=== PATIENT | female | born 1990 | race Two or more races ===

== ENCOUNTER 2021-08-12 06:57 | Emergency (ER) | payer OTHER, SELFPAY ==
[2021-08-12 07:04] VITALS: BP 118/76; BP 138/87; PULSE 77; PULSE 92; RESP 20; TEMP 37.1; O2SAT 100; O2SAT 97; BMI 33.6
[2021-08-12 07:38] VITALS: BP 129/80; PULSE 74; RESP 16; O2SAT 98
--- NOTE | 2021-08-12 07:52 | ECG_ITS ---
Test Reason : QUE Blood Pressure : / mmHG Vent. Rate : 072 BPM Atrial Rate : 072 BPM P-R Int : 152 ms QRS Dur : 072 ms QT Int : 412 ms P-R-T Axes : 034 018 015 degrees QTc Int : 451 ms Sinus rhythm Non specific T wave changes No previous ECGs available Referred By: Debbi Valdez Electronically Signed By:LIMA IRVING MD
[2021-08-12 07:59] LABS: Appearance Urine CLEAR; Color Urine YELLOW; Glucose Urine UA NEG (NEG); Leukocyte Esterase Urine NEG (NEG); Nitrite Urine NEG (NEG); Specific Gravity - Urine 1.025 (1.005-1.025); UACC Culture Trigger NO; Urine Blood 1+ (NEG); Urine Ketones NEG (NEG); Urine Protein NEG (NEG-TRACE)
[2021-08-12 08:02] LABS: UPreg QC Valid YES; Urine Pregnancy NEGATIVE (NEGATIVE)
[2021-08-12 08:16] LABS: Bacteria Urine TRACE /LPF; Squamous Epithelial Cell Urine TRACE /LPF
--- NOTE | 2021-08-12 08:18 | PC.NURSE ---
UA obtained/sent, EKG completed. Sinus arrhythmia noted on tele.
--- NOTE | 2021-08-12 08:33 | ED.GENADULT ---
HPI - General Adult General Chief complaint: General Medical Stated complaint: GENERALIZED NUMBNESS Time Seen by Provider: 08/12/21 07:30 Source: patient and family Mode of arrival: EMS History of Present Illness HPI narrative: 31-year-old female with history of asthma presents with complaints of not feeling well when she got up this morning to go to work, got into the shower in the hopes that she would feel better but then began feeling very short of breath and complaints of chest pressure and states that she got out of the shower and noted on using her cellphone it was recommended for her to take a cold shower which she attempted to do but then felt very shaky, cool, clammy and became very nauseous. Patient denies passing out and otherwise states she has had no fevers or chills recently but was seen at another facility for significant neck pain for which she had received Valium. However, she denies taking the Valium last night or this morning. Related Data Allergies Allergy/AdvReac Type Severity Reaction Status Date / Time No Known Allergies Allergy Verified 08/12/21 07:08 Review of Systems Review of Systems: Pertinent positives and negatives as stated in HPI 10 point review of systems as otherwise negative. PMFSH Past Medical History Source: nursing notes reviewed Medical History Asthma Social History Social History Patient Tobacco Use Status: Never used Tobacco Use of substances other than those prescribed or required for medical reasons: No Advance Directives: Yes Advance Directives Information Provided: Yes Advance Directives on File: No Patient : No Physical Exam ED Vital Signs: Vital Signs - 24 hr 08/12/21 07:04 08/12/21 07:38 08/12/21 09:28 Temperature 98.7 F Pulse Rate 77 74 68 Respiratory Rate 20 16 16 Blood Pressure 138/87 129/80 111/89 Pulse Oximetry 97 98 99 Oxygen Delivery Method Room Air Room Air Room Air BMI result Body Mass Index 33.6 VITAL SIGNS: Reviewed. GENERAL: Well developed, well nourished, in no acute distress. HEAD: Normocephalic/atraumatic EYES: PERRLA, EOMI EARS: Ext canals without abnormality OROPHARYNX: no oral lesions noted, posterior pharynx clear LUNGS: Normal breath sounds , no tachypnea/ rhonchi/rales/ wheeze. No adventitious sounds or accessory muscle use. SpO2<97> CARDIOVASCULAR: Regular rate and rhythm without noted murmurs ABDOMEN: Soft, non-tender, non-distended with bowel sounds. MUSCULOSKELETAL: No tenderness, deformities, or effusions noted on gross inspection. EXTREMITIES: No cyanosis, clubbing or edema. SKIN: Inspection of the skin reveals no rashes NEUROLOGIC: Alert and oriented x 4. Strength and sensation to light touch were grossly intact x 4. Course Course Course Narrative: 31-year-old female with history and clinical presentation what appears to be near syncopal vasovagal, will evaluate for etiology. Patient states that she is currently menstruating and it is normal flow for her. Review of all investigations without acute findings to better explain patient's underlying presentation. Patient states that she is feeling much better and suspect this may be medication related. She is able tolerate oral intake and is discharged home in stable condition. Medical Decision Making Lab Data Result diagrams: 08/12/21 08:51 08/12/21 08:51 Labs: Lab Results 08/12/21 08/12/21 08/12/21 Range/Units 07:48 07:48 08:51 WBC 5.1 (4.8-10.8) X10*3/uL RBC 4.17 L (4.20-5.50) X10*6/uL Hgb 10.4 L (12.0-16.0) g/dl Hct 31.7 L (37.0-47.0) % MCV 76.0 L (80.0-98.0) fL MCH 24.9 L (27.0-33.0) pg MCHC 32.8 (31.0-35.0) g/dl RDW 14.8 (11.0-16.0) % Plt Count 375 (160-400) X10*3/uL MPV 10.9 (9.4-12.3) fL Immature Gran % (Auto) 0.2 (0.0-0.4) % Neut % (Auto) 59.2 (45-73) % Lymph % (Auto) 31.9 (20-40) % [place] % (Auto) 6.9 (2-11) % Eos % (Auto) 1.4 (0-4) % Baso % (Auto) 0.4 (0-2) % Lymph # (Auto) 1.6 (1.2-4.9) X10*3/uL [place] # (Auto) 0.4 (0.1-1.2) X10*3/uL Eos # (Auto) 0.1 (0.0-0.4) X10*3/uL Baso # (Auto) 0.0 (0.0-0.2) X10*3/uL Abs Immat Gran (auto) 0.01 (0.00-0.03) X10*3/uL Absolute Neuts (auto) 3.0 (2.0-8.3) x10*3/uL Absolute Nucleated RBC 0.000 (0.0-0.012) X10*3/uL Nucleated RBC % (auto) 0.0 (0.0-0.2) /100WBC D-Dimer High Sensitivty NG/ML Sodium (135-145) mmol/L Potassium (3.3-5.1) mmol/L Chloride (96-108) mmol/L Carbon Dioxide (22-29) mmol/L Anion Gap (12-20) BUN (9-16) mg/dL Creatinine (0.5-1.4) mg/dL Estim Creat Clear Calc Estimated GFR Random Glucose (60-115) mg/dL Calcium (8.4-10.2) mg/dL Total Bilirubin (0.0-1.0) mg/dL AST (5-31) U/L ALT (0-31) U/L Alkaline Phosphatase (39-117) U/L Total Protein (6.5-8.0) g/dL Albumin (3.5-5.0) g/dL Urine Color YELLOW Urine Appearance CLEAR Urine pH 6.0 (5.0-8.0) Ur Specific [place] 1.025 (1.005-1.025) Urine Protein NEG (NEG-TRACE) MG/DL Urine Glucose (UA) NEG (NEG) MG/DL Urine Ketones NEG (NEG) MG/DL Urine Blood 1+ H (NEG) Urine Nitrite NEG (NEG) Ur Leukocyte Esterase NEG (NEG) Urine RBC 1-4 (0) /HPF Urine WBC 1-4 (0-4) /HPF Ur Squamous Epith Cells TRACE /LPF Urine Bacteria TRACE /LPF Urine Test NEGATIVE (NEGATIVE) 08/12/21 08/12/21 Range/Units 08:51 08:51 WBC (4.8-10.8) X10*3/uL RBC (4.20-5.50) X10*6/uL Hgb (12.0-16.0) g/dl Hct (37.0-47.0) % MCV (80.0-98.0) fL MCH (27.0-33.0) pg MCHC (31.0-35.0) g/dl RDW (11.0-16.0) % Plt Count (160-400) X10*3/uL MPV (9.4-12.3) fL Immature Gran % (Auto) (0.0-0.4) % Neut % (Auto) (45-73) % Lymph % (Auto) (20-40) % [place] % (Auto) (2-11) % Eos % (Auto) (0-4) % Baso % (Auto) (0-2) % Lymph # (Auto) (1.2-4.9) X10*3/uL [place] # (Auto) (0.1-1.2) X10*3/uL Eos # (Auto) (0.0-0.4) X10*3/uL Baso # (Auto) (0.0-0.2) X10*3/uL Abs Immat Gran (auto) (0.00-0.03) X10*3/uL Absolute Neuts (auto) (2.0-8.3) x10*3/uL Absolute Nucleated RBC (0.0-0.012) X10*3/uL Nucleated RBC % (auto) (0.0-0.2) /100WBC D-Dimer High Sensitivty 250 NG/ML Sodium 138 (135-145) mmol/L Potassium 4.5 (3.3-5.1) mmol/L Chloride 104 (96-108) mmol/L Carbon Dioxide 27 (22-29) mmol/L Anion Gap 12 (12-20) BUN 5 L (9-16) mg/dL Creatinine 0.83 (0.5-1.4) mg/dL Estim Creat Clear Calc 100.1 Estimated GFR > 60 Random Glucose 99 (60-115) mg/dL Calcium 8.7 (8.4-10.2) mg/dL Total Bilirubin 0.6 (0.0-1.0) mg/dL AST 18 (5-31) U/L ALT 9 (0-31) U/L Alkaline Phosphatase 71 (39-117) U/L Total Protein 7.7 (6.5-8.0) g/dL Albumin 4.0 (3.5-5.0) g/dL Urine Color Urine Appearance Urine pH (5.0-8.0) Ur Specific [place] (1.005-1.025) Urine Protein (NEG-TRACE) MG/DL Urine Glucose (UA) (NEG) MG/DL Urine Ketones (NEG) MG/DL Urine Blood (NEG) Urine Nitrite (NEG) Ur Leukocyte Esterase (NEG) Urine RBC (0) /HPF Urine WBC (0-4) /HPF Ur Squamous Epith Cells /LPF Urine Bacteria /LPF Urine Test (NEGATIVE) ECG Data Attestation: I personally reviewed and interpreted this ECG as follows: Prior ECG tracings: not available for review Interpretation: Normal sinus rhythm with marked sinus arrhythmia, HR- 72, no STEMI, W[place]/ QRS/ QTC are within normal limits. Discharge Plan Discharge Clinical Impression: Vasovagal episode Patient Disposition: Home, Self-Care Instructions: Near Syncope (ED) Additional Instructions: 1. Continue stay well hydrated and rest for the next 24 hours. 2. Follow-up with your primary care provider on Saturday morning. Return to the ER for any worsening symptoms. Referrals: Janneth Gunn MD [Primary Care Provider] -
[2021-08-12 08:55] LABS: MANUAL DIFF FLAG NO
[2021-08-12 09:11] LABS: Basophils Percent Auto 0.4 % (0-2); Eosinophils Absolute Auto 0.1 X10*3/uL (0.0-0.4); Eosinophils Percent Auto 1.4 % (0-4); Hematocrit 31.7 % (37.0-47.0); Hemoglobin 10.4 g/dl (12.0-16.0); Imm Gran Abs Auto 0.01 X10*3/uL (0.00-0.03); Imm Gran Pct Auto 0.2 % (0.0-0.4); Lymphocytes Absolute Auto 1.6 X10*3/uL (1.2-4.9); Lymphocytes Percent Auto 31.9 % (20-40); Mean Corpuscular HGB Conc 32.8 g/dl (31.0-35.0); Mean Corpuscular Hemoglobin 24.9 pg (27.0-33.0); Mean Platelet Volume 10.9 fL (9.4-12.3); Monocytes Absolute Auto 0.4 X10*3/uL (0.1-1.2); Monocytes Percent Auto 6.9 % (2-11); Neutrophils Percent Auto 59.2 % (45-73); Platelet Count 375 X10*3/uL (160-400); Red Blood Count 4.17 X10*6/uL (4.20-5.50); Red Cell Distribution Width 14.8 % (11.0-16.0); White Blood Count 5.1 X10*3/uL (4.8-10.8)
[2021-08-12 09:26] LABS: Alanine Aminotransferase 9 U/L (0-31); Alkaline Phosphatase 71 U/L (39-117); Anion Gap 12 (12-20); Aspartate Amino Transferase 18 U/L (5-31); Bilirubin Total 0.6 mg/dL (0.0-1.0); Blood Urea Nitrogen 5 mg/dL (9-16); Calcium 8.7 mg/dL (8.4-10.2); Carbon Dioxide 27 mmol/L (22-29); Chloride 104 mmol/L (96-108); Creatinine Clr Calc Pharmacy 100.1; Estimated Glomerular Filt Rate > 60; Glucose Random 99 mg/dL (60-115); Potassium 4.5 mmol/L (3.3-5.1); Sodium 138 mmol/L (135-145); Total Protein 7.7 g/dL (6.5-8.0)
[2021-08-12 09:28] VITALS: BP 111/89; PULSE 68; RESP 16; O2SAT 99
[2021-08-12 09:41] LABS: D Dimer High Sensitivity 250 NG/ML
== END 2021-08-12 10:44 | disposition home or self-care (01) ==
PROVIDERS: Emergency Provider Student in an Organized Health Care Education/Training Program; PCP Internal Medicine
DX: R55 Syncope and collapse (principal); I49.8 Other specified cardiac arrhythmias; J45.909 Unspecified asthma, uncomplicated
CPT/HCPCS: 36415; 80053; 81001; 81003; 81025; 85025; 85379; 93005; 99283; 99284

== ENCOUNTER 2021-09-19 11:43 | Emergency (ER) | payer OTHER, SELFPAY ==
--- NOTE | ~2021-09-19 | XR_ITS ---
EXAMINATION: XR CHEST CLINICAL INFORMATION: Palpitations COMPARISON: None TECHNIQUE: Frontal view of the chest was obtained. FINDINGS: The lungs are clear. The heart is normal in size. The vascularity is normal. There is no airspace solid lesion, pneumothorax, groundglass opacity, or effusion. The hilar and mediastinal contours and visualized bony structures are unremarkable. XR/XR chest 1V IMPRESSION: Normal study.
--- NOTE | 2021-09-19 12:25 | ECG_ITS ---
Test Reason : weakness Blood Pressure : / mmHG Vent. Rate : 071 BPM Atrial Rate : 071 BPM P-R Int : 160 ms QRS Dur : 074 ms QT Int : 398 ms P-R-T Axes : 042 032 034 degrees QTc Int : 432 ms Normal sinus rhythm Normal ECG When compared with ECG of 12-AUG-2021 07:54, Nonspecific ST and T wave abnormality less prominent. Referred By: Generic ED Physician Electronically Signed By:ARTURO LYNCH
[2021-09-19 12:26] VITALS: BP 125/80; PULSE 80; RESP 18; TEMP 36.9; O2SAT 97; BMI 34.5
[2021-09-19 12:51] LABS: MANUAL DIFF FLAG NO
[2021-09-19 12:52] LABS: Basophils Percent Auto 0.5 % (0-2); Eosinophils Absolute Auto 0.1 X10*3/uL (0.0-0.4); Eosinophils Percent Auto 1.4 % (0-4); Hematocrit 33.1 % (37.0-47.0); Hemoglobin 10.9 g/dl (12.0-16.0); Imm Gran Abs Auto 0.01 X10*3/uL (0.00-0.03); Imm Gran Pct Auto 0.2 % (0.0-0.4); Lymphocytes Absolute Auto 1.6 X10*3/uL (1.2-4.9); Lymphocytes Percent Auto 26.5 % (20-40); Mean Corpuscular HGB Conc 32.9 g/dl (31.0-35.0); Mean Corpuscular Hemoglobin 25.5 pg (27.0-33.0); Mean Corpuscular Volume 77.3 fL (80.0-98.0); Mean Platelet Volume 10.7 fL (9.4-12.3); Monocytes Absolute Auto 0.4 X10*3/uL (0.1-1.2); Monocytes Percent Auto 6.7 % (2-11); Neutrophils Absolute Auto 3.8 x10*3/uL (2.0-8.3); Neutrophils Percent Auto 64.7 % (45-73); Platelet Count 333 X10*3/uL (160-400); Red Blood Count 4.28 X10*6/uL (4.20-5.50); Red Cell Distribution Width 14.9 % (11.0-16.0); White Blood Count 5.8 X10*3/uL (4.8-10.8)
[2021-09-19 13:05] LABS: Anion Gap 10 (12-20); Blood Urea Nitrogen 7 mg/dL (9-16); Carbon Dioxide 29 mmol/L (22-29); Chloride 104 mmol/L (96-108); Creatinine Clr Calc Pharmacy 100.4; Estimated Glomerular Filt Rate > 60; Glucose Random 105 mg/dL (60-115); Potassium 4.1 mmol/L (3.3-5.1); Sodium 139 mmol/L (135-145)
[2021-09-19 13:13] LABS: Troponin-I High Sensitivity < 3.5 ng/L (<3.5-17.0)
[2021-09-19 21:00] LABS: Thyroid Stimulating Hormone 4.74 uIU/mL (0.32-4.0)
== END 2021-09-19 20:45 | disposition left against medical advice (07) ==
LOC: HO.ED 20:47
PROVIDERS: Physician Assistant; Emergency Provider Emergency Medicine; PCP Internal Medicine
DX: R53.1 Weakness (principal); R00.2 Palpitations; D64.9 Anemia, unspecified; E66.9 Obesity, unspecified; Z68.34 Body mass index [BMI] 34.0-34.9, adult
CPT/HCPCS: 36415; 71045; 80048; 84443; 84484; 85025; 93005; 99283

== ENCOUNTER 2021-09-23 15:15 | Emergency (ER) | payer OTHER, SELFPAY ==
--- NOTE | ~2021-09-23 | CT_ITS ---
EXAMINATION: CT HEAD WITHOUT CONTRAST CLINICAL INFORMATION: Dizziness with weakness and extremity tingling COMPARISON: None TECHNIQUE: Imaging was performed from the skull base to vertex without intravenous administration of contrast. This CT examination was performed using dose optimization techniques as appropriate, variously including the following: *Automated exposure control *Adjustment of mA and/or kV according to patient size (this includes techniques or standardized protocols for targeted exams where dose is matched to indication/reason for exam; i.e. extremities or head) *Use of iterative reconstruction technique Total exam dose length product: 634 mGy-cm FINDINGS: No intra or extra-axial fluid collection, hemorrhage, or mass. No ventriculomegaly. No midline shift or herniation. Basal cisterns are patent. Mitchell-white matter differentiation is maintained. No territorial encephalomalacia. No significant volume loss. There is no abnormal attenuation within the brain parenchyma. No calvarial fracture or soft tissue abnormality. The mastoid air cells and visualized portions of the paranasal sinuses are well aerated. CT/CT head/brain wo con IMPRESSION: 1. No acute intracranial pathology.
[2021-09-23 15:23] VITALS: BP 140/100; PULSE 124; O2SAT 95
[2021-09-23 15:28] VITALS: BP 116/84; PULSE 95; RESP 18; TEMP 36.8; O2SAT 96; BMI 34.5
[2021-09-23 18:15] LABS: MANUAL DIFF FLAG NO
[2021-09-23 18:21] LABS: INTERNATIONAL NORM RATIO 1.2 (0.9-1.1); Prothrombin Time 14.4 SEC (10.0-13.1)
[2021-09-23 18:22] LABS: Basophils Percent Auto 0.4 % (0-2); Eosinophils Percent Auto 0.4 % (0-4); Hematocrit 33.7 % (37.0-47.0); Hemoglobin 11.2 g/dl (12.0-16.0); Imm Gran Abs Auto 0.05 X10*3/uL (0.00-0.03); Imm Gran Pct Auto 0.7 % (0.0-0.4); Lymphocytes Absolute Auto 1.7 X10*3/uL (1.2-4.9); Lymphocytes Percent Auto 26.1 % (20-40); Mean Corpuscular HGB Conc 33.2 g/dl (31.0-35.0); Mean Corpuscular Hemoglobin 25.5 pg (27.0-33.0); Mean Corpuscular Volume 76.6 fL (80.0-98.0); Mean Platelet Volume 10.9 fL (9.4-12.3); Monocytes Absolute Auto 0.5 X10*3/uL (0.1-1.2); Monocytes Percent Auto 6.9 % (2-11); Neutrophils Absolute Auto 4.4 x10*3/uL (2.0-8.3); Neutrophils Percent Auto 65.5 % (45-73); Platelet Count 371 X10*3/uL (160-400); Red Cell Distribution Width 14.5 % (11.0-16.0); White Blood Count 6.7 X10*3/uL (4.8-10.8)
[2021-09-23 18:25] LABS: Estimated Average Glucose 103 mg/dL; Hemoglobin A1c % 5.2 %
[2021-09-23 18:33] LABS: Alanine Aminotransferase 7 U/L (0-31); Albumin Level 4.4 g/dL (3.5-5.0); Alkaline Phosphatase 76 U/L (39-117); Anion Gap 15 (12-20); Aspartate Amino Transferase 13 U/L (5-31); Bilirubin Total 0.4 mg/dL (0.0-1.0); Blood Urea Nitrogen 8 mg/dL (9-16); Calcium 9.3 mg/dL (8.4-10.2); Carbon Dioxide 28 mmol/L (22-29); Chloride 104 mmol/L (96-108); Creatinine Clr Calc Pharmacy 105.4; Estimated Glomerular Filt Rate > 60; Glucose Random 92 mg/dL (60-115); Magnesium 1.9 mg/dL (1.6-2.6); Potassium 3.8 mmol/L (3.3-5.1); Sodium 143 mmol/L (135-145); Total Protein 8.4 g/dL (6.5-8.0)
--- NOTE | 2021-09-23 19:19 | ED.EXTPRO ---
HPI - Extremity Problem General Chief complaint: Back Pain/Injury Stated complaint: leg weakness Time Seen by Provider: 09/23/21 17:23 Source: patient, family (Younger daughters at bedside) and EMS Mode of arrival: EMS Limitations: no limitations History of Present Illness HPI Narrative: 31-year-old female with a past medical history of hypochronic anemia and iron deficiency who is currently on iron supplements taking as prescribed and obesity presenting to the ED with complaints of tingling from her thigh areas radiating down to her bilateral lower extremities and tingling to her bilateral arms/hands and feeling weak to her bilateral legs and some difficult walking. Reports that she has a history of sciatic nerve issues although denies any back pain at this time. She reports associated dizziness and nausea. She denies any headaches, recent falls or trauma, changes in vision, jaw pain, chest pain, shortness of breath, dyspnea exertion, orthopnea, palpitations, neck pain, neck injury, back pain, back injury, rashes, urinary bowel incontinence or retention, saddle anesthesias, IV drug use, recent illness or sickness, history of COVID or any other symptoms complaints or concerns at this time. Related Data Previous Rx's Medication Instructions Recorded ferrous fumarate 324 mg (106 mg 324 mg PO DAILY #30 tabs 08/31/21 iron) tablet gabapentin 100 mg capsule 100 mg PO BID Paresthesias #14 caps 09/23/21 Allergies Allergy/AdvReac Type Severity Reaction Status Date / Time No Known Allergies Allergy Verified 09/19/21 12:26 Review of Systems Review of Systems: Constitutional : No Weight loss, No Fever, No Chills, No Night Sweats, No Fatigue, No Malaise ENT/Mouth : No Hearing loss, No Ear Pain, No Nasal Congestion, No Sinus Pain, No Hoarseness, No sore throat, No Rhinorrhea, No Swallowing Difficulty Eyes: No Eye Pain, No Swelling, No Redness, No Foreign Body, No Discharge, No Vision Changes Cardiovascular : No Chest Pain, No SOB, No Dyspnea on Exertion, No Orthopnea, No Edema, No Palpitations Respiratory : No Cough, No Sputum, No Wheezing, No Smoke Exposure, No Dyspnea Gastrointestinal : No Nausea, No Vomiting, No Diarrhea, No Constipation, No abdominal Pain, No Hematochezia, No Melena Genitourinary : no irregular bleeding, No Dysuria, No Urinary Frequency, No Hematuria, No Urinary Incontinence, No Urgency, No Flank Pain, No Urinary Flow Changes, No Hesitancy Musculoskeletal : No joint pain, No Myalgias, No Joint Swelling Skin : No Skin Lesions, No rash Neuro : + paresthesias, + Dizziness, No Weakness, No Numbness, No Loss of Consciousness, No Headache Psych : No Anxiety/Panic, No Depression, No SI/HI/AH/VH, No Social Issues, Heme/Lymph: No Bruising, No Bleeding,No Lymphadenopathy Endocrine : No Polyuria, No Polydipsia, No Temperature Intolerance Yes all other systems are reviewed and are negative [facility] Past Medical History Attestation statement: The following information was validated with the patient. Source: old records reviewed and nursing notes reviewed Medical History Asthma Family history of thyroid disease in mother Family History Family History Father Substance use disorder Mental health disorder Mother Mental health disorder Social History Social History Housing: Apartment Patient Tobacco Use Status: Never used Tobacco e-Cigarette/Vaping Use: Never Used Advance Directives: No Advance Directives Information Provided: No service: No Current occupational status: employed Cognitive needs: No Hearing needs: No Vision needs: No Physical Exam Vital Signs: Vital Signs: Last Vital Signs Temp 98.3 F 09/23/21 15:28 Pulse 95 09/23/21 15:28 Resp 18 09/23/21 15:28 BP 116/84 09/23/21 15:28 Pulse Ox 96 09/23/21 15:28 O2 Del Method 09/23/21 15:28 BMI result Body Mass Index 34.5 vital signs have been reviewed as normal and appeared to be correct. Blood pressure normal. Heart rate normal. Respiration rate normal. Temperature normal. Oxygen saturation normal. Appearance: Alert. Oriented X3. No acute distress. Head: Normal external exam. Normocephalic. Atraumatic. No Strauss signs noted. No raccoon eyes noted Eyes: PERRLA. EOMI. Conjunctiva and sclera normal. Eyelids normal. ENT: EAC normal. TM's Normal. Pharynx normal. Uvula midline. Moist mucous membranes. No trismus noted. No drooling noted. No muffled voice noted. Neck: Normal inspection. Neck supple. FROM. No adenopathy. Thyroid Normal. No meningeal signs. No neck mass noted. CVS: Normal heart rate and rhythm. Heart sound normal. No murmurs noted. Pulses normal throughout. Respiratory: No respiratory distress. Painless inspiration. Breath sounds normal. No wheezes/rales/rhonchi noted. Chest nontender. No accessory muscle usage noted or decreased air movement noted. Abdomen: Soft and nontender. Bowel sounds normal in all 4 quadrants. No distention noted. No organomegaly noted. No visible injury noted. Back: No CVA tenderness. Full range of motion noted. No obvious deformities, or edema. Full ROM in back and lower extremities. 5/5 strength hip extension/flexion, abduction, adduction. Straight leg raise test negative on right; Straight leg raise test negative on left; Reflexes normal ankle and knee bilaterally; EHL motor strength normal bilaterally. No rashes/lesion/induration/fluctuance or signs infection noted. Skin: Skin warm and dry. Normal skin color. Normal skin turgor. No rashes/lesions/lacerations noted. Extremities: No lower extremity edema. No calf tenderness noted. Extremities exhibit normal range of motion. Extremities nontender. Neuro: Oriented X 3. No motor deficit. No sensory deficit. Reflexes normal. Patient has a normal steady gait. She also has been up to the bathroom without any difficulties or assistance or assistive devices. Course Course Course Narrative: 31-year-old female with a past medical history of hypochronic anemia and iron deficiency who is currently on iron supplements taking as prescribed and obesity presenting to the ED with complaints of tingling from her thigh areas radiating down to her bilateral lower extremities and tingling to her bilateral arms/hands and feeling weak to her bilateral legs and some difficult walking. Reports that she has a history of sciatic nerve issues although denies any back pain at this time. She reports associated dizziness and nausea. Labs obtained and patient mild baseline anemia similar when compared to prior. Otherwise all other labs are within normal limits. CT scan of brain within normal limits. Patient has been up to the bathroom multiple times. She has a normal steady gait. No neuro deficits noted. She has normal sensation on all 4 extremities. She has a normal motor on all 4 extremities. She is requesting something for pain therefore explained to her that we can send her home with a short course of gabapentin for paresthesias in that she should follow-up with her PCP for further evaluation treatment for nerve pain and to return if any new or worsening symptoms. Patient understands agrees with this plan. MDM - Extremity (Nontraumatic) Medical Records Attestation: I reviewed the patient's medical records. Lab Data Attestation: I reviewed the patient's lab results. Result diagrams: 09/23/21 18:01 09/23/21 18:01 Labs: Lab Results 09/23/21 09/23/21 09/23/21 Range/Units 18:01 18:01 18:01 WBC 6.7 (4.8-10.8) X10*3/uL RBC 4.40 (4.20-5.50) X10*6/uL Hgb 11.2 L (12.0-16.0) g/dl Hct 33.7 L (37.0-47.0) % MCV 76.6 L (80.0-98.0) fL MCH 25.5 L (27.0-33.0) pg MCHC 33.2 (31.0-35.0) g/dl RDW 14.5 (11.0-16.0) % Plt Count 371 (160-400) X10*3/uL MPV 10.9 (9.4-12.3) fL Immature Gran % (Auto) 0.7 H (0.0-0.4) % Neut % (Auto) 65.5 (45-73) % Lymph % (Auto) 26.1 (20-40) % [place] % (Auto) 6.9 (2-11) % Eos % (Auto) 0.4 (0-4) % Baso % (Auto) 0.4 (0-2) % Lymph # (Auto) 1.7 (1.2-4.9) X10*3/uL [place] # (Auto) 0.5 (0.1-1.2) X10*3/uL Eos # (Auto) 0.0 (0.0-0.4) X10*3/uL Baso # (Auto) 0.0 (0.0-0.2) X10*3/uL Abs Immat Gran (auto) 0.05 H (0.00-0.03) X10*3/uL Absolute Neuts (auto) 4.4 (2.0-8.3) x10*3/uL Absolute Nucleated RBC 0.000 (0.0-0.012) X10*3/uL Nucleated RBC % (auto) 0.0 (0.0-0.2) /100WBC PT 14.4 H (10.0-13.1) SEC INR 1.2 H (0.9-1.1) Sodium 143 (135-145) mmol/L Potassium 3.8 (3.3-5.1) mmol/L Chloride 104 (96-108) mmol/L Carbon Dioxide 28 (22-29) mmol/L Anion Gap 15 (12-20) BUN 8 L (9-16) mg/dL Creatinine 0.80 (0.5-1.4) mg/dL Estim Creat Clear Calc 105.4 Estimated GFR > 60 Random Glucose 92 (60-115) mg/dL Estimat Average Glucose mg/dL Hemoglobin A1c % % Calcium 9.3 (8.4-10.2) mg/dL Magnesium 1.9 (1.6-2.6) mg/dL Total Bilirubin 0.4 (0.0-1.0) mg/dL AST 13 (5-31) U/L ALT 7 (0-31) U/L Alkaline Phosphatase 76 (39-117) U/L Total Protein 8.4 H (6.5-8.0) g/dL Albumin 4.4 (3.5-5.0) g/dL 09/23/21 Range/Units 18:01 WBC (4.8-10.8) X10*3/uL RBC (4.20-5.50) X10*6/uL Hgb (12.0-16.0) g/dl Hct (37.0-47.0) % MCV (80.0-98.0) fL MCH (27.0-33.0) pg MCHC (31.0-35.0) g/dl RDW (11.0-16.0) % Plt Count (160-400) X10*3/uL MPV (9.4-12.3) fL Immature Gran % (Auto) (0.0-0.4) % Neut % (Auto) (45-73) % Lymph % (Auto) (20-40) % [place] % (Auto) (2-11) % Eos % (Auto) (0-4) % Baso % (Auto) (0-2) % Lymph # (Auto) (1.2-4.9) X10*3/uL [place] # (Auto) (0.1-1.2) X10*3/uL Eos # (Auto) (0.0-0.4) X10*3/uL Baso # (Auto) (0.0-0.2) X10*3/uL Abs Immat Gran (auto) (0.00-0.03) X10*3/uL Absolute Neuts (auto) (2.0-8.3) x10*3/uL Absolute Nucleated RBC (0.0-0.012) X10*3/uL Nucleated RBC % (auto) (0.0-0.2) /100WBC PT (10.0-13.1) SEC INR (0.9-1.1) Sodium (135-145) mmol/L Potassium (3.3-5.1) mmol/L Chloride (96-108) mmol/L Carbon Dioxide (22-29) mmol/L Anion Gap (12-20) BUN (9-16) mg/dL Creatinine (0.5-1.4) mg/dL Estim Creat Clear Calc Estimated GFR Random Glucose (60-115) mg/dL Estimat Average Glucose 103 mg/dL Hemoglobin A1c % 5.2 % Calcium (8.4-10.2) mg/dL Magnesium (1.6-2.6) mg/dL Total Bilirubin (0.0-1.0) mg/dL AST (5-31) U/L ALT (0-31) U/L Alkaline Phosphatase (39-117) U/L Total Protein (6.5-8.0) g/dL Albumin (3.5-5.0) g/dL Imaging Data CT scan of brain without contrast: Attestation: I personally reviewed and interpreted this imaging study as follows: Radiologist's impression: FINDINGS: No intra or extra-axial fluid collection, hemorrhage, or mass. No ventriculomegaly. No midline shift or herniation. Basal cisterns are patent. Mitchell-white matter differentiation is maintained. No territorial encephalomalacia. ?No significant volume loss. There is no abnormal attenuation within the brain parenchyma. No calvarial fracture or soft tissue abnormality. ?The mastoid air cells and visualized portions of the paranasal sinuses are well aerated. CT/CT head/brain wo con IMPRESSION: 1. No acute intracranial pathology. Discharge Plan Discharge Clinical Impression: Paresthesias, Dizziness Patient Disposition: Home, Self-Care Instructions: Paresthesia (ED) Prescriptions: New gabapentin 100 mg capsule 100 mg PO BID Qty: 14 0RF No Action ferrous fumarate 324 mg (106 mg iron) tablet 324 mg PO DAILY Qty: 30 3RF Referrals: Physician,Unknown J [Primary Care Provider] - 2 days (your pcp) Stand Alone Forms: Work/School Release
== END 2021-09-23 20:18 | disposition home or self-care (01) ==
PROVIDERS: Physician Assistant Medical; Emergency Provider Emergency Medicine
DX: R20.2 Paresthesia of skin (principal); R42 Dizziness and giddiness; E66.9 Obesity, unspecified; Z68.34 Body mass index [BMI] 34.0-34.9, adult
CPT/HCPCS: 36415; 70450; 80053; 83036; 83735; 85025; 85610; 99282; 99284

== ENCOUNTER 2021-11-02 10:11 | Outpatient (REF) | payer OTHER, SELFPAY ==
[2021-11-02 11:25] LABS: MANUAL DIFF FLAG NO
[2021-11-02 11:43] LABS: Basophils Percent Auto 0.5 % (0-2); Eosinophils Absolute Auto 0.1 X10*3/uL (0.0-0.4); Eosinophils Percent Auto 1.7 % (0-4); Hematocrit 32.1 % (37.0-47.0); Hemoglobin 10.7 g/dl (12.0-16.0); Imm Gran Abs Auto 0.02 X10*3/uL (0.00-0.03); Imm Gran Pct Auto 0.3 % (0.0-0.4); Lymphocytes Absolute Auto 2.2 X10*3/uL (1.2-4.9); Lymphocytes Percent Auto 34.2 % (20-40); Mean Corpuscular HGB Conc 33.3 g/dl (31.0-35.0); Mean Corpuscular Hemoglobin 25.8 pg (27.0-33.0); Mean Corpuscular Volume 77.3 fL (80.0-98.0); Mean Platelet Volume 11.8 fL (9.4-12.3); Monocytes Absolute Auto 0.5 X10*3/uL (0.1-1.2); Monocytes Percent Auto 8.3 % (2-11); Neutrophils Absolute Auto 3.6 x10*3/uL (2.0-8.3); Platelet Count 365 X10*3/uL (160-400); Red Blood Count 4.15 X10*6/uL (4.20-5.50); Red Cell Distribution Width 15.2 % (11.0-16.0); White Blood Count 6.5 X10*3/uL (4.8-10.8)
[2021-11-02 12:27] LABS: Cholesterol 164 mg/dL; HDL Cholesterol 44 mg/dL; Iron 38 mcg/dL (30-160); LDL Cholesterol Calculated 111 mg/dl; Percent Iron Saturation 12 % (15-50); Total Iron Binding Capacity 307 mcg/dL (228-428); Triglycerides 49 mg/dL; Unsaturated Iron Binding 269 ug/dL
[2021-11-02 12:52] LABS: Free T4 (Free Thyroxine) 1.02 ng/dL (0.71-1.85); TSH reflex Free T4 1.76 uIU/mL (0.32-4.0)
== END 2021-11-02 10:12 | disposition home or self-care (01) ==
LOC: HO.HMGCLDS 10:11
PROVIDERS: PCP Internal Medicine; Visit Provider Internal Medicine
DX: D50.9 Iron deficiency anemia, unspecified (principal); E66.9 Obesity, unspecified; E03.9 Hypothyroidism, unspecified; R79.89 Other specified abnormal findings of blood chemistry; Z83.49 Family history of other endocrine, nutritional and metabolic diseases
CPT/HCPCS: 36415; 80061; 83540; 84439; 84443; 85025

== ENCOUNTER 2021-11-03 14:39 | Outpatient (REF) | payer OTHER, SELFPAY ==
--- NOTE | ~2021-11-03 | XR_ITS ---
EXAMINATION: XR LUMBOSACRAL SPINE WITH OBLIQUES CLINICAL INFORMATION: Lower back pain. COMPARISON: None TECHNIQUE: AP, both oblique, and lateral views of the lumbar spine. Lateral view of the lumbosacral junction. FINDINGS: Vertebral body heights are normal. At L5-S1, there is a 3 mm retrolisthesis. The remaining disc spaces are relatively well-maintained. No acute fracture or spondylolisthesis is seen. The posterior elements are intact. There is no spondylolysis defect noted on the oblique views. The paravertebral soft tissues are unremarkable. XR/XR lumbar spine 4V min IMPRESSION: 1. There is mild degenerative disc disease at L5-S1. 2. No acute fracture or spondylolisthesis is seen.
== END 2021-11-03 14:40 | disposition home or self-care (01) ==
LOC: HO.HMGCX 14:39
PROVIDERS: PCP Internal Medicine; Visit Provider Internal Medicine
DX: M54.50 Low back pain, unspecified (principal)
CPT/HCPCS: 72110

== ENCOUNTER 2021-12-05 12:00 | Outpatient (REF) | payer OTHER, SELFPAY ==
[2021-12-06 03:30] LABS: CT PCR NOT DETECTED (Not Detect.); NG PCR NOT DETECTED (Not Detect.)
[2021-12-06 12:44] LABS: BV Int Neg Control Negative (Negative); BV Int Pos Control Positive (Positive)
== END 2021-12-05 12:01 | disposition home or self-care (01) ==
LOC: HO.LNP 12:00
PROVIDERS: Visit Provider Advanced Practice Midwife
DX: Z01.419 Encounter for gynecological examination (general) (routine) without abnormal findings (principal)
CPT/HCPCS: 87480; 87491; 87510; 87591; 87660; 88142

== ENCOUNTER 2021-12-18 17:23 | Emergency (ER) | payer OTHER, SELFPAY ==
[2021-12-18 18:41] VITALS: BP 139/86; PULSE 98; RESP 16; TEMP 37; O2SAT 99; BMI 32.0
[2021-12-18 19:17] LABS: MANUAL DIFF FLAG NO
[2021-12-18 19:20] LABS: Appearance Urine Clear; Basophils Percent Auto 0.4 % (0-2); Color Urine Yellow; Eosinophils Percent Auto 0.4 % (0-4); Glucose Urine UA Negative (Negative); Hemoglobin 11.1 g/dl (12.0-16.0); Imm Gran Abs Auto 0.01 X10*3/uL (0.00-0.03); Imm Gran Pct Auto 0.4 % (0.0-0.4); Leukocyte Esterase Urine Negative (Negative); Lymphocytes Absolute Auto 0.4 X10*3/uL (1.2-4.9); Lymphocytes Percent Auto 13.8 % (20-40); Mean Corpuscular HGB Conc 33.6 g/dl (31.0-35.0); Mean Corpuscular Hemoglobin 25.8 pg (27.0-33.0); Mean Corpuscular Volume 76.6 fL (80.0-98.0); Mean Platelet Volume 10.5 fL (9.4-12.3); Monocytes Absolute Auto 0.5 X10*3/uL (0.1-1.2); Monocytes Percent Auto 18.8 % (2-11); Neutrophils Absolute Auto 1.8 x10*3/uL (2.0-8.3); Neutrophils Percent Auto 66.2 % (45-73); Nitrite Urine Negative (Negative); PH 5.5 (5.0-9.0); Platelet Count 308 X10*3/uL (160-400); Red Blood Count 4.31 X10*6/uL (4.20-5.50); Specific Gravity - Urine >= 1.030 (1.005-1.025); UMIC TRIGGER UACC YES; Urine Blood Moderate (2+) (Negative); Urine Ketones 15 mg/dL (Negative); Urine Protein 30 (1+) mg/dL (Neg-Trace); White Blood Count 2.8 X10*3/uL (4.8-10.8)
[2021-12-18 19:31] LABS: Anion Gap 17 (12-20); Blood Urea Nitrogen 8 mg/dL (9-16); Calcium 9.5 mg/dL (8.4-10.2); Carbon Dioxide 24 mmol/L (22-29); Chloride 104 mmol/L (96-108); Creatinine Clr Calc Pharmacy 101.2; Estimated Glomerular Filt Rate > 60; Glucose Random 99 mg/dL (60-115); Potassium 4.1 mmol/L (3.3-5.1); Sodium 141 mmol/L (135-145)
[2021-12-18 19:34] LABS: WBC Urine 0-5 /HPF (0-5)
[2021-12-18 19:35] LABS: Bacteria Urine 1+ (None Seen); Hyaline Casts Urine 0-2 /LPF (0-2)
--- NOTE | 2021-12-18 20:47 | ED.FEMALEGU ---
HPI - Female Genitourinary General Chief complaint: Urogenital-Female Stated complaint: back pain ?allergic reaction to ointment Time Seen by Provider: 12/18/21 20:35 Source: patient Mode of arrival: ambulatory Limitations: no limitations History of Present Illness HPI Narrative: 31 yo female with history of sciatica, anemia, obesity, recently diagnosed BV and yeast infection who presents to the ER for evaluation of nausea and low back pain. She states the nausea started the same time she was prescribed the metronidazole for BV. She is on her menses and usually has worsening sciatica and low back pain with this. She denies any fever or chills. Her vaginal discharge is improved. She denies any abdominal pain, vomiting or diarrhea. No LE weakness, bowel/bladder incontinence. She has been using lidocaine patches for her back with minimal relief. MD elicited complaint: vaginal discharge and other (back pain and nausea) Onset (ago): day(s) Location of symptoms: external genitalia and other (back) Severity: moderate Quality of pain: sharp Consistency: intermittent Vaginal discharge: white Vaginal bleeding: moderate Exacerbating factors: menstrual period Relieving factors: none Associated symptoms: denies other symptoms Treatment prior to arrival: none Patient : No Related Data Home Medications Medication Instructions Recorded Confirmed ibuprofen 600 mg tablet 600 mg PO Q6H 11/03/21 12/05/21 [id number] 8 mg-folic 1 tab PO DAILY 12/05/21 12/05/21 ac 400 mcg-vit K 10 mcg chew tablet (Centrum Chewables) Previous Rx's Medication Instructions Recorded ferrous fumarate 324 mg (106 mg 324 mg PO DAILY #30 tabs 08/31/21 iron) tablet gabapentin 100 mg capsule 100 mg PO BID Paresthesias #14 caps 09/23/21 meclizine 25 mg tablet 25 mg PO TID PRN motion sickness 10/31/21 #20 tabs fluconazole 150 mg tablet 150 mg PO DAILY 1 dose #1 tab 12/14/21 (Diflucan) metronidazole 500 mg tablet 500 mg PO BID 7 days #14 tabs 12/14/21 cyclobenzaprine 10 mg tablet 10 mg PO TID PRN muscle spasm #8 12/18/21 tabs ibuprofen 600 mg tablet 600 mg PO Q8H PRN pain #14 tabs 12/18/21 ondansetron 4 mg disintegrating 4 mg PO Q8H PRN nausea and 12/18/21 tablet vomiting #7 tabs Allergies Allergy/AdvReac Type Severity Reaction Status Date / Time No Known Allergies Allergy Verified 12/05/21 11:20 Review of Systems Review of Systems: Constitutional: No Fever, No Chills Cardiovascular: No Chest Pain, No SOB Gastrointestinal: + Nausea, No Vomiting, No Diarrhea, No abdominal Pain Genitourinary: No Dysuria, No Urinary Frequency, No Hematuria, +improving vaginal discharge Musculoskeletal: + joint pain, + Myalgias Skin: No Skin Lesions, No rash Neuro: No Weakness, No Numbness, No Dizziness, No Headache Psych: No Anxiety/Panic, No Depression Heme/Lymph: No Bruising, No Lymphadenopathy PMFSH Past Medical History Medical History Asthma Family history of thyroid disease in mother Low back pain potentially associated with radiculopathy Family History Family History Father Substance use disorder Mental health disorder Mother Mental health disorder Thyroid disorder Social History Social History Housing: Apartment Alcohol intake: never Patient Tobacco Use Status: Never used Tobacco Smoked in Last 30 Days: No e-Cigarette/Vaping Use: Never Used Use of substances other than those prescribed or required for medical reasons: No Advance Directives: No service: No Current occupational status: unemployed Cognitive needs: No Hearing needs: No Vision needs: No Physical Exam Vital Signs: Vital Signs: Last Vital Signs Temp 98.6 F 12/18/21 18:41 Pulse 98 12/18/21 18:41 Resp 16 12/18/21 18:41 BP 139/86 12/18/21 18:41 Pulse Ox 99 12/18/21 18:41 O2 Del Method 12/18/21 18:41 BMI result Body Mass Index 32.0 Appearance: Alert. Oriented X3. No acute distress. HEENT: normal external inspection Neck: Normal inspection. CVS: Normal heart rate and rhythm. Pulses normal. Respiratory: No respiratory distress. Breath sounds normal. Abdomen: Soft and nontender. +BS x4. Pelvic deferred Back: normal inspection, normal ROM. tenderness of the lower lumbar area throughout with bilateral SI joint tenderness. negative straight leg raise test. Skin: Skin warm and dry. Normal skin color. Normal skin turgor. No rashes. Extremities: No lower extremity edema. Neuro: Oriented X 3.Grossly normal, nonfocal. normal DTRs Course Course Course Narrative: 31-year-old female with history of sciatica and recently diagnosed BV and yeast infection presents to the ER for evaluation low back pain and nausea in the setting of taking metronidazole while she is on her menses. Overall her exam is unremarkable. She states her vaginal discharge is improving with the metronidazole but she is nauseous when she takes it. Will plan to give her sublingual Zofran to take prior to taking her metronidazole. Her low back pain his consistent with a sciatica flare, she usually responds well to NSAIDs in short course of muscle relaxers. We discussed supportive care and return precautions. She is stable for DC. Patient agrees with plan. MDM - Female Genitourinary Lab Data Result diagrams: 12/18/21 19:06 12/18/21 19:06 Labs: Lab Results 12/18/21 12/18/21 12/18/21 Range/Units 19:06 19:06 19:06 WBC 2.8 L (4.8-10.8) X10*3/uL RBC 4.31 (4.20-5.50) X10*6/uL Hgb 11.1 L (12.0-16.0) g/dl Hct 33.0 L (37.0-47.0) % MCV 76.6 L (80.0-98.0) fL MCH 25.8 L (27.0-33.0) pg MCHC 33.6 (31.0-35.0) g/dl RDW 15.0 (11.0-16.0) % Plt Count 308 (160-400) X10*3/uL MPV 10.5 (9.4-12.3) fL Immature Gran % (Auto) 0.4 (0.0-0.4) % Neut % (Auto) 66.2 (45-73) % Lymph % (Auto) 13.8 L (20-40) % [place] % (Auto) 18.8 H (2-11) % Eos % (Auto) 0.4 (0-4) % Baso % (Auto) 0.4 (0-2) % Lymph # (Auto) 0.4 L (1.2-4.9) X10*3/uL [place] # (Auto) 0.5 (0.1-1.2) X10*3/uL Eos # (Auto) 0.0 (0.0-0.4) X10*3/uL Baso # (Auto) 0.0 (0.0-0.2) X10*3/uL Abs Immat Gran (auto) 0.01 (0.00-0.03) X10*3/uL Absolute Neuts (auto) 1.8 L (2.0-8.3) x10*3/uL Absolute Nucleated RBC 0.000 (0.0-0.012) X10*3/uL Nucleated RBC % (auto) 0.0 (0.0-0.2) /100WBC Sodium 141 (135-145) mmol/L Potassium 4.1 (3.3-5.1) mmol/L Chloride 104 (96-108) mmol/L Carbon Dioxide 24 (22-29) mmol/L Anion Gap 17 (12-20) BUN 8 L (9-16) mg/dL Creatinine 0.80 (0.5-1.4) mg/dL Estim Creat Clear Calc 101.2 Estimated GFR > 60 Random Glucose 99 (60-115) mg/dL Calcium 9.5 (8.4-10.2) mg/dL Urine Color Yellow Urine Appearance Clear Urine pH 5.5 (5.0-9.0) Ur Specific [place] >= 1.030 H (1.005-1.025) Urine Protein 30 (1+) H (Neg-Trace) mg/dL Urine Glucose (UA) Negative (Negative) mg/dL Urine Ketones 15 (Negative) mg/dL Urine Blood Moderate (2+) H (Negative) Urine Nitrite Negative (Negative) Ur Leukocyte Esterase Negative (Negative) Urine RBC 11-20 H (0-2) /HPF Urine WBC 0-5 (0-5) /HPF Ur Squamous Epith Cells 3-5 (0-2) /HPF Urine Bacteria 1+ (None Seen) Hyaline Casts 0-2 (0-2) /LPF Discharge Plan Discharge Clinical Impression: Nausea, Sciatica Patient Disposition: Home, Self-Care Instructions: Acute Low Back Pain (ED), Lower Back Exercises (ED) Additional Instructions: Recommend taking the prescribed nausea medication 1 hour before you to take her metronidazole. Take metronidazole with food. No bending, lifting or twisting. Use ice several times per day for 20 minutes at a time for the next 48 hours and then change to heat. Take medications as prescribed to help with pain and discomfort. Follow up with your Primary Care Doctor this week. If your pain worsens, if you develop new numbness, tingling, weakness, loss of function or incontinence call 911 or come back to the ER right away for evaluation. Prescriptions: New cyclobenzaprine 10 mg tablet 10 mg PO TID PRN (Reason: muscle spasm) Qty: 8 0RF ibuprofen 600 mg tablet 600 mg PO Q8H PRN (Reason: pain) Qty: 14 0RF ondansetron 4 mg tablet,disintegrating 4 mg PO Q8H PRN (Reason: nausea and vomiting) Qty: 7 0RF No Action meclizine 25 mg tablet 25 mg PO TID PRN (Reason: motion sickness) Qty: 20 0RF metronidazole 500 mg tablet 500 mg PO BID 7 Days Qty: 14 0RF Rx Instructions: Take with food, Avoid alcohol and vinegar products fluconazole [Diflucan] 150 mg tablet 150 mg PO DAILY Qty: 1 0RF Rx Instructions: administer on day 1 of therapy gabapentin 100 mg capsule 100 mg PO BID Qty: 14 0RF ibuprofen 600 mg tablet 600 mg PO Q6H ferrous fumarate 324 mg (106 mg iron) tablet 324 mg PO DAILY Qty: 30 3RF Centrum Chewables 8 mg-400 mcg- 10 mcg tablet,chewable 1 tab PO DAILY Referrals: Janneth Gunn MD [Primary Care Provider] -
== END 2021-12-18 21:13 | disposition home or self-care (01) ==
PROVIDERS: Emergency Provider Student in an Organized Health Care Education/Training Program; PCP Internal Medicine
DX: R11.0 Nausea (principal); M54.42 Lumbago with sciatica, left side; M54.41 Lumbago with sciatica, right side; E66.9 Obesity, unspecified; Z68.32 Body mass index [BMI] 32.0-32.9, adult
CPT/HCPCS: 36415; 80048; 81001; 85025; 99283; 99284

== ENCOUNTER 2021-12-20 10:37 | Emergency (ER) | payer OTHER, SELFPAY ==
[2021-12-20 11:27] VITALS: BP 123/85; PULSE 106; RESP 18; TEMP 37.1; O2SAT 98; BMI 32.0
[2021-12-20 11:52] LABS: Appearance Urine Clear; Color Urine Yellow; Glucose Urine UA Negative (Negative); Leukocyte Esterase Urine Small (1+) (Negative); Nitrite Urine Negative (Negative); PH 5.5 (5.0-9.0); Specific Gravity - Urine 1.015 (1.005-1.025); UMIC TRIGGER UACC YES; Urine Blood Large (3+) (Negative); Urine Ketones 15 mg/dL (Negative); Urine Protein 300 (3+) mg/dL (Neg-Trace)
[2021-12-20 11:54] LABS: UPreg QC Valid YES; Urine Pregnancy NEGATIVE (NEGATIVE)
[2021-12-20 11:55] LABS: Basophils Percent Auto 0.5 % (0-2); Hematocrit 36.3 % (37.0-47.0); Hemoglobin 11.8 g/dl (12.0-16.0); Lymphocytes Absolute Auto 1.4 X10*3/uL (1.2-4.9); Lymphocytes Percent Auto 60.8 % (20-40); MANUAL DIFF FLAG SCAN; Mean Corpuscular HGB Conc 32.5 g/dl (31.0-35.0); Mean Corpuscular Hemoglobin 25.3 pg (27.0-33.0); Mean Corpuscular Volume 77.7 fL (80.0-98.0); Mean Platelet Volume 11.1 fL (9.4-12.3); Monocytes Absolute Auto 0.3 X10*3/uL (0.1-1.2); Monocytes Percent Auto 14.4 % (2-11); Neutrophils Absolute Auto 0.5 x10*3/uL (2.0-8.3); Neutrophils Percent Auto 24.3 % (45-73); Platelet Count 319 X10*3/uL (160-400); Red Blood Count 4.67 X10*6/uL (4.20-5.50); Red Cell Distribution Width 15.2 % (11.0-16.0); SCAN SMEAR FLAG 1
[2021-12-20 11:56] LABS: White Blood Count 2.2 X10*3/uL (4.8-10.8)
[2021-12-20 12:04] LABS: Bacteria Urine None Seen (None Seen); RBC Urine >20 /HPF (0-2); UACC Culture Trigger YES; WBC Urine 0-5 /HPF (0-5)
[2021-12-20 12:09] LABS: Anion Gap 16 (12-20); Blood Urea Nitrogen 12 mg/dL (9-16); Calcium 9.5 mg/dL (8.4-10.2); Carbon Dioxide 24 mmol/L (22-29); Chloride 106 mmol/L (96-108); Creatinine Clr Calc Pharmacy 82.6; Estimated Glomerular Filt Rate > 60; Glucose Random 105 mg/dL (60-115); Potassium 4.2 mmol/L (3.3-5.1); Sodium 142 mmol/L (135-145)
[2021-12-20 12:22] LABS: SLIDE REVIEW VERIFIED
[2021-12-20 20:17] VITALS: BP 123/79; PULSE 99; RESP 18; TEMP 37.1; O2SAT 100
[2021-12-20 23:07] LABS: COVID-19 Test Negative (Negative); IDNOW Serial# 08D9AD1C; Influenza A Negative (Negative); Influenza B2 Negative (Negative)
[2021-12-20] MEDS: ondansetron HCL 4 MG/2 ML VIAL IVPUSH (23:08)
[2021-12-20] MEDS: 0.9 % Sodium Chloride 1,000 ML 999 ML IV (23:08)
--- NOTE | 2021-12-20 23:22 | ED_ITS ---
HPI - General Adult General Chief complaint: General Medical Stated complaint: nauseous, left tampon in for too long Time Seen by Provider: 12/20/21 22:09 Source: patient Mode of arrival: ambulatory Limitations: no limitations History of Present Illness HPI narrative: Patient is a 31-year-old female who presents to the emergency department for evaluation of nausea, and reports a feeling fevers with chills since yesterday. She states she is concerned about toxic shock syndrome as the day prior she fell asleep with her tampon in leaving it in for approximately 10 hours. Patient was recently diagnosed with bacterial vaginosis, was given a prescription for Flagyl, she states that she has been taking this but not twice daily as prescribed. When asked, she states sometimes I just forget right do not feel good and do not take it. Related Data Home Medications Medication Instructions Recorded Confirmed ibuprofen 600 mg tablet 600 mg PO Q6H 11/03/21 12/05/21 [id number] 8 mg-folic 1 tab PO DAILY 12/05/21 12/05/21 ac 400 mcg-vit K 10 mcg chew tablet (Centrum Chewables) Previous Rx's Medication Instructions Recorded ferrous fumarate 324 mg (106 mg 324 mg PO DAILY #30 tabs 08/31/21 iron) tablet gabapentin 100 mg capsule 100 mg PO BID Paresthesias #14 caps 09/23/21 meclizine 25 mg tablet 25 mg PO TID PRN motion sickness 10/31/21 #20 tabs fluconazole 150 mg tablet 150 mg PO DAILY 1 dose #1 tab 12/14/21 (Diflucan) metronidazole 500 mg tablet 500 mg PO BID 7 days #14 tabs 12/14/21 cyclobenzaprine 10 mg tablet 10 mg PO TID PRN muscle spasm #8 12/18/21 tabs ibuprofen 600 mg tablet 600 mg PO Q8H PRN pain #14 tabs 12/18/21 ondansetron 4 mg disintegrating 4 mg PO Q8H PRN nausea and 12/18/21 tablet vomiting #7 tabs Allergies Allergy/AdvReac Type Severity Reaction Status Date / Time No Known Allergies Allergy Verified 12/20/21 11:24 Review of Systems Review of Systems: Constitutional: Positive subjective fever and chills. No, weakness or fatigue. Skin: No rash or itching. Cardiovascular: No chest pain, chest pressure or chest discomfort. No palpitations or pedal edema. Respiratory: No shortness of breath, cough or sputum production. Gastrointestinal: Positive nausea, no vomiting or diarrhea. No abdominal pain or blood in stool. Genitourinary: No burning micturition. No urinary frequency or incontinence. Musculoskeletal: No muscle pain, back pain, joint pain or stiffness. Psychiatric: No depression or anxiety. Yes all other systems are reviewed and are negative PMFSH Past Medical History Attestation statement: The following information was validated with the patient. Source: old records reviewed Medical History Asthma Family history of thyroid disease in mother Low back pain potentially associated with radiculopathy Family History Family History Father Substance use disorder Mental health disorder Mother Mental health disorder Thyroid disorder Social History Social History Housing: Apartment Alcohol intake: never Patient Tobacco Use Status: Never used Tobacco e-Cigarette/Vaping Use: Never Used Advance Directives: No Advance Directives Information Provided: No service: No Current occupational status: unemployed Cognitive needs: No Hearing needs: No Vision needs: No Physical Exam ED Vital Signs: Vital Signs - 24 hr 12/20/21 11:27 12/20/21 20:17 12/20/21 23:50 Temperature 98.7 F 98.7 F 98.9 F Pulse Rate 106 H 99 65 Respiratory Rate 18 18 16 Blood Pressure 123/85 123/79 124/71 Pulse Oximetry 98 100 98 Oxygen Delivery Method Room Air Room Air Room Air BMI result Body Mass Index 32.0 Vital signs have been reviewed as normal and appeared to be correct. Blood pre ssure normal.? Heart rate normal.? Respiration rate normal. Temperature normal.? Oxygen saturation normal. Appearance: Alert.?Oriented to person, place and time. No acute distress.?Normal affect. Eyes: Pupils equal, round and reactive to light.? ENT: Pharynx normal.?? Neck: Normal inspection.? Neck supple.?? CVS: Heart sounds normal. Normal heart rate and rhythm.? Pulses normal.?? Respiratory: No respiratory distress.? Lung sounds clear to auscultation bi laterally?? Abdomen: Soft and non-tender. Normoactive bowel sounds. Skin: Skin warm and dry.? Normal skin color.? Extremities: No lower extremity edema.? Neuro: Moves all extremities spontaneously. Sensation intact bilaterally. CN II- XII intact. No focal neuro deficits. Ambulates with normal steady gait. Course Course Course Narrative: Patient is a 31-year-old female with a history of recent bacterial vaginosis 10 yeast infection presents emergency department for evaluation of nausea, subjective fevers and chills in concern for toxic shock syndrome due to tampon usage. At the time of examination she is overall well-appearing, exam is unremarkable. She was seen in the emergency department 2 days ago with persistent nausea, at that time she was not compliant with her metronidazole, she was discharged home with a prescription for in density trauma to take 1 hour prior to metronidazole. When asked, she states she has not been doing this. Has not been taking the metronidazole with food, in fact she states she is currently on a diet and only really eating yogurt during the day. She has a nontoxic appearance, vital signs are stable afebrile, no hypotension, no dermatologic manifestations or evidence of multiorgan system involvement. CBC and BMP are overall unremarkable and consistent with prior labs. Urinalysis without compelling evidence for urinary tract infection. Obtained viral studies including COVID-19 and influenza testing which were also negative. Discussed with patient plan of care for discharge home, usage of the ondansetron as prescribed for nausea, furthermore advised to continue the entire course of metronidazole, advised that it should be taking with food. Discussed reasons to return back to the emergency department for. All questions were answered. Patient discharged home in stable condition. Medical Decision Making Medical Records Medical records reviewed: Yes I reviewed the patient's medical records. Lab Data Lab results reviewed: Yes I reviewed the patient's lab results. Result diagrams: 12/20/21 11:40 12/20/21 11:40 Labs: Lab Results 12/20/21 12/20/21 12/20/21 Range/Units 11:40 11:40 11:40 WBC 2.2 L (4.8-10.8) X10*3/uL RBC 4.67 (4.20-5.50) X10*6/uL Hgb 11.8 L (12.0-16.0) g/dl Hct 36.3 L (37.0-47.0) % MCV 77.7 L (80.0-98.0) fL MCH 25.3 L (27.0-33.0) pg MCHC 32.5 (31.0-35.0) g/dl RDW 15.2 (11.0-16.0) % Plt Count 319 (160-400) X10*3/uL MPV 11.1 (9.4-12.3) fL Immature Gran % (Auto) 0.0 (0.0-0.4) % Neut % (Auto) 24.3 L (45-73) % Lymph % (Auto) 60.8 H (20-40) % [place] % (Auto) 14.4 H (2-11) % Eos % (Auto) 0.0 (0-4) % Baso % (Auto) 0.5 (0-2) % Lymph # (Auto) 1.4 (1.2-4.9) X10*3/uL [place] # (Auto) 0.3 (0.1-1.2) X10*3/uL Eos # (Auto) 0.0 (0.0-0.4) X10*3/uL Baso # (Auto) 0.0 (0.0-0.2) X10*3/uL Abs Immat Gran (auto) 0.00 (0.00-0.03) X10*3/uL Absolute Neuts (auto) 0.5 L (2.0-8.3) x10*3/uL Absolute Nucleated RBC 0.000 (0.0-0.012) X10*3/uL Nucleated RBC % (auto) 0.0 (0.0-0.2) /100WBC Smear Tech's Comments VERIFIED Sodium 142 (135-145) mmol/L Potassium 4.2 (3.3-5.1) mmol/L Chloride 106 (96-108) mmol/L Carbon Dioxide 24 (22-29) mmol/L Anion Gap 16 (12-20) BUN 12 (9-16) mg/dL Creatinine 0.98 (0.5-1.4) mg/dL Estim Creat Clear Calc 82.6 Estimated GFR > 60 Random Glucose 105 (60-115) mg/dL Calcium 9.5 (8.4-10.2) mg/dL Total Bilirubin 0.2 (0.0-1.0) mg/dL Direct Bilirubin < 0.2 (0.0-0.5) mg/dL AST 56 H (5-31) U/L ALT 18 (0-31) U/L Alkaline Phosphatase 57 D (39-117) U/L Total Protein 8.3 H (6.5-8.0) g/dL Albumin 4.4 (3.5-5.0) g/dL Urine Color Yellow Urine Appearance Clear Urine pH 5.5 (5.0-9.0) Ur Specific [place] 1.015 (1.005-1.025) Urine Protein 300 (3+) H (Neg-Trace) mg/dL Urine Glucose (UA) Negative (Negative) mg/dL Urine Ketones 15 (Negative) mg/dL Urine Blood Large (3+) H (Negative) Urine Nitrite Negative (Negative) Ur Leukocyte Esterase Small (1+) H (Negative) Urine RBC >20 H (0-2) /HPF Urine WBC 0-5 (0-5) /HPF Ur Squamous Epith Cells 6-10 (0-2) /HPF Urine Bacteria None Seen (None Seen) Hyaline Casts 3-5 (0-2) /LPF Urine Test (NEGATIVE) COVID-19 ([facility]) (Negative) COVID-19 Clin Com Influenza Type A ([facility]) (Negative) Influenza Type B ([facility]) (Negative) Influenza A & B Note 12/20/21 12/20/21 12/20/21 Range/Units 11:40 22:45 22:45 WBC (4.8-10.8) X10*3/uL RBC (4.20-5.50) X10*6/uL Hgb (12.0-16.0) g/dl Hct (37.0-47.0) % MCV (80.0-98.0) fL MCH (27.0-33.0) pg MCHC (31.0-35.0) g/dl RDW (11.0-16.0) % Plt Count (160-400) X10*3/uL MPV (9.4-12.3) fL Immature Gran % (Auto) (0.0-0.4) % Neut % (Auto) (45-73) % Lymph % (Auto) (20-40) % [place] % (Auto) (2-11) % Eos % (Auto) (0-4) % Baso % (Auto) (0-2) % Lymph # (Auto) (1.2-4.9) X10*3/uL [place] # (Auto) (0.1-1.2) X10*3/uL Eos # (Auto) (0.0-0.4) X10*3/uL Baso # (Auto) (0.0-0.2) X10*3/uL Abs Immat Gran (auto) (0.00-0.03) X10*3/uL Absolute Neuts (auto) (2.0-8.3) x10*3/uL Absolute Nucleated RBC (0.0-0.012) X10*3/uL Nucleated RBC % (auto) (0.0-0.2) /100WBC Smear Tech's Comments Sodium (135-145) mmol/L Potassium (3.3-5.1) mmol/L Chloride (96-108) mmol/L Carbon Dioxide (22-29) mmol/L Anion Gap (12-20) BUN (9-16) mg/dL Creatinine (0.5-1.4) mg/dL Estim Creat Clear Calc Estimated GFR Random Glucose (60-115) mg/dL Calcium (8.4-10.2) mg/dL Total Bilirubin (0.0-1.0) mg/dL Direct Bilirubin (0.0-0.5) mg/dL AST (5-31) U/L ALT (0-31) U/L Alkaline Phosphatase (39-117) U/L Total Protein (6.5-8.0) g/dL Albumin (3.5-5.0) g/dL Urine Color Urine Appearance Urine pH (5.0-9.0) Ur Specific [place] (1.005-1.025) Urine Protein (Neg-Trace) mg/dL Urine Glucose (UA) (Negative) mg/dL Urine Ketones (Negative) mg/dL Urine Blood (Negative) Urine Nitrite (Negative) Ur Leukocyte Esterase (Negative) Urine RBC (0-2) /HPF Urine WBC (0-5) /HPF Ur Squamous Epith Cells (0-2) /HPF Urine Bacteria (None Seen) Hyaline Casts (0-2) /LPF Urine Test NEGATIVE (NEGATIVE) COVID-19 ([facility]) Negative (Negative) COVID-19 Clin Com See Note Influenza Type A ([facility]) Negative (Negative) Influenza Type B ([facility]) Negative (Negative) Influenza A & B Note See Note Discharge Plan Discharge Clinical Impression: Nausea Patient Disposition: Home, Self-Care Instructions: Acute Nausea and Vomiting (ED) Additional Instructions: As we discussed, please take the Zofran you were previously prescribed 1 hour prior to taking the metronidazole. You should complete the entire course of metronidazole intake each dose with food. Follow-up with your primary care provider/collection clerk within 1 week. You may return back to emergency department with any new or worsening symptoms or concerns. Prescriptions: No Action meclizine 25 mg tablet 25 mg PO TID PRN (Reason: motion sickness) Qty: 20 0RF metronidazole 500 mg tablet 500 mg PO BID 7 Days Qty: 14 0RF Rx Instructions: Take with food, Avoid alcohol and vinegar products fluconazole [Diflucan] 150 mg tablet 150 mg PO DAILY Qty: 1 0RF Rx Instructions: administer on day 1 of therapy gabapentin 100 mg capsule 100 mg PO BID Qty: 14 0RF cyclobenzaprine 10 mg tablet 10 mg PO TID PRN (Reason: muscle spasm) Qty: 8 0RF ibuprofen 600 mg tablet 600 mg PO Q8H PRN (Reason: pain) Qty: 14 0RF ondansetron 4 mg tablet,disintegrating 4 mg PO Q8H PRN (Reason: nausea and vomiting) Qty: 7 0RF ibuprofen 600 mg tablet 600 mg PO Q6H ferrous fumarate 324 mg (106 mg iron) tablet 324 mg PO DAILY Qty: 30 3RF Centrum Chewables 8 mg-400 mcg- 10 mcg tablet,chewable 1 tab PO DAILY Referrals: Janneth Gunn MD [Primary Care Provider] -
[2021-12-20 23:50] VITALS: BP 124/71; PULSE 65; RESP 16; TEMP 37.2; O2SAT 98
[2021-12-21 00:19] LABS: Alanine Aminotransferase 18 U/L (0-31); Albumin Level 4.4 g/dL (3.5-5.0); Alkaline Phosphatase 57 U/L (39-117); Aspartate Amino Transferase 56 U/L (5-31); Bilirubin Direct < 0.2 mg/dL (0.0-0.5); Bilirubin Total 0.2 mg/dL (0.0-1.0); Total Protein 8.3 g/dL (6.5-8.0)
[2021-12-21] MEDS: Metoclopramide HCl 10 MG/2 ML VIAL IVPUSH (00:22)
== END 2021-12-21 00:46 | disposition home or self-care (01) ==
PROVIDERS: Nurse Practitioner Family; Emergency Provider Emergency Medicine Emergency Medical Services; PCP Internal Medicine
DX: R11.0 Nausea (principal); Z20.822 Contact with and (suspected) exposure to COVID-19; Z79.899 Other long term (current) drug therapy
CPT/HCPCS: 36415; 80048; 80076; 81001; 81025; 85025; 87086; 87147; 87502; 87635; 96361; 96374; 96375; 99283; 99284; J2405; J2765

== ENCOUNTER 2021-12-31 12:08 | Emergency (ER) | payer OTHER, SELFPAY ==
--- NOTE | ~2021-12-31 | XR_ITS ---
EXAMINATION: XR CHEST CLINICAL INFORMATION: Chest pain COMPARISON: 09/19/2021 TECHNIQUE: Frontal view of the chest was obtained. FINDINGS: No acute finding. No infiltrate. No effusion. The cardiac silhouette is within normal limits. The hilar structures do not appear pathologically enlarged. XR/XR chest 1V IMPRESSION: No acute finding
[2021-12-31 12:46] VITALS: BP 130/76; PULSE 124; RESP 18; TEMP 36.6; O2SAT 99; BMI 30.9
--- NOTE | 2021-12-31 12:49 | ECG_ITS ---
Test Reason : CX PAIN Blood Pressure : / mmHG Vent. Rate : 097 BPM Atrial Rate : 097 BPM P-R Int : 148 ms QRS Dur : 072 ms QT Int : 358 ms P-R-T Axes : 054 038 054 degrees QTc Int : 454 ms Normal sinus rhythm Nonspecific T wave abnormality RSR' or QR pattern in V1 suggests right ventricular conduction delay QT has lengthened Abnormal ECG No previous ECGs available Referred By: Generic ED Physician Electronically Signed By:DAKOTAH WHEELER MD
[2021-12-31 13:32] LABS: MANUAL DIFF FLAG NO
[2021-12-31 13:36] LABS: Basophils Percent Auto 0.5 % (0-2); Eosinophils Absolute Auto 0.1 X10*3/uL (0.0-0.4); Eosinophils Percent Auto 1.7 % (0-4); Hematocrit 37.7 % (37.0-47.0); Hemoglobin 12.3 g/dl (12.0-16.0); Lymphocytes Absolute Auto 1.3 X10*3/uL (1.2-4.9); Lymphocytes Percent Auto 30.2 % (20-40); Mean Corpuscular HGB Conc 32.6 g/dl (31.0-35.0); Mean Corpuscular Hemoglobin 25.1 pg (27.0-33.0); Mean Corpuscular Volume 76.8 fL (80.0-98.0); Mean Platelet Volume 11.8 fL (9.4-12.3); Monocytes Absolute Auto 0.4 X10*3/uL (0.1-1.2); Monocytes Percent Auto 8.8 % (2-11); Neutrophils Absolute Auto 2.5 x10*3/uL (2.0-8.3); Neutrophils Percent Auto 58.8 % (45-73); Platelet Count 391 X10*3/uL (160-400); Red Blood Count 4.91 X10*6/uL (4.20-5.50); White Blood Count 4.2 X10*3/uL (4.8-10.8)
[2021-12-31 13:45] LABS: COVID-19 Test Negative (Negative); IDNOW Serial# 9DB6401D
[2021-12-31 13:53] LABS: Anion Gap 22 (12-20); Blood Urea Nitrogen 7 mg/dL (9-16); Calcium 9.7 mg/dL (8.4-10.2); Carbon Dioxide 24 mmol/L (22-29); Chloride 100 mmol/L (96-108); Creatinine Clr Calc Pharmacy 100.6; Estimated Glomerular Filt Rate > 60; Glucose Random 100 mg/dL (60-115); Potassium 3.8 mmol/L (3.3-5.1); Sodium 142 mmol/L (135-145)
[2021-12-31 13:54] LABS: Troponin-I High Sensitivity < 3.5 ng/L (<3.5-17.0)
[2021-12-31 19:32] VITALS: BP 128/84; PULSE 87; PULSE 89; RESP 14; O2SAT 98
--- NOTE | 2021-12-31 19:47 | ED.CHESTPAIN ---
HPI - Chest Pain General Chief Complaint: Chest Pain Stated Complaint: Chest pain/dizziness Time Seen by Provider: 12/31/21 19:22 Source: patient Mode of arrival: ambulatory History of Present Illness HPI narrative: 31-year-old female with history of asthma and recently had a child that was positive for RSV states that she has had right-sided chest discomfort that radiates into the right shoulder but denies any nausea, vomiting, diarrhea, urinary symptoms. Chest pain worsens with deep breath. Patient does have a history GERD and denies any recent travel or calf swelling and also denies any cigarette smoking or use of control. Related Data Home Medications Medication Instructions Recorded Confirmed ibuprofen 600 mg tablet 600 mg PO Q6H 11/03/21 12/05/21 [id number] 8 mg-folic 1 tab PO DAILY 12/05/21 12/05/21 ac 400 mcg-vit K 10 mcg chew tablet (Centrum Chewables) Previous Rx's Medication Instructions Recorded ferrous fumarate 324 mg (106 mg 324 mg PO DAILY #30 tabs 08/31/21 iron) tablet gabapentin 100 mg capsule 100 mg PO BID Paresthesias #14 caps 09/23/21 meclizine 25 mg tablet 25 mg PO TID PRN motion sickness 10/31/21 #20 tabs fluconazole 150 mg tablet 150 mg PO DAILY 1 dose #1 tab 12/14/21 (Diflucan) metronidazole 500 mg tablet 500 mg PO BID 7 days #14 tabs 12/14/21 cyclobenzaprine 10 mg tablet 10 mg PO TID PRN muscle spasm #8 12/18/21 tabs ibuprofen 600 mg tablet 600 mg PO Q8H PRN pain #14 tabs 12/18/21 ondansetron 4 mg disintegrating 4 mg PO Q8H PRN nausea and 12/18/21 tablet vomiting #7 tabs Allergies Allergy/AdvReac Type Severity Reaction Status Date / Time No Known Allergies Allergy Verified 12/31/21 12:46 Review of Systems Review of Systems: Pertinent positives and negatives as stated in HPI 10 point review of systems is otherwise negative. [facility] Past Medical History Source: nursing notes reviewed Medical History Asthma Family history of thyroid disease in mother Low back pain potentially associated with radiculopathy Family History Family History Father Substance use disorder Mental health disorder Mother Mental health disorder Thyroid disorder Social History Social History Housing: Apartment Alcohol intake: never Patient Tobacco Use Status: Never used Tobacco Smoked in Last 30 Days: No e-Cigarette/Vaping Use: Never Used Use of substances other than those prescribed or required for medical reasons: No Advance Directives: No Advance Directives Information Provided: Yes Patient : No service: No Current occupational status: unemployed Cognitive needs: No Hearing needs: No Vision needs: No Physical Exam Vital Signs: Vital Signs: Last Vital Signs Temp 97.8 F 12/31/21 12:46 Pulse 89 12/31/21 19:32 Resp 14 12/31/21 19:32 BP 128/84 12/31/21 19:32 Pulse Ox 98 12/31/21 19:32 O2 Del Method 12/31/21 19:32 BMI result Body Mass Index 30.9 VITAL SIGNS: Reviewed. GENERAL: Well developed, well nourished, in no acute distress. HEAD: Normocephalic/atraumatic EYES: PERRLA, EOMI EARS: Ext canals without abnormality OROPHARYNX: no oral lesions noted, posterior pharynx clear LUNGS: Normal breath sounds. No adventitious sounds or accessory muscle use. SpO2<98> CARDIOVASCULAR: Regular rate and rhythm without noted murmurs, no JVD or lower extremity edema. ABDOMEN: Soft, non-tender, non-distended with bowel sounds. MUSCULOSKELETAL: No tenderness, deformities, or effusions noted on gross inspection. EXTREMITIES: No cyanosis, clubbing or edema. SKIN: Inspection of the skin reveals no rashes NEUROLOGIC: Alert and oriented x 4. Strength and sensation to light touch were grossly intact x 4. Course Course Course Narrative: 31-year-old female with history and clinical presentation suggestive possible viral syndrome and suspicious for RSV positivity given exposure to her child. Review of all investigations negative for acute findings, results were discussed with her at bedside and she was presumptively treated for possible costochondritis verses acid reflux the latter of which was endorsed during history taking. There is no evidence to suggest acute cardiac issues nor PE and no evidence asthma exacerbation or infection. MDM - Chest Pain Lab Data Result diagrams: 12/31/21 13:27 12/31/21 13:27 Labs: Lab Results 12/31/21 12/31/21 12/31/21 Range/Units 13:27 13:27 13:27 WBC 4.2 L (4.8-10.8) X10*3/uL RBC 4.91 (4.20-5.50) X10*6/uL Hgb 12.3 (12.0-16.0) g/dl Hct 37.7 (37.0-47.0) % MCV 76.8 L (80.0-98.0) fL MCH 25.1 L (27.0-33.0) pg MCHC 32.6 (31.0-35.0) g/dl RDW 14.0 (11.0-16.0) % Plt Count 391 (160-400) X10*3/uL MPV 11.8 (9.4-12.3) fL Immature Gran % (Auto) 0.0 (0.0-0.4) % Neut % (Auto) 58.8 (45-73) % Lymph % (Auto) 30.2 (20-40) % [place] % (Auto) 8.8 (2-11) % Eos % (Auto) 1.7 (0-4) % Baso % (Auto) 0.5 (0-2) % Lymph # (Auto) 1.3 (1.2-4.9) X10*3/uL [place] # (Auto) 0.4 (0.1-1.2) X10*3/uL Eos # (Auto) 0.1 (0.0-0.4) X10*3/uL Baso # (Auto) 0.0 (0.0-0.2) X10*3/uL Abs Immat Gran (auto) 0.00 (0.00-0.03) X10*3/uL Absolute Neuts (auto) 2.5 (2.0-8.3) x10*3/uL Absolute Nucleated RBC 0.000 (0.0-0.012) X10*3/uL Nucleated RBC % (auto) 0.0 (0.0-0.2) /100WBC D-Dimer High Sensitivty NG/ML Sodium 142 (135-145) mmol/L Potassium 3.8 (3.3-5.1) mmol/L Chloride 100 (96-108) mmol/L Carbon Dioxide 24 (22-29) mmol/L Anion Gap 22 H (12-20) BUN 7 L (9-16) mg/dL Creatinine 0.79 (0.5-1.4) mg/dL Estim Creat Clear Calc 100.6 Estimated GFR > 60 Random Glucose 100 (60-115) mg/dL Calcium 9.7 (8.4-10.2) mg/dL Troponin I High Sens < 3.5 (<3.5-17.0) ng/L COVID-19 ([facility]) (Negative) COVID-19 Clin Com Influenza Type A (PCR) (Negative) Influenza Type B (PCR) (Negative) RSV RNA Qual (PCR) (Negative) SARS-CoV-2 RNA (RT-PCR) (Negative) 12/31/21 12/31/21 12/31/21 Range/Units 13:27 19:54 19:54 WBC (4.8-10.8) X10*3/uL RBC (4.20-5.50) X10*6/uL Hgb (12.0-16.0) g/dl Hct (37.0-47.0) % MCV (80.0-98.0) fL MCH (27.0-33.0) pg MCHC (31.0-35.0) g/dl RDW (11.0-16.0) % Plt Count (160-400) X10*3/uL MPV (9.4-12.3) fL Immature Gran % (Auto) (0.0-0.4) % Neut % (Auto) (45-73) % Lymph % (Auto) (20-40) % [place] % (Auto) (2-11) % Eos % (Auto) (0-4) % Baso % (Auto) (0-2) % Lymph # (Auto) (1.2-4.9) X10*3/uL [place] # (Auto) (0.1-1.2) X10*3/uL Eos # (Auto) (0.0-0.4) X10*3/uL Baso # (Auto) (0.0-0.2) X10*3/uL Abs Immat Gran (auto) (0.00-0.03) X10*3/uL Absolute Neuts (auto) (2.0-8.3) x10*3/uL Absolute Nucleated RBC (0.0-0.012) X10*3/uL Nucleated RBC % (auto) (0.0-0.2) /100WBC D-Dimer High Sensitivty 164 NG/ML Sodium (135-145) mmol/L Potassium (3.3-5.1) mmol/L Chloride (96-108) mmol/L Carbon Dioxide (22-29) mmol/L Anion Gap (12-20) BUN (9-16) mg/dL Creatinine (0.5-1.4) mg/dL Estim Creat Clear Calc Estimated GFR Random Glucose (60-115) mg/dL Calcium (8.4-10.2) mg/dL Troponin I High Sens (<3.5-17.0) ng/L COVID-19 ([facility]) Negative (Negative) COVID-19 Clin Com See Note Influenza Type A (PCR) NEGATIVE (Negative) Influenza Type B (PCR) NEGATIVE (Negative) RSV RNA Qual (PCR) NEGATIVE (Negative) SARS-CoV-2 RNA (RT-PCR) NEGATIVE (Negative) Discharge Plan Discharge Clinical Impression: Atypical chest pain, Acute costochondritis, Acid reflux Patient Disposition: Home, Self-Care Instructions: Indigestion (ED), Noncardiac Chest Pain (ED), Costochondritis (ED), Diet for Stomach Ulcers and Gastritis (ED) Additional Instructions: 1. Resume all home medications as prescribed. Try to limit the amount of ibuprofen that you are taking as this will contribute to your acid reflux. 2. Please follow-up with your primary care provider by calling the office on Saturday morning. Return to the ER for worsening symptoms. Prescriptions: No Action meclizine 25 mg tablet 25 mg PO TID PRN (Reason: motion sickness) Qty: 20 0RF metronidazole 500 mg tablet 500 mg PO BID 7 Days Qty: 14 0RF Rx Instructions: Take with food, Avoid alcohol and vinegar products fluconazole [Diflucan] 150 mg tablet 150 mg PO DAILY Qty: 1 0RF Rx Instructions: administer on day 1 of therapy gabapentin 100 mg capsule 100 mg PO BID Qty: 14 0RF cyclobenzaprine 10 mg tablet 10 mg PO TID PRN (Reason: muscle spasm) Qty: 8 0RF ibuprofen 600 mg tablet 600 mg PO Q8H PRN (Reason: pain) Qty: 14 0RF ondansetron 4 mg tablet,disintegrating 4 mg PO Q8H PRN (Reason: nausea and vomiting) Qty: 7 0RF ibuprofen 600 mg tablet 600 mg PO Q6H ferrous fumarate 324 mg (106 mg iron) tablet 324 mg PO DAILY Qty: 30 3RF Centrum Chewables 8 mg-400 mcg- 10 mcg tablet,chewable 1 tab PO DAILY Referrals: Janneth Gunn MD [Primary Care Provider] -
[2021-12-31 20:16] LABS: D Dimer High Sensitivity 164 NG/ML
[2021-12-31 20:36] LABS: Influenza A PCR NEGATIVE (Negative); Influenza B PCR NEGATIVE (Negative); Resp Syncy Virus RNA Qual PCR NEGATIVE (Negative); SARS COV2 PCR INHOUSE NEGATIVE (Negative)
[2021-12-31] MEDS: Acetaminophen 325 MG TABLET 975 MG PO (20:59)
[2021-12-31] MEDS: Magnesium Hydrox/Alum Hydrox 30 ML ORAL.SUSP PO (21:00)
[2021-12-31] MEDS: Ketorolac Tromethamine 15 MG/ML VIAL IM (21:00)
[2021-12-31] MEDS: Lidocaine HCl Viscous 2 % 15 ML SOLUTION 10 ML MUCOUS MEM (21:00)
== END 2021-12-31 21:29 | disposition home or self-care (01) ==
PROVIDERS: Emergency Provider Student in an Organized Health Care Education/Training Program; PCP Internal Medicine
DX: R07.89 Other chest pain (principal); M94.0 Chondrocostal junction syndrome [Tietze]; K21.9 Gastro-esophageal reflux disease without esophagitis; Z20.822 Contact with and (suspected) exposure to COVID-19; Z79.899 Other long term (current) drug therapy
CPT/HCPCS: 0241U; 36415; 71045; 80048; 84484; 85025; 85379; 87635; 93005; 96372; 99284; 99285; J1885

== ENCOUNTER 2022-04-09 10:32 | Outpatient (REF) | payer OTHER, SELFPAY ==
[2022-04-09 13:52] LABS: MANUAL DIFF FLAG NO
[2022-04-09 14:05] LABS: Basophils Percent Auto 0.5 % (0-2); Eosinophils Absolute Auto 0.2 X10*3/uL (0.0-0.4); Eosinophils Percent Auto 2.3 % (0-4); Hematocrit 34.3 % (37.0-47.0); Hemoglobin 11.3 g/dl (12.0-16.0); Imm Gran Abs Auto 0.01 X10*3/uL (0.00-0.03); Imm Gran Pct Auto 0.2 % (0.0-0.4); Lymphocytes Absolute Auto 3.1 X10*3/uL (1.2-4.9); Lymphocytes Percent Auto 48.4 % (20-40); Mean Corpuscular HGB Conc 32.9 g/dl (31.0-35.0); Mean Corpuscular Hemoglobin 25.9 pg (27.0-33.0); Mean Corpuscular Volume 78.5 fL (80.0-98.0); Mean Platelet Volume 12.5 fL (9.4-12.3); Monocytes Absolute Auto 0.5 X10*3/uL (0.1-1.2); Monocytes Percent Auto 7.5 % (2-11); Neutrophils Absolute Auto 2.6 x10*3/uL (2.0-8.3); Neutrophils Percent Auto 41.1 % (45-73); Platelet Count 330 X10*3/uL (160-400); Red Blood Count 4.37 X10*6/uL (4.20-5.50); Red Cell Distribution Width 14.6 % (11.0-16.0); White Blood Count 6.4 X10*3/uL (4.8-10.8)
[2022-04-09 14:40] LABS: Iron 49 mcg/dL (30-160); Percent Iron Saturation 18 % (15-50); Total Iron Binding Capacity 268 mcg/dL (228-428); Unsaturated Iron Binding 219 ug/dL
== END 2022-04-09 10:33 | disposition home or self-care (01) ==
LOC: HO.HMGCLDS 10:32
PROVIDERS: PCP Internal Medicine; Visit Provider Internal Medicine
DX: D50.9 Iron deficiency anemia, unspecified (principal)
CPT/HCPCS: 36415; 83540; 85025

== ENCOUNTER 2022-06-15 10:00 | Outpatient (RCR) | payer OTHER, SELFPAY ==
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
--- NOTE | 2022-07-05 08:35 | MHC.PT.DC ---
[facility] [place] Office [place] Office [place] [facility] [address] Debbie Contreras [address] [phone] F: [phone] F: [phone] F: [phone] F: [phone] Physical Therapy Discharge Report Diagnosis: This is a 31 yo female presenting to skilled PT with a script for lumbago with sciatica, R side. Date of Surgery: Date of Evaluation: 05/17/22 Date of Discharge: 07/05/22 Treatments to Date: 7 Cancellations to Date: 0 No Shows to Date: 1 Discharge Status: Achieved Goals Improved Function Independent with HEP Discharge Summary: 06/15: Patient has had 7 visits of PT, she tolerates all exercises well without any reports of pain and has an HEP at home. She demos normal ROM of lumbar spine and hips, she also demos normal strength of BLE. At this time she is appropriate for DC as she has no pain with exercises and is I in her program. She wants to transition to management of vertigo or TMJ next and was educated on the need for a referral for this. She does report that her pain is still ongoing despite normal ROM and strength however I educated her alternative tx options and referrals. DC to HEP. Electronically signed by: Alma Jacobo PT Please sign and return to therapist. Thank you for your referral.
== END 2022-07-05 08:35 | disposition home or self-care (01) ==
LOC: HO.PTCHIC 10:00
PROVIDERS: PCP Internal Medicine; Visit Provider Internal Medicine
DX: M54.41 Lumbago with sciatica, right side (principal)
CPT/HCPCS: 97110; 97161

== ENCOUNTER 2022-06-22 13:05 | Emergency (ER) | payer OTHER, SELFPAY ==
--- NOTE | 2022-06-22 13:21 | ED_ITS ---
HPI - General Adult General Chief complaint: General Medical <JOSE Sol - Last Filed: 06/22/22 13:28> Stated complaint: Dizziness/Fall <JOSE Sol - Last Filed: 06/22/22 13:28> Time Seen by Provider: 06/22/22 18:05 <JOSE Sol - Last Filed: 06/22/22 13:28> Source: patient <Bari Shaikh MD - Last Filed: 06/22/22 19:52> Mode of arrival: ambulatory <Bari Shaikh MD - Last Filed: 06/22/22 19:52> Limitations: no limitations <Bari Shaihk MD - Last Filed: 06/22/22 19:52> History of Present Illness HPI narrative: 31-year-old female with history of lumbar radiculopathy presents with severe back pain. The pain got more severe today. Is acute on chronic. The pain is worse with movement and palpation. The pain usually radiates down both legs. However, today it is not radiating. She denies any loss of bowel or bladder control. She denies any recent heavy lifting, falls or injury. Patient typically takes [id number] medications however she did not take any today. Typically they work very mildly. She recently completed physical therapy. She reports having had an MRI proximally 6 months ago. Patient currently denies any weakness or saddle paresthesias. She denies any loss of bowel or bladder control. Patient is also complaining of nausea, no vomiting. She has been on any diet and she is not clear if this is causing it. She describes a queasiness in her abdomen. She denies any significant pain. <Bari Shaikh MD - Last Filed: 06/22/22 19:52> Related Data Home medications: Home Medications Medication Instructions Recorded Confirmed [id number] 8 mg-folic 1 tab PO DAILY 12/05/21 12/05/21 ac 400 mcg-vit K 10 mcg chew tablet (Centrum Chewables) Previous Rx's Medication Instructions Recorded ferrous fumarate 324 mg (106 mg 324 mg PO DAILY 90 days #90 tabs 04/11/22 iron) tablet meclizine 25 mg tablet 25 mg PO DAILY PRN motion 04/11/22 sickness/ lightheadedness #10 tabs capsaicin 0.1 % topical cream 1 appl topical TID #56.6 grams 06/22/22 cyclobenzaprine 10 mg tablet 10 mg PO Q8H PRN muscle spasm #10 06/22/22 tabs lidocaine 5 % topical patch 1 patch topical DAILY #30 ea 06/22/22 (Lidoderm) meloxicam 15 mg tablet 15 mg PO DAILY #14 tabs 06/22/22 <JOSE Sol - Last Filed: 06/22/22 13:28> Allergies/adverse reactions: Allergies Allergy/AdvReac Type Severity Reaction Status Date / Time No Known Allergies Allergy Verified 06/22/22 13:27 <JOSE Sol - Last Filed: 06/22/22 13:28> [facility] Past Medical History Medical History: Medical History Asthma Family history of thyroid disease in mother Low back pain potentially associated with radiculopathy Lumbago with sciatica, right side <JOSE Sol - Last Filed: 06/22/22 13:28> Family History Family History: Family History Father Substance use disorder Mental health disorder Mother Mental health disorder Thyroid disorder <JOSE Sol - Last Filed: 06/22/22 13:28> Social History Social History: Social History Housing: Homeless Housing Other:: Nursing Home Alcohol intake: never Patient Tobacco Use Status: Never used Tobacco e-Cigarette/Vaping Use: Never Used Advance Directives: No Advance Directives Information Provided: Yes service: No Current occupational status: unemployed Cognitive needs: No Hearing needs: No Vision needs: No <JOSE Sol Last Filed: 06/22/22 13:28> Physical Exam ED Vital Signs: Vital Signs - 24 hr 06/22/22 13:24 06/22/22 18:22 06/22/22 18:54 Temperature 98.0 F Pulse Rate 78 66 70 Respiratory Rate 18 14 Blood Pressure 133/85 107/63 117/68 Pulse Oximetry 100 100 Oxygen Delivery Method Room Air Room Air 06/22/22 18:57 06/22/22 18:55 06/22/22 19:15 Temperature 98.1 F Pulse Rate 103 H 90 70 Respiratory Rate 18 Blood Pressure 123/84 123/65 115/71 Pulse Oximetry 100 Oxygen Delivery Method Room Air BMI result Body Mass Index 26.3 <JOSE Sol - Last Filed: 06/22/22 13:28> Vital Signs - 24 hr 06/22/22 13:24 06/22/22 18:22 06/22/22 18:54 Temperature 98.0 F Pulse Rate 78 66 70 Respiratory Rate 18 14 Blood Pressure 133/85 107/63 117/68 Pulse Oximetry 100 100 Oxygen Delivery Method Room Air Room Air 06/22/22 18:57 06/22/22 18:55 06/22/22 19:15 Temperature 98.1 F Pulse Rate 103 H 90 70 Respiratory Rate 18 Blood Pressure 123/84 123/65 115/71 Pulse Oximetry 100 Oxygen Delivery Method Room Air BMI result Body Mass Index 26.3 <Bari Shaikh MD - Last Filed: 06/22/22 19:52> GEN: Well developed, no acute distress, alert, oriented HEENT: Normocephalic, atraumatic, normal external ears, nose appears normal, no oropharyngeal edema or exudates Eyes: Normal to appearance Neck: Supple, no lymphadenopathy Respiratory: Talks in complete sentences, no respiratory distress, clear to auscultation bilaterally Cardiovascular: Regular rate and rhythm, no murmurs rubs or gallops Abdomen: Soft, nontender, nondistended, no guarding, no rebound Back: No CVA tenderness, right lumbar paraspinous tenderness, no midline tenderness or step-off Extremities: No clubbing cyanosis or edema Neurologic: No focal neurologic deficits, cranial nerves 2-12 intact, strength is 5/5 bilaterally Skin: No rash <Bari Shaikh MD - Last Filed: 06/22/22 19:52> Course Course Course Narrative: RME: 31yo F w/PMHx asthma, sciatica c/o back pain and lightheadedness/dizziness w/trip this AM, denies falling to ground, head trauma or LOC. +nausea and diarrhea and decreased PO intake due to dieting recently. denies incontinence/retention. In wheelchair in triage, VSS EKG, labs, UA, orthostatics ordered Full HPI, ROS and PE to be performed by primary ED provider. <JOSE Sol - Last Filed: 06/22/22 13:28> Reevaluation(s) Reevaluation #1: I reviewed the patient's labs. There are no significant acute abnormalities. Patient's pain is most likely musculoskeletal. There is no evidence of acute cauda equina syndrome or epidural abscess. Will treat her pain with Lidoderm patches, Toradol, Tylenol and cyclobenzaprine. I will re- evaluate the patient. <Bari Shaikh MD - Last Filed: 06/22/22 19:52> Reevaluation #2: Patient is feeling well enough to go home at this time. We discussed a pain management regimen. Recommend close follow-up with primary care provider. For continued symptoms, I would recommend an MRI <Bari Shaikh MD - Last Filed: 06/22/22 19:52> Time: 19:48 <Bari Shaikh MD - Last Filed: 06/22/22 19:52> Medications Administered Discontinued Medications Generic Name Dose Route Start Last Admin Trade Name Freq PRN Reason Stop Dose Admin Acetaminophen 975 mg 06/22/22 18:36 06/22/22 18:46 Acetaminophen 325 Mg Tablet PO 06/22/22 18:37 975 mg ONCE ONE Administration Cyclobenzaprine HCl 10 mg 06/22/22 18:36 06/22/22 18:53 Cyclobenzaprine Hcl 10 Mg Tablet PO 06/22/22 18:37 Not Given ONCE ONE Ketorolac Tromethamine 30 mg 06/22/22 18:36 06/22/22 18:47 Ketorolac Tromethamine 30 Mg/Ml Vial IM 06/22/22 18:37 30 mg ONCE ONE Administration Lidocaine 2 patch 06/22/22 18:36 06/22/22 18:47 Lidocaine 4 % Patch Adh..Patch TRANSDERMA 06/22/22 18:37 Not Given ONCE ONE Protocol Ondansetron HCl 4 mg 06/22/22 18:38 06/22/22 18:47 Ondansetron Odt 4 Mg Tab.Rapdis TRANSLINGU 06/22/22 18:39 4 mg ONCE ONE Administration <JOSE Sol - Last Filed: 06/22/22 13:28> Medications Administered Discontinued Medications Generic Name Dose Route Start Last Admin Trade Name Freq PRN Reason Stop Dose Admin Acetaminophen 975 mg 06/22/22 18:36 06/22/22 18:46 Acetaminophen 325 Mg Tablet PO 06/22/22 18:37 975 mg ONCE ONE Administration Cyclobenzaprine HCl 10 mg 06/22/22 18:36 06/22/22 18:53 Cyclobenzaprine Hcl 10 Mg Tablet PO 06/22/22 18:37 Not Given ONCE ONE Ketorolac Tromethamine 30 mg 06/22/22 18:36 06/22/22 18:47 Ketorolac Tromethamine 30 Mg/Ml Vial IM 06/22/22 18:37 30 mg ONCE ONE Administration Lidocaine 2 patch 06/22/22 18:36 06/22/22 18:47 Lidocaine 4 % Patch Adh..Patch TRANSDERMA 06/22/22 18:37 Not Given ONCE ONE Protocol Ondansetron HCl 4 mg 06/22/22 18:38 06/22/22 18:47 Ondansetron Odt 4 Mg Tab.Rapdis TRANSLINGU 06/22/22 18:39 4 mg ONCE ONE Administration <Bari Shaikh MD - Last Filed: 06/22/22 19:52> Medical Decision Making Medical Decision Making MDM Narrative: 31-year-old female presents with acute on chronic low back pain. Typically the pain radiates down her legs but currently there is no radiation of pain. There was no loss of bowel or bladder control or saddle paresthesias. There is no fever. She denies intravenous drug abuse. Doubt epidural abscess or acute cauda equina syndrome. She does have tenderness on the right lumbar paraspinous area. There is no midline tenderness or step-off. Suspect muscular in conjunction with a radicular type of pain. There is no indication for emergent imaging. Patient would likely benefit from an outpatient MRI. I did review previous studies and in October she did have a lumbar x-ray. Other possible diagnosis could include pyelonephritis although I doubt this and she has no urinary complaints. Patient does complain of some nausea and abdominal discomfort. Her exam is benign. Will provide patient with Zofran. <Bari Shaikh MD - Last Filed: 06/22/22 19:52> Differential Diagnosis Differential Diagnoses: The differential diagnosis associated with the presentation includes (Acute on chronic back pain, spinal stenosis, radiculopathy, muscle spasm, strain, sprain) <Bari Shaikh MD - Last Filed: 06/22/22 19:52> Low back pain <Bari Shaikh MD - Last Filed: 06/22/22 19:52> Admission/Observation Consideration of admission/observation: Escalation of care including admission/observation considered <Bari Shaikh MD - Last Filed: 06/22/22 19:52> Lab Data MDM Lab Attestation statement: I reviewed the patient's lab results. <Bari Shaikh MD - Last Filed: 06/22/22 19:52> Result Diagrams: 06/22/22 14:17 06/22/22 14:17 <JOSE Sol - Last Filed: 06/22/22 13:28> Labs: Lab Results 06/22/22 06/22/22 06/22/22 Range/Units 14:17 14:17 14:17 WBC 4.2 L (4.8-10.8) X10*3/uL RBC 4.35 (4.20-5.50) X10*6/uL Hgb 11.5 L (12.0-16.0) g/dl Hct 35.0 L (37.0-47.0) % MCV 80.5 (80.0-98.0) fL MCH 26.4 L (27.0-33.0) pg MCHC 32.9 (31.0-35.0) g/dl RDW 13.8 (11.0-16.0) % Plt Count 319 (160-400) X10*3/uL MPV 11.5 (9.4-12.3) fL Immature Gran % (Auto) 0.2 (0.0-0.4) % Neut % (Auto) 51.0 (45-73) % Lymph % (Auto) 38.8 (20-40) % Williams % (Auto) 7.4 (2-11) % Eos % (Auto) 1.9 (0-4) % Baso % (Auto) 0.7 (0-2) % Lymph # (Auto) 1.6 (1.2-4.9) X10*3/uL Williams # (Auto) 0.3 (0.1-1.2) X10*3/uL Eos # (Auto) 0.1 (0.0-0.4) X10*3/uL Baso # (Auto) 0.0 (0.0-0.2) X10*3/uL Abs Immat Gran (auto) 0.01 (0.00-0.03) X10*3/uL Absolute Neuts (auto) 2.1 (2.0-8.3) x10*3/uL Absolute Nucleated RBC 0.000 (0.0-0.012) X10*3/uL Nucleated RBC % (auto) 0.0 (0.0-0.2) /100WBC PT 13.6 H (10.0-13.1) SEC INR 1.2 H (0.9-1.1) Sodium 140 (135-145) mmol/L Potassium 4.5 (3.3-5.1) mmol/L Chloride 104 (96-108) mmol/L Carbon Dioxide 31 H (22-29) mmol/L Anion Gap 10 L (12-20) BUN 9 (9-16) mg/dL Creatinine 0.79 (0.5-1.4) mg/dL Estim Creat Clear Calc 93.2 Estimated GFR > 60 Random Glucose 102 (60-115) mg/dL Calcium 9.2 (8.4-10.2) mg/dL Magnesium 1.8 (1.6-2.6) mg/dL Total Bilirubin 0.4 (0.0-1.0) mg/dL Direct Bilirubin 0.2 (0.0-0.5) mg/dL AST 14 (5-31) U/L ALT 8 (0-31) U/L Alkaline Phosphatase 60 (39-117) U/L Troponin I High Sens (<3.5-17.0) ng/L Total Protein 7.6 (6.5-8.0) g/dL Albumin 4.2 (3.5-5.0) g/dL Urine Color Urine Appearance Urine pH (5.0-9.0) Ur Specific [place] (1.005-1.025) Urine Protein (Neg-Trace) mg/dL Urine Glucose (UA) (Negative) mg/dL Urine Ketones (Negative) mg/dL Urine Blood (Negative) Urine Nitrite (Negative) Ur Leukocyte Esterase (Negative) Urine Test (NEGATIVE) Urine Opiates Screen (Not Detect) Urine Fentanyl Screen (Not Detect) Ur Barbiturates Screen (Not Detect) Ur Phencyclidine Scrn (Not Detect) Ur Amphetamines Screen (Not Detect) U Benzodiazepines Scrn (Not Detect) Urine Cocaine Screen (Not Detect) U Marijuana (THC) Screen (Not Detect) 06/22/22 06/22/22 06/22/22 Range/Units 14:17 18:26 18:26 WBC (4.8-10.8) X10*3/uL RBC (4.20-5.50) X10*6/uL Hgb (12.0-16.0) g/dl Hct (37.0-47.0) % MCV (80.0-98.0) fL MCH (27.0-33.0) pg MCHC (31.0-35.0) g/dl RDW (11.0-16.0) % Plt Count (160-400) X10*3/uL MPV (9.4-12.3) fL Immature Gran % (Auto) (0.0-0.4) % Neut % (Auto) (45-73) % Lymph % (Auto) (20-40) % Williams % (Auto) (2-11) % Eos % (Auto) (0-4) % Baso % (Auto) (0-2) % Lymph # (Auto) (1.2-4.9) X10*3/uL Williams # (Auto) (0.1-1.2) X10*3/uL Eos # (Auto) (0.0-0.4) X10*3/uL Baso # (Auto) (0.0-0.2) X10*3/uL Abs Immat Gran (auto) (0.00-0.03) X10*3/uL Absolute Neuts (auto) (2.0-8.3) x10*3/uL Absolute Nucleated RBC (0.0-0.012) X10*3/uL Nucleated RBC % (auto) (0.0-0.2) /100WBC PT (10.0-13.1) SEC INR (0.9-1.1) Sodium (135-145) mmol/L Potassium (3.3-5.1) mmol/L Chloride (96-108) mmol/L Carbon Dioxide (22-29) mmol/L Anion Gap (12-20) BUN (9-16) mg/dL Creatinine (0.5-1.4) mg/dL Estim Creat Clear Calc Estimated GFR Random Glucose (60-115) mg/dL Calcium (8.4-10.2) mg/dL Magnesium (1.6-2.6) mg/dL Total Bilirubin (0.0-1.0) mg/dL Direct Bilirubin (0.0-0.5) mg/dL AST (5-31) U/L ALT (0-31) U/L Alkaline Phosphatase (39-117) U/L Troponin I High Sens < 2.7 (<3.5-17.0) ng/L Total Protein (6.5-8.0) g/dL Albumin (3.5-5.0) g/dL Urine Color Yellow Urine Appearance Clear Urine pH 5.5 (5.0-9.0) Ur Specific [place] 1.020 (1.005-1.025) Urine Protein Negative (Neg-Trace) mg/dL Urine Glucose (UA) Negative (Negative) mg/dL Urine Ketones Negative (Negative) mg/dL Urine Blood Negative (Negative) Urine Nitrite Negative (Negative) Ur Leukocyte Esterase Negative (Negative) Urine Test NEGATIVE (NEGATIVE) Urine Opiates Screen (Not Detect) Urine Fentanyl Screen (Not Detect) Ur Barbiturates Screen (Not Detect) Ur Phencyclidine Scrn (Not Detect) Ur Amphetamines Screen (Not Detect) U Benzodiazepines Scrn (Not Detect) Urine Cocaine Screen (Not Detect) U Marijuana (THC) Screen (Not Detect) 06/22/22 Range/Units 18:26 WBC (4.8-10.8) X10*3/uL RBC (4.20-5.50) X10*6/uL Hgb (12.0-16.0) g/dl Hct (37.0-47.0) % MCV (80.0-98.0) fL MCH (27.0-33.0) pg MCHC (31.0-35.0) g/dl RDW (11.0-16.0) % Plt Count (160-400) X10*3/uL MPV (9.4-12.3) fL Immature Gran % (Auto) (0.0-0.4) % Neut % (Auto) (45-73) % Lymph % (Auto) (20-40) % Williams % (Auto) (2-11) % Eos % (Auto) (0-4) % Baso % (Auto) (0-2) % Lymph # (Auto) (1.2-4.9) X10*3/uL Williams # (Auto) (0.1-1.2) X10*3/uL Eos # (Auto) (0.0-0.4) X10*3/uL Baso # (Auto) (0.0-0.2) X10*3/uL Abs Immat Gran (auto) (0.00-0.03) X10*3/uL Absolute Neuts (auto) (2.0-8.3) x10*3/uL Absolute Nucleated RBC (0.0-0.012) X10*3/uL Nucleated RBC % (auto) (0.0-0.2) /100WBC PT (10.0-13.1) SEC INR (0.9-1.1) Sodium (135-145) mmol/L Potassium (3.3-5.1) mmol/L Chloride (96-108) mmol/L Carbon Dioxide (22-29) mmol/L Anion Gap (12-20) BUN (9-16) mg/dL Creatinine (0.5-1.4) mg/dL Estim Creat Clear Calc Estimated GFR Random Glucose (60-115) mg/dL Calcium (8.4-10.2) mg/dL Magnesium (1.6-2.6) mg/dL Total Bilirubin (0.0-1.0) mg/dL Direct Bilirubin (0.0-0.5) mg/dL AST (5-31) U/L ALT (0-31) U/L Alkaline Phosphatase (39-117) U/L Troponin I High Sens (<3.5-17.0) ng/L Total Protein (6.5-8.0) g/dL Albumin (3.5-5.0) g/dL Urine Color Urine Appearance Urine pH (5.0-9.0) Ur Specific [place] (1.005-1.025) Urine Protein (Neg-Trace) mg/dL Urine Glucose (UA) (Negative) mg/dL Urine Ketones (Negative) mg/dL Urine Blood (Negative) Urine Nitrite (Negative) Ur Leukocyte Esterase (Negative) Urine Test (NEGATIVE) Urine Opiates Screen Not Detected (Not Detect) Urine Fentanyl Screen Not Detected (Not Detect) Ur Barbiturates Screen Not Detected (Not Detect) Ur Phencyclidine Scrn Not Detected (Not Detect) Ur Amphetamines Screen Not Detected (Not Detect) U Benzodiazepines Scrn Not Detected (Not Detect) Urine Cocaine Screen Not Detected (Not Detect) U Marijuana (THC) Screen Not Detected (Not Detect) <JOSE Sol - Last Filed: 06/22/22 13:28> Lab Results 06/22/22 06/22/22 06/22/22 Range/Units 14:17 14:17 14:17 WBC 4.2 L (4.8-10.8) X10*3/uL RBC 4.35 (4.20-5.50) X10*6/uL Hgb 11.5 L (12.0-16.0) g/dl Hct 35.0 L (37.0-47.0) % MCV 80.5 (80.0-98.0) fL MCH 26.4 L (27.0-33.0) pg MCHC 32.9 (31.0-35.0) g/dl RDW 13.8 (11.0-16.0) % Plt Count 319 (160-400) X10*3/uL MPV 11.5 (9.4-12.3) fL Immature Gran % (Auto) 0.2 (0.0-0.4) % Neut % (Auto) 51.0 (45-73) % Lymph % (Auto) 38.8 (20-40) % Williams % (Auto) 7.4 (2-11) % Eos % (Auto) 1.9 (0-4) % Baso % (Auto) 0.7 (0-2) % Lymph # (Auto) 1.6 (1.2-4.9) X10*3/uL Williams # (Auto) 0.3 (0.1-1.2) X10*3/uL Eos # (Auto) 0.1 (0.0-0.4) X10*3/uL Baso # (Auto) 0.0 (0.0-0.2) X10*3/uL Abs Immat Gran (auto) 0.01 (0.00-0.03) X10*3/uL Absolute Neuts (auto) 2.1 (2.0-8.3) x10*3/uL Absolute Nucleated RBC 0.000 (0.0-0.012) X10*3/uL Nucleated RBC % (auto) 0.0 (0.0-0.2) /100WBC PT 13.6 H (10.0-13.1) SEC INR 1.2 H (0.9-1.1) Sodium 140 (135-145) mmol/L Potassium 4.5 (3.3-5.1) mmol/L Chloride 104 (96-108) mmol/L Carbon Dioxide 31 H (22-29) mmol/L Anion Gap 10 L (12-20) BUN 9 (9-16) mg/dL Creatinine 0.79 (0.5-1.4) mg/dL Estim Creat Clear Calc 93.2 Estimated GFR > 60 Random Glucose 102 (60-115) mg/dL Calcium 9.2 (8.4-10.2) mg/dL Magnesium 1.8 (1.6-2.6) mg/dL Total Bilirubin 0.4 (0.0-1.0) mg/dL Direct Bilirubin 0.2 (0.0-0.5) mg/dL AST 14 (5-31) U/L ALT 8 (0-31) U/L Alkaline Phosphatase 60 (39-117) U/L Troponin I High Sens (<3.5-17.0) ng/L Total Protein 7.6 (6.5-8.0) g/dL Albumin 4.2 (3.5-5.0) g/dL Urine Color Urine Appearance Urine pH (5.0-9.0) Ur Specific [place] (1.005-1.025) Urine Protein (Neg-Trace) mg/dL Urine Glucose (UA) (Negative) mg/dL Urine Ketones (Negative) mg/dL Urine Blood (Negative) Urine Nitrite (Negative) Ur Leukocyte Esterase (Negative) Urine Test (NEGATIVE) Urine Opiates Screen (Not Detect) Urine Fentanyl Screen (Not Detect) Ur Barbiturates Screen (Not Detect) Ur Phencyclidine Scrn (Not Detect) Ur Amphetamines Screen (Not Detect) U Benzodiazepines Scrn (Not Detect) Urine Cocaine Screen (Not Detect) U Marijuana (THC) Screen (Not Detect) 06/22/22 06/22/22 06/22/22 Range/Units 14:17 18:26 18:26 WBC (4.8-10.8) X10*3/uL RBC (4.20-5.50) X10*6/uL Hgb (12.0-16.0) g/dl Hct (37.0-47.0) % MCV (80.0-98.0) fL MCH (27.0-33.0) pg MCHC (31.0-35.0) g/dl RDW (11.0-16.0) % Plt Count (160-400) X10*3/uL MPV (9.4-12.3) fL Immature Gran % (Auto) (0.0-0.4) % Neut % (Auto) (45-73) % Lymph % (Auto) (20-40) % Williams % (Auto) (2-11) % Eos % (Auto) (0-4) % Baso % (Auto) (0-2) % Lymph # (Auto) (1.2-4.9) X10*3/uL Williams # (Auto) (0.1-1.2) X10*3/uL Eos # (Auto) (0.0-0.4) X10*3/uL Baso # (Auto) (0.0-0.2) X10*3/uL Abs Immat Gran (auto) (0.00-0.03) X10*3/uL Absolute Neuts (auto) (2.0-8.3) x10*3/uL Absolute Nucleated RBC (0.0-0.012) X10*3/uL Nucleated RBC % (auto) (0.0-0.2) /100WBC PT (10.0-13.1) SEC INR (0.9-1.1) Sodium (135-145) mmol/L Potassium (3.3-5.1) mmol/L Chloride (96-108) mmol/L Carbon Dioxide (22-29) mmol/L Anion Gap (12-20) BUN (9-16) mg/dL Creatinine (0.5-1.4) mg/dL Estim Creat Clear Calc Estimated GFR Random Glucose (60-115) mg/dL Calcium (8.4-10.2) mg/dL Magnesium (1.6-2.6) mg/dL Total Bilirubin (0.0-1.0) mg/dL Direct Bilirubin (0.0-0.5) mg/dL AST (5-31) U/L ALT (0-31) U/L Alkaline Phosphatase (39-117) U/L Troponin I High Sens < 2.7 (<3.5-17.0) ng/L Total Protein (6.5-8.0) g/dL Albumin (3.5-5.0) g/dL Urine Color Yellow Urine Appearance Clear Urine pH 5.5 (5.0-9.0) Ur Specific [place] 1.020 (1.005-1.025) Urine Protein Negative (Neg-Trace) mg/dL Urine Glucose (UA) Negative (Negative) mg/dL Urine Ketones Negative (Negative) mg/dL Urine Blood Negative (Negative) Urine Nitrite Negative (Negative) Ur Leukocyte Esterase Negative (Negative) Urine Test NEGATIVE (NEGATIVE) Urine Opiates Screen (Not Detect) Urine Fentanyl Screen (Not Detect) Ur Barbiturates Screen (Not Detect) Ur Phencyclidine Scrn (Not Detect) Ur Amphetamines Screen (Not Detect) U Benzodiazepines Scrn (Not Detect) Urine Cocaine Screen (Not Detect) U Marijuana (THC) Screen (Not Detect) 06/22/22 Range/Units 18:26 WBC (4.8-10.8) X10*3/uL RBC (4.20-5.50) X10*6/uL Hgb (12.0-16.0) g/dl Hct (37.0-47.0) % MCV (80.0-98.0) fL MCH (27.0-33.0) pg MCHC (31.0-35.0) g/dl RDW (11.0-16.0) % Plt Count (160-400) X10*3/uL MPV (9.4-12.3) fL Immature Gran % (Auto) (0.0-0.4) % Neut % (Auto) (45-73) % Lymph % (Auto) (20-40) % Williams % (Auto) (2-11) % Eos % (Auto) (0-4) % Baso % (Auto) (0-2) % Lymph # (Auto) (1.2-4.9) X10*3/uL Williams # (Auto) (0.1-1.2) X10*3/uL Eos # (Auto) (0.0-0.4) X10*3/uL Baso # (Auto) (0.0-0.2) X10*3/uL Abs Immat Gran (auto) (0.00-0.03) X10*3/uL Absolute Neuts (auto) (2.0-8.3) x10*3/uL Absolute Nucleated RBC (0.0-0.012) X10*3/uL Nucleated RBC % (auto) (0.0-0.2) /100WBC PT (10.0-13.1) SEC INR (0.9-1.1) Sodium (135-145) mmol/L Potassium (3.3-5.1) mmol/L Chloride (96-108) mmol/L Carbon Dioxide (22-29) mmol/L Anion Gap (12-20) BUN (9-16) mg/dL Creatinine (0.5-1.4) mg/dL Estim Creat Clear Calc Estimated GFR Random Glucose (60-115) mg/dL Calcium (8.4-10.2) mg/dL Magnesium (1.6-2.6) mg/dL Total Bilirubin (0.0-1.0) mg/dL Direct Bilirubin (0.0-0.5) mg/dL AST (5-31) U/L ALT (0-31) U/L Alkaline Phosphatase (39-117) U/L Troponin I High Sens (<3.5-17.0) ng/L Total Protein (6.5-8.0) g/dL Albumin (3.5-5.0) g/dL Urine Color Urine Appearance Urine pH (5.0-9.0) Ur Specific [place] (1.005-1.025) Urine Protein (Neg-Trace) mg/dL Urine Glucose (UA) (Negative) mg/dL Urine Ketones (Negative) mg/dL Urine Blood (Negative) Urine Nitrite (Negative) Ur Leukocyte Esterase (Negative) Urine Test (NEGATIVE) Urine Opiates Screen Not Detected (Not Detect) Urine Fentanyl Screen Not Detected (Not Detect) Ur Barbiturates Screen Not Detected (Not Detect) Ur Phencyclidine Scrn Not Detected (Not Detect) Ur Amphetamines Screen Not Detected (Not Detect) U Benzodiazepines Scrn Not Detected (Not Detect) Urine Cocaine Screen Not Detected (Not Detect) U Marijuana (THC) Screen Not Detected (Not Detect) <Bari Shaikh MD - Last Filed: 06/22/22 19:52> Independent Interpretation I performed an independent interpretation of an: EKG (Normal sinus rhythm heart rate 70, nonspecific T-wave changes, no acute ST elevations depressions, normal intervals) <Bari Shaikh MD - Last Filed: 06/22/22 19:52> External Record Review External record reviewed: Prior outpatient radiology <Bari Shaikh MD - Last Filed: 06/22/22 19:52> Tests considered The following testing was considered but not selected: X-ray lumbar spine, CT scan, MRI <Bari Shaikh MD - Last Filed: 06/22/22 19:52> Prescription Management I considered prescription management with: Pain Medication <Bari Shaikh MD - Last Filed: 06/22/22 19:52> Discharge Plan Discharge Clinical Impression: Low back pain potentially associated with radiculopathy <JOSE Sol - Last Filed: 06/22/22 13:28> Patient Disposition: Home, Self-Care <JOSE Sol - Last Filed: 06/22/22 13:28> Instructions: Acute Low Back Pain (ED), Chronic Back Pain (DC) <JOSE Sol Last Filed: 06/22/22 13:28> Additional Instructions: For pain and making the following recommendations: Meloxicam 15 mg daily for 7-10 days and then as needed (avoid other nonsteroidal anti-inflammatory pain medications like aspirin, ibuprofen, Aleve, Motrin, Advil, naproxen while taking this medication) Tylenol 1000 mg every 6 hours as needed for additional pain relief Cyclobenzaprine 10 mg every 8 hours as needed for muscle spasm, may cause drowsiness Lidoderm patch daily as needed Capsaicin cream 3 times a day as needed <JOSE Sol Last Filed: 06/22/22 13:28> Prescriptions: New meloxicam 15 mg tablet 15 mg PO DAILY Qty: 14 0RF cyclobenzaprine 10 mg tablet 10 mg PO Q8H PRN (Reason: muscle spasm) Qty: 10 0RF lidocaine [Lidoderm] 5 % adhesive patch,medicated 1 patch topical DAILY Qty: 30 0RF Rx Instructions: leave on most painful area for up to 12 hrs capsaicin 0.1 % cream 1 appl topical TID Qty: 56.6 0RF Rx Instructions: do not wash area for at least 30 min after application No Action ferrous fumarate 324 mg (106 mg iron) tablet 324 mg PO DAILY 90 Days Qty: 90 1RF meclizine 25 mg tablet 25 mg PO DAILY PRN (Reason: motion sickness/ lightheadedness) Qty: 10 0RF Centrum Chewables 8 mg-400 mcg- 10 mcg tablet,chewable 1 tab PO DAILY <JOSE Sol - Last Filed: 06/22/22 13:28> Referrals: Janneth Gunn MD [Primary Care Provider] - 1 week <JOSE Sol - Last Filed: 06/22/22 13:28>
[2022-06-22 13:24] VITALS: BP 133/85; PULSE 78; RESP 18; TEMP 36.7; O2SAT 100; BMI 26.3
--- NOTE | 2022-06-22 13:27 | ECG_ITS ---
Test Reason : dizziness Blood Pressure : / mmHG Vent. Rate : 070 BPM Atrial Rate : 070 BPM P-R Int : 142 ms QRS Dur : 078 ms QT Int : 396 ms P-R-T Axes : 049 037 040 degrees QTc Int : 427 ms Normal sinus rhythm Nonspecific T wave abnormality Abnormal ECG When compared with ECG of 31-DEC-2021 13:16, No significant change was found Referred By: Ele Crocker Electronically Signed By:Terry Go
[2022-06-22 14:26] LABS: MANUAL DIFF FLAG NO
[2022-06-22 14:27] LABS: Basophils Percent Auto 0.7 % (0-2); Eosinophils Absolute Auto 0.1 X10*3/uL (0.0-0.4); Eosinophils Percent Auto 1.9 % (0-4); Hemoglobin 11.5 g/dl (12.0-16.0); Imm Gran Abs Auto 0.01 X10*3/uL (0.00-0.03); Imm Gran Pct Auto 0.2 % (0.0-0.4); Lymphocytes Absolute Auto 1.6 X10*3/uL (1.2-4.9); Lymphocytes Percent Auto 38.8 % (20-40); Mean Corpuscular HGB Conc 32.9 g/dl (31.0-35.0); Mean Corpuscular Hemoglobin 26.4 pg (27.0-33.0); Mean Corpuscular Volume 80.5 fL (80.0-98.0); Mean Platelet Volume 11.5 fL (9.4-12.3); Monocytes Absolute Auto 0.3 X10*3/uL (0.1-1.2); Monocytes Percent Auto 7.4 % (2-11); Neutrophils Absolute Auto 2.1 x10*3/uL (2.0-8.3); Platelet Count 319 X10*3/uL (160-400); Red Blood Count 4.35 X10*6/uL (4.20-5.50); Red Cell Distribution Width 13.8 % (11.0-16.0); White Blood Count 4.2 X10*3/uL (4.8-10.8)
[2022-06-22 14:33] LABS: INTERNATIONAL NORM RATIO 1.2 (0.9-1.1); Prothrombin Time 13.6 SEC (10.0-13.1)
[2022-06-22 14:42] LABS: Alanine Aminotransferase 8 U/L (0-31); Albumin Level 4.2 g/dL (3.5-5.0); Alkaline Phosphatase 60 U/L (39-117); Anion Gap 10 (12-20); Aspartate Amino Transferase 14 U/L (5-31); Bilirubin Direct 0.2 mg/dL (0.0-0.5); Bilirubin Total 0.4 mg/dL (0.0-1.0); Blood Urea Nitrogen 9 mg/dL (9-16); Calcium 9.2 mg/dL (8.4-10.2); Carbon Dioxide 31 mmol/L (22-29); Chloride 104 mmol/L (96-108); Creatinine Clr Calc Pharmacy 93.2; Estimated Glomerular Filt Rate > 60; Glucose Random 102 mg/dL (60-115); Magnesium 1.8 mg/dL (1.6-2.6); Potassium 4.5 mmol/L (3.3-5.1); Sodium 140 mmol/L (135-145); Total Protein 7.6 g/dL (6.5-8.0)
[2022-06-22 14:51] LABS: Troponin-I High Sensitivity < 2.7 ng/L (<3.5-17.0)
[2022-06-22 18:22] VITALS: BP 107/63; PULSE 66; RESP 14; O2SAT 100
[2022-06-22 18:32] LABS: Appearance Urine Clear; Color Urine Yellow; Glucose Urine UA Negative (Negative); Leukocyte Esterase Urine Negative (Negative); Nitrite Urine Negative (Negative); PH 5.5 (5.0-9.0); Urine Blood Negative (Negative); Urine Ketones Negative (Negative); Urine Protein Negative (Neg-Trace)
[2022-06-22 18:33] LABS: UPreg QC Valid YES
[2022-06-22 18:35] LABS: Urine Pregnancy NEGATIVE (NEGATIVE)
[2022-06-22] MEDS: Acetaminophen 325 MG TABLET 975 MG PO (18:46)
[2022-06-22] MEDS: Ketorolac Tromethamine 30 MG/ML VIAL IM (18:47)
[2022-06-22] MEDS: Ondansetron ODT 4 MG TAB.RAPDIS TRANSLINGU (18:47)
[2022-06-22 18:48] LABS: Amphetamine Screen Urine Not Detected (Not Detect); Barbiturates, Urine Not Detected (Not Detect); Benzodiazepines Screen Urine Not Detected (Not Detect); Cannabinoid Screen Urine Not Detected (Not Detect); Cocaine Screen Urine Not Detected (Not Detect); Fentanyl, urine Not Detected (Not Detect); Opiate Screen Urine Not Detected (Not Detect); Phencyclidine Screen Urine Not Detected (Not Detect)
[2022-06-22 18:54] VITALS: BP 117/68; PULSE 70
[2022-06-22 18:55] VITALS: BP 123/65; PULSE 90
[2022-06-22 18:57] VITALS: BP 123/84; PULSE 103
[2022-06-22 19:15] VITALS: BP 115/71; PULSE 70; RESP 18; TEMP 36.7; O2SAT 100
== END 2022-06-22 20:13 | disposition home or self-care (01) ==
PROVIDERS: Physician Assistant; Emergency Provider Emergency Medicine; PCP Internal Medicine
DX: M54.50 Low back pain, unspecified (principal); M54.16 Radiculopathy, lumbar region; R11.0 Nausea; Z79.899 Other long term (current) drug therapy
CPT/HCPCS: 36415; 80048; 80076; 80307; 81003; 81025; 83735; 84484; 85025; 85610; 93005; 96372; 99284; 99285; J1885

== ENCOUNTER 2022-06-26 11:12 | Emergency (ER) | payer OTHER, SELFPAY ==
[2022-06-26 11:28] VITALS: BP 107/63; PULSE 77; RESP 18; TEMP 36.4; O2SAT 96; BMI 25.6
--- NOTE | 2022-06-26 11:28 | ED_ITS ---
HPI - Dizziness General Chief Complaint: Dizziness <JOSE Higgins - Last Filed: 06/26/22 11:34> Stated Complaint: Dizziness <JOSE Higgins - Last Filed: 06/26/22 11:34> Time Seen by Provider: 06/26/22 20:30 <JOSE Higgins - Last Filed: 06/26/22 11:34> Source: patient, RN notes reviewed and old records reviewed <Valentin Alford - Last Filed: 06/26/22 21:07> Mode of arrival: ambulatory <Valentin Alford - Last Filed: 06/26/22 21:07> Limitations: no limitations <Valentin Alford - Last Filed: 06/26/22 21:07> History of Present Illness HPI Narrative: 31-year-old female presents for evaluation of ?dizziness. ? Patient was seen here a few days ago for acute on chronic back pain And she was ultimately discharged with meloxicam, cyclobenzaprine, lidocaine, capsaicin Today the patient reports that she was dizzy at that time too? they did not give me anything for the dizziness. ? Patient has a history of vertigo Denies any trauma to the head or neck She was treated in triage with acetaminophen, meclizine, Zofran She reports feeling better at the time my evaluation Patient reports that she is due to have physical therapy for her vertigo <Valentin Alford - Last Filed: 06/26/22 21:07> Related Data Home Medications: Home Medications Medication Instructions Recorded Confirmed zrzszscz-xjujbfoz-vjrn 8 mg-folic 1 tab PO DAILY 12/05/21 12/05/21 ac 400 mcg-vit K 10 mcg chew tablet (Centrum Chewables) Previous Rx's Medication Instructions Recorded ferrous fumarate 324 mg (106 mg 324 mg PO DAILY 90 days #90 tabs 04/11/22 iron) tablet meclizine 25 mg tablet 25 mg PO DAILY PRN motion 04/11/22 sickness/ lightheadedness #10 tabs capsaicin 0.1 % topical cream 1 appl topical TID #56.6 grams 06/22/22 cyclobenzaprine 10 mg tablet 10 mg PO Q8H PRN muscle spasm #10 06/22/22 tabs lidocaine 5 % topical patch 1 patch topical DAILY #30 ea 06/22/22 (Lidoderm) meloxicam 15 mg tablet 15 mg PO DAILY #14 tabs 06/22/22 meclizine 25 mg tablet 25 mg PO TID dizziness #20 tabs 06/26/22 ondansetron HCl 4 mg tablet 4 mg PO Q12H PRN nausea and 06/26/22 vomiting #10 tabs <JOSE Higgins - Last Filed: 06/26/22 11:34> Allergies/Adverse Reactions: Allergies Allergy/AdvReac Type Severity Reaction Status Date / Time No Known Allergies Allergy Verified 06/26/22 11:28 <JOSE Higgins - Last Filed: 06/26/22 11:34> Review of Systems Constitutional: Constitutional: Reports as per HPI, Denies chills, Denies fatigue, Denies fever(s) and Denies headache(s) <Valentin Alford - Last Filed: 06/26/22 21:07> ENT: Denies headache(s) <Valentin Alford - Last Filed: 06/26/22 21:07> Cardiovascular: Cardiovascular: Denies chest pain and Denies dyspnea <Valentin Alford - Last Filed: 06/26/22 21:07> Respiratory: Respiratory: Denies cough and Denies dyspnea <Valentin Alford - Last Filed: 06/26/22 21:07> Gastrointestinal: Gastrointestinal: Denies abdominal pain, Denies constipation and Denies vomiting <Valentin Alford - Last Filed: 06/26/22 21:07> Genitourinary: Genitourinary: Denies dysuria <Valentin Alford - Last Filed: 06/26/22 21:07> Neurologic: Denies headache(s) and Denies focal weakness <Valentin Alford - Last Filed: 06/26/22 21:07> Endocrine: Endocrine: Denies fatigue <Valentin Alford - Last Filed: 06/26/22 21:07> [facility] Past Medical History Medical History: Medical History Asthma Family history of thyroid disease in mother Low back pain potentially associated with radiculopathy Lumbago with sciatica, right side <JOSE Higgins Last Filed: 06/26/22 11:34> Family History Family History: Family History Father Substance use disorder Mental health disorder Mother Mental health disorder Thyroid disorder <JOSE Higgins - Last Filed: 06/26/22 11:34> Social History Social History: Social History Housing: Homeless Housing Other:: Half-Way Alcohol intake: never Patient Tobacco Use Status: Never used Tobacco Smoked in Last 30 Days: No e-Cigarette/Vaping Use: Never Used Use of substances other than those prescribed or required for medical reasons: No Advance Directives: No Advance Directives Information Provided: No Patient : No service: No Current occupational status: unemployed Cognitive needs: No Hearing needs: No Vision needs: No <JOSE Higgins - Last Filed: 06/26/22 11:34> Physical Exam Vital Signs: Vital Signs: Last Vital Signs Temp 97.5 F 06/26/22 11:28 Pulse 76 06/26/22 20:07 Resp 18 06/26/22 20:09 BP 113/63 06/26/22 20:07 Pulse Ox 100 06/26/22 20:09 O2 Del Method Room Air 06/26/22 20:09 BMI result Body Mass Index 25.6 <JOSE Higgins - Last Filed: 06/26/22 11:34> Vital Signs: Last Vital Signs Temp 97.5 F 06/26/22 11:28 Pulse 76 06/26/22 20:07 Resp 18 06/26/22 20:09 BP 113/63 06/26/22 20:07 Pulse Ox 100 06/26/22 20:09 O2 Del Method Room Air 06/26/22 20:09 BMI result Body Mass Index 25.6 <Valentin Alford - Last Filed: 06/26/22 21:07> Const: General: healthy appearing, comfortable, no acute distress, alert and awake <Valentin Alford - Last Filed: 06/26/22 21:07> Nutritional Appearance: well nourished <Valentin Alford - Last Filed: 06/26/22 21:07> Orientation/consciousness: patient oriented x3 <Valentin Alford - Last Filed: 06/26/22 21:07> HEENT: Head: Yes normocephalic and Yes atraumatic <Valentin SorensenQuinten - Last Filed: 06/26/22 21:07> Throat: Yes posterior oropharynx normal <Valentin [place] - Last Filed: 06/26/22 21:07> Eyes: Eyelids: Yes eyelids normal <Valentin [place] - Last Filed: 06/26/22 21:07> Conjunctivae: conjunctivae normal <Valentin [place] - Last Filed: 06/26/22 21:07> Sclerae: sclerae normal <Valentin [place] - Last Filed: 06/26/22 21:07> Corneas: corneas normal <Valentin [place] - Last Filed: 06/26/22 21:07> Pupils: Equal, round and reactive pupils present <Valentin [place] - Last Filed: 06/26/22 21:07> EOM: EOMs intact bilaterally <Valentin [place] - Last Filed: 06/26/22 21:07> Neck: Neck: Yes full ROM <Valentin [place] - Last Filed: 06/26/22 21:07> Resp: Effort & Inspection: normal respiratory effort, able to speak in complete sentences, no audible wheezes and not labored <Valentin [place] - Last Filed: 06/26/22 21:07> Auscultation: clear to auscultation bilaterally <Valentin [place] - Sunny ed: 06/26/22 21:07> Cardio: Rate: regular rate <Valentin [place] - Last Filed: 06/26/22 21:07> Rhythm: regular rhythm <Valentin OQuinten - Last Filed: 06/26/22 21:07> GI: Inspection: No distended <Valentin [place] - Last Filed: 06/26/22 21:07> Palpation (GI): Soft to palpation, not firm, nontender, no guarding and not rigid <Valentin SorensenQuinten - Last Filed: 06/26/22 21:07> Auscultation: normoactive bowel sounds <Valentin [place] - Last Filed: 06/26/22 21:07> Skin: General skin exam: no rashes or lesions noted and elasticity normal <Valentin Andrea Last Filed: 06/26/22 21:07> Neuro: General: patient oriented x3 <Valentinerna Andrea Last Filed: 06/26/22 21:07> Cranial nerves: Yes CN's II-XII intact bilaterally, Yes Equal, round and reactive pupils present and Yes Bilaterally intact EOM present <Valentin Andrea Last Filed: 06/26/22 21:07> Cognition (Neuro): normal cognition <Valentinerna Andreay - Last Filed: 06/26/22 21:07> Motor exam (neuro): Pronator motor function not present <Valentinerna Alford Last Filed: 06/26/22 21:07> Coordination: etncui-hx-siuz test normal, gobe-jz-tlfh test normal and Romberg test negative <Valentin Andrea Last Filed: 06/26/22 21:07> Course Course Course Narrative: RME - 31 y/o female presents to the ER for evaluation of worsening dizziness for the last 3 days. She was here on 06/22 for sciatica and dizziness as well - discharged with prescriptions which she never picked up. Dizziness is described as lightheadedness and room spinning. She also reports headache and nausea. Plan: stable labs from 4 days ago. will check EKG and orthostatic VS. will plan to medicate and reassess <JOSE Higgins - Last Filed: 06/26/22 11:34> Medications Administered Discontinued Medications Generic Name Dose Route Start Last Admin Trade Name Miguel PRN Reason Stop Dose Admin Acetaminophen 975 mg 06/26/22 11:32 06/26/22 20:14 Acetaminophen 325 Mg Tablet PO 06/26/22 11:33 975 mg ONCE ONE Administration Meclizine HCl 50 mg 06/26/22 11:32 06/26/22 20:13 Meclizine Hcl 25 Mg Tablet PO 06/26/22 11:33 50 mg ONCE ONE Administration Ondansetron HCl 4 mg 06/26/22 11:32 06/26/22 20:14 Ondansetron Odt 4 Mg Tab.Rapdis TRANSLINGU 06/26/22 11:33 4 mg ONCE ONE Administration <JOSE Higgins - Last Filed: 06/26/22 11:34> Medications Administered Discontinued Medications Generic Name Dose Route Start Last Admin Trade Name Miguel PRN Reason Stop Dose Admin Acetaminophen 975 mg 06/26/22 11:32 06/26/22 20:14 Acetaminophen 325 Mg Tablet PO 06/26/22 11:33 975 mg ONCE ONE Administration Meclizine HCl 50 mg 06/26/22 11:32 06/26/22 20:13 Meclizine Hcl 25 Mg Tablet PO 06/26/22 11:33 50 mg ONCE ONE Administration Ondansetron HCl 4 mg 06/26/22 11:32 06/26/22 20:14 Ondansetron Odt 4 Mg Tab.Rapdis TRANSLINGU 06/26/22 11:33 4 mg ONCE ONE Administration <Valentin Alford - Last Filed: 06/26/22 21:07> Medical Decision Making Medical Decision Making MDM Narrative: 31-year-old female with a past medical history significant for vertigo, chronic back pain presenting for evaluation of dizziness that she describes as room spinning. This is consistent with vertigo. The patient is a negative cerebellar exam. She reports improvement with meclizine. Will discharge the patient was seen and she will follow up with outpatient providers. I reviewed the patient's workup from earlier today <Valentin Alford - Last Filed: 06/26/22 21:07> Differential Diagnosis Dizziness Vertigo Cervicalgia Orthostasis Dehydration <Valentin Alford - Last Filed: 06/26/22 21:07> Discharge Plan Discharge Clinical Impression: Dizziness <JOSE Higgins - Last Filed: 06/26/22 11:34> Patient Disposition: Home, Self-Care <JOSE Higgins - Last Filed: 06/26/22 11:34> Instructions: Dizziness (ED) <JOSE Higgins - Last Filed: 06/26/22 11:34> Additional Instructions: Take meclizine up to 3 times daily as needed for dizziness You may continue using your recently prescribed medications for your back pain as well Stay well-hydrated Follow-up with your primary doctor <JOSE Higgins - Last Filed: 06/26/22 11:34> Prescriptions: New meclizine 25 mg tablet 25 mg PO TID Qty: 20 0RF No Action ondansetron HCl 4 mg tablet 4 mg PO Q12H PRN (Reason: nausea and vomiting) Qty: 10 0RF meloxicam 15 mg tablet 15 mg PO DAILY Qty: 14 0RF cyclobenzaprine 10 mg tablet 10 mg PO Q8H PRN (Reason: muscle spasm) Qty: 10 0RF lidocaine [Lidoderm] 5 % adhesive patch,medicated 1 patch topical DAILY Qty: 30 0RF Rx Instructions: leave on most painful area for up to 12 hrs capsaicin 0.1 % cream 1 appl topical TID Qty: 56.6 0RF Rx Instructions: do not wash area for at least 30 min after application ferrous fumarate 324 mg (106 mg iron) tablet 324 mg PO DAILY 90 Days Qty: 90 1RF meclizine 25 mg tablet 25 mg PO DAILY PRN (Reason: motion sickness/ lightheadedness) Qty: 10 0RF Centrum Chewables 8 mg-400 mcg- 10 mcg tablet,chewable 1 tab PO DAILY <JOSE Higgins - Last Filed: 06/26/22 11:34>
--- NOTE | 2022-06-26 11:33 | ECG_ITS ---
Test Reason : dizzeness/ nausea Blood Pressure : / mmHG Vent. Rate : 068 BPM Atrial Rate : 068 BPM P-R Int : 150 ms QRS Dur : 072 ms QT Int : 400 ms P-R-T Axes : 048 025 047 degrees QTc Int : 425 ms Normal sinus rhythm Normal ECG When compared with ECG of 22-JUN-2022 14:11, No significant change was found Referred By: Ericka Guzmán Electronically Signed By:LIMA IRVING MD
[2022-06-26 20:04] VITALS: BP 105/62; PULSE 65
[2022-06-26 20:06] VITALS: BP 109/63; PULSE 65
[2022-06-26 20:07] VITALS: BP 113/63; PULSE 76
[2022-06-26 20:09] VITALS: RESP 18; O2SAT 100
[2022-06-26] MEDS: Meclizine HCl 25 MG TABLET 50 MG PO (20:13)
[2022-06-26] MEDS: Acetaminophen 325 MG TABLET 975 MG PO (20:14)
[2022-06-26] MEDS: Ondansetron ODT 4 MG TAB.RAPDIS TRANSLINGU (20:14)
--- NOTE | 2022-06-26 20:16 | PC.NURSE ---
pt a&ox3, vss, orthostatic vitals complete - endorses dizziness/ room spinning throughout, constant dizziness for 3 days, 6/10 chest tightness. hx sciatica, seen in ED for same but has been unable to pickup medications. ambulated independently with a steady gait to restroom, medicated per provider order, pt resting quietly in hallway bed, watching tv, pending ED provider.
--- NOTE | 2022-06-26 21:07 | PC.NURSE ---
pt reports improved dizziness after medication.
== END 2022-06-26 21:07 | disposition home or self-care (01) ==
PROVIDERS: Emergency Provider Emergency Medicine; PCP Internal Medicine
DX: R42 Dizziness and giddiness (principal); M54.42 Lumbago with sciatica, left side; M54.41 Lumbago with sciatica, right side; R94.31 Abnormal electrocardiogram [ECG] [EKG]
CPT/HCPCS: 93005; 99283; 99284

== ENCOUNTER 2022-07-04 10:58 | Outpatient (AMB) | payer OTHER, SELFPAY ==
--- NOTE | 2022-07-04 11:01 | A.OFFPC_ITS ---
<Statement entered by Janneth Gunn MD - 07/01/24 15:15> This note has been administratively?closed. Vital Signs 07/04/22 11:20 Height 5 ft 2 in Weight 148 lb BMI 27.1 BP 110/80 Blood Pressure Location Lt brachial Position Sitting Pulse 100 Pulse Source Pulse Oximeter Pulse Oximetry (%) 98 Oxygen Delivery Method Room Air Comment Blood pressure 110/80 both supine and sitting Intake Visit Reasons: Vertigo Intake Note: Pt is here today to discuss vertigo. Allergies No Known Allergies Allergy (Verified 07/04/22 12:00) Medication List - Last Reconciled 07/04/22 by Janneth Gunn MD cyclobenzaprine 10 mg PO Q8H PRN ferrous fumarate 324 mg PO DAILY 90 days meclizine 25 mg PO TID meclizine 25 mg PO DAILY PRN meloxicam 15 mg PO DAILY uwjsosyj-nfu-jhgu-folic-vit K1 8 mg-400 mcg- 10 mcg (Centrum Chewables) 1 tab PO DAILY ondansetron HCl 4 mg PO Q12H PRN Tobacco use date assessed: 07/04/22 [facility] Medical History (Updated 07/04/22 @ 11:57 by Janneth Gunn MD) Asthma Family history of thyroid disease in mother Low back pain potentially associated with radiculopathy Lumbago with sciatica, right side Positional lightheadedness Family History Father Substance use disorder Mental health disorder Mother Mental health disorder Thyroid disorder Social History Housing: Homeless Housing Other:: Halfway Alcohol intake: never Patient Tobacco Use Status: Never used Tobacco e-Cigarette/Vaping Use: Never Used service: No Current occupational status: unemployed Cognitive needs: No Hearing needs: No Vision needs: No Female Reproductive History Menstrual Age of Menarche: 10 Questionnaire Thrive Questionnaire Date Thrive assessed: 04/11/22 AUDIT C Alcohol Use Questionnaire (AUDIT-C) 1. How often do you have a drink containing alcohol?: Never Total Score: 0 CEM-7 AMB Questionnaire CEM-7 Date CEM - 7 assessed: 04/11/22 Source: Developed by Drs. Victor M Brian, Jennifer B.W. Alessandro Ying and colleagues, with an educational ethel from [employer]. Physical exam (Primary Care) Vital Signs: Last Vital Signs Pulse 100 07/04/22 11:20 BP 128/100 H 07/04/22 11:20 Pulse Ox 98 07/04/22 11:20 Oxygen Delivery Method Room Air 07/04/22 11:20 BMI result Body Mass Index 27.1 Tobacco/Smoking Status: Tobacco use Status Tobacco use date assessed 07/04/22 07/04/22 11:03 Patient Tobacco Use Status Never used Tobacco 07/04/22 11:03 e-Cigarette/Vaping Use Never Used 07/04/22 11:03 Thrive Assessment: Date of Thrive Assessment Date Thrive assessed 04/11/22 07/04/22 11:03 Results Reviewed Results Reviewed: RUN: 07/04/22 1143 PAGE 1 [facility] [address] [place] [id number] Switch Coupler: Tray Ridley M.D. Specimen Inquiry Name: Kate Ring Age/Sex: 31/F : 1990 Unit#: [id number] Attend Dr: Bari Shaikh MD Re06/22/22 Status: DEP ER Location: .ED Disch: SPEC : [id number] ASH: 06/22/22 STATUS: COMP REQ : [id number] RECD: 06/22/[address]: Ele Crocker COMP: 06/22/22-1327 ENTERED: 06/22/22-[address]: Jose Arrieta MD ORDERED: CBC Auto Diff Test Result Flag Reference Site WBC 4.2 L 4.8-10.8 X10*3/uL RBC 4.35 4.20-5.50 X10*6/uL HGB 11.5 L 12.0-16.0 g/dl HCT 35.0 L 37.0-47.0 % MCV 80.5 80.0-98.0 fL MCH 26.4 L 27.0-33.0 pg MCHC 32.9 31.0-35.0 g/dl RDW 13.8 11.0-16.0 % PLT 319 160-400 X10*3/uL MPV 11.5 9.4-12.3 fL Neut Pct Auto 51.0 45-73 % ImGran Pct Auto 0.2 0.0-0.4 % Lymp Pct Auto 38.8 20-40 % Vance Pct Auto 7.4 2-11 % Eos Pct Auto 1.9 0-4 % Baso Pct Auto 0.7 0-2 % NRBC Pct Auto 0.0 0.0-0.2 /100WBC ANC Neut Abs # 2.1 2.0-8.3 x10*3/uL ImGran Abs Auto 0.01 0.00-0.03 X10*3/uL Lymph Abs Auto 1.6 1.2-4.9 X10*3/uL Vance Abs Auto 0.3 0.1-1.2 X10*3/uL Eos Abs Auto 0.1 0.0-0.4 X10*3/uL Baso Abs Auto 0.0 0.0-0.2 X10*3/uL NRBC Abs Auto 0.000 0.0-0.012 X10*3/uL RUN: 07/04/22 1144 PAGE 1 [facility] [address] [place] [id number] Switch Coupler: Tray Ridley M.D. Specimen Inquiry Name: Kate Ring Age/Sex: 31/F : 1990 Unit#: [id number] Attend Dr: Bari Shaikh MD Re06/22/22 Status: DEP ER Location: .ED Disch: SPEC : [id number] ASH: 06/22/22 STATUS: COMP REQ : [id number] RECD: 06/22/22-[address]: Ele Crocker COMP: 06/22/22-1442 ENTERED: 06/22/22-[address]: Jose Arrieta MD ORDERED: Liver Panel, BMP, MG Test Result Flag Reference Site Sodium 140 135-145 mmol/L Potassium 4.5 3.3-5.1 mmol/L CL 104 96-108 mmol/L CO2 31 H 22-29 mmol/L Gap 10 L 12-20 BUN 9 9-16 mg/dL Creat 0.79 0.5-1.4 mg/dL Estimated CrCl 93.2 Provided height and weight: 157.48 cm, 65.317 kg. eGFR (calculated from the MDRD study equation) and eCrCl (calculated from the Cockcroft-Gault equation) are based on different parameters and may not yield comparable resul ts. If eCrCl result is absurd, please check patient's height/weight. EGFR > 60 NOTE: For -[place] individuals, multiply the result by 1.210. Chronic Kidney Disease: Estimated GFR < 60 mL/min/1.73m2 Severe Kidney Disease: Estimated GFR < 15 mL/min/1.73m2 Glucose, Random 102 60-115 mg/dL CA 9.2 8.4-10.2 mg/dL Magnesium 1.8 1.6-2.6 mg/dL Total Bili 0.4 0.0-1.0 mg/dL Direct Bili 0.2 0.0-0.5 mg/dL AST (GOT) 14 5-31 U/L ALT (GPT) 8 0-31 U/L Protein, Total 7.6 6.5-8.0 g/dL Alb 4.2 3.5-5.0 g/dL Alk Phos 60 39-117 U/L Assessment and Plan Assessment & Plan (1) Lumbago with sciatica, right side: Code(s): M54.41 - Lumbago with sciatica, right side (2) Hypochromic anemia: Code(s): D50.9 - Iron deficiency anemia, unspecified Orders: Orders PT Evaluation and Treatment Today R42 - Dizziness and giddiness IRON PROFILE Today D50.9 - Iron deficiency anemia, unspecified Complete Blood Count Auto Diff Today D50.9 - Iron deficiency anemia, unspecified Referrals Pain Management Referral M54.41 - Lumbago with sciatica, right side Coding Level of Care Code Est Pt Level 3 (68441) Diagnoses Lumbago with sciatica, right side M54.41 Hypochromic anemia D50.9
[2022-07-04 11:20] VITALS: BP 110/80; PULSE 100; O2SAT 98; BMI 27.1
== END 2022-07-04 13:12 | disposition home or self-care (01) ==
LOC: HO.HMGC 10:58
PROVIDERS: PCP Internal Medicine; Visit Provider Internal Medicine
DX: M54.41 Lumbago with sciatica, right side (principal); D50.9 Iron deficiency anemia, unspecified
CPT/HCPCS: 99499

== ENCOUNTER 2022-07-04 11:59 | Outpatient (REF) | payer OTHER, SELFPAY ==
[2022-07-04 14:19] LABS: MANUAL DIFF FLAG NO
[2022-07-04 14:29] LABS: Basophils Percent Auto 0.6 % (0-2); Eosinophils Absolute Auto 0.1 X10*3/uL (0.0-0.4); Eosinophils Percent Auto 2.6 % (0-4); Hematocrit 36.1 % (37.0-47.0); Hemoglobin 12.1 g/dl (12.0-16.0); Imm Gran Abs Auto 0.01 X10*3/uL (0.00-0.03); Imm Gran Pct Auto 0.2 % (0.0-0.4); Lymphocytes Absolute Auto 2.4 X10*3/uL (1.2-4.9); Lymphocytes Percent Auto 43.4 % (20-40); Mean Corpuscular HGB Conc 33.5 g/dl (31.0-35.0); Mean Corpuscular Hemoglobin 26.7 pg (27.0-33.0); Mean Corpuscular Volume 79.5 fL (80.0-98.0); Mean Platelet Volume 12.2 fL (9.4-12.3); Monocytes Absolute Auto 0.4 X10*3/uL (0.1-1.2); Monocytes Percent Auto 6.5 % (2-11); Neutrophils Absolute Auto 2.5 x10*3/uL (2.0-8.3); Neutrophils Percent Auto 46.7 % (45-73); Platelet Count 317 X10*3/uL (160-400); Red Blood Count 4.54 X10*6/uL (4.20-5.50); Red Cell Distribution Width 13.8 % (11.0-16.0); White Blood Count 5.4 X10*3/uL (4.8-10.8)
[2022-07-04 15:16] LABS: Iron 105 mcg/dL (30-160); Percent Iron Saturation 39 % (15-50); Total Iron Binding Capacity 269 mcg/dL (228-428); Unsaturated Iron Binding 164 ug/dL
== END 2022-07-04 12:00 | disposition home or self-care (01) ==
LOC: HO.HMGCLDS 11:59
PROVIDERS: PCP Internal Medicine; Visit Provider Internal Medicine
DX: D50.9 Iron deficiency anemia, unspecified (principal)
CPT/HCPCS: 36415; 83540; 85025

== ENCOUNTER 2022-07-20 10:40 | Outpatient (RCR) | payer OTHER, SELFPAY ==
[2022-07-20 11:01] VITALS: BP 110/85
--- NOTE | 2022-07-20 11:59 | MHC.PT.EP ---
[facility] [place] Office [place] Office [place] Office [address] [phone] F: [phone] F: [phone] F: [phone] F: [phone] Physical Therapy Plan of Care Date of Evaluation: Date of Surgery: Diagnosis: dizziness and giddiness refer for vestibular rehab, r/o BPPV Assessment: Pt is 32 yo female presenting to PT with c/o dizziness. Describes dizziness as off kilter , nausea, and room spinning that lasts for hours to days. Dizziness provoked by prolonged sitting and standing, loud music, and movement. Examination showed smooth pursuit and saccades interrupted gaze initially, but with repeat testing WNL, question if due to attention or to an occulomotor deficit. Balance WNL, (-) VBI, and (-) BPPV testing. At this time recommended pt follow up with MD regarding continued dizziness, pt may benefit from further testing as her dizziness does not appear to stem from vestibular hypofunction or BPPV. PT not indicated. Frequency and Duration: The patient will be seen Short Term Goals: Stitch Marker Goals: PT not indicated, follow up with MD Treatment Plan: Modalities to reduce pain, spasms and effusion. Manual therapy to restore motion and function. Therapeutic exercise to improve strength and flexibility. Neuromuscular re-education for posture and balance. Therapeutic activities to return to functional activities of daily living. Electronically signed by: Heather Walsh PT Please sign and return to therapist. Thank you for your referral.
--- NOTE | 2022-07-20 12:02 | MHC.PT.DC ---
[facility] [place] Office [place] Office [place] Office [address] Debbie Contreras [address] [phone] F: [phone] F: [phone] F: [phone] F: [phone] Physical Therapy Discharge Report Diagnosis: dizziness and giddiness refer for vestibular rehab, r/o BPPV Date of Surgery: Date of Evaluation: 07/20/22 Date of Discharge: 07/20/22 Treatments to Date: 1 Cancellations to Date: No Shows to Date: Discharge Status: Recommend MD Follow-up Discharge Summary: Pt is 32 yo female presenting to PT with c/o dizziness. Describes dizziness as off kilter , nausea, and room spinning that lasts for hours to days. Dizziness provoked by prolonged sitting and standing, loud music, and movement. Examination showed smooth pursuit and saccades interrupted gaze initially, but with repeat testing WNL, question if due to attention or to an occulomotor deficit. Balance WNL, (-) VBI, and (-) BPPV testing. At this time recommended pt follow up with MD regarding continued dizziness, pt may benefit from further testing as her dizziness does not appear to stem from vestibular hypofunction or BPPV. PT not indicated. Electronically signed by: Heather Walsh PT Please sign and return to therapist. Thank you for your referral.
== END 2022-07-20 12:02 | disposition home or self-care (01) ==
LOC: HO.PTCHIC 10:40
PROVIDERS: PCP Internal Medicine; Visit Provider Internal Medicine
DX: R42 Dizziness and giddiness (principal)
CPT/HCPCS: 97162

== ENCOUNTER → 2022-08-30 14:51 | Outpatient (BNVA) | payer OTHER, SELFPAY | PROVIDERS: PCP Internal Medicine; Visit Provider Registered Nurse Emergency | DX: M47.816 Spondylosis without myelopathy or radiculopathy, lumbar region (principal); M54.16 Radiculopathy, lumbar region | CPT/HCPCS: 99202 ==

== ENCOUNTER 2022-09-02 09:56 | Emergency (ER) | payer OTHER, SELFPAY ==
[2022-09-02 10:15] VITALS: BP 116/74; PULSE 91; RESP 14; TEMP 36.7; O2SAT 98; BMI 25.1
--- NOTE | 2022-09-02 12:14 | PC.NURSE ---
pt reporting chest pain x4 days, woke up with sx. c/o SOB worse on exertion. chest pain worse today than past 4 days. lung sounds dim throughout. no lower extremity edema noted. pt resting in bed with children at bedside. NAD. ANDRE
[2022-09-02 12:21] VITALS: BP 110/75; PULSE 76; RESP 20; TEMP 36.7; O2SAT 100
--- NOTE | 2022-09-02 12:22 | ED.CHESTPAIN ---
HPI - Chest Pain General Chief Complaint: Chest Pain Stated Complaint: chest pain for couple days Time Seen by Provider: 09/02/22 12:15 Source: patient and family Mode of arrival: ambulatory Limitations: no limitations History of Present Illness HPI narrative: 32-year-old female came in for evaluation of mid chest pain for 2 days, pain started as intermittent sharp pain to the mid chest with no radiation patient woke up this morning pain is becoming constant feels like throbbing pain to the mid chest about 5/10, no clear exacerbating factor, no relieving factor, declined any lower extremities pain or swelling, no recent travel or prolonged immobilization, no history of DVT/PE. No trauma to the chest. Related Data Home Medications Medication Instructions Recorded Confirmed acruftby-rexancio-earw 8 mg-folic 1 tab PO DAILY 12/05/21 12/05/21 ac 400 mcg-vit K 10 mcg chew tablet (Centrum Chewables) Previous Rx's Medication Instructions Recorded ferrous fumarate 324 mg (106 mg 324 mg PO DAILY 90 days #90 tabs 04/11/22 iron) tablet meclizine 25 mg tablet 25 mg PO DAILY PRN motion 04/11/22 sickness/ lightheadedness #10 tabs cyclobenzaprine 10 mg tablet 10 mg PO Q8H PRN muscle spasm #10 06/22/22 tabs meloxicam 15 mg tablet 15 mg PO DAILY #14 tabs 06/22/22 meclizine 25 mg tablet 25 mg PO TID dizziness #20 tabs 06/26/22 ondansetron HCl 4 mg tablet 4 mg PO Q12H PRN nausea and 06/26/22 vomiting #10 tabs ibuprofen 600 mg tablet 600 mg PO Q8H PRN pain #14 tabs 09/02/22 Allergies Allergy/AdvReac Type Severity Reaction Status Date / Time No Known Allergies Allergy Verified 08/30/22 15:00 Review of Systems Review of Systems: All other systems are reviewed and are negative Constitutional: Reports as per HPI and Reports no additional constitutional complaints Eyes: Reports as per HPI and Reports no additional eye complaints Reports system reviewed and no additional complaints, except as documented Cardiovascular: Reports as per HPI and Reports no additional cardiovascular complaints Respiratory: Reports as per HPI and Reports no additional respiratory complaints Gastrointestinal: Reports as per HPI and Reports no additional gastrointestinal complaints Genitourinary: Reports no additional female genitourinary complaints Musculoskeletal: Reports no additional musculoskeletal complaints Skin/Breast: Reports system reviewed and no additional complaints, except as docu Psychiatric: Reports no additional psychiatric complaints Endocrine: Reports no additional endocrine complaints Hematologic/Lymphatic: Reports no additional hematologic/lymphatic complaints Allergic/Immunologic: Reports no additional allergic/immunologic complaints Reports system reviewed and no additional complaints, except as documented and Reports Abnormal speech present [facility] Past Medical History Medical History Asthma Dizziness of unknown cause Family history of thyroid disease in mother Low back pain potentially associated with radiculopathy Lumbago with sciatica, right side Positional lightheadedness Family History Family History Father Substance use disorder Mental health disorder Mother Mental health disorder Thyroid disorder Social History Social History Housing: Homeless Housing Other:: [facility] Alcohol intake: never Patient Tobacco Use Status: Never used Tobacco Smoked in Last 30 Days: No e-Cigarette/Vaping Use: Never Used Use of substances other than those prescribed or required for medical reasons: No Advance Directives: No Advance Directives Information Provided: Yes Patient : No service: No Current occupational status: unemployed Cognitive needs: No Hearing needs: No Vision needs: No Physical Exam Vital Signs: Vital Signs: Last Vital Signs Temp 98.1 F 09/02/22 12:21 Pulse 72 09/02/22 13:59 Resp 16 09/02/22 13:59 BP 101/69 09/02/22 13:59 Pulse Ox 99 09/02/22 13:59 O2 Del Method Room Air 09/02/22 13:59 BMI result Body Mass Index 25.1 Vital signs have been reviewed as appeared to be correct. Blood pressure normal. Heart rate normal. Respiration rate normal. Temperature normal. Oxygen saturation normal. Appearance: Alert. Oriented X3. No acute distress. Head: Normal external exam. Normocephalic. Atraumatic. No Strauss signs noted. No raccoon eyes noted Eyes: PERRLA. EOMI. Conjunctiva and sclera normal. Eyelids normal. ENT: TM's Normal. Pharynx normal. Uvula midline. Moist mucous membranes. No trismus noted. No drooling noted. No muffled voice noted. Neck: Normal inspection. Neck supple. FROM. No adenopathy. Thyroid Normal. No meningeal signs. No neck mass noted. CVS: Normal heart rate and rhythm. Heart sound normal. No murmurs noted. Pulses normal throughout. Respiratory: No respiratory distress. Painless inspiration. Breath sounds normal. No wheezes/rales/rhonchi noted. Reproducible tenderness over the sternal with no step-off, no deformity. No accessory muscle usage noted or decreased air movement noted. Abdomen: Soft and nontender. Bowel sounds normal in all 4 quadrants. No distention noted. No organomegaly noted. No visible injury noted. Back: No CVA tenderness. Full range of motion noted. Skin: Skin warm and dry. Normal skin color. Normal skin turgor. No rashes/lesions/lacerations noted. Extremities: No lower extremity edema. Extremities exhibit normal range of motion. Extremities nontender. Neuro: Oriented X 3. Cranial nerve exam: II-XII are grossly intact No motor deficit. No sensory deficit. Reflexes normal. Course Course Course Narrative: Two days of chest pain, patient had negative troponin with unremarkable EKG. Because slight elevation of D-dimer patient had a CT angiogram of the chest which shows no acute intrathoracic pathology. Medications Administered Discontinued Medications Generic Name Dose Route Start Last Admin Trade Name Freq PRN Reason Stop Dose Admin Sodium Chloride 1,000 mls @ 999 mls/hr 09/02/22 12:54 09/02/22 14:42 Ns IV 09/02/22 13:54 Infused .Q1H1M ONE Infusion Ibuprofen 600 mg 09/02/22 12:21 09/02/22 13:05 Ibuprofen 600 Mg Tablet PO 09/02/22 12:22 600 mg ONCE ONE Administration Iohexol 100 ml 09/02/22 14:59 09/02/22 14:59 Iohexol 350 Mg/Ml 100 Ml Infus..Btl IV 09/02/22 15:00 65 ml ONCE ONE Administration Medical Decision Making Differential Diagnosis Differential Diagnoses: The differential diagnosis associated with the presentation includes (ACS, pulmonary embolism, pleural effusion, chest wall pain, costochondritis, electrolyte abnormality, severe anemia.) Admission/Observation Consideration of admission/observation: Escalation of care including admission/observation considered Lab Data MDM Lab Attestation statement: I reviewed the patient's lab results. 09/02/22 12:07 09/02/22 12:07 Labs: Lab Results 09/02/22 09/02/22 09/02/22 Range/Units 12:07 12:07 12:07 WBC 4.8 (4.8-10.8) X10*3/uL RBC 4.22 (4.20-5.50) X10*6/uL Hgb 11.3 L (12.0-16.0) g/dl Hct 33.8 L (37.0-47.0) % MCV 80.1 (80.0-98.0) fL MCH 26.8 L (27.0-33.0) pg MCHC 33.4 (31.0-35.0) g/dl RDW 13.6 (11.0-16.0) % Plt Count 256 (160-400) X10*3/uL MPV 10.9 (9.4-12.3) fL Immature Gran % (Auto) 0.2 (0.0-0.4) % Neut % (Auto) 58.3 (45-73) % Lymph % (Auto) 33.0 (20-40) % [place] % (Auto) 7.1 (2-11) % Eos % (Auto) 1.0 (0-4) % Baso % (Auto) 0.4 (0-2) % Lymph # (Auto) 1.6 (1.2-4.9) X10*3/uL [place] # (Auto) 0.3 (0.1-1.2) X10*3/uL Eos # (Auto) 0.1 (0.0-0.4) X10*3/uL Baso # (Auto) 0.0 (0.0-0.2) X10*3/uL Abs Immat Gran (auto) 0.01 (0.00-0.03) X10*3/uL Absolute Neuts (auto) 2.8 (2.0-8.3) x10*3/uL Absolute Nucleated RBC 0.000 (0.0-0.012) X10*3/uL Nucleated RBC % (auto) 0.0 (0.0-0.2) /100WBC PT 12.4 (10.0-13.1) SEC INR 1.1 (0.9-1.1) APTT 36.5 H (26.0-36.4) SEC D-Dimer High Sensitivty 261 NG/ML Sodium 139 (135-145) mmol/L Potassium 3.8 (3.3-5.1) mmol/L Chloride 104 (96-108) mmol/L Carbon Dioxide 28 (22-29) mmol/L Anion Gap 11 L (12-20) BUN 13 (9-16) mg/dL Creatinine 0.77 (0.5-1.4) mg/dL Estim Creat Clear Calc 96.1 Estimated GFR > 60 Random Glucose 100 (60-115) mg/dL Calcium 9.4 (8.4-10.2) mg/dL Magnesium 1.8 (1.6-2.6) mg/dL Total Bilirubin 0.5 (0.0-1.0) mg/dL AST 17 (5-31) U/L ALT 11 (0-31) U/L Alkaline Phosphatase 55 (39-117) U/L Troponin I High Sens (<3.5-17.0) ng/L Total Protein 7.6 (6.5-8.0) g/dL Albumin 3.9 (3.5-5.0) g/dL 09/02/22 Range/Units 12:07 WBC (4.8-10.8) X10*3/uL RBC (4.20-5.50) X10*6/uL Hgb (12.0-16.0) g/dl Hct (37.0-47.0) % MCV (80.0-98.0) fL MCH (27.0-33.0) pg MCHC (31.0-35.0) g/dl RDW (11.0-16.0) % Plt Count (160-400) X10*3/uL MPV (9.4-12.3) fL Immature Gran % (Auto) (0.0-0.4) % Neut % (Auto) (45-73) % Lymph % (Auto) (20-40) % [place] % (Auto) (2-11) % Eos % (Auto) (0-4) % Baso % (Auto) (0-2) % Lymph # (Auto) (1.2-4.9) X10*3/uL [place] # (Auto) (0.1-1.2) X10*3/uL Eos # (Auto) (0.0-0.4) X10*3/uL Baso # (Auto) (0.0-0.2) X10*3/uL Abs Immat Gran (auto) (0.00-0.03) X10*3/uL Absolute Neuts (auto) (2.0-8.3) x10*3/uL Absolute Nucleated RBC (0.0-0.012) X10*3/uL Nucleated RBC % (auto) (0.0-0.2) /100WBC PT (10.0-13.1) SEC INR (0.9-1.1) APTT (26.0-36.4) SEC D-Dimer High Sensitivty NG/ML Sodium (135-145) mmol/L Potassium (3.3-5.1) mmol/L Chloride (96-108) mmol/L Carbon Dioxide (22-29) mmol/L Anion Gap (12-20) BUN (9-16) mg/dL Creatinine (0.5-1.4) mg/dL Estim Creat Clear Calc Estimated GFR Random Glucose (60-115) mg/dL Calcium (8.4-10.2) mg/dL Magnesium (1.6-2.6) mg/dL Total Bilirubin (0.0-1.0) mg/dL AST (5-31) U/L ALT (0-31) U/L Alkaline Phosphatase (39-117) U/L Troponin I High Sens < 2.7 (<3.5-17.0) ng/L Total Protein (6.5-8.0) g/dL Albumin (3.5-5.0) g/dL Independent Interpretation I performed an independent interpretation of an: EKG (Normal sinus rhythm at 69 beats per minutes, normal axis deviation, normal intervals, nonspecific ST-T changes.) Radiology Impression Discussion of test interpretation with radiology: I have reviewed the radiologist's reading. Scores Heart Score History: -0- slightly suspicious ECG: -1- non specific repolarization disturbance Age: -0- < or = 45 Risk factory: -0- no risk factors known Troponin: -0- < or = normal limit Score: 1 Risk: 1.7% Discharge Plan Discharge Clinical Impression: Chest pain, Acute chest wall pain Patient Disposition: Home, Self-Care Instructions: Chest Pain (ED) Prescriptions: New ibuprofen 600 mg tablet 600 mg PO Q8H PRN (Reason: pain) Qty: 14 0RF No Action ondansetron HCl 4 mg tablet 4 mg PO Q12H PRN (Reason: nausea and vomiting) Qty: 10 0RF meclizine 25 mg tablet 25 mg PO TID Qty: 20 0RF meloxicam 15 mg tablet 15 mg PO DAILY Qty: 14 0RF cyclobenzaprine 10 mg tablet 10 mg PO Q8H PRN (Reason: muscle spasm) Qty: 10 0RF ferrous fumarate 324 mg (106 mg iron) tablet 324 mg PO DAILY 90 Days Qty: 90 1RF meclizine 25 mg tablet 25 mg PO DAILY PRN (Reason: motion sickness/ lightheadedness) Qty: 10 0RF Centrum Chewables 8 mg-400 mcg- 10 mcg tablet,chewable 1 tab PO DAILY Referrals: Janneth Gunn MD [Primary Care Provider] -
[2022-09-02 12:27] LABS: Alanine Aminotransferase 11 U/L (0-31); Albumin Level 3.9 g/dL (3.5-5.0); Alkaline Phosphatase 55 U/L (39-117); Anion Gap 11 (12-20); Aspartate Amino Transferase 17 U/L (5-31); Bilirubin Total 0.5 mg/dL (0.0-1.0); Blood Urea Nitrogen 13 mg/dL (9-16); Calcium 9.4 mg/dL (8.4-10.2); Carbon Dioxide 28 mmol/L (22-29); Chloride 104 mmol/L (96-108); Creatinine Clr Calc Pharmacy 96.1; Estimated Glomerular Filt Rate > 60; Glucose Random 100 mg/dL (60-115); Magnesium 1.8 mg/dL (1.6-2.6); Potassium 3.8 mmol/L (3.3-5.1); Sodium 139 mmol/L (135-145); Total Protein 7.6 g/dL (6.5-8.0)
[2022-09-02 13:59] VITALS: BP 101/69; PULSE 72; RESP 16; O2SAT 99
== END 2022-09-02 16:16 | disposition home or self-care (01) ==
PROVIDERS: Emergency Provider Emergency Medicine; PCP Internal Medicine
DX: R07.89 Other chest pain (principal); Z79.899 Other long term (current) drug therapy
CPT/HCPCS: 36415; 71045; 71275; 80053; 83735; 84484; 85025; 85379; 85610; 85730; 93005; 99284; 99285; Q9967

== ENCOUNTER → 2022-09-02 09:59 | Outpatient (BNV) | payer OTHER, SELFPAY | PROVIDERS: Emergency Provider Emergency Medicine; PCP Internal Medicine; Visit Provider Internal Medicine Cardiovascular Disease | DX: R07.9 Chest pain, unspecified (principal) | CPT/HCPCS: 93010 ==

== ENCOUNTER 2022-09-22 00:11 | Emergency (ER) | payer OTHER, SELFPAY ==
[2022-09-22 00:16] VITALS: BP 115/78; PULSE 78; RESP 18; TEMP 36.6; O2SAT 98; BMI 27.2
[2022-09-22] MEDS: Acetaminophen 325 MG TABLET 975 MG PO (03:48)
[2022-09-22] MEDS: Ibuprofen 600 MG TABLET PO (03:48)
[2022-09-22 05:48] VITALS: BP 122/72; PULSE 53; RESP 18; O2SAT 100
--- NOTE | 2022-09-22 07:38 | ED_ITS ---
HPI - Back Pain/Injury General Chief Complaint: Back Pain/Injury Stated Complaint: Back pain ?Sciatica Time Seen by Provider: 09/22/22 07:27 Source: patient Mode of arrival: ambulatory Limitations: no limitations History of Present Illness HPI Narrative: This is a 32-year-old female history of lumbar radiculopathy, lumbar spondylosis, lumbago with sciatica on the right side, hypochromic anemia presenting to the emergency department for diffuse lower back pain with radiation into bilateral legs, patient reports she has a history of sciatica and is prescribed gabapentin for her back pain which she has been taking intermittently with adult to no relief. She tells me she is supposed to be taking it daily however does not. Also has a TENS unit which was prescribed to her by her neurologist however again little to no relief. Patient reports severe back pain worse with movement better at rest. Denies urinary/bowel incontinence/retention, saddle paresthesias, numbness, tingling, fevers, chills, chest pain, shortness of breath, nausea, vomiting, abdominal pain. Denies blunt trauma Related Data Home Medications Medication Instructions Recorded Confirmed zcficjvh-hskxlevg-gywe 8 mg-folic 1 tab PO DAILY 12/05/21 12/05/21 ac 400 mcg-vit K 10 mcg chew tablet (Centrum Chewables) Previous Rx's Medication Instructions Recorded ferrous fumarate 324 mg (106 mg 324 mg PO DAILY 90 days #90 tabs 04/11/22 iron) tablet meclizine 25 mg tablet 25 mg PO DAILY PRN motion 04/11/22 sickness/ lightheadedness #10 tabs cyclobenzaprine 10 mg tablet 10 mg PO Q8H PRN muscle spasm #10 06/22/22 tabs meloxicam 15 mg tablet 15 mg PO DAILY #14 tabs 06/22/22 meclizine 25 mg tablet 25 mg PO TID dizziness #20 tabs 06/26/22 ondansetron HCl 4 mg tablet 4 mg PO Q12H PRN nausea and 06/26/22 vomiting #10 tabs ibuprofen 600 mg tablet 600 mg PO Q8H PRN pain #14 tabs 09/02/22 ketorolac 10 mg tablet 10 mg PO TID PRN pain 5 days #15 09/22/22 tabs lidocaine 5 % topical patch 1 patch topical DAILY PRN pain #15 09/22/22 ea prednisone 20 mg tablet 40 mg PO DAILY 5 days #10 tabs 09/22/22 Allergies Allergy/AdvReac Type Severity Reaction Status Date / Time No Known Allergies Allergy Verified 08/30/22 15:00 Review of Systems Review of Systems: Constitutional : No Weight loss, No Fever, No Chills, ENT/Mouth : No Hearing loss, No Ear Pain, No Nasal Congestion, No Sinus Pain, No Hoarseness, No sore throat, No Rhinorrhea, No Swallowing Difficulty Cardiovascular : No Chest Pain, No SOB Respiratory : No Cough, No Dyspnea Gastrointestinal : No Nausea, No Vomiting, No Diarrhea, No abdominal Pain, No Hematochezia, No Melena Genitourinary : No Dysuria, No Urinary Frequency, No Hematuria, No Urinary Incontinence, Musculoskeletal : positive back pain Skin : No Skin Lesions, No rash Neuro : No Weakness, No Numbness, No Paresthesias, no loss of bowel or bladder incontinence, no saddle anesthesia Yes all other systems are reviewed and are negative [facility] Past Medical History Attestation statement: The following information was validated with the patient. Source: old records reviewed and nursing notes reviewed Medical History Asthma Dizziness of unknown cause Family history of thyroid disease in mother Low back pain potentially associated with radiculopathy Lumbago with sciatica, right side Positional lightheadedness Family History Family History Father Substance use disorder Mental health disorder Mother Mental health disorder Thyroid disorder Social History Social History Housing: Homeless Housing Other:: Senior Care Alcohol intake: never Patient Tobacco Use Status: Never used Tobacco Smoked in Last 30 Days: No e-Cigarette/Vaping Use: Never Used Use of substances other than those prescribed or required for medical reasons: No Advance Directives: No Patient : No service: No Current occupational status: unemployed Cognitive needs: No Hearing needs: No Vision needs: No Physical Exam Vital Signs: Vital Signs: Last Vital Signs Temp 97.6 F 09/22/22 08:51 Pulse 58 09/22/22 08:51 Resp 16 09/22/22 08:51 BP 93/60 09/22/22 08:51 Pulse Ox 98 09/22/22 08:51 O2 Del Method Room Air 09/22/22 08:51 BMI result Body Mass Index 27.2 Vital signs stayed Appearance: Alert.? Oriented X3.? No acute distress.? Head: Normocephalic, atraumatic, no step-offs or deformities Eyes: Pupils equal, round and reactive to light.? CVS: Normal heart rate and rhythm.? Pulses normal.? Respiratory: No respiratory distress.? Breath sounds normal.? Abdomen: Soft and nontender.? Skin: Skin warm and dry.? Normal skin color.? Normal skin turgor.? Extremities: No lower extremity edema.?5/5 strength to bilateral upper and lower extremities Back: No midline tenderness, no C-spine tenderness, full range of motion, no CVA tenderness bilaterally + bilateral lumbar paraspinous tenderness with radiation into bilateral buttocks. Normal sensation distally to bilateral lower extremities. Ambulatory with steady gait normal coordination. No saddle paresthesias. Normal strength upper and lower extremities. Neuro: Oriented X 3.? No motor deficit.? No sensory deficit. CN 2-12 intact . Ambulating steady gait normal coordination. Course Reevaluation(s) Reevaluation #1: Patient fell asleep, feeling better after Toradol in medication. Will provide her with Toradol, cyclobenzaprine, Lidoderm patches for home given her fine your belly [facility] follow-up. At time discharge no red flag symptoms patient's pain improved ambulatory out of the department without difficulty. Educated patient on diagnosis and treatment plan, answered all question, patient verbalizes understanding. At this time patient will be discharged home, advised to return with new or worsening symptoms. Educated on worrisome signs and symptoms and when to return. At this time I feel comfortable discharge home. Time: 09:56 Medications Administered Discontinued Medications Generic Name Dose Route Start Last Admin Trade Name Miguel PRN Reason Stop Dose Admin Acetaminophen 975 mg 09/22/22 03:37 09/22/22 03:48 Acetaminophen 325 Mg Tablet PO 09/22/22 03:38 975 mg ONCE ONE Administration Ibuprofen 600 mg 09/22/22 03:37 09/22/22 03:48 Ibuprofen 600 Mg Tablet PO 09/22/22 03:38 600 mg ONCE ONE Administration Ketorolac Tromethamine 30 mg 09/22/22 07:42 09/22/22 07:54 Ketorolac Tromethamine 15 Mg/Ml Vial IM 09/22/22 07:43 30 mg ONCE ONE Administration Lidocaine 2 patch 09/22/22 07:42 09/22/22 07:53 Lidocaine 4 % Patch Adh..Patch TRANSDERMA 09/22/22 07:43 2 patch ONCE ONE Administration Protocol Medical Decision Making Medical Decision Making [facility] Narrative: 0707 32-year-old female history of back pain presents with bilateral lower back pain with radiation to bilateral lower extremities. History of similar episodes in the past. No red flag symptoms. Physical exam is significant for bilateral lumbar paraspinous tenderness with radiation into the buttocks. Ambulatory. No red flag symptoms. No saddle paresthesias. Neuro nonfocal. This is likely lumbar radiculopathy versus sciatica versus lumbar a go versus lumbar spondylosis. Unlikely cauda equina, epidural abscess, cord compression. No indication for emergent imaging at this time. Atraumatic back pain no need for x-ray. No need for MRI. Plan pain control. Differential Diagnosis Differential Diagnoses: The differential diagnosis associated with the presentation includes This is likely lumbar radiculopathy versus sciatica versus lumbar a go versus lumbar spondylosis. Unlikely cauda equina, epidural abscess, cord compression. Admission/Observation Consideration of admission/observation: Escalation of care including admission/observation considered Unlikely Tests considered The following testing was considered but not selected: No red flag symptoms no indication for MRI. No trauma no need for x-ray. Core Measures AMI core measures followed: Yes Measure exclusions: not indicated Critical Care Time Critical Care Time Critical Care Time: No Discharge Plan Discharge Clinical Impression: Lumbar radiculopathy Patient Disposition: Home, Self-Care Instructions: Lumbar Radiculopathy (ED), Back Pain (ED), Lower Back Exercises (ED) Additional Instructions: Take your medications as prescribed. If you were prescribed antibiotics today, it is important that you take your medication to their entirety, do not skip any doses, do not finish them early. Follow-up with your primary care provider this week. Follow-up with [facility], neurology Return to the emergency department with new or worsening symptoms. Such as fevers, chills, chest pain, shortness of breath, nausea, vomiting, dizziness, headache, vision changes, lethargy In case of emergency call 911 Toradol has been sent to your pharmacy, you tolerated this well in the department. Please take this as prescribed do not take this with ibuprofen, or other NSAIDs, do not mix this with alcohol. Side effects of this medication including increased risk for bleeding and possible kidney injury. Prescriptions: New prednisone 20 mg tablet 40 mg PO DAILY 5 Days Qty: 10 0RF ketorolac 10 mg tablet 10 mg PO TID PRN (Reason: pain) 5 Days Qty: 15 0RF lidocaine 5 % adhesive patch,medicated 1 patch topical DAILY PRN (Reason: pain) Qty: 15 0RF Rx Instructions: leave on most painful area for up to 12 hrs No Action ondansetron HCl 4 mg tablet 4 mg PO Q12H PRN (Reason: nausea and vomiting) Qty: 10 0RF meclizine 25 mg tablet 25 mg PO TID Qty: 20 0RF ibuprofen 600 mg tablet 600 mg PO Q8H PRN (Reason: pain) Qty: 14 0RF meloxicam 15 mg tablet 15 mg PO DAILY Qty: 14 0RF cyclobenzaprine 10 mg tablet 10 mg PO Q8H PRN (Reason: muscle spasm) Qty: 10 0RF ferrous fumarate 324 mg (106 mg iron) tablet 324 mg PO DAILY 90 Days Qty: 90 1RF meclizine 25 mg tablet 25 mg PO DAILY PRN (Reason: motion sickness/ lightheadedness) Qty: 10 0RF Centrum Chewables 8 mg-400 mcg- 10 mcg tablet,chewable 1 tab PO DAILY Ref[place]: [facility] [place] [facility] [place]] [facility] [Provider Group] Janneth Gunn MD [Primary Care Provider] - 2 days Stand Alone Forms: Work/School Release
--- NOTE | 2022-09-22 07:46 | PC.NURSE ---
This ad writer assumed care of this Pt at 0715. Pt A&Ox4, Pt reports mid back pain/ shoulder blade pain starting yesterday morning around 1000, Pt states pain is constant stabbing/throbbing and worsens with immobilization, improves with position change and walking. VSS.
[2022-09-22] MEDS: Lidocaine 4 % Patch ADH..PATCH 2 PATCH TRANSDERMA (07:53)
[2022-09-22] MEDS: Ketorolac Tromethamine 15 MG/ML VIAL 30 MG IM (07:54)
[2022-09-22 08:51] VITALS: BP 93/60; PULSE 58; RESP 16; TEMP 36.4; O2SAT 98
== END 2022-09-22 09:59 | disposition home or self-care (01) ==
PROVIDERS: Emergency Provider Student in an Organized Health Care Education/Training Program; PCP Internal Medicine
DX: M54.16 Radiculopathy, lumbar region (principal)
CPT/HCPCS: 96372; 99284; J1885

== ENCOUNTER 2022-11-02 12:08 | Emergency (ER) | payer OTHER, SELFPAY ==
[2022-11-02 13:22] VITALS: BP 122/84; PULSE 69; RESP 18; TEMP 36.8; O2SAT 100; BMI 26.7
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
--- NOTE | 2022-11-02 21:26 | ED_ITS ---
HPI - Headache General Chief Complaint: Headache Stated Complaint: Head Pain Blurred Vision Time Seen by Provider: 11/02/22 21:17 Source: patient Mode of arrival: ambulatory Limitations: no limitations History of Present Illness HPI Narrative: Patient with History of chronic low back pain occasionally headaches comes here with headache started yesterday localized to mostly frontal part feel like pressure no nausea no vomiting no light sensitivity no change in severity with posterior no fever no chills no upper respiratory symptoms Related Data Home Medications Medication Instructions Recorded Confirmed nokqtfbq-hmmhkhkg-tvwh 8 mg-folic 1 tab PO DAILY 12/05/21 12/05/21 ac 400 mcg-vit K 10 mcg chew tablet (Centrum Chewables) Previous Rx's Medication Instructions Recorded meclizine 25 mg tablet 25 mg PO DAILY PRN motion 04/11/22 sickness/ lightheadedness #10 tabs cyclobenzaprine 10 mg tablet 10 mg PO Q8H PRN muscle spasm #10 06/22/22 tabs meloxicam 15 mg tablet 15 mg PO DAILY #14 tabs 06/22/22 meclizine 25 mg tablet 25 mg PO TID dizziness #20 tabs 06/26/22 ondansetron HCl 4 mg tablet 4 mg PO Q12H PRN nausea and 06/26/22 vomiting #10 tabs ibuprofen 600 mg tablet 600 mg PO Q8H PRN pain #14 tabs 09/02/22 ketorolac 10 mg tablet 10 mg PO TID PRN pain 5 days #15 09/22/22 tabs lidocaine 5 % topical patch 1 patch topical DAILY PRN pain #15 09/22/22 ea prednisone 20 mg tablet 40 mg (2 x 20 mg) PO DAILY 5 days 09/22/22 #10 tabs ferrous fumarate 324 mg (106 mg 324 mg PO DAILY 90 days #90 tabs 11/01/22 iron) tablet bpkvpwjnjn-rowtbqmoxafse-jaerkxnv 1 tab PO Q6H PRN haeadace #20 tabs 11/02/22 50 mg-325 mg-40 mg tablet tramadol 50 mg tablet 50 mg PO Q6H PRN pain #20 tabs 11/02/22 Allergies Allergy/AdvReac Type Severity Reaction Status Date / Time No Known Allergies Allergy Verified 08/30/22 15:00 Review of Systems Review of Systems: Yes all other systems are reviewed and are negative PMFSH Past Medical History Medical History Dizziness of unknown cause Positional lightheadedness Lumbago with sciatica, right side Low back pain potentially associated with radiculopathy Family history of thyroid disease in mother Asthma Family History Family History Father Substance use disorder Mental health disorder Mother Mental health disorder Thyroid disorder Social History Social History Housing: Homeless Housing Other:: Alf Alcohol intake: never Patient Tobacco Use Status: Never used Tobacco Smoked in Last 30 Days: No e-Cigarette/Vaping Use: Never Used Use of substances other than those prescribed or required for medical reasons: No Advance Directives: No Advance Directives Information Provided: No Patient : No service: No Current occupational status: unemployed Cognitive needs: No Hearing needs: No Vision needs: No Physical Exam Vital Signs: Vital Signs: Last Vital Signs Temp 98.2 F 11/02/22 13:22 Pulse 69 11/02/22 13:22 Resp 18 11/02/22 13:22 BP 122/84 11/02/22 13:22 Pulse Ox 100 11/02/22 13:22 O2 Del Method Room Air 11/02/22 13:22 BMI result Body Mass Index 26.7 Appearance: Alert. Oriented X3. No acute distress. Eyes: PERRLA, No Nystagmus ENT: Pharynx normal. Oral Mucosa moist no temporal artery tenderness Neck: Normal inspection. Neck supple. CVS: Normal heart rate and rhythm. Pulses normal. Respiratory: No respiratory distress. Equal air entry bilateral, no wheezing/rales/rhonchi Abdomen: Soft and nontender. Bowel sounds are present, Skin: Skin warm and dry. Normal skin color. Normal skin turgor. Extremities: No lower extremity edema. No calf tenderness Neuro: Oriented X 3. No motor deficit. No sensory deficit.No cerebellar signs , cranial nerves II-XII intact Medications Administered Discontinued Medications Generic Name Dose Route Start Last Admin Trade Name Freq PRN Reason Stop Dose Admin Acetaminophen/Butalbital/Caffeine 1 tab 11/02/22 21:26 11/02/22 21:43 Butalb/Acetamin/Caff 50/325/40 Tablet PO 11/02/22 21:27 1 tab ONCE ONE Administration Sumatriptan Succinate 6 mg 11/02/22 21:26 11/02/22 21:43 Sumatriptan Succinate 6 Mg/0.5 Ml Vial SUBCUT 11/02/22 21:27 Not Given ONCE ONE Medical Decision Making Medical Decision Making [facility] Narrative: 21;15 Patient's symptoms likely is complex migraine will give a trial of Imitrex and Fioricet patient felt better after Imitrex discharge patient home on Fioricet Differential Diagnosis Differential Diagnoses: The differential diagnosis associated with the presentation includes Migraine headache/temporal arteritis/tension headache Discharge Plan Discharge Clinical Impression: Migraine headache Patient Disposition: Home, Self-Care Instructions: Migraine Headache (ED) Additional Instructions: Rest at home Medication for headache as prescribed Follow with PCP if not better Prescriptions: New tramadol 50 mg tablet 50 mg PO Q6H PRN (Reason: pain) Qty: 20 0RF xgbezrreds-kjslkwddarmmu-sduu 50-325-40 mg tablet 1 tab PO Q6H PRN (Reason: haeadace) Qty: 20 0RF No Action ondansetron HCl 4 mg tablet 4 mg PO Q12H PRN (Reason: nausea and vomiting) Qty: 10 0RF ferrous fumarate 324 mg (106 mg iron) tablet 324 mg PO DAILY 90 Days Qty: 90 1RF meclizine 25 mg tablet 25 mg PO TID Qty: 20 0RF ibuprofen 600 mg tablet 600 mg PO Q8H PRN (Reason: pain) Qty: 14 0RF meloxicam 15 mg tablet 15 mg PO DAILY Qty: 14 0RF cyclobenzaprine 10 mg tablet 10 mg PO Q8H PRN (Reason: muscle spasm) Qty: 10 0RF prednisone 20 mg tablet 40 mg PO DAILY 5 Days Qty: 10 0RF ketorolac 10 mg tablet 10 mg PO TID PRN (Reason: pain) 5 Days Qty: 15 0RF lidocaine 5 % adhesive patch,medicated 1 patch topical DAILY PRN (Reason: pain) Qty: 15 0RF Rx Instructions: leave on most painful area for up to 12 hrs meclizine 25 mg tablet 25 mg PO DAILY PRN (Reason: motion sickness/ lightheadedness) Qty: 10 0RF Centrum Chewables 8 mg-400 mcg- 10 mcg tablet,chewable 1 tab PO DAILY
[2022-11-02] MEDS: Butalb/Acetamin/Caff 50/325/40 TABLET 1 TAB PO (21:43)
[2022-11-02] MEDS: Morphine Sulfate Immed Release 15 MG TABLET PO (22:34)
== END 2022-11-02 22:41 | disposition home or self-care (01) ==
PROVIDERS: Emergency Provider Internal Medicine; PCP Internal Medicine
DX: G43.909 Migraine, unspecified, not intractable, without status migrainosus (principal)
CPT/HCPCS: 99283; 99284

== ENCOUNTER 2022-11-08 10:54 | Outpatient (AMB) | payer OTHER, SELFPAY ==
[2022-11-08 10:58] VITALS: BP 102/62; PULSE 71; O2SAT 99; BMI 27.8
--- NOTE | 2022-11-08 10:58 | MHC.PC.OV ---
Vital Signs 11/08/22 10:58 Height 5 ft 2 in Weight 152 lb BMI 27.8 BP 102/62 Blood Pressure Location Rt brachial Position Sitting Pulse 71 Pulse Source Pulse Oximeter Pulse Oximetry (%) 99 Intake Visit Reasons: PE Intake Note: pt is here for annual exam Accompanied by: Self / Same As Patient Allergies No Known Allergies Allergy (Verified 01/06/24 11:11) Medication List - Last Reconciled 01/25/24 by Janneth Gunn MD albuterol sulfate 90 mcg/actuation (Ventolin HFA) 2 puffs inhalation Q6H PRN aripiprazole 10 mg PO DAILY ferrous fumarate (Ferrocite) 324 mg PO DAILY 30 days hydroxyzine HCl 25 mg PO Q6H PRN 30 days magnesium oxide 400 mg PO BEDTIME 30 days olanzapine 5 mg PO BEDTIME 30 days sertraline 50 mg PO DAILY trazodone 50 mg PO BEDTIME PRN 30 days Tobacco use date assessed: 07/04/22 Dental Screening Dental Screen Date: 11/08/22 Did you have a dental visit in the last 12 months?: Yes Did you have a dental problem in the last 6 months where you did not have access to dental care?: No Was dental information given to patient?: Patient has dentist HPI PE HPI Details 33-year-old lady with history of PTSD, and major depressive disorder, obesity, currently followed by psychiatry, here today for physical exam.. She has been feeling well no complaints at present time, [facility] Medical History (Updated 01/24/24 @ 14:53 by Marcel Sterling MD) PTSD (post-traumatic stress disorder) MDD (major depressive disorder), recurrent, severe, with psychosis Dizziness of unknown cause Positional lightheadedness Lumbago with sciatica, right side Low back pain potentially associated with radiculopathy Family history of thyroid disease in mother Asthma Family History Father Substance use disorder Mental health disorder Mother Mental health disorder Thyroid disorder Social History Household Members: Children Housing: Homeless Housing Other:: live in a retirement with her 2 children Do you presently have visiting nurse or other home services: No Alcohol intake: never Patient Tobacco Use Status: Never used Tobacco e-Cigarette/Vaping Use: Never Used Second Hand Smoke Exposure: No service: No Current occupational status: unemployed Sexual orientation: Straight/Heterosexual Cognitive needs: No Hearing needs: No Vision needs: No Female Reproductive History Menstrual Age of Menarche: 10 Questionnaire PHQ-9 Over the last 2 weeks, how often have you been bothered by any of the following problems? 39382 - PHQ-9 Billing: Patient declined-do not bill Source: Developed by Drs. Victor M Brian, Alessandro Duval and colleagues, with an educational ethel from [employer]. Thrive Questionnaire Date Thrive assessed: 11/08/22 I am a: Patient What is your living situation today?: I have a steady place to live Within the past 12 months, did the food you bought not last and you didn't have the money to get more?: I choose not to answer this question Within the past 12 months, did you worry whether your food would run out before you got money to buy more?: I choose not to answer this question Do you have trouble paying for medicines?: No Do you have trouble getting transportation to medical appointments?: No Do you have trouble paying your heating and electricity bill?: No Do you have trouble taking care of your child, family member or friend?: No Do you have trouble with day-to-day activities such as bathing, preparing meals, shopping, managing finances, etc.?: No Are you currently unemployed and looking for a job?: No Are you interested in more education?: No AUDIT C Alcohol Use Questionnaire (AUDIT-C) 1. How often do you have a drink containing alcohol?: Never Total Score: 0 CEM-7 AMB Questionnaire CEM-7 Date CEM - 7 assessed: 11/08/22 Source: Developed by Drs. Victor M Brian, Alessandro Duval and colleagues, with an educational ethel from [employer]. CEM-7 Assessment Billing CEM-7 Assessment Tool: pt declined-do not bill Review of Systems Const Denies fatigue, Denies fever(s), Denies headache(s) and Denies weakness Eyes Denies change in vision ENT Denies headache(s) Card Denies chest pain, Denies lightheadedness, Denies palpitations and Denies dyspnea Resp Denies chest congestion, Denies cough and Denies dyspnea GI Denies abdominal pain, Denies change in bowel habits and Denies heartburn Denies urinary frequency, Denies dysuria and Denies urinary urgency Musc Reports no additional complaints Skin/Breast Denies breast pain, Denies breast mass and Denies rash Neuro Denies headache(s) and Denies weakness Psych Reports no additional complaints Endo Denies fatigue, Denies polydipsia, Denies polyuria and Denies palpitations Felix/Lymph Reports no additional complaints Aller/Immun Reports no additional complaints Physical exam (Primary Care) Vital Signs: Last Vital Signs Pulse 71 11/08/22 10:58 BP 102/62 11/08/22 10:58 Pulse Ox 99 11/08/22 10:58 BMI result Body Mass Index 27.8 Tobacco/Smoking Status: Tobacco use Status Tobacco use date assessed 07/04/22 11/08/22 11:01 Patient Tobacco Use Status Never used Tobacco 11/08/22 11:01 e-Cigarette/Vaping Use Never Used 11/08/22 11:01 Thrive Assessment: Date of Thrive Assessment Date Thrive assessed 11/08/22 11/08/22 12:04 Const Other: Alert oriented x3, no acute distress noted ambulatory normal gait Nutritional Appearance: obese Orientation/consciousness: patient oriented x3 HENMT General nose exam: Normal external nose present Face and sinus: Yes face symmetric Mouth: oropharynx normal and moist mucous membranes Eyes General: appearance normal, both eyes and all related structures Neck Other: Supple, no lymphadenopathy, thyroid gland nonpalpable Chest Chest palpation & inspection: normal inspection of the chest Breast/axilla inspection: normal inspection of the breasts Breast/axilla palpation: normal palpation of the breasts Resp Effort & Inspection: normal respiratory effort and able to speak in complete sentences Auscultation: clear to auscultation bilaterally Cardio Other: S1-S2 present regular rate and rhythm GI Palpation (GI): Soft to palpation, nontender, no guarding and no masses General: Yes no CVA tenderness and Yes deferred (Currently followed at [facility] with cervical cancer screening up-to-date, ) Back/Spine/Pelvis Back: no CVA tenderness and No back tenderness Skin General skin exam: no rashes or lesions noted Neuro General: patient oriented x3, gait normal, tone normal, moves all extremities, Normal light touch and pain sensation, no focal motor deficits and CN's II-XI intact bilaterally Extrem General: Yes full ROM, Yes no joint enlargement, Yes no pedal edema and Yes normal gait Psych Appearance: grossly normal and well kempt Mental Status: mental status grossly normal Speech and movement: Normal speech and movement present Affect: normal affect Results Reviewed Results Reviewed: PEC : [id number] ASH: 09/02/22 STATUS: COMP REQ : [id number] RECD: 09/02/22-[address]: Abhishek Joseph MD COMP: 09/02/22 ENTERED: 09/02/[address]: Janneth Gunn MD Generic ED Physician ORDERED: CMP, MG Test Result Flag Reference Site Sodium 139 135-145 mmol/L Potassium 3.8 3.3-5.1 mmol/L CL 104 96-108 mmol/L CO2 28 22-29 mmol/L Gap 11 L 12-20 BUN 13 9-16 mg/dL Creat 0.77 0.5-1.4 mg/dL Estimated CrCl 96.1 Provided height and weight: 165.1 cm, 68.3 kg. eGFR (calculated from the MDRD study equation) and eCrCl (calculated from the Cockcroft-Gault equation) are based on different parameters and may not yield comparable results. If eCrCl result is absurd, please check patient's height/weight. EGFR > 60 NOTE: For -[place] individuals, multiply the result by 1.210. Chronic Kidney Disease: Estimated GFR < 60 mL/min/1.73m2 Severe Kidney Disease: Estimated GFR < 15 mL/min/1.73m2 Glucose, Random 100 60-115 mg/dL CA 9.4 8.4-10.2 mg/dL Magnesium 1.8 1.6-2.6 mg/dL Total Bili 0.5 0.0-1.0 mg/dL AST (GOT) 17 5-31 U/L ALT (GPT) 11 0-31 U/L Protein, Total 7.6 6.5-8.0 g/dL Alb 3.9 3.5-5.0 g/dL Alk Phos 55 39-117 U/L Laboratory Tests 09/02/22 12:07 WBC 4.8 Hgb 11.3 L Hct 33.8 L MCV 80.1 MCH 26.8 L RDW 13.6 Plt Count 256 Coding Level of Care Code Est Pt Prev Care 18-39y(27167) Diagnoses Annual visit for general adult medical examination with abnormal findings Z00.01 Family history of thyroid disease in mother Z83.49 Obesity (BMI 30.0-34.9) E66.9 Hypochromic anemia D50.9
== END 2022-11-08 14:08 | disposition home or self-care (01) ==
PROVIDERS: Visit Provider Internal Medicine
DX: Z00.01 Encounter for general adult medical examination with abnormal findings (principal); Z83.49 Family history of other endocrine, nutritional and metabolic diseases; E66.9 Obesity, unspecified; D50.9 Iron deficiency anemia, unspecified
CPT/HCPCS: 99499

== ENCOUNTER 2022-11-15 09:40 | Outpatient (REF) | payer OTHER, SELFPAY ==
[2022-11-15 17:34] LABS: CT PCR NOT DETECTED (Not Detect.); NG PCR NOT DETECTED (Not Detect.)
[2022-11-16 14:15] LABS: BV Int Neg Control Negative (Negative); BV Int Pos Control Positive (Positive)
== END 2022-11-15 09:41 | disposition home or self-care (01) ==
LOC: HO.LNP 09:40
PROVIDERS: PCP Internal Medicine; Visit Provider Advanced Practice Midwife
DX: Z01.419 Encounter for gynecological examination (general) (routine) without abnormal findings (principal); N89.8 Other specified noninflammatory disorders of vagina; E66.9 Obesity, unspecified; Z79.899 Other long term (current) drug therapy
CPT/HCPCS: 0353U; 87480; 87510; 87660; 99395

== ENCOUNTER 2022-11-15 09:40 | Outpatient (AMB) | payer OTHER, SELFPAY ==
--- NOTE | 2022-11-15 09:45 | MHC.OFFVIS ---
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 Dont reschedule Unit Controller Required: No Information Interpreted: non-clinical & clinical Line Construction Supervisor: Line Construction Supervisor Present (Jayson) Allergies No Known Allergies Allergy (Verified 11/15/22 09:50) Medication List - Last Reconciled 11/15/22 by Henna Leal CNM [id number] 50-325-40 mg 1 tab PO Q6H PRN cephalexin 500 mg PO BID cyclobenzaprine 10 mg PO Q8H PRN ferrous fumarate 324 mg PO DAILY 90 days ibuprofen 600 mg PO Q8H PRN meclizine 25 mg PO DAILY PRN multivitamin 1 tab PO DAILY tramadol 50 mg PO Q6H PRN Is last menstrual period known: Yes Last menstrual period: 11/10/22 Post menopausal: No HPI 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 She lost about 40 lb in last 6 months or so she felt she did not feel good about herself being overweight and did not feel confident and she decided to eat really healthy and start working out in the gym every day and now she likes it and it is her time for herself and she feels good about. It has boosted her confidence and helped with depression to she will be seeing a neurologist common up she still does have back aches and stuff but it is a little bit better. She wonders if she has a yeast infection because sometime she has a whitish discharge though it is not there present currently because she just finished her. She and her are open to but not trying actively ?like rabbits ?but they would like to have a baby together if possible she says he is wondering if it is him cause he has a little bit older aged 46. She is on iron and vitamins per her PCC she sometimes has a little constipation but she manages.. PFSH Medical History Dizziness of unknown cause Positional lightheadedness Lumbago with sciatica, right side Low back pain potentially associated with radiculopathy Family history of thyroid disease in mother Asthma Family History Father Substance use disorder Mental health disorder Mother Mental health disorder Thyroid disorder Social History Housing: Homeless Housing Other:: [facility] Alcohol intake: never Patient Tobacco Use Status: Never used Tobacco e-Cigarette/Vaping Use: Never Used service: No Current occupational status: unemployed Cognitive needs: No Hearing needs: No Vision needs: No Female Reproductive History Menstrual Age of Menarche: 10 Duration of menses: 6-7 days Date of last menstrual period: 11/10/22 control method: none Total pregnancies: 2 Full term: 2 Number of Living Children: 2 Date of last pap smear: 12/06/21 (negative) Physical Exam Vital Signs: Last Vital Signs BP 96/60 11/15/22 09:46 BMI result Body Mass Index 28.0 Const General: healthy appearing, comfortable, no acute distress, well developed and alert Nutritional Appearance: average body habitus Orientation/consciousness: patient oriented x3 Limitations: no limitations HEENT Head: Yes normocephalic Neck Neck: Yes normal visual inspection Chest Chest palpation & inspection: normal inspection of the chest Breast/axilla inspection: normal inspection of the breasts and normal inspection of the axillae Breast/axilla palpation: normal palpation of the breasts and normal palpation of the axillae Resp Effort & Inspection: normal respiratory effort GI Inspection: Yes normal to inspection, No Abdominal wall edema and No distended Palpation (GI): Soft to palpation and nontender Other: Vagina pink moist with slight brown tinged to clearish slightly malodorous discharge which may be consistent with end of menses. Uterus is retroverted. Mobile nontender adnexa nontender evidence of constipation noted patient aware. Good tone with Kegel. General: Yes bladder normal to palpation External Female Exam: normal external appearance and normal appearance of the urethra Speculum Exam - Vagina: normal appearance of the vagina, normal palpation and normal vaginal discharge Speculum Exam - Cervix: normal appearance of the cervix, normal palpation and nontender Bimanual exam- vagina & uterus: normal bimanual exam, normal palpation, uterine size normal, bladder normal to palpation, consistency normal, normal palpation, uterine mobility normal, uterine shape normal, No Cervical tenderness present, non-tender and no cervical motion tenderness Bimanual Exam- Adnexa, other: normal adnexae, no masses, normal and No adnexal tenderness Neuro General: patient oriented x3 Results Reviewed Results Reviewed: Name: Kate Ring Age/Sex: 31/F Attending: Henna Leal CNM : 1990 Submitted by: Henna Leal CNM Copies to: MR #: [id number] Status: DEP REF Collected: 12/05/21 Location: [facility] Received: 12/06/21 Interpretation General Category: Negative for intraepithelial lesion/malignancy. Adequacy: Endocervical component present; acid-wash performed. Interpretation: Inflammation with associated cellular changes. Clinical Information LMP: 11/14/21 Previous PAP test: Unknown date/findings Material Received ThinPrep-Cervical Electronically Signed By: Tray Ridley MD 12/14/21 0815 The Pap Test is a screening procedure with the inherent possibility of both false negative and false positive results. Results should be interpreted in the context of historic and current clinical findings. Reliability of the Pap Test is enhanced by performing the test on a regular repetitive basis. Patient: Kate Ring Age/Sex: 31/F MR#: [id number] Page 1 of 1 Assessment & Plan Assessment & Plan (1) Obesity (BMI 30.0-34.9): Comment: Patient has lost significant amount of weight through regular exercise and healthy eating in this past year. Code(s): E66.9 - Obesity, unspecified (2) Well woman exam with routine gynecological exam: Code(s): Z01.419 - Encounter for gynecological examination (general) (routine) without abnormal findings (3) Screening for malignant neoplasm of cervix: Comment: 12/05/2021 Pap is negative Code(s): Z12.4 - Encounter for screening for malignant neoplasm of cervix (4) Problematic vaginal discharge: Code(s): N89.8 - Other specified noninflammatory disorders of vagina Plan -----Discussed in this visit the following: healthy balanced diet, regular and consistent exercise, getting recommended health screens, doing the best she can for her particular health concerns, kegel exercises, pap smear screening and followup recommendations, mammography screening and SBE, normal changes in cycles in her life stage--- . Discussed that we will send the testing for GC chlamydia trich BV and yeast and see what shows up very difficult to stay today because her period just ended and there is no white discharge to speak of ---though there is a slight odor. Discussed her excellent self-care and congratulated her on her healthy life changes and weight loss and changes to her life habits. Discussed her openness to . And given that she is in a healthier position now that is good she is also taking her vitamins and taking care of her anemia as well. Pap smear not done as not do this year would be due in 2 years Coding Level of Care Code Est Pt Prev Care 18-39y(08877) Diagnoses Obesity (BMI 30.0-34.9) E66.9 Well woman exam with routine gynecological exam Z01.419 Screening for malignant neoplasm of cervix Z12.4 Problematic vaginal discharge N89.8
[2022-11-15 09:46] VITALS: BP 96/60; BMI 28.0
== END 2022-11-15 11:30 | disposition home or self-care (01) ==
PROVIDERS: PCP Internal Medicine; Visit Provider Advanced Practice Midwife
DX: Z01.419 Encounter for gynecological examination (general) (routine) without abnormal findings (principal); N89.8 Other specified noninflammatory disorders of vagina; E66.9 Obesity, unspecified
CPT/HCPCS: 99395

== ENCOUNTER 2022-11-20 10:34 | Outpatient (AMB) | payer OTHER, SELFPAY ==
[2022-11-20 10:45] VITALS: BP 110/66; PULSE 70; RESP 16; O2SAT 98; BMI 27.5
--- NOTE | 2022-11-20 10:45 | MHC.OFFVIS ---
Intake Vital Signs 11/20/22 10:45 Height 5 ft 2 in Weight 150 lb 6 oz BMI 27.5 BP 110/66 Blood Pressure Location Lt brachial Position Sitting Respiration 16 Pulse 70 Pulse Source Pulse Oximeter Pulse Oximetry (%) 98 Oxygen Delivery Method Room Air Intake Visit Reasons: Radiculopathy, lumbar region/ LVM Allergies No Known Allergies Allergy (Verified 11/20/22 10:46) HPI HPI Comments History of Present Illness Details Kate presents back to the office today for follow up. She reports continued pain in her lower back, rated today as 6/10. She does endorse occassional burning in her thighs if she stands for too long, this resolves with rest. She denies weakness, numbness, tingling or shocking pain down her legs. She has completed 6 weeks of PT, ended 06/2022 but continues with HEP as instructed on discharge from PT. She reports visit to the ER for her back pain since last visit here, she has also been evaluated by her PCP and was given tramadol as needed. She has reservations about taking opioid medications d/t risk of dependence as she has a family history of SHARAD. She takes tylenol and motrin for her pain with some relief. She denies red flag symptoms including new loss of bowel, bladder or saddle anesthesia. Prior: Kate is a pleasant 32-year-old female who presents to the office today for evaluation and management of her chronic lower back pain. Patient reports the pain started approximately 5 years ago after she fell down a flight of stairs. Patient reports that her primary care doctor has been managing her pain, she has also been evaluated in the ER a couple times for this pain. She has been told in the past that it is in relation to irritation of the sciatic nerve. She has tried multiple medications including opiates, NSAIDs, muscle relaxers and topical patches but none of them have helped her pain. She has been prescribed gabapentin in the past which she did not notice the benefit of improved pain but it did provide improvement in sleep. Patient describes her pain in the middle lower back radiating down her right leg to the ankle. She reports occasional radiation of the pain down her left leg but notes that the right leg is the main area of involvement. The pain is worse with movement, lifting, bending, climbing stairs and sitting. Pain is off and on and some weeks it is worse than others. Patient states she has had an x-ray and believes she had an MRI at [facility] July of last year. Patient states that in April of this year she participated in physical therapy and states that has not helped her pain. She denies treatment by chiropractor, acupuncture, massage or history of injections. Her pain today is 5/10. Patient reports the pain is impacting her ability to sleep normally, performing daily activities, function, work and participate in recreational activities. Patient denies red flag symptoms including loss of bowel, bladder or saddle anesthesia. In terms of muscle damage conditions is described as dull, sore, hurting, aching, heavy, spreading, radiating and piercing. Patient denies significant past medical history. Patient denies use of tobacco, alcohol or illicit substances. Patient denies implantable devices, pacemaker and a defibrillator. [facility] Medical History Dizziness of unknown cause Positional lightheadedness Lumbago with sciatica, right side Low back pain potentially associated with radiculopathy Family history of thyroid disease in mother Asthma Family History Father Substance use disorder Mental health disorder Mother Mental health disorder Thyroid disorder Social History Housing: Homeless Housing Other:: [facility] Alcohol intake: never Patient Tobacco Use Status: Never used Tobacco e-Cigarette/Vaping Use: Never Used service: No Current occupational status: unemployed Cognitive needs: No Hearing needs: No Vision needs: No Female Reproductive History Menstrual Age of Menarche: 10 Review of Systems Const All systems reviewed & are unremarkable except as noted in HPI and below Physical Exam Vital Signs: Last Vital Signs Pulse 70 11/20/22 10:45 Resp 16 11/20/22 10:45 BP 110/66 11/20/22 10:45 Pulse Ox 98 11/20/22 10:45 Oxygen Delivery Method Room Air 11/20/22 10:45 BMI result Body Mass Index 27.5 Const Other: General: awake, alert, oriented. Answers questions appropriately. Fully engaged in examination. Skin: warm, dry, intact without visible rashes or lesions. HEENT: Normocephalic. Conjuntivae clear without exudate. Sclera non-icteric. Hearing intact. Cardiac: External chest normal in appearance. Respiratory: No signs of trauma. No signs of respiratory distress. No cough, audible wheezing or stridor. Abdomen: without gross distension. MS: No obvious swelling or deformities. Neurological: Oriented to person, place, time and situation. Thought process intact. No gait abnormalities appreciated. Psychiatric: Appropriate mood and affect. Good judgment and insight. Back/Spine/Pelvis Other: Able to stand on bilateral tiptoes and bilateral heels. Able to transition from sit to stand unassisted. Ambulates with bilaterally normal heel strike and toe off Visual inspection without gross abnormality Tender to palpation over bilateral paraspinal muscles Tender to palpation over midline lumbar vertebrae ROM: extension to 20 degrees. flexion to 100 degrees Strength: 5/5 BLE Sensation: intact and symmetric BLE DTR: intact and symmetric Straight leg raises with and without dorsiflexion negative bilaterally Facet loading positive bilaterally Gaenslen negative bilaterally Thigh thrust negative bilaterally SI compression negative bilaterally Results Reviewed Results Reviewed: 10/2021 EXAMINATION: XR LUMBOSACRAL SPINE WITH OBLIQUES FINDINGS: Vertebral body heights are normal. At L5-S1, there is a 3 mm retrolisthesis. The remaining disc spaces are relatively well-maintained. No acute fracture or spondylolisthesis is seen. The posterior elements are intact. There is no spondylolysis defect noted on the oblique views. The paravertebral soft tissues are unremarkable. IMPRESSION: 1. There is mild degenerative disc disease at L5-S1. 2. No acute fracture or spondylolisthesis is seen. 08/03/2021 Assessment & Plan Assessment & Plan (1) Lumbar spondylosis: Code(s): M47.816 - Spondylosis without myelopathy or radiculopathy, lumbar region Plan Kate is a pleasant 32-year-old female who presented to the office today for evaluation management of her chronic lower back pain. Patient has tried multiple medications including opioids, muscle relaxers, NSAIDs, gabapentin and [id number] pain relievers. None of which she found of any use in helping her pain. She has exhausted conservative therapy including PT, HEP, NSAIDS, Tylenol, muscle relaxers, opioids and Tens unit. None of which provided her improvement in pain or function. Discussed options for treatment including diagnostic interventional testing, epidural steroid injections, peripheral nerve stimulation with Sprint, RFA and more permanent neuromodulation. Will schedule patient for fluoroscopy guided diagnostic bilateral L3-L4 DR L5 medial branch blocks with local anesthetic. All questions and concerns have been answered and patient agrees with the plan. Follow up after injections and sooner if needed. Coding Level of Care Code Est Pt Level 3 (87963) Diagnoses Lumbar spondylosis M47.816
== END 2022-11-20 11:21 | disposition home or self-care (01) ==
PROVIDERS: PCP Internal Medicine; Visit Provider Registered Nurse Emergency
DX: M47.816 Spondylosis without myelopathy or radiculopathy, lumbar region (principal)
CPT/HCPCS: 99213

== ENCOUNTER → 2022-11-20 10:34 | Outpatient (BNVA) | payer OTHER, SELFPAY | PROVIDERS: PCP Internal Medicine; Visit Provider Registered Nurse Emergency | DX: M47.816 Spondylosis without myelopathy or radiculopathy, lumbar region (principal) | CPT/HCPCS: 99212 ==

== ENCOUNTER 2022-12-04 06:05 | Outpatient (REF) | payer OTHER, SELFPAY ==
--- NOTE | ~2022-12-04 | FL_ITS ---
EXAMINATION: XR FLUOROSCOPY WITH IMAGES CLINICAL INFORMATION: Spondylosis without myelopathy or radiculopathy, lumbar region. COMPARISON: None available. TECHNIQUE: Fluoroscopy Supervised By: Dr. Tony Huerta. Fluoroscopy Time: 0.6 minutes. Cumulative Dose: 10.1 mGy. DAP: 0.177 Gycm2. Images: 6. FINDINGS: Images demonstrate needle placement and contrast injection adjacent to the bilateral lateral L3 , L4 and L5 vertebrae FL/FL guidance in treatment room IMPRESSION: Fluoroscopy guidance for pain management procedure
== END 2022-12-04 06:06 | disposition home or self-care (01) ==
LOC: CF 06:05
PROVIDERS: Visit Provider Anesthesiology
DX: M47.816 Spondylosis without myelopathy or radiculopathy, lumbar region (principal)
CPT/HCPCS: 64493; 64494; J2795

== ENCOUNTER 2022-12-04 09:44 | Outpatient (AMB) | payer OTHER, SELFPAY ==
--- NOTE | 2022-12-04 10:01 | MHC.OFFVIS ---
Intake Vital Signs 12/04/22 10:19 12/04/22 10:19 Height 5 ft 2 in 5 ft 2 in Weight 150 lb 150 lb BMI 27.4 27.4 BP 106/80 102/76 Blood Pressure Location Lt brachial Lt brachial Position Sitting Sitting Respiration 16 16 Pulse 74 71 Pulse Source Pulse Oximeter Pulse Oximeter Pulse Oximetry (%) 99 99 Oxygen Delivery Method Room Air Room Air Comment pre-op post-op Intake Visit Reasons: BILAT DX L3-L4-DRL5 MBB/*ATIVAN PRE* Allergies No Known Allergies Allergy (Verified 12/04/22 10:12) PFSH Medical History Dizziness of unknown cause Positional lightheadedness Lumbago with sciatica, right side Low back pain potentially associated with radiculopathy Family history of thyroid disease in mother Asthma Family History Father Substance use disorder Mental health disorder Mother Mental health disorder Thyroid disorder Social History Housing: Homeless Housing Other:: [facility] Alcohol intake: never Patient Tobacco Use Status: Never used Tobacco e-Cigarette/Vaping Use: Never Used service: No Current occupational status: unemployed Cognitive needs: No Hearing needs: No Vision needs: No Female Reproductive History Menstrual Age of Menarche: 10 Physical Exam Vital Signs: Last Vital Signs Pulse 71 12/04/22 10:19 Resp 16 12/04/22 10:19 BP 102/76 12/04/22 10:19 Pulse Ox 99 12/04/22 10:19 Oxygen Delivery Method Room Air 12/04/22 10:19 BMI result Body Mass Index 27.4 Assessment & Plan Assessment & Plan (1) Lumbar spondylosis: Code(s): M47.816 - Spondylosis without myelopathy or radiculopathy, lumbar region Plan: Kate is very pleasant 32 y.o female who came today to the injection site to receive L3- L4- L5 diagnostic bilateral medial branch block. Informed consent was explained to the patient and risk and benefits were carefully explained.The patient is of child bearing age and she had her menses about 3 weeks ago. I offered her a test however the patient adamantly refused to submit few drops of urine for test. She was explain risks radiation can do to a fetus however she continue to insist to do the procedure without test. She signed a form stating that she is not and refusal of the test. Diagnostic medial branch block L3,L4 dorsal ramus L5 bilateral.? ? ?Informed consent was explained to the patient. All questions were explained and? answered.? The patient was taken inside the operating room where she was positioned prone on the operating table. Time-out was performed delineating correct site, side, the nature of the procedure, patient's allergy, . All operating room staff was participating in OR time-out procedure. ? ? The lower back was prepped with ChloraPrep and draped with sterile towels.? C-arm was brought over the operating field and sq picture of L4-, L5 vertebra and S1 AREA were delineated on the screen.? Point of interest were delineated as confluence of superior articular process of L4 and L5 vertebra bilaterally with corresponding transverse processes as well as confluence of the sacral alae bilaterally with superior articular process of S1.? The projection of the point of interest to the skin were injected with the small amount of local anesthetic lidocaine 2% 1-1.5 cc.? After that 22 gauge 3.5 inch spinal needle was driven sequentially to the points of interest in tunnel vision fashion. After needles gently contacted the bone at the point of interests the needle was injected with small amount of the contrast.? The injection of the contrast did not demonstrate any intravascular or intrathecal spread of the contrast.? After that injection of the? ropivacaine 0.5%-1cc was performed at each needle location.??after that the needles were removed and Bandaids were applied. ? Upon completion of the injections? needle was? removed and sterile Band-Aids were applied.? The patient tolerated procedure very well. Michael Love is a pleasant 32-year-old female who presented to the office today for evaluation management of her chronic lower back pain. Patient has tried multiple medications including opioids, muscle relaxers, NSAIDs, gabapentin and [id number]-[id number] pain relievers. None of which she found of any use in helping her pain. She has exhausted conservative therapy including PT, HEP, NSAIDS, Tylenol, muscle relaxers, opioids and Tens unit. None of which provided her improvement in pain or function. Discussed options for treatment including diagnostic interventional testing, epidural steroid injections, peripheral nerve stimulation with Sprint, RFA and more permanent neuromodulation. Will schedule patient for fluoroscopy guided diagnostic bilateral L3-L4 DR L5 medial branch blocks with local anesthetic. All questions and concerns have been answered and patient agrees with the plan. Follow up after injections and sooner if needed. Orders: Orders FL guidance in treatment room Today M47.816 - Spondylosis without myelopathy or radiculopathy, lumbar region Coding Level of Care Code Procedure Only Diagnoses Lumbar spondylosis M47.816
[2022-12-04 10:19] VITALS: BP 102/76; BP 106/80; PULSE 71; PULSE 74; RESP 16; O2SAT 99; BMI 27.4
== END 2022-12-04 10:36 | disposition home or self-care (01) ==
LOC: HO.PMCPRC 09:44
PROVIDERS: PCP Internal Medicine; Visit Provider Anesthesiology
DX: M47.816 Spondylosis without myelopathy or radiculopathy, lumbar region (principal)
CPT/HCPCS: 64493; 64494

== ENCOUNTER 2022-12-06 09:05 | Outpatient (AMB) | payer OTHER, SELFPAY ==
[2022-12-06 09:12] VITALS: BP 138/72; PULSE 68; RESP 16; O2SAT 98; BMI 27.4
--- NOTE | 2022-12-06 09:12 | A.OFFVIS_ITS ---
Intake Vital Signs 3 12/06/22 09:12 Height 5 ft 2 in Weight 150 lb BMI 27.4 BP 138/72 Blood Pressure Location Lt brachial Respiration 16 Pulse 68 Pulse Source Pulse Oximeter Pulse Oximetry (%) 98 Oxygen Delivery Method Room Air Intake Visit Reasons: BILAT DX L3-L4-DRL5 MBB 12/04/22/ CONFIRMED Allergies No Known Allergies Allergy (Verified 12/06/22 09:13) HPI HPI Comments 2 History of Present Illness0 Details Patient presents back to the office today for follow up 2 days s/p bilateral diagnostic L3-L4 DR L5 medial branch blocks. She reports tolerating the procedure well despite some preprocedure anxiety. She was given ativan 1mg preprocedure but states she did not feel any effects of the medication. 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 She also sat on her bed and played video games for awhile . She reports her pain was unchanged in the hours after the diagnostic procedure. the area was numb but I could still feel the same pain . She does report back pain has been present for last 2 years, in this time she has been living in a [facility] and does not have a good mattress. She is not sure if they will allow her to bring her own mattress in. Today patient also complaining of pain at coccyx, worse with sitting and tender to palpation. She denies injury to the area. No recent falls, children are 10 and 11 years old and pain was not present after of either child. Patient does report sitting for lengthy periods of time playing video games, has worsened to the point she tends to lean to the side or sit on her foot to relieve the pressure from her butt. Prior: Kate presents back to the office today for follow up. She reports continued pain in her lower back, rated today as 6/10. She does endorse occassional burning in her thighs if she stands for too long, this resolves with rest. She denies weakness, numbness, tingling or shocking pain down her legs. She has completed 6 weeks of PT, ended 06/2022 but continues with HEP as instructed on discharge from PT. She reports visit to the ER for her back pain since last visit here, she has also been evaluated by her PCP and was given tramadol as needed. She has reservations about taking opioid medications d/t risk of dependence as she has a family history of SHARAD. She takes tylenol and motrin for her pain with some relief. She denies red flag symptoms including new loss of bowel, bladder or saddle anesthesia. Prior: Kate is a pleasant 32-year-old female who presents to the office today for evaluation and management of her chronic lower back pain. Patient reports the pain started approximately 5 years ago after she fell down a flight of stairs. Patient reports that her primary care doctor has been managing her pain, she has also been evaluated in the ER a couple times for this pain. She has been told in the past that it is in relation to irritation of the sciatic nerve. She has tried multiple medications including opiates, NSAIDs, muscle relaxers and topical patches but none of them have helped her pain. She has been prescribed gabapentin in the past which she did not notice the benefit of improved pain but it did provide improvement in sleep. Patient describes her pain in the middle lower back radiating down her right leg to the ankle. She reports occasional radiation of the pain down her left leg but notes that the right leg is the main area of involvement. The pain is worse with movement, lifting, bending, climbing stairs and sitting. Pain is off and on and some weeks it is worse than others. Patient states she has had an x-ray and believes she had an MRI at [facility] July of last year. Patient states that in April of this year she participated in physical therapy and states that has not helped her pain. She denies treatment by chiropractor, acupuncture, massage or history of injections. Her pain today is 5/10. Patient reports the pain is impacting her ability to sleep normally, performing daily activities, function, work and participate in recreational activities. Patient denies red flag symptoms including loss of bowel, bladder or saddle anesthesia. In terms of muscle damage conditions is described as dull, sore, hurting, aching, heavy, spreading, radiating and piercing. Patient denies significant past medical history. Patient denies use of tobacco, alcohol or illicit substances. Patient denies implantable devices, pacemaker and a defibrillator. [facility] Medical History Dizziness of unknown cause Positional lightheadedness Lumbago with sciatica, right side Low back pain potentially associated with radiculopathy Family history of thyroid disease in mother Asthma Family History Father Substance use disorder Mental health disorder Mother Mental health disorder Thyroid disorder Social History Housing: Homeless Housing Other:: [facility] Alcohol intake: never Patient Tobacco Use Status: Never used Tobacco e-Cigarette/Vaping Use: Never Used service: No Current occupational status: unemployed Cognitive needs: No Hearing needs: No Vision needs: No Female Reproductive History Menstrual Age of Menarche: 10 Review of Systems Const All systems reviewed & are unremarkable except as noted in HPI and below Physical Exam Vital Signs: Last Vital Signs Pulse 68 12/06/22 09:12 Resp 16 12/06/22 09:12 BP 138/72 12/06/22 09:12 Pulse Ox 98 12/06/22 09:12 Oxygen Delivery Method Room Air 12/06/22 09:12 BMI result Body Mass Index 27.4 General: awake, alert, oriented. Answers questions appropriately. Fully engaged in examination. Skin: warm, dry, intact without visible rashes or lesions. HEENT: Normocephalic. Conjuntivae clear without exudate. Sclera non-icteric. Hearing intact. Cardiac: External chest normal in appearance. Respiratory: No signs of trauma. No signs of respiratory distress. No cough, audible wheezing or stridor. Abdomen: without gross distension. MS: No obvious swelling or deformities. Neurological: Oriented to person, place, time and situation. Thought process intact. No gait abnormalities appreciated. Psychiatric: Appropriate mood and affect. Good judgment and insight. Back/Spine/Pelvis Other: Able to stand on bilateral tiptoes and bilateral heels. Able to transition from sit to stand unassisted. Ambulates with bilaterally normal heel strike and toe off Visual inspection without gross abnormality Tender to palpation over coccyx Tender to palpation over midline lumbar vertebrae ROM: extension to 20 degrees. flexion to 100 degrees Strength: 5/5 BLE Sensation: intact and symmetric BLE DTR: intact and symmetric Straight leg raises with and without dorsiflexion negative bilaterally Gaenslen negative bilaterally Thigh thrust negative bilaterally SI compression negative bilaterally Results Reviewed Results Reviewed: 10/2021 EXAMINATION: XR LUMBOSACRAL SPINE WITH OBLIQUES FINDINGS: Vertebral body heights are normal. At L5-S1, there is a 3 mm retrolisthesis. The remaining disc spaces are relatively well-maintained. No acute fracture or spondylolisthesis is seen. The posterior elements are intact. There is no spondylolysis defect noted on the oblique views. The paravertebral soft tissues are unremarkable. IMPRESSION: 1. There is mild degenerative disc disease at L5-S1. 2. No acute fracture or spondylolisthesis is seen. 08/03/2021 Assessment & Plan Assessment & Plan (1) Coccyalgia: Code(s): M53.3 - Sacrococcygeal disorders, not elsewhere classified (2) Lumbar spondylosis: Code(s): M47.816 - Spondylosis without myelopathy or radiculopathy, lumbar region Michael Love is a pleasant 32-year-old female who presented to the office today for follow up 2 days s/p diagnostic bilateral L3-L4 DR L5 medial branch blocks. Patient denies benefit from the diagnostic injections, states the injections were in the area of her pain but after the area was numb, however, pain persisted. She was able to walk around the mall and remain active at home but states her pain was not improved from before injections. Patient has tried multiple medications including opioids, muscle relaxers, NSAIDs, gabapentin and rhyd-mgz-[id number] pain relievers. None of which she found of any use in helping her pain. She denies medications today including gabapentin or muscle relaxer. She has exhausted conservative therapy including PT, HEP, NSAIDS, Tylenol, muscle relaxers, opioids and Tens unit. None of which provided her improvement in pain or function. Patient advised to discuss with [facility] the option of obtaining a better mattress or ability for her to obtain her own. Will provide note for medical necessity if required by [facility]. Xray sacrum/coccyx ordered for evaluation. All questions and concerns have been answered and patient agrees with the plan. Follow up after xray, sooner if needed. Orders: Orders 2 XR sacrum coccyx min 2V Today M53.3 - Sacrococcygeal disorders, not elsewhere classified Coding Level of Care Code Est Pt Level 3 (04887) Diagnoses Coccyalgia M53.3 Lumbar spondylosis M47.816
== END 2022-12-06 10:57 | disposition home or self-care (01) ==
PROVIDERS: PCP Internal Medicine; Visit Provider Registered Nurse Emergency
DX: M53.3 Sacrococcygeal disorders, not elsewhere classified (principal); M47.816 Spondylosis without myelopathy or radiculopathy, lumbar region
CPT/HCPCS: 99213

== ENCOUNTER 2022-12-06 09:05 | Outpatient (REF) | payer OTHER, SELFPAY ==
--- NOTE | ~2022-12-06 | XR_ITS ---
EXAMINATION: XR SACRUM AND COCCYX CLINICAL INFORMATION: Pain COMPARISON: None available. TECHNIQUE: 2 views of the sacrum and 2 views of the coccyx were obtained. FINDINGS: There are no fractures. No bone, joint or soft tissue abnormality is demonstrated. XR/XR sacrum coccyx min 2V IMPRESSION: Unremarkable examination.
== END 2022-12-06 09:06 | disposition home or self-care (01) ==
LOC: HO.XRAY 09:05
PROVIDERS: PCP Internal Medicine; Visit Provider Registered Nurse Emergency
DX: M53.3 Sacrococcygeal disorders, not elsewhere classified (principal); M47.816 Spondylosis without myelopathy or radiculopathy, lumbar region
CPT/HCPCS: 72220; 99212

== ENCOUNTER → 2023-01-03 10:05 | Outpatient (REF) | payer OTHER, SELFPAY | LOC: HO.SL 10:05 | PROVIDERS: PCP Internal Medicine; Visit Provider Nurse Practitioner Family | DX: G47.19 Other hypersomnia (principal); R06.83 Snoring; G47.9 Sleep disorder, unspecified | CPT/HCPCS: 95806 ==

== ENCOUNTER → 2023-01-03 10:12 | Outpatient (BNV) | payer OTHER, SELFPAY | PROVIDERS: PCP Internal Medicine; Visit Provider Psychiatry & Neurology Neurology | DX: G47.19 Other hypersomnia (principal) | CPT/HCPCS: 95806 ==

== ENCOUNTER 2023-02-05 10:27 | Emergency (ER) | payer OTHER, SELFPAY ==
[2023-02-05 11:15] VITALS: BP 115/80; PULSE 83; RESP 18; TEMP 36.4; O2SAT 100; BMI 27.3
--- NOTE | 2023-02-05 11:16 | ED_ITS ---
HPI - URI/Sore Throat General Chief Complaint: General Medical Stated Complaint: Dizziness, nausea Time Seen by Provider: 02/05/23 15:07 Source: patient Mode of arrival: ambulatory Limitations: no limitations History of Present Illness HPI Narrative: 32 year old female with pmhx significant for asthma, lumbar radiculopathy, vertigo, and post concussive syndrome presents to the ED today with a complaint of generalized fatigue/weakness, rhinorrhea, bilateral ear pain x1 day. Admits children at home with similar symptoms. No documented fever at home. Additionally reports acute on chronic dizziness, exacerbated with positional changes, worse with laying down and rolling over. Denies vision changes. Reports history of vertigo, follows with Neurology. States that she has meclizine at home, took this yesterday however this did not help her dizziness. Denies headache, fever, chills, sore throat, cough, sob, chest pain, numbness/tingling/weakness of extremities. + sick contacts at home. Vaccinations UTD. Denies ivdu. Related Data Home Medications Medication Instructions Recorded Confirmed multivitamin 1 tab PO DAILY 11/08/22 11/19/22 cephalexin 500 mg capsule 500 mg PO BID 11/15/22 11/19/22 Previous Rx's Medication Instructions Recorded cyclobenzaprine 10 mg tablet 10 mg PO Q8H PRN muscle spasm #10 06/22/22 tabs ibuprofen 600 mg tablet 600 mg PO Q8H PRN pain #14 tabs 09/02/22 ferrous fumarate 324 mg (106 mg 324 mg PO DAILY 90 days #90 tabs 11/01/22 iron) tablet ilsvihxkvl-wbcygjsxdkhay-snecjysa 1 tab PO Q6H PRN haeadace #20 tabs 11/02/22 50 mg-325 mg-40 mg tablet tramadol 50 mg tablet 50 mg PO Q6H PRN pain #20 tabs 11/02/22 meclizine 25 mg tablet 25 mg PO DAILY PRN motion 11/05/22 sickness/ lightheadedness #10 tabs magnesium oxide 400 mg (241.3 mg 400 mg PO BEDTIME 30 days #30 tabs 11/21/22 magnesium) tablet naproxen 500 mg tablet 500 mg PO BID PRN headache 30 days 11/21/22 #30 tabs sumatriptan succinate 100 mg tablet 50 - 100 mg (0.5 - 1 x 100 mg) PO 11/21/22 .COMPLEX PRN migraine headache 30 days #12 tabs topiramate 25 mg tablet 25 - 50 mg (1 - 2 x 25 mg) PO 11/21/22 BEDTIME 30 days #60 tabs Allergies Allergy/AdvReac Type Severity Reaction Status Date / Time No Known Allergies Allergy Verified 12/06/22 09:13 Review of Systems 2 Review of Systems: Constitutional: No fever, chills, fatigue, night sweats, weight changes ENT/Mouth: +ear pain, No hearing loss, nasal congestion, sinus pain, rhinorrhea, sore throat Eyes: No eye pain, swelling, redness, vision changes, discharge Cardio: No chest pain, palpitations, RENTERIA, orthopnea, peripheral edema Pulm: No SOB, cough, sputum, wheezing, dyspnea, hemoptysis GI: No nausea, vomiting, hematemesis, abdominal pain, diarrhea, constipation, hematochezia, melena : No irregular bleeding, dysuria, frequency, urgency, hesitancy, hematuria, flank pain, urinary flow changes, urinary incontinence or retention MSK: No back pain, neck pain, joint pain, myalgias Skin: No lesions, rashes Neuro: No weakness, numbness, paresthesias, LOC, dizziness, headache All other systems reviewed and are negative. [facility] Past Medical History Attestation statement: The following information was validated with the patient. Source: old records reviewed and nursing notes reviewed Medical History Dizziness of unknown cause Positional lightheadedness Lumbago with sciatica, right side Low back pain potentially associated with radiculopathy Family history of thyroid disease in mother Asthma Family History Family History Father Substance use disorder Mental health disorder Mother Mental health disorder Thyroid disorder Social History Social History Housing: Homeless Housing Other:: [facility] Alcohol intake: never Patient Tobacco Use Status: Never used Tobacco e-Cigarette/Vaping Use: Never Used Advance Directives: No Patient : No service: No Current occupational status: unemployed Cognitive needs: No Hearing needs: No Vision needs: No Physical Exam 2 Vital Signs: Vital Signs: Last Vital Signs Temp 99.0 F 02/05/23 14:32 Pulse 85 02/05/23 16:09 Resp 16 02/05/23 14:32 BP 112/77 02/05/23 16:09 Pulse Ox 100 02/05/23 14:32 O2 Del Method Room Air 02/05/23 14:32 BMI result Body Mass Index 27.3 Vital signs stable Const: General: cooperative, healthy appearing, comfortable, no acute distress, alert and awake Orientation/consciousness: patient oriented x3 L imitations: no limitations HEENT: Other: + No pain on manipulation of pinna b/l. B/l EACs without erythema/edema, TMs intact without effusion/ perforation. Mastoids nontender. + posterior oropharync without erythema/ edema. no tonsillar exudates. uvula midline. controlling secretions, speaking in complete sentences. Head: Yes normal to inspection Ears: hearing grossly normal bilaterally and no periauricular adenopathy General nose exam: Normal external nose present Face and sinus: Yes normal facial exam and Yes sinuses nontender M outh: Normal oral and palatal mucosa present Eyes: General: appearance normal, both eyes and all related structures C onjunctivae: conjunctivae normal Sclerae: sclerae normal Pupils: Equal, round and reactive pupils present Neck: Neck: Yes normal visual inspection, Yes no lymphadenopathy and Yes no meningeal signs Resp: Effort & Inspection: normal respiratory effort and able to speak in complete sentences Auscultation: clear to auscultation bilaterally Cardio: Rate: regular rate Rhythm: regular rhythm Peripheral pulses: P eripheral pulses 2+ throughout GI: Inspection: Yes normal to inspection Palpation (GI): Soft to palpation and nontender Skin: General skin exam: no rashes or lesions noted Neuro: General: patient oriented x3, gait normal, moves all extremities and no meningeal signs Cranial nerves: Yes Equal, round and reactive pupils present and Yes Nystagmus not present Gait exam (Neuro): Normal gait present Motor exam (neuro): 5/5 motor strength present throughout Coordination: f woina-mk-jgtk test normal, oeop-av-prae test normal and Normal rapid alternating movements of the distal upper extremity present (Neuro) Extrem: General: Yes normal to inspection and Yes full ROM Course Course Course Narrative: RME: 32y oF w/PMHx anemia, migraines, c/o generalized fatigue/weakness, rhinorrhea, ear pain and ligtheadedness/dizziness x yesterday. Reports her kids were recently sick with URI symptoms EKG, labs, UA, viral testing ordered Full HPI, ROS and PE to be performed by primary ED provider. Reevaluation(s) Reevaluation #1: No leukocytosis. Chronically stable anemia when compared to priors. Chemistry without acute electrolyte abnormality requiring intervention. EKG normal. Unlikely arrhythmia. Orthostatic vitals negative. Unlikely orthostasis/ dehydration. COVID and flu negative. > patient's symptoms are consistent with viral syndrome & acute on chronic vertigo. She reports improvement of symptoms with tylenol and zofran. Advised patient to continue taking meclazine at home with strict neuro follow up for possible medication changes. Treatment for viral syndrome is symptomatic. > she is ambulating with steady gait in ED. No episodes of vomiting. Patient has remained stable throughout visit today. Discussed strict return precautions. All questions answered at this time. Patient is agreeable with disposition and stable for discharge. Medications Administered Discontinued Medications Generic Name Dose Route Start Last Admin Trade Name Freq PRN Reason Stop Dose Admin Acetaminophen 975 mg 02/05/23 15:57 02/05/23 16:24 Acetaminophen 325 Mg Tablet PO 02/05/23 15:58 975 mg ONCE ONE Administration Ondansetron HCl 4 mg 02/05/23 16:05 02/05/23 16:24 Ondansetron Odt 4 Mg Tab.Rapdis TRANSLINGU 02/05/23 16:06 4 mg ONCE ONE Administration Medical Decision Making Medical Decision Making [facility] Narrative: 32 year old female with pmhx significant for asthma, lumbar radiculopathy, vertigo, and post concussive syndrome presents to the ED today with a complaint of generalized fatigue/weakness, rhinorrhea, bilateral ear pain x1 day. Vital signs stable. Patient nontoxic appearing and in NAD. No nystagmus. Exam nonfocal. Cerebellum intact. No pain on manipulation of pinna b/l. B/l EACs without erythema/edema, TMs intact without effusion/ perforation. Mastoids nontender. posterior oropharync without erythema/edema. no tonsillar exudates. uvula midline. controlling secretions, speaking in complete sentences. RRR. No JVD. Lungs cta b/l. No calf tenderness b/l. Clinical concern for viral syndrome, otitis media/externa, vertigo, dehydration, electrolyte abnormality, orthostatic hypotension. Low suspicion for strep throat, mono, ERP CONSULTANT, retropharyngeal abscess, epiglottits. Lower suspicion for ACS, arrhythmia, dissection, CVA/TIA, PE. Basic labs and EKG obtained in triage. Plan for review, ortho vitals, pain control, and re-evaluation. Differential Diagnosis Differential Diagnoses: The differential diagnosis associated with the presentation includes As above. Admission/Observation Not indicated. Lab Data MDM Lab Attestation statement: I reviewed the patient's lab results. As above. 02/05/23 11:50 02/05/23 11:50 Labs: Lab Results 02/05/23 Range/Units 11:50 WBC 3.5 L (4.8-10.8) X10*3/uL RBC 4.49 (4.20-5.50) X10*6/uL Hgb 12.1 (12.0-16.0) g/dl Hct 35.8 L (37.0-47.0) % MCV 79.7 L (80.0-98.0) fL MCH 26.9 L (27.0-33.0) pg MCHC 33.8 (31.0-35.0) g/dl RDW 13.0 (11.0-16.0) % Plt Count 280 (160-400) X10*3/uL MPV 11.2 (9.4-12.3) fL Immature Gran % (Auto) 0.0 (0.0-0.4) % Neut % (Auto) 46.3 (45-73) % Lymph % (Auto) 41.3 H (20-40) % [place] % (Auto) 9.8 (2-11) % Eos % (Auto) 2.0 (0-4) % Baso % (Auto) 0.6 (0-2) % Lymph # (Auto) 1.4 (1.2-4.9) X10*3/uL [place] # (Auto) 0.3 (0.1-1.2) X10*3/uL Eos # (Auto) 0.1 (0.0-0.4) X10*3/uL Baso # (Auto) 0.0 (0.0-0.2) X10*3/uL Abs Immat Gran (auto) 0.00 (0.00-0.03) X10*3/uL Absolute Neuts (auto) 1.6 L (2.0-8.3) x10*3/uL Absolute Nucleated RBC 0.000 (0.0-0.012) X10*3/uL Nucleated RBC % (auto) 0.0 (0.0-0.2) /100WBC Sodium 142 (135-145) mmol/L Potassium 3.8 (3.3-5.1) mmol/L Chloride 108 (96-108) mmol/L Carbon Dioxide 27 (22-29) mmol/L Anion Gap 11 L (12-20) BUN 14 (9-16) mg/dL Creatinine 0.86 (0.5-1.4) mg/dL Estim Creat Clear Calc 86.2 Estimated GFR > 60 Random Glucose 91 (60-115) mg/dL Calcium 9.4 (8.4-10.2) mg/dL Total Bilirubin 0.3 (0.0-1.0) mg/dL Direct Bilirubin 0.1 (0.0-0.5) mg/dL AST 16 (5-31) U/L ALT 9 (0-31) U/L Alkaline Phosphatase 52 (39-117) U/L Total Protein 8.2 H (6.5-8.0) g/dL Albumin 4.2 (3.5-5.0) g/dL Urine Color Yellow Urine Appearance Clear Urine pH 5.5 (5.0-9.0) Ur Specific [place] 1.015 (1.005-1.025) Urine Protein Negative (Neg-Trace) mg/dL Urine Glucose (UA) Negative (Negative) mg/dL Urine Ketones Negative (Negative) mg/dL Urine Blood Negative (Negative) Urine Nitrite Negative (Negative) Ur Leukocyte Esterase Negative (Negative) Urine Test NEGATIVE (NEGATIVE) COVID-19 (BRENNAN) Negative (Negative) COVID-19 Clin Com See Note Influenza Type A (USHA) Negative (Negative) Influenza Type B (USHA) Negative (Negative) Influenza A & B Note See Note Independent Interpretation I performed an independent interpretation of an: EKG Interpretation: EKG showing NSR with rate of 69 bpm, QT 384, no acute ischemic changes or ST elevations. External Record Review External record reviewed: Inpatient record, Office record, Outpatient record, Prior outpatient labs, Prior outpatient radiology, Primary care record, Outside ED record and Other Prescription Management I considered prescription management with: Pain Medication and Other (antiemetic) Chronic Conditions Patient?s care impacted by: Other (vertigo) Social Determinants Patient?s care significantly limited by Social Determinants of Health including: Other Social Determinant of Health Critical Care Time Critical Care Time Critical Care Time: No Discharge Plan Discharge Clinical Impression: Viral syndrome Patient Disposition: Home, Self-Care Instructions: Viral Syndrome (ED) Additional Instructions: You tested negative for COVID and flu. You likely have a viral infection. Treatment for this asymptomatic. Take Ibuprofen or Tylenol as needed for fevers or body aches.? Practice good hand hygiene. Drink plenty of fluids. Follow-up with your primary care provider this week. Please follow-up with your neurologist for meclizine prescription as they may want to start you on something different. Return to the emergency department with new or worsening symptoms. In case of emergency call 911. Prescriptions: No Action ferrous fumarate 324 mg (106 mg iron) tablet 324 mg PO DAILY 90 Days Qty: 90 1RF meclizine 25 mg tablet 25 mg PO DAILY PRN (Reason: motion sickness/ lightheadedness) Qty: 10 0RF topiramate 25 mg tablet 25 - 50 mg PO BEDTIME 30 Days Qty: 60 3RF naproxen 500 mg tablet 500 mg PO BID PRN (Reason: headache) 30 Days Qty: 30 0RF sumatriptan succinate 100 mg tablet 50 - 100 mg PO .COMPLEX PRN (Reason: migraine headache) 30 Days Qty: 12 6RF Rx Instructions: 50 - 100 mg orally at onset of headache, may repeat in 2 hrs PRN; max 2 tabs per day or 4 tabs/week (may take with Naproxen) magnesium oxide 400 mg (241.3 mg magnesium) tablet 400 mg PO BEDTIME 30 Days Qty: 30 6RF Rx Instructions: may hold for loose stools ibuprofen 600 mg tablet 600 mg PO Q8H PRN (Reason: pain) Qty: 14 0RF cyclobenzaprine 10 mg tablet 10 mg PO Q8H PRN (Reason: muscle spasm) Qty: 10 0RF tramadol 50 mg tablet 50 mg PO Q6H PRN (Reason: pain) Qty: 20 0RF rcvrjlzfyb-nngksawlenyuh-jcvp 50-325-40 mg tablet 1 tab PO Q6H PRN (Reason: haeadace) Qty: 20 0RF multivitamin Tablet 1 tab PO DAILY cephalexin 500 mg capsule 500 mg PO BID Referrals: Janneth Gunn MD [Primary Care Provider] - Interventions: ED Discharge Assessment Last Done: 02/05/23 17:45 Discharge Date/Time: 02/05/23 17:46
--- NOTE | 2023-02-05 11:18 | ECG_ITS ---
Test Reason : lightheadedness Blood Pressure : / mmHG Vent. Rate : 069 BPM Atrial Rate : 069 BPM P-R Int : 148 ms QRS Dur : 070 ms QT Int : 384 ms P-R-T Axes : 052 041 055 degrees QTc Int : 411 ms Normal sinus rhythm Normal ECG When compared with ECG of 02-SEP-2022 10:02, Criteria for Septal infarct are no longer Present Referred By: Ele Crocker Electronically Signed By:Terry Go
[2023-02-05 11:56] LABS: MANUAL DIFF FLAG NO
[2023-02-05 11:59] LABS: Basophils Percent Auto 0.6 % (0-2); Eosinophils Absolute Auto 0.1 X10*3/uL (0.0-0.4); Hematocrit 35.8 % (37.0-47.0); Hemoglobin 12.1 g/dl (12.0-16.0); Lymphocytes Absolute Auto 1.4 X10*3/uL (1.2-4.9); Lymphocytes Percent Auto 41.3 % (20-40); Mean Corpuscular HGB Conc 33.8 g/dl (31.0-35.0); Mean Corpuscular Hemoglobin 26.9 pg (27.0-33.0); Mean Corpuscular Volume 79.7 fL (80.0-98.0); Mean Platelet Volume 11.2 fL (9.4-12.3); Monocytes Absolute Auto 0.3 X10*3/uL (0.1-1.2); Monocytes Percent Auto 9.8 % (2-11); Neutrophils Absolute Auto 1.6 x10*3/uL (2.0-8.3); Neutrophils Percent Auto 46.3 % (45-73); Platelet Count 280 X10*3/uL (160-400); Red Blood Count 4.49 X10*6/uL (4.20-5.50); White Blood Count 3.5 X10*3/uL (4.8-10.8)
[2023-02-05 12:01] LABS: Appearance Urine Clear; Color Urine Yellow; Glucose Urine UA Negative (Negative); Leukocyte Esterase Urine Negative (Negative); Nitrite Urine Negative (Negative); PH 5.5 (5.0-9.0); Specific Gravity - Urine 1.015 (1.005-1.025); Urine Blood Negative (Negative); Urine Ketones Negative (Negative); Urine Protein Negative (Neg-Trace)
[2023-02-05 12:03] LABS: UPreg QC Valid YES; Urine Pregnancy NEGATIVE (NEGATIVE)
[2023-02-05 12:13] LABS: Alanine Aminotransferase 9 U/L (0-31); Albumin Level 4.2 g/dL (3.5-5.0); Alkaline Phosphatase 52 U/L (39-117); Anion Gap 11 (12-20); Aspartate Amino Transferase 16 U/L (5-31); Bilirubin Direct 0.1 mg/dL (0.0-0.5); Bilirubin Total 0.3 mg/dL (0.0-1.0); Blood Urea Nitrogen 14 mg/dL (9-16); Calcium 9.4 mg/dL (8.4-10.2); Carbon Dioxide 27 mmol/L (22-29); Chloride 108 mmol/L (96-108); Creatinine Clr Calc Pharmacy 86.2; Estimated Glomerular Filt Rate > 60; Glucose Random 91 mg/dL (60-115); Potassium 3.8 mmol/L (3.3-5.1); Sodium 142 mmol/L (135-145); Total Protein 8.2 g/dL (6.5-8.0)
[2023-02-05 12:21] LABS: COVID-19 Test Negative (Negative); IDNOW Serial# 9DB6401D; IDNOW Serial# BCCEAD1C; Influenza A Negative (Negative); Influenza B2 Negative (Negative)
[2023-02-05 14:32] VITALS: BP 112/70; PULSE 68; RESP 16; TEMP 37.2; O2SAT 100
--- NOTE | 2023-02-05 14:33 | PC.NURSE ---
Patient resting on stretcher, respirations even and unlabored, skin pwd, alert and oriented x4, flat affect. Patient verbalizes having no pain at this time
[2023-02-05 16:08] VITALS: BP 106/62; PULSE 79
[2023-02-05 16:09] VITALS: BP 112/77; BP 119/81; PULSE 85; PULSE 90
[2023-02-05] MEDS: Acetaminophen 325 MG TABLET 975 MG PO (16:24)
[2023-02-05] MEDS: Ondansetron ODT 4 MG TAB.RAPDIS TRANSLINGU (16:24)
== END 2023-02-05 17:46 | disposition home or self-care (01) ==
PROVIDERS: Physician Assistant; Emergency Provider Emergency Medicine Emergency Medical Services; PCP Internal Medicine
DX: B34.9 Viral infection, unspecified (principal); R42 Dizziness and giddiness; R11.2 Nausea with vomiting, unspecified; H92.03 Otalgia, bilateral; Z79.899 Other long term (current) drug therapy; Z11.52 Encounter for screening for COVID-19; Z20.822 Contact with and (suspected) exposure to COVID-19
CPT/HCPCS: 36415; 80048; 80076; 81003; 81025; 85025; 87502; 87635; 93005; 99283; 99284

== ENCOUNTER → 2023-02-05 11:18 | Outpatient (BNV) | payer OTHER, SELFPAY | PROVIDERS: PCP Internal Medicine; Visit Provider Internal Medicine Cardiovascular Disease | DX: R42 Dizziness and giddiness (principal) | CPT/HCPCS: 93010 ==

== ENCOUNTER 2023-04-30 11:05 | Emergency (ER) | payer OTHER, SELFPAY ==
[2023-04-30 11:07] VITALS: BP 120/70; PULSE 67; RESP 16; TEMP 36.4; O2SAT 100; BMI 26.7
--- NOTE | 2023-04-30 11:07 | ED.GENADULT ---
HPI - General Adult General Chief complaint: Dizziness Stated complaint: nausea dizzy Time Seen by Provider: 04/30/23 11:57 Source: patient Mode of arrival: ambulatory Limitations: no limitations History of Present Illness HPI narrative: Patient is a 32 year old, assigned at female, with a history of chronic migraines w/o aura, chronic low back pain, chronic daytime sleepiness, and hypochromic anemia presents to the ED with a one day history of dizziness, generalized weakness, fatigue, and abdominal pain. Patient reports sick household contacts, denies recent travel, and recent ABX use. Patient also denies MOORE, fever, nausea, SOB, chest pain, urinary/bowel symptoms, and body aches. MD complaint: Abdominal pain, dizziness, weakness, and fatigue Onset (ago): day(s) (1) Location: abdomen Radiation: non-radiation Severity: mild Severity scale (1-10): 2 Quality: aching Pain Consistency: intermittent and colicky Relieving factors: none Exacerbating factors: none Associated symptoms: weakness Treatments prior to arrival: none Related Data Home Medications Medication Instructions Recorded Confirmed multivitamin 1 tab PO DAILY 11/08/22 11/19/22 cephalexin 500 mg capsule 500 mg PO BID 11/15/22 11/19/22 Previous Rx's Medication Instructions Recorded cyclobenzaprine 10 mg tablet 10 mg PO Q8H PRN muscle spasm #10 06/22/22 tabs ibuprofen 600 mg tablet 600 mg PO Q8H PRN pain #14 tabs 09/02/22 ferrous fumarate 324 mg (106 mg 324 mg PO DAILY 90 days #90 tabs 11/01/22 iron) tablet abyioticpx-qlejfavczvuqv-luxdzkod 1 tab PO Q6H PRN haeadace #20 tabs 11/02/22 50 mg-325 mg-40 mg tablet tramadol 50 mg tablet 50 mg PO Q6H PRN pain #20 tabs 11/02/22 meclizine 25 mg tablet 25 mg PO DAILY PRN motion 11/05/22 sickness/ lightheadedness #10 tabs magnesium oxide 400 mg (241.3 mg 400 mg PO BEDTIME 30 days #30 tabs 11/21/22 magnesium) tablet naproxen 500 mg tablet 500 mg PO BID PRN headache 30 days 11/21/22 #30 tabs sumatriptan succinate 100 mg tablet 50 - 100 mg (0.5 - 1 x 100 mg) PO 11/21/22 .COMPLEX PRN migraine headache 30 days #12 tabs topiramate 25 mg tablet 25 - 50 mg (1 - 2 x 25 mg) PO 11/21/22 BEDTIME 30 days #60 tabs Allergies Allergy/AdvReac Type Severity Reaction Status Date / Time No Known Allergies Allergy Verified 12/06/22 09:13 Review of Systems Constitutional: Constitutional: Denies body ache(s), Denies chills, Reports difficulty sleeping, Reports fatigue, Denies fever(s), Denies headache(s), Reports lethargy, Denies night sweats and Reports weakness Eyes: Eyes: Reports no additional eye complaints, Denies blurry vision, Denies change in vision, Denies diplopia, Denies eye discharge, Denies loss of vision and Denies eye pain ENT: Reports dizziness, Denies headache(s), Denies nasal congestion, Denies nasal discharge and Denies sore throat Cardiovascular: Cardiovascular: Reports no additional cardiovascular complaints, Denies chest pain, Denies lightheadedness, Denies Loss of Consciousness and Denies dyspnea Respiratory: Respiratory: Reports no additional respiratory complaints, Denies cough and Denies dyspnea Gastrointestinal: Gastrointestinal: Reports abdominal pain, Denies melena, Denies hematochezia, Denies change in bowel habits, Denies change in stool character and Reports GI cramping Genitourinary: Genitourinary: Denies hematuria, Denies urinary frequency, Denies dysuria, Denies urinary incontinence, Denies urinary hesitancy and Denies urinary urgency Musculoskeletal: Musculoskeletal: Reports no additional musculoskeletal complaints, Reports back pain, Denies myalgias, Denies arthralgias, Denies numbness and Denies tingling Neurologic: Reports dizziness, Denies headache(s), Denies loss of vision, Denies numbness, Denies tingling and Reports weakness Psychiatric: Psychiatric: Reports no additional psychiatric complaints Endocrine: Endocrine: Reports no additional endocrine complaints and Reports fatigue Hematologic/Lymphatic: Hematologic/Lymphatic: Reports no additional hematologic/lymphatic complaints Allergic/Immunologic: Allergic/Immunologic: Reports no additional allergic/immunologic complaints PMFSH Past Medical History Attestation statement: The following information was validated with the patient. Source: old records reviewed and nursing notes reviewed Medical History Dizziness of unknown cause Positional lightheadedness Lumbago with sciatica, right side Low back pain potentially associated with radiculopathy Family history of thyroid disease in mother Asthma Family History Family History Father Substance use disorder Mental health disorder Mother Mental health disorder Thyroid disorder Social History Social History Housing: Homeless Housing Other:: Retirement Alcohol intake: never Patient Tobacco Use Status: Never used Tobacco Smoked in Last 30 Days: No e-Cigarette/Vaping Use: Never Used Use of substances other than those prescribed or required for medical reasons: No Advance Directives: No service: No Current occupational status: unemployed Cognitive needs: No Hearing needs: No Vision needs: No Physical Exam ED Vital Signs: Vital Signs - 24 hr 04/30/23 11:07 04/30/23 12:35 04/30/23 13:31 Temperature 97.6 F 98.0 F 97.6 F Pulse Rate 67 73 Respiratory Rate 16 20 Blood Pressure 120/70 115/71 Pulse Oximetry 100 100 Oxygen Delivery Method Room Air Room Air 04/30/23 13:32 04/30/23 13:35 04/30/23 13:37 Temperature Pulse Rate 64 72 67 Respiratory Rate Blood Pressure 117/79 124/79 116/77 Pulse Oximetry Oxygen Delivery Method BMI result Body Mass Index 26.7 Const General: cooperative, no acute distress, alert and awake Nutritional Appearance: average body habitus Orientation/consciousness: patient oriented x3 Limitations: no limitations HENMT Head: Yes normal to inspection Ears: hearing grossly normal bilaterally General nose exam: Normal external nose present Face and sinus: Yes normal facial exam Mouth: Normal oral and palatal mucosa present Throat: Yes posterior oropharynx normal and Yes tonsils normal Eyes General: appearance normal, both eyes and all related structures Periorbital: periorbital findings normal Eyelids: Yes eyelids normal Conjunctivae: conjunctivae normal Pupils: Equal, round and reactive pupils present EOM: EOMs intact bilaterally Neck Neck: Yes normal visual inspection, Yes full ROM and Yes no lymphadenopathy Chest Chest palpation & inspection: normal inspection of the chest Resp Effort & Inspection: normal respiratory effort and able to speak in complete sentences Auscultation: clear to auscultation bilaterally Cardio Jugular venous distension: no JVD Palpation: normal PMI Rate: regular rate Rhythm: regular rhythm GI Inspection: Yes normal to inspection, No Abdominal wall edema and No distended Palpation (GI): Soft to palpation, not firm, nontender, No hepatosplenomegaly present, no pulsatile masses and No Rebound tenderness present Auscultation: normal bowel sounds Neuro General: patient oriented x3 Cranial nerves: Yes Equal, round and reactive pupils present Cognition (Neuro): normal cognition Motor exam (neuro): 5/5 motor strength present throughout Sensory Exam: Normal double simultaneous stimulation for sensation Coordination: cbozla-ii-gkxf test normal Extrem General: Yes normal to inspection, Yes full ROM and Yes capillary refill normal Psych Appearance: grossly normal Mental Status: mental status grossly normal Affect: normal affect Attitude: cooperative Thought process: Normal thought process present Thought content: Normal thought content present Insight: Good insight present (Psych) Course Course Course Narrative: RME- 32 year old female presents for evaluation of weakness, vomiting, dizziness for the last few days. Plan for labs, viral swabs, and HCG Medications Administered Discontinued Medications Generic Name Dose Route Start Last Admin Trade Name Freq PRN Reason Stop Dose Admin Sodium Chloride 1,000 mls @ 999 mls/hr 04/30/23 12:00 04/30/23 12:32 Ns IV 04/30/23 13:00 999 mls/hr .Q1H1M [facility] Administration Medical Decision Making Medical Decision Making [facility] Narrative: Patient is a 32 year old assigned female at with a history of migraines and anemia presenting to the emergency department today feeling generally unwell. Patient's physical exam was unremarkable. Patient's blood work was unremarkable. Patient's urine showed no acute process. I explained my physical exam findings as well as all test results to the patient. I answered all questions asked by the patient. Patient received IV fluids which she stated helped her symptoms significantly. I stressed the importance of the patient taking her medication as prescribed. I stressed the importance of the patient following up with her primary care provider. I stressed the importance of the patient returning to the emergency department immediately if her symptoms were to worsen or if she were to develop any dizziness, shortness of breath, difficulty breathing, chest pain, blurry vision, loss of vision, nausea, vomiting, abdominal pain, fever, chills, back pain, or any other complaints. Patient verbalized agreement and understanding with this treatment plan and discharge. Differential Diagnosis Differential Diagnoses: The differential diagnosis associated with the presentation includes Viral illness COVID-19 Influenza RSV Admission/Observation Consideration of admission/observation: Escalation of care including admission/observation considered Patient would have been admitted to the hospital had her work up had any findings where hospital admission was appropriate and her clinical presentation warranted hospital admission. Lab Data [facility] Lab Attestation statement: I reviewed the patient's lab results. My interpretation of these results are in the [facility] Rationale portion of this note. 04/30/23 11:14 04/30/23 11:14 Labs: Lab Results 04/30/23 Range/Units 11:14 WBC 3.9 L (4.8-10.8) X10*3/uL RBC 4.24 (4.20-5.50) X10*6/uL Hgb 11.4 L (12.0-16.0) g/dl Hct 33.5 L (37.0-47.0) % MCV 79.0 L (80.0-98.0) fL MCH 26.9 L (27.0-33.0) pg MCHC 34.0 (31.0-35.0) g/dl RDW 13.3 (11.0-16.0) % Plt Count 288 (160-400) X10*3/uL MPV 10.8 (9.4-12.3) fL Immature Gran % (Auto) 0.3 (0.0-0.4) % Neut % (Auto) 44.1 L (45-73) % Lymph % (Auto) 43.0 H (20-40) % [place] % (Auto) 9.8 (2-11) % Eos % (Auto) 2.3 (0-4) % Baso % (Auto) 0.5 (0-2) % Lymph # (Auto) 1.7 (1.2-4.9) X10*3/uL [place] # (Auto) 0.4 (0.1-1.2) X10*3/uL Eos # (Auto) 0.1 (0.0-0.4) X10*3/uL Baso # (Auto) 0.0 (0.0-0.2) X10*3/uL Abs Immat Gran (auto) 0.01 (0.00-0.03) X10*3/uL Absolute Neuts (auto) 1.7 L (2.0-8.3) x10*3/uL Absolute Nucleated RBC 0.000 (0.0-0.012) X10*3/uL Nucleated RBC % (auto) 0.0 (0.0-0.2) /100WBC Sodium 138 (135-145) mmol/L Potassium 3.4 (3.3-5.1) mmol/L Chloride 108 (96-108) mmol/L Carbon Dioxide 26 (22-29) mmol/L Anion Gap 7 L (12-20) BUN 6 L (9-16) mg/dL Creatinine 0.83 (0.5-1.4) mg/dL Estim Creat Clear Calc 88.4 Estimated GFR > 60 Random Glucose 95 (60-115) mg/dL Calcium 9.1 (8.4-10.2) mg/dL Total Bilirubin 0.5 (0.0-1.0) mg/dL AST 16 (5-31) U/L ALT 9 (0-31) U/L Alkaline Phosphatase 51 (39-117) U/L Total Protein 7.7 (6.5-8.0) g/dL Albumin 4.2 (3.5-5.0) g/dL Lipase 16 (8-78) U/L Beta HCG, Quant < 2 mIU/mL Urine Color Yellow Urine Appearance Cloudy Urine pH 5.5 (5.0-9.0) Ur Specific [place] 1.020 (1.005-1.025) Urine Protein Negative (Neg-Trace) mg/dL Urine Glucose (UA) Negative (Negative) mg/dL Urine Ketones Trace (Negative) mg/dL Urine Blood Negative (Negative) Urine Nitrite Negative (Negative) Ur Leukocyte Esterase Negative (Negative) Urine RBC 0-2 (0-2) /HPF Urine WBC 0-5 (0-5) /HPF Ur Squamous Epith Cells 6-10 (0-2) /HPF Urine Bacteria None Seen (None Seen) Hyaline Casts 0-2 (0-2) /LPF Influenza Type A (PCR) NEGATIVE (Negative) Influenza Type B (PCR) NEGATIVE (Negative) RSV RNA Qual (PCR) NEGATIVE (Negative) SARS-CoV-2 RNA (RT-PCR) NEGATIVE (Negative) Discharge Plan Discharge Clinical Impression: Viral illness, Dizziness Patient Disposition: Home, Self-Care Instructions: Viral Syndrome (ED), Dizziness (ED) Additional Instructions: Follow up with your primary care provider. Return to the emergency department immediately if your symptoms worsen or if you develop any dizziness, shortness of breath, difficulty breathing, chest pain, blurry vision, loss of vision, nausea, vomiting, abdominal pain, fever, chills, back pain, or any other complaints. Prescriptions: No Action ferrous fumarate 324 mg (106 mg iron) tablet 324 mg PO DAILY 90 Days Qty: 90 1RF meclizine 25 mg tablet 25 mg PO DAILY PRN (Reason: motion sickness/ lightheadedness) Qty: 10 0RF topiramate 25 mg tablet 25 - 50 mg PO BEDTIME 30 Days Qty: 60 3RF naproxen 500 mg tablet 500 mg PO BID PRN (Reason: headache) 30 Days Qty: 30 0RF sumatriptan succinate 100 mg tablet 50 - 100 mg PO .COMPLEX PRN (Reason: migraine headache) 30 Days Qty: 12 6RF Rx Instructions: 50 - 100 mg orally at onset of headache, may repeat in 2 hrs PRN; max 2 tabs per day or 4 tabs/week (may take with Naproxen) magnesium oxide 400 mg (241.3 mg magnesium) tablet 400 mg PO BEDTIME 30 Days Qty: 30 6RF Rx Instructions: may hold for loose stools ibuprofen 600 mg tablet 600 mg PO Q8H PRN (Reason: pain) Qty: 14 0RF cyclobenzaprine 10 mg tablet 10 mg PO Q8H PRN (Reason: muscle spasm) Qty: 10 0RF tramadol 50 mg tablet 50 mg PO Q6H PRN (Reason: pain) Qty: 20 0RF qobwisszbq-nnjprfzhuolzy-kneh 50-325-40 mg tablet 1 tab PO Q6H PRN (Reason: haeadace) Qty: 20 0RF multivitamin Tablet 1 tab PO DAILY cephalexin 500 mg capsule 500 mg PO BID Referrals: Janneth Gunn MD [Primary Care Provider] - Stand Alone Forms: Work/School Release Interventions: ED Discharge Assessment Last Done: 04/30/23 14:09 Discharge Date/Time: 04/30/23 14:10 Print Language: Divehi
[2023-04-30 11:21] LABS: MANUAL DIFF FLAG NO
[2023-04-30 11:22] LABS: Basophils Percent Auto 0.5 % (0-2); Eosinophils Absolute Auto 0.1 X10*3/uL (0.0-0.4); Eosinophils Percent Auto 2.3 % (0-4); Hematocrit 33.5 % (37.0-47.0); Hemoglobin 11.4 g/dl (12.0-16.0); Imm Gran Abs Auto 0.01 X10*3/uL (0.00-0.03); Imm Gran Pct Auto 0.3 % (0.0-0.4); Lymphocytes Absolute Auto 1.7 X10*3/uL (1.2-4.9); Mean Corpuscular Hemoglobin 26.9 pg (27.0-33.0); Mean Platelet Volume 10.8 fL (9.4-12.3); Monocytes Absolute Auto 0.4 X10*3/uL (0.1-1.2); Monocytes Percent Auto 9.8 % (2-11); Neutrophils Absolute Auto 1.7 x10*3/uL (2.0-8.3); Neutrophils Percent Auto 44.1 % (45-73); Platelet Count 288 X10*3/uL (160-400); Red Blood Count 4.24 X10*6/uL (4.20-5.50); Red Cell Distribution Width 13.3 % (11.0-16.0); White Blood Count 3.9 X10*3/uL (4.8-10.8)
[2023-04-30 11:26] LABS: Appearance Urine Cloudy; Color Urine Yellow; Glucose Urine UA Negative (Negative); Leukocyte Esterase Urine Negative (Negative); Nitrite Urine Negative (Negative); PH 5.5 (5.0-9.0); Urine Blood Negative (Negative); Urine Ketones Trace mg/dL (Negative); Urine Protein Negative (Neg-Trace)
[2023-04-30 11:48] LABS: Bacteria Urine None Seen (None Seen); Hyaline Casts Urine 0-2 /LPF (0-2); RBC Urine 0-2 /HPF (0-2); WBC Urine 0-5 /HPF (0-5)
[2023-04-30 11:49] LABS: Alanine Aminotransferase 9 U/L (0-31); Albumin Level 4.2 g/dL (3.5-5.0); Alkaline Phosphatase 51 U/L (39-117); Anion Gap 7 (12-20); Aspartate Amino Transferase 16 U/L (5-31); Bilirubin Total 0.5 mg/dL (0.0-1.0); Blood Urea Nitrogen 6 mg/dL (9-16); Calcium 9.1 mg/dL (8.4-10.2); Carbon Dioxide 26 mmol/L (22-29); Chloride 108 mmol/L (96-108); Creatinine Clr Calc Pharmacy 88.4; Estimated Glomerular Filt Rate > 60; Glucose Random 95 mg/dL (60-115); Lipase 16 U/L (8-78); Potassium 3.4 mmol/L (3.3-5.1); Sodium 138 mmol/L (135-145); Total Protein 7.7 g/dL (6.5-8.0)
[2023-04-30 11:51] LABS: HCG Quantitative < 2 mIU/mL
[2023-04-30 12:01] LABS: Influenza A PCR NEGATIVE (Negative); Influenza B PCR NEGATIVE (Negative); Resp Syncy Virus RNA Qual PCR NEGATIVE (Negative); SARS COV2 PCR INHOUSE NEGATIVE (Negative)
[2023-04-30] MEDS: 0.9 % Sodium Chloride 1,000 ML 999 ML IV (12:32)
[2023-04-30 12:35] VITALS: TEMP 36.7
--- NOTE | 2023-04-30 12:37 | PC.NURSE ---
pt a&o x4, calm, and cooperative. 20G IV placed to RAC, fluids infusing per mar. pt reporting nausea and requesting nausea med, provider aware. call power within reach. rr even/unlabored. plan of care ongoing.
[2023-04-30 13:31] VITALS: BP 115/71; PULSE 73; RESP 20; TEMP 36.4; O2SAT 100
[2023-04-30 13:32] VITALS: BP 117/79; PULSE 64
[2023-04-30 13:35] VITALS: BP 124/79; PULSE 72
[2023-04-30 13:37] VITALS: BP 116/77; PULSE 67
== END 2023-04-30 14:10 | disposition home or self-care (01) ==
PROVIDERS: Physician Assistant; Emergency Provider Student in an Organized Health Care Education/Training Program; PCP Internal Medicine
DX: B34.9 Viral infection, unspecified (principal); R42 Dizziness and giddiness; R11.2 Nausea with vomiting, unspecified; Z11.52 Encounter for screening for COVID-19; Z20.822 Contact with and (suspected) exposure to COVID-19; Z79.899 Other long term (current) drug therapy
CPT/HCPCS: 0241U; 80053; 81001; 83690; 84702; 85025; 99283; 99284

== ENCOUNTER 2023-08-24 21:16 | Inpatient (IN) | payer OTHER, SELFPAY ==
[2023-08-24 21:21] VITALS: BP 134/94; PULSE 75; RESP 20; TEMP 37.2; O2SAT 100; BMI 25.1
[2023-08-24 21:48] LABS: Basophils Percent Auto 0.6 % (0-2); Eosinophils Absolute Auto 0.1 X10*3/uL (0.0-0.4); Eosinophils Percent Auto 2.7 % (0-4); Imm Gran Abs Auto 0.01 X10*3/uL (0.00-0.03); Imm Gran Pct Auto 0.2 % (0.0-0.4); Lymphocytes Absolute Auto 2.3 X10*3/uL (1.2-4.9); Lymphocytes Percent Auto 44.5 % (20-40); MANUAL DIFF FLAG NO; Mean Corpuscular HGB Conc 34.3 g/dl (31.0-35.0); Mean Corpuscular Hemoglobin 27.7 pg (27.0-33.0); Mean Corpuscular Volume 80.8 fL (80.0-98.0); Mean Platelet Volume 11.6 fL (9.4-12.3); Monocytes Absolute Auto 0.4 X10*3/uL (0.1-1.2); Monocytes Percent Auto 8.1 % (2-11); Neutrophils Absolute Auto 2.3 x10*3/uL (2.0-8.3); Neutrophils Percent Auto 43.9 % (45-73); Platelet Count 217 X10*3/uL (160-400); Red Blood Count 4.33 X10*6/uL (4.20-5.50); Red Cell Distribution Width 13.1 % (11.0-16.0); White Blood Count 5.2 X10*3/uL (4.8-10.8)
[2023-08-24 22:04] LABS: Alanine Aminotransferase 11 U/L (0-31); Albumin Level 4.1 g/dL (3.5-5.0); Alkaline Phosphatase 52 U/L (39-117); Anion Gap 11 (12-20); Aspartate Amino Transferase 16 U/L (5-31); Bilirubin Total 0.3 mg/dL (0.0-1.0); Blood Urea Nitrogen 13 mg/dL (9-16); Carbon Dioxide 26 mmol/L (22-29); Chloride 108 mmol/L (96-108); Estimated Glomerular Filt Rate > 60; Glucose Random 103 mg/dL (60-115); Sodium 141 mmol/L (135-145); Total Protein 7.8 g/dL (6.5-8.0)
[2023-08-24 22:08] LABS: Acetaminophen LAB 4 mcg/mL (<30); Salicylate < 5.0 mg/dL (15-30)
[2023-08-24 22:19] LABS: Ethanol < 10 mg/dL
--- NOTE | 2023-08-24 22:30 | ED.PSYCH ---
HPI - Psych General Chief Complaint: Psychiatric Symptoms Stated Complaint: Crisis Time Seen by Provider: 08/24/23 22:30 Mode of arrival: ambulatory Limitations: no limitations History of Present Illness ED Provider: Dillan LOAJ HPI Narrative: 33-year-old female history of chronic daily headache, daytime sleepiness, chronic migraine, lumbar radiculopathy, obesity, hypochromic anemia, anxiety, PTSD, bipolar disorder, patient is suicidal with no particular plan and feels homicidal towards her children. She reports that she feels stress in his having increasing life stressors, has not been sleeping well has not been taking care of herself for eating or drinking per usual. She reports she does not take any psychiatric meds. Reports she is currently having housing difficulties and has been staying in a fci with her kids and . Her kids are currently with her , she felt like she needed to come seek help today. Denies any medical complaints. Denies hallucinations. Denies drugs, alcohol and tobacco Related Data Home Medications ?Medication ?Instructions ?Recorded ?Confirmed multivitamin 1 tab PO DAILY 11/08/22 11/19/22 cephalexin 500 mg capsule 500 mg PO BID 11/15/22 11/19/22 Previous Rx's ?Medication ?Instructions ?Recorded cyclobenzaprine 10 mg tablet 10 mg PO Q8H PRN muscle spasm #10 06/22/22 tabs ibuprofen 600 mg tablet 600 mg PO Q8H PRN pain #14 tabs 09/02/22 ferrous fumarate 324 mg (106 mg 324 mg PO DAILY 90 days #90 tabs 11/01/22 iron) tablet vanazdswmi-baxazndevcslu-jvwmylug 1 tab PO Q6H PRN haeadace #20 tabs 11/02/22 50 mg-325 mg-40 mg tablet tramadol 50 mg tablet 50 mg PO Q6H PRN pain #20 tabs 11/02/22 meclizine 25 mg tablet 25 mg PO DAILY PRN motion 11/05/22 sickness/ lightheadedness #10 tabs magnesium oxide 400 mg (241.3 mg 400 mg PO BEDTIME 30 days #30 tabs 11/21/22 magnesium) tablet naproxen 500 mg tablet 500 mg PO BID PRN headache 30 days 11/21/22 #30 tabs sumatriptan succinate 100 mg tablet 50 - 100 mg (0.5 - 1 x 100 mg) PO 11/21/22 .COMPLEX PRN migraine headache 30 days #12 tabs topiramate 25 mg tablet 25 - 50 mg (1 - 2 x 25 mg) PO 11/21/22 BEDTIME 30 days #60 tabs Allergies Allergy/AdvReac Type Severity Reaction Status Date / Time No Known Allergies Allergy Verified 08/24/23 21:32 Review of Systems Review of Systems: Yes all other systems are reviewed and are negative PMFSH Past Medical History Attestation statement: The following information was validated with the patient. Source: old records reviewed and nursing notes reviewed Medical History Dizziness of unknown cause Positional lightheadedness Lumbago with sciatica, right side Low back pain potentially associated with radiculopathy Family history of thyroid disease in mother Asthma Family History Family History Father Substance use disorder Mental health disorder Mother Mental health disorder Thyroid disorder Social History Social History Housing: Homeless Housing Other:: Senior Living Alcohol intake: never Patient Tobacco Use Status: Never used Tobacco e-Cigarette/Vaping Use: Never Used Advance Directives: No Advance Directives Information Provided: No Do you have a plan to hurt others: Feasible service: No Current occupational status: unemployed Cognitive needs: No Hearing needs: No Vision needs: No Physical Exam Vital Signs: Vital Signs: Last Vital Signs Temp 98.9 F 08/24/23 21:21 Pulse 75 08/24/23 21:21 Resp 20 08/24/23 21:21 BP 134/94 H 08/24/23 21:21 Pulse Ox 100 08/24/23 21:21 O2 Del Method Room Air 08/24/23 21:21 BMI result Body Mass Index 25.1 vss Appearance: Alert.? Oriented X3.? No acute distress.? Head: Normocephalic, atraumatic, no step-offs or deformities Eyes: Pupils equal, round and reactive to light.? Neck: Normal inspection.? Neck supple.? CVS: Normal heart rate and rhythm.? Pulses normal.? Respiratory: No respiratory distress.? Breath sounds normal.? Abdomen: Soft and nontender.? Skin: Skin warm and dry.? Normal skin color.? Normal skin turgor.? Extremities: No lower extremity edema.? No calf ttp. 5/5 strength to bilateral upper and lower extremities Neuro: Oriented X 3.? No motor deficit.? No sensory deficit. CN 2-12 intact Course Reevaluation(s) Reevaluation #1: CBC unremarkable. Chemistry no acute findings needing intervention. Salicylates, acetaminophen and ethanol negative. UA urine and urine toxicology pending. At this time patient to be placed into observation to allow more time to be evaluated by care team. At time observation started patient common cooperative no acute distress will continue to monitor. Time: 22:34 Reevaluation #2: UA and urine toxicology negative. Time: 22:55 Medical Decision Making Medical Decision Making [facility] Narrative: 33-year-old female presents with suicidal and homicidal ideation. Physical exam History and physical exam concerning for PTSD versus bipolar disorder versus acute psychosis with homicidal and suicidal ideation. Unlikely metabolic derangements however will rule out. Plan medical clearance evaluation by care team Differential Diagnosis Differential Diagnoses: The differential diagnosis associated with the presentation includes History and physical exam concerning for PTSD versus bipolar disorder versus acute psychosis with homicidal and suicidal ideation. Unlikely metabolic derangements however will rule out. Admission/Observation Consideration of admission/observation: Escalation of care including admission/observation considered Possible psych admission Consult Healthcare Provider Management of the patient was discussed with: Behavioral Health Provider Lab Data [facility] Lab Attestation statement: I reviewed the patient's lab results. 08/24/23 21:43 08/24/23 21:43 Labs: Lab Results 08/24/23 08/24/23 Range/Units 21:43 22:13 WBC 5.2 (4.8-10.8) X10*3/uL RBC 4.33 (4.20-5.50) X10*6/uL Hgb 12.0 (12.0-16.0) g/dl Hct 35.0 L (37.0-47.0) % MCV 80.8 (80.0-98.0) fL MCH 27.7 (27.0-33.0) pg MCHC 34.3 (31.0-35.0) g/dl RDW 13.1 (11.0-16.0) % Plt Count 217 (160-400) X10*3/uL MPV 11.6 (9.4-12.3) fL Immature Gran % (Auto) 0.2 (0.0-0.4) % Neut % (Auto) 43.9 L (45-73) % Lymph % (Auto) 44.5 H (20-40) % [place] % (Auto) 8.1 (2-11) % Eos % (Auto) 2.7 (0-4) % Baso % (Auto) 0.6 (0-2) % Lymph # (Auto) 2.3 (1.2-4.9) X10*3/uL [place] # (Auto) 0.4 (0.1-1.2) X10*3/uL Eos # (Auto) 0.1 (0.0-0.4) X10*3/uL Baso # (Auto) 0.0 (0.0-0.2) X10*3/uL Abs Immat Gran (auto) 0.01 (0.00-0.03) X10*3/uL Absolute Neuts (auto) 2.3 (2.0-8.3) x10*3/uL Absolute Nucleated RBC 0.000 (0.0-0.012) X10*3/uL Nucleated RBC % (auto) 0.0 (0.0-0.2) /100WBC Sodium 141 (135-145) mmol/L Potassium 4.0 (3.3-5.1) mmol/L Chloride 108 (96-108) mmol/L Carbon Dioxide 26 (22-29) mmol/L Anion Gap 11 L (12-20) BUN 13 (9-16) mg/dL Creatinine 1.01 (0.5-1.4) mg/dL Estim Creat Clear Calc 70.0 Estimated GFR > 60 Random Glucose 103 (60-115) mg/dL Calcium 9.0 (8.4-10.2) mg/dL Total Bilirubin 0.3 (0.0-1.0) mg/dL AST 16 (5-31) U/L ALT 11 (0-31) U/L Alkaline Phosphatase 52 (39-117) U/L Total Protein 7.8 (6.5-8.0) g/dL Albumin 4.1 (3.5-5.0) g/dL Urine Color Yellow Urine Appearance Clear Urine pH 6.5 (5.0-9.0) Ur Specific [place] 1.020 (1.005-1.025) Urine Protein Negative (Neg-Trace) mg/dL Urine Glucose (UA) Negative (Negative) mg/dL Urine Ketones Negative (Negative) mg/dL Urine Blood Large (3+) H (Negative) Urine Nitrite Negative (Negative) Ur Leukocyte Esterase Small (1+) H (Negative) Urine RBC >20 H (0-2) /HPF Urine WBC 6-10 (0-5) /HPF Ur Squamous Epith Cells 3-5 (0-2) /HPF Urine Bacteria None Seen (None Seen) Hyaline Casts 0-2 (0-2) /LPF Salicylates < 5.0 L (15-30) mg/dL Urine Opiates Screen Not Detected (Not Detect) Ur Buprenorphine Scrn Not Detected (Not Detect) ng/mL Ur Oxycodone Screen Not Detected (Not Detect) ng/mL Urine Methadone Screen Not Detected (Not Detect) ng/mL Urine Fentanyl Screen Not Detected (Not Detect) Acetaminophen 4 (<30) mcg/mL Ur Barbiturates Screen Not Detected (Not Detect) Ur Phencyclidine Scrn Not Detected (Not Detect) Ur Amphetamines Screen Not Detected (Not Detect) U Benzodiazepines Scrn Not Detected (Not Detect) Urine Cocaine Screen Not Detected (Not Detect) U Marijuana (THC) Screen Not Detected (Not Detect) Ethyl Alcohol < 10 mg/dL External Record Review External record reviewed: Inpatient record, Office record, Outpatient record, Prior outpatient labs, Prior outpatient radiology, Primary care record and Outside ED record Chronic Conditions Patient?s care impacted by: Other (anxiety, ptsd, bipolar d/o) Discharge Plan Discharge Clinical Impression: Suicidal ideation, Depression, Acute anxiety, Homicidal ideation Prescriptions: No Action ferrous fumarate 324 mg (106 mg iron) tablet 324 mg PO DAILY 90 Days Qty: 90 1RF meclizine 25 mg tablet 25 mg PO DAILY PRN (Reason: motion sickness/ lightheadedness) Qty: 10 0RF topiramate 25 mg tablet 25 - 50 mg PO BEDTIME 30 Days Qty: 60 3RF naproxen 500 mg tablet 500 mg PO BID PRN (Reason: headache) 30 Days Qty: 30 0RF sumatriptan succinate 100 mg tablet 50 - 100 mg PO .COMPLEX PRN (Reason: migraine headache) 30 Days Qty: 12 6RF Rx Instructions: 50 - 100 mg orally at onset of headache, may repeat in 2 hrs PRN; max 2 tabs per day or 4 tabs/week (may take with Naproxen) magnesium oxide 400 mg (241.3 mg magnesium) tablet 400 mg PO BEDTIME 30 Days Qty: 30 6RF Rx Instructions: may hold for loose stools ibuprofen 600 mg tablet 600 mg PO Q8H PRN (Reason: pain) Qty: 14 0RF cyclobenzaprine 10 mg tablet 10 mg PO Q8H PRN (Reason: muscle spasm) Qty: 10 0RF tramadol 50 mg tablet 50 mg PO Q6H PRN (Reason: pain) Qty: 20 0RF vqvuoxestk-bgffagctxouie-brnf 50-325-40 mg tablet 1 tab PO Q6H PRN (Reason: haeadace) Qty: 20 0RF multivitamin Tablet 1 tab PO DAILY cephalexin 500 mg capsule 500 mg PO BID Print Language: Hungarian
[2023-08-24 22:38] LABS: Appearance Urine Clear; Color Urine Yellow; Glucose Urine UA Negative (Negative); Leukocyte Esterase Urine Small (1+) (Negative); Nitrite Urine Negative (Negative); PH 6.5 (5.0-9.0); UMIC TRIGGER UACC YES; Urine Blood Large (3+) (Negative); Urine Ketones Negative (Negative); Urine Protein Negative (Neg-Trace)
[2023-08-24 22:49] LABS: Amphetamine Screen Urine Not Detected (Not Detect); Barbiturates, Urine Not Detected (Not Detect); Benzodiazepines Screen Urine Not Detected (Not Detect); Buprenorphine Scr Not Detected (Not Detect); Cannabinoid Screen Urine Not Detected (Not Detect); Cocaine Screen Urine Not Detected (Not Detect); Fentanyl, urine Not Detected (Not Detect); Methadone Screen, Urine Not Detected (Not Detect); Opiate Screen Urine Not Detected (Not Detect); Oxycodone Screen Urine Not Detected (Not Detect); Phencyclidine Screen Urine Not Detected (Not Detect)
[2023-08-24 22:50] LABS: Bacteria Urine None Seen (None Seen); Hyaline Casts Urine 0-2 /LPF (0-2); RBC Urine >20 /HPF (0-2); UACC Culture Trigger YES
[2023-08-25 02:18] LABS: UPreg QC Valid YES; Urine Pregnancy NEGATIVE (NEGATIVE)
[2023-08-25 06:12] VITALS: BP 117/74; PULSE 62; RESP 16; TEMP 36.6; O2SAT 100
--- NOTE | 2023-08-25 07:08 | PC.NURSE ---
Assumed care of patient at 0645, patient appears to be resting in bed reading a book, offers no complaints to this RN at this time. Continue plan of care for CARE team evaluation
[2023-08-25] MEDS: Ferrous Sulfate 324 MG TABLET.DR PO (08:59)
[2023-08-25] MEDS: Magnesium Oxide 400 MG TABLET PO ×2 (08:59→20:41)
[2023-08-25 15:36] VITALS: RESP 16
[2023-08-25 20:07] VITALS: BP 102/62; PULSE 69; RESP 18; TEMP 36.6; O2SAT 100
[2023-08-26 06:40] VITALS: BP 103/62; PULSE 61; RESP 15; TEMP 36.6; O2SAT 100
[2023-08-26] MEDS: Ferrous Sulfate 324 MG TABLET.DR PO (08:41)
[2023-08-26] MEDS: Ondansetron ODT 4 MG TAB.RAPDIS TRANSLINGU (08:51)
[2023-08-26 15:00] VITALS: BP 116/72; PULSE 65; RESP 18; TEMP 37.1; O2SAT 100
--- NOTE | 2023-08-26 17:07 | PC.ADMIT ---
Kate is a 33 year old female who was admitted to [facility] [place] [facility] [place], and thoughts against her children that scared me . Pt signed a CV with Dr Brown, skin and safety check performed and unremarkable. Pt reports she was diagnosed with Bipolar dz as a child and then schizophrenia as an adult. She has struggled with depression and feels that lately, I just can't shake it off. I have been able to manage but lately I started to hear voices about hurting my kids, I'd rather kill myself than hurt them. I knew I needed to ask for help and told the people at the alf. . She reports she has been feeling down for 1 month or so. She and her 2 children ages 11 and 12, live in a alf and they have been homeless for 3 years. She reports she is not seeing a therapist and is not on any medication. Recently she has not had much of an appetite and has not been sleeping due to anxiety and stress. She stated that in the past she started to hear voices when I am not sleeping well. Currently denies any AVH, SI or HI and had been sleeping well these past 3 nights while in the ED pod awaiting a bed. She is motivated to get help and wants to do what she needs to do so she can reunite with her kids. Her kids are currently staying with her while here. Oriented to the unit, admission paperwork completed, and TRENT forms signed.
[2023-08-26 18:14] VITALS: BMI 25.2
[2023-08-26 20:00] VITALS: BP 102/63; PULSE 79; O2SAT 98
[2023-08-26] MEDS: Magnesium Oxide 400 MG TABLET PO (21:24)
[2023-08-27 08:00] VITALS: BP 114/56; PULSE 65; RESP 17; TEMP 36.6; O2SAT 97
[2023-08-27 09:20] LABS: Cholesterol 158 mg/dL (<200); HDL Cholesterol 44 mg/dL (>40); LDL Cholesterol Calculated 106 mg/dL (<100); Triglycerides 40 mg/dL (<150)
[2023-08-27 09:22] LABS: Estimated Average Glucose 97 mg/dL
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
[2023-08-27] MEDS: FLUoxetine HCl 10 MG CAPSULE PO (15:52)
[2023-08-27 20:00] VITALS: BP 116/64; PULSE 79; RESP 14; TEMP 36.6; O2SAT 98
[2023-08-27] MEDS: Magnesium Oxide 400 MG TABLET PO (20:43)
[2023-08-28 08:15] VITALS: BP 109/55; PULSE 77; RESP 16; TEMP 36.9; O2SAT 100
[2023-08-28 09:16] VITALS: BP 112/72; PULSE 92; RESP 16; TEMP 36.9; O2SAT 99
[2023-08-28] MEDS: FLUoxetine HCl 10 MG CAPSULE PO (09:55)
[2023-08-28] MEDS: Ferrous Sulfate 324 MG TABLET.DR PO (09:55)
--- NOTE | 2023-08-28 10:27 | P.PNPSI_ITS ---
Subjective Subjective Date of Service: 08/28/23 Reason For Visit: depression Interim History: Met with patient; discussed with team Patient reports depression continues but overall feeling a little better , she says she is . Fine.. Calm patient says she has sometimes kept herself sometimes interact with others. She denies any AH at all or any SI at all. Would like Prozac to be increased as earlier discussed. Reports sleeping well Mental Status Exam Mental Status Exam Narrative: Pt is alert and oriented; behavior is cooperative and calm; patient is not in distress; dressed in casual attire with unkempt hair but adequate hygiene; mood is described as depressed and affect congruent, downcast; eye contact appropriate; Speech is regular rate, volume and prosody; and not pressured; psychomotor retardation present; thought process is organized and goal directed; Thought content is on dealing depression and anxiety; no intrusive thoughts; otherwise pertinent to relevant topics and without any delusional content, paranoid ideations or grandiosity; denies any SI/HI. Denies any AVH and does not appear to be a internally preoccupied Patients insight and judgment impaired but improving Diagnostics Vital Signs (24Hr): Vital Signs - 24 hr 08/27/23 20:00 Temperature 98 F Pulse Rate 79 Respiratory Rate 14 Blood Pressure 116/64 Pulse Oximetry 98 Oxygen Delivery Method Room Air BMI result Body Mass Index 25.2 Labs 08/24/23 21:43 08/24/23 21:43 Labs: Laboratory Results - last 48 hr 08/27/23 08:57 Estimat Average Glucose 97 Hemoglobin A1c % 5.0 Triglycerides 40 Cholesterol 158 LDL Cholesterol, Calc 106 H HDL Cholesterol 44 Medications Medications Current Medications Acetaminophen (Acetaminophen 325 Mg Tablet) 650 mg PO Q6H PRN PRN Reason: Headache/Pain Mild Scale (1-3) Al Hydroxide/Mg Hydroxide (Magnesium Hydrox/Alum Hydrox 30 Ml Oral.Susp) 30 ml PO Q6H PRN PRN Reason: Heartburn/Nausea Clonidine HCl (Clonidine Hcl 0.1 Mg Tablet) 0.1 mg PO Q4H PRN; Protocol PRN Reason: moderate anxiety Ferrous Sulfate (Ferrous Sulfate 324 Mg Tablet.) 324 mg PO DAILY [facility] Last Admin: 08/28/23 09:55 Dose: 324 mg Fluoxetine HCl (Fluoxetine Hcl 10 Mg Capsule) 10 mg PO DAILY [facility] Last Admin: 08/28/23 09:55 Dose: 10 mg Hydroxyzine HCl (Hydroxyzine Hcl 25 Mg Tablet) 25 mg PO Q6H PRN PRN Reason: Anxiety Magnesium Hydroxide (Milk Of Magnesia 30 Ml Oral.Susp) 30 ml PO DAILY PRN PRN Reason: Constipation Magnesium Oxide (Magnesium Oxide 400 Mg Tablet) 400 mg PO BEDTIME ANN Last Admin: 08/27/23 20:43 Dose: 400 mg Nicotine (Nicotine 21 Mg Patch.Td24) 21 mg TRANSDERMA DAILY PRN PRN Reason: smoking cessation Nicotine Polacrilex (Nicotine Polacrilex 2 Mg Gum) 4 mg BUCCAL Q2H PRN PRN Reason: Nicotine Cravings Olanzapine (Olanzapine 5 Mg Tablet) 5 mg PO TID PRN PRN Reason: agitation Trazodone HCl (Trazodone Hcl 50 Mg Tablet) 50 mg PO BEDTIME MRX1 PRN PRN Reason: Insomnia Allergies Allergies Allergy/AdvReac Type Severity Reaction Status Date / Time No Known Allergies Allergy Verified 08/24/23 21:32 Assessment & Plan Assessment & Plan (1) MDD (major depressive disorder), recurrent, severe, with psychosis: Status: Acute Code(s): F33.3 - Major depressive disorder, recurrent, severe with psychotic symptoms (2) PTSD (post-traumatic stress disorder): Status: Acute Code(s): F43.10 - Post-traumatic stress disorder, unspecified (3) ADHD: Status: Acute Code(s): F90.9 - Attention-deficit hyperactivity disorder, unspecified type Plan 33-year-old female history of depression with psychotic features, PTSD, migraines, lumbar radiculopathy who presents for worsening depression with SI and AH. Patient reports for about a month her depression has been increasing, since the children are out of school for summer break. Patient has been feeling overwhelmed, struggling with insomnia, tired a lot of the time. About a week ago she started having either AH of her own voice or intrusive thoughts saying she was a bad mom, would be a bad mom if she left to get herself help... This AH/thought progressed to hearing about killing her kids; she said she would never do this and so AH/thought turned to tell her to jump out the window; patient momentarily contemplated suicide but instead called her to come take care of the kids so she could get herself help at the hospital. Patient reports she had a vague plan to perhaps overdose on pills or cut herself but never any intention. She said as soon as her came over, she started feeling better. Since coming to the hospital she heard a voice/had a thought to jump out a window or that her kids are not safe at home without her, but such AH was not intense and she was able to distract herself and it dissipated. Patient denies any history of manic type episodes or behaviors; whenever she has had insomnia she has been extremely tired and wishing she could sleep and has no other associated manic symptoms. Patient reports AH has only ever been present when she is depressed; patient denies history of OCD like symptoms; denies any paranoid thinking; denies any drug or alcohol abuse. Patient has history of trauma throughout lifetime and continues to have symptoms, intrusive thoughts, getting triggered and will take showers 3 to 4 times a day as a response. Impression/clinical reasoning: Patient is organized in speech behavior. The history she gives meets criteria for MDD, severe with psychotic symptoms. It has not completely clear if she has actual auditory hallucinations or if there intrusive thoughts and patient thinks it has a combination but again only ever present during depressive episodes. No history of rigoberto or manic symptoms. Multiple episodes of trauma and patient has ongoing PTSD symptoms. She reports Prozac was helpful for PTSD, depression and anxiety. Patient reports some social anxiety as well. History of ADHD, treated in adolescents and had IEP's in school. Hospital course: 08/27 Patient reports depression continues but overall feeling a little better , she says she is . Fine.. Calm the patient reports she still has anxiety. patient says she has sometimes kept herself sometimes interact with others. She denies any AH at all or any SI at all. Would like Prozac to be increased as earlier discussed. Reports sleeping well PLAN: CV q15min checks Increased to Prozac 20 mg and titrate Will consider stimulant medication for ADHD; no history of substance or alcohol abuse Will seek collateral History of migraines; will discuss further Patient educated on: diagnosis, medication risk/benefits and therapeutic strategies Informed Consent: understands Reason for continued inpatient stay Substantial Risk for: rapid decompensation Time Spent With Patient Time: Total time managing care of this patient today ____ minutes.
[2023-08-28 20:00] VITALS: BP 113/69; PULSE 64; RESP 17; TEMP 36.2; O2SAT 100
[2023-08-28] MEDS: Magnesium Oxide 400 MG TABLET PO (21:28)
[2023-08-28] MEDS: traZODone HCL 50 MG TABLET PO (22:25)
[2023-08-28 23:57] VITALS: BMI 25.2
[2023-08-29 07:58] VITALS: BP 107/56; PULSE 67; RESP 16; TEMP 36.9; O2SAT 97
[2023-08-29] MEDS: FLUoxetine HCl 20 MG CAPSULE PO (09:59)
[2023-08-29] MEDS: Ferrous Sulfate 324 MG TABLET.DR PO (09:59)
[2023-08-29] MEDS: OLANZapine 5 MG TABLET PO (10:01)
--- NOTE | 2023-08-29 10:34 | HO.PSYCHPN ---
Subjective Subjective Date of Service: 08/29/23 Reason For Visit: depression Interim History: Met with patient; discussed with team last night at bedtime but resolved on it's own; agrees to titration of prozac. Discussed antipsychotic medication and reviewed risks/side-effects of zyprexa; she understands and agrees to start taking some at bedtime. Says mood is overall a little better. Tired today. Mental Status Exam Mental Status Exam Narrative: Pt is alert and oriented; behavior is cooperative and calm but not all that engaged; patient is not in distress; dressed in hospital attire with adequate hygiene; mood is described as depressed...little better and affect congruent; eye contact appropriate; Speech is regular rate, volume and prosody; and not pressured; psychomotor retardation present; thought process is organized and goal directed; Thought content is on dealing depression and anxiety; no intrusive thoughts; otherwise pertinent to relevant topics and without any delusional content, paranoid ideations or grandiosity; denies any SI/HI. AH last night, none today; Patients insight and judgment impaired but improving Diagnostics Vital Signs (24Hr): Vital Signs - 24 hr 08/28/23 20:00 08/29/23 07:58 Temperature 97.2 F 98.5 F Pulse Rate 64 67 Respiratory Rate 17 16 Blood Pressure 113/69 107/56 L Pulse Oximetry 100 97 Oxygen Delivery Method Room Air Room Air BMI result Body Mass Index 25.2 Labs 08/24/23 21:43 08/24/23 21:43 Medications Medications Current Medications Acetaminophen (Acetaminophen 325 Mg Tablet) 650 mg PO Q6H PRN PRN Reason: Headache/Pain Mild Scale (1-3) Al Hydroxide/Mg Hydroxide (Magnesium Hydrox/Alum Hydrox 30 Ml Oral.Susp) 30 ml PO Q6H PRN PRN Reason: Heartburn/Nausea Clonidine HCl (Clonidine Hcl 0.1 Mg Tablet) 0.1 mg PO Q4H PRN; Protocol PRN Reason: moderate anxiety Ferrous Sulfate (Ferrous Sulfate 324 Mg Tablet.) 324 mg PO DAILY [facility] Last Admin: 08/29/23 09:59 Dose: 324 mg Fluoxetine HCl (Fluoxetine Hcl 20 Mg Capsule) 20 mg PO DAILY [facility] Last Admin: 08/29/23 09:59 Dose: 20 mg Hydroxyzine HCl (Hydroxyzine Hcl 25 Mg Tablet) 25 mg PO Q6H PRN PRN Reason: Anxiety Magnesium Hydroxide (Milk Of Magnesia 30 Ml Oral.Susp) 30 ml PO DAILY PRN PRN Reason: Constipation Magnesium Oxide (Magnesium Oxide 400 Mg Tablet) 400 mg PO BEDTIME ANN Last Admin: 08/28/23 21:28 Dose: 400 mg Nicotine (Nicotine 21 Mg Patch.Td24) 21 mg TRANSDERMA DAILY PRN PRN Reason: smoking cessation Nicotine Polacrilex (Nicotine Polacrilex 2 Mg Gum) 4 mg BUCCAL Q2H PRN PRN Reason: Nicotine Cravings Olanzapine (Olanzapine 5 Mg Tablet) 5 mg PO TID PRN PRN Reason: agitation Last Admin: 08/29/23 10:01 Dose: 5 mg Trazodone HCl (Trazodone Hcl 50 Mg Tablet) 50 mg PO BEDTIME MRX1 PRN PRN Reason: Insomnia Last Admin: 08/28/23 22:25 Dose: 50 mg Allergies Allergies Allergy/AdvReac Type Severity Reaction Status Date / Time No Known Allergies Allergy Verified 08/24/23 21:32 Assessment & Plan Assessment & Plan (1) MDD (major depressive disorder), recurrent, severe, with psychosis: Status: Acute Code(s): F33.3 - Major depressive disorder, recurrent, severe with psychotic symptoms (2) PTSD (post-traumatic stress disorder): Status: Acute Code(s): F43.10 - Post-traumatic stress disorder, unspecified (3) ADHD: Status: Acute Code(s): F90.9 - Attention-deficit hyperactivity disorder, unspecified type Plan 33-year-old female history of depression with psychotic features, PTSD, migraines, lumbar radiculopathy who presents for worsening depression with SI and AH. Patient reports for about a month her depression has been increasing, since the children are out of school for summer break. Patient has been feeling overwhelmed, struggling with insomnia, tired a lot of the time. About a week ago she started having either AH of her own voice or intrusive thoughts saying she was a bad mom, would be a bad mom if she left to get herself help... This AH/thought progressed to hearing about killing her kids; she said she would never do this and so AH/thought turned to tell her to jump out the window; patient momentarily contemplated suicide but instead called her to come take care of the kids so she could get herself help at the hospital. Patient reports she had a vague plan to perhaps overdose on pills or cut herself but never any intention. She said as soon as her came over, she started feeling better. Since coming to the hospital she heard a voice/had a thought to jump out a window or that her kids are not safe at home without her, but such AH was not intense and she was able to distract herself and it dissipated. Patient denies any history of manic type episodes or behaviors; whenever she has had insomnia she has been extremely tired and wishing she could sleep and has no other associated manic symptoms. Patient reports AH has only ever been present when she is depressed; patient denies history of OCD like symptoms; denies any paranoid thinking; denies any drug or alcohol abuse. Patient has history of trauma throughout lifetime and continues to have symptoms, intrusive thoughts, getting triggered and will take showers 3 to 4 times a day as a response. Impression/clinical reasoning: Patient is organized in speech behavior. The history she gives meets criteria for MDD, severe with psychotic symptoms. It has not completely clear if she has actual auditory hallucinations or if there intrusive thoughts and patient thinks it has a combination but again only ever present during depressive episodes. No history of rigoberto or manic symptoms. Multiple episodes of trauma and patient has ongoing PTSD symptoms. She reports Prozac was helpful for PTSD, depression and anxiety. Patient reports some social anxiety as well. History of ADHD, treated in adolescents and had IEP's in school. Hospital course: 08/27 Patient reports depression continues but overall feeling a little better , she says she is . Fine.. Calm the patient reports she still has anxiety. patient says she has sometimes kept herself sometimes interact with others. She denies any AH at all or any SI at all. Would like Prozac to be increased as earlier discussed. Reports sleeping well 08/28 AH at bedtime; starting on Zyprexa at bed; will further titrated prozac. No AH today; no SI/HI and feeling a little better PLAN: CV q15min checks start Zyprexa 2.5mg qhs Increased to Prozac 20 mg and titrate Will consider stimulant medication for ADHD; no history of substance or alcohol abuse Will seek collateral History of migraines; will discuss further Patient educated on: diagnosis, medication risk/benefits and therapeutic strategies Informed Consent: understands Reason for continued inpatient stay Substantial Risk for: rapid decompensation Time Spent With Patient Time: Total time managing care of this patient today ____ minutes.
[2023-08-29 20:00] VITALS: BP 99/57; PULSE 60; RESP 16; TEMP 36.3; O2SAT 100
[2023-08-29] MEDS: traZODone HCL 50 MG TABLET PO (22:00)
[2023-08-29] MEDS: OLANZapine 2.5 MG TABLET PO (22:00)
[2023-08-29] MEDS: Magnesium Oxide 400 MG TABLET PO (22:00)
[2023-08-30 08:00] VITALS: BP 92/50; PULSE 64; RESP 16; TEMP 36.9; O2SAT 95
[2023-08-30 08:11] VITALS: BP 103/62
[2023-08-30] MEDS: Ferrous Sulfate 324 MG TABLET.DR PO (09:19)
[2023-08-30] MEDS: FLUoxetine HCl 20 MG CAPSULE PO (09:19)
[2023-08-30] MEDS: hydrOXYzine HCL 25 MG TABLET PO (14:59)
[2023-08-30 20:00] VITALS: BP 103/65; PULSE 85; TEMP 36.9; O2SAT 100
[2023-08-30] MEDS: Magnesium Oxide 400 MG TABLET PO (21:25)
[2023-08-30] MEDS: traZODone HCL 50 MG TABLET PO (21:25)
[2023-08-30] MEDS: OLANZapine 2.5 MG TABLET PO (21:25)
--- NOTE | 2023-08-30 23:02 | HO.PSYCHPN ---
Subjective Subjective Date of Service: 08/30/23 Reason For Visit: depression Interim History: met with pt; discussed with team pt says feeling better; no AH last night. Mood is good and much more calm and affect is noticeably brighter. She discussed how much her family relies on her and she's seen as the one everyone looks to for help; thus, it's always been hard to reach out for help. She acknowledged that she needs to learn to be more open and agrees she will benefit from a therapist. She feels she's betting back to regular self, about 1/[address] there. Discussed Add symptoms; she feels it's not significant right now and does not want med trial. Mental Status Exam Mental Status Exam Narrative: Pt is alert and oriented; behavior is cooperative, friendly and calm but not all that engaged; patient is not in distress; dressed in casual attire with adequate hygiene; mood is described as better and affect congruent, brighter; eye contact appropriate; Speech is regular rate, volume and prosody; and not pressured; no psychomotor retardation present; thought process is organized and goal directed; Thought content is on dealing depression and anxiety; no intrusive thoughts; otherwise pertinent to relevant topics and without any delusional content, paranoid ideations or grandiosity; denies any SI/HI. No AVH; Patients insight and judgment fair. Diagnostics Vital Signs (24Hr): Vital Signs - 24 hr 08/30/23 08:00 08/30/23 08:11 Temperature 98.5 F Pulse Rate 64 Respiratory Rate 16 Blood Pressure 92/50 L 103/62 Pulse Oximetry 95 Oxygen Delivery Method Room Air BMI result Body Mass Index 25.2 Labs 08/24/23 21:43 08/24/23 21:43 Medications Medications Current Medications Acetaminophen (Acetaminophen 325 Mg Tablet) 650 mg PO Q6H PRN PRN Reason: Headache/Pain Mild Scale (1-3) Al Hydroxide/Mg Hydroxide (Magnesium Hydrox/Alum Hydrox 30 Ml Oral.Susp) 30 ml PO Q6H PRN PRN Reason: Heartburn/Nausea Clonidine HCl (Clonidine Hcl 0.1 Mg Tablet) 0.1 mg PO Q4H PRN; Protocol PRN Reason: moderate anxiety Ferrous Sulfate (Ferrous Sulfate 324 Mg Tablet.) 324 mg PO DAILY ANN Last Admin: 08/30/23 09:19 Dose: 324 mg Fluoxetine HCl (Fluoxetine Hcl 20 Mg Capsule) 40 mg PO DAILY ANN Hydroxyzine HCl (Hydroxyzine Hcl 25 Mg Tablet) 25 mg PO Q6H PRN PRN Reason: Anxiety Last Admin: 08/30/23 14:59 Dose: 25 mg Magnesium Hydroxide (Milk Of Magnesia 30 Ml Oral.Susp) 30 ml PO DAILY PRN PRN Reason: Constipation Magnesium Oxide (Magnesium Oxide 400 Mg Tablet) 400 mg PO BEDTIME ANN Last Admin: 08/30/23 21:25 Dose: 400 mg Nicotine (Nicotine 21 Mg Patch.Td24) 21 mg TRANSDERMA DAILY PRN PRN Reason: smoking cessation Nicotine Polacrilex (Nicotine Polacrilex 2 Mg Gum) 4 mg BUCCAL Q2H PRN PRN Reason: Nicotine Cravings Olanzapine (Olanzapine 2.5 Mg Tablet) 2.5 mg PO BEDTIME ANN Last Admin: 08/30/23 21:25 Dose: 2.5 mg Olanzapine (Olanzapine 5 Mg Tablet) 5 mg PO TID PRN PRN Reason: agitation Trazodone HCl (Trazodone Hcl 50 Mg Tablet) 50 mg PO BEDTIME MRX1 PRN PRN Reason: Insomnia Last Admin: 08/30/23 21:25 Dose: 50 mg Allergies Allergies Allergy/AdvReac Type Severity Reaction Status Date / Time No Known Allergies Allergy Verified 08/24/23 21:32 Assessment & Plan Assessment & Plan (1) MDD (major depressive disorder), recurrent, severe, with psychosis: Status: Acute Code(s): F33.3 - Major depressive disorder, recurrent, severe with psychotic symptoms (2) PTSD (post-traumatic stress disorder): Status: Acute Code(s): F43.10 - Post-traumatic stress disorder, unspecified (3) ADHD: Status: Acute Code(s): F90.9 - Attention-deficit hyperactivity disorder, unspecified type Plan 33-year-old female history of depression with psychotic features, PTSD, migraines, lumbar radiculopathy who presents for worsening depression with SI and AH. Patient reports for about a month her depression has been increasing, since the children are out of school for summer break. Patient has been feeling overwhelmed, struggling with insomnia, tired a lot of the time. About a week ago she started having either AH of her own voice or intrusive thoughts saying she was a bad mom, would be a bad mom if she left to get herself help... This AH/thought progressed to hearing about killing her kids; she said she would never do this and so AH/thought turned to tell her to jump out the window; patient momentarily contemplated suicide but instead called her to come take care of the kids so she could get herself help at the hospital. Patient reports she had a vague plan to perhaps overdose on pills or cut herself but never any intention. She said as soon as her came over, she started feeling better. Since coming to the hospital she heard a voice/had a thought to jump out a window or that her kids are not safe at home without her, but such AH was not intense and she was able to distract herself and it dissipated. Patient denies any history of manic type episodes or behaviors; whenever she has had insomnia she has been extremely tired and wishing she could sleep and has no other associated manic symptoms. Patient reports AH has only ever been present when she is depressed; patient denies history of OCD like symptoms; denies any paranoid thinking; denies any drug or alcohol abuse. Patient has history of trauma throughout lifetime and continues to have symptoms, intrusive thoughts, getting triggered and will take showers 3 to 4 times a day as a response. Impression/clinical reasoning: Patient is organized in speech behavior. The history she gives meets criteria for MDD, severe with psychotic symptoms. It has not completely clear if she has actual auditory hallucinations or if there intrusive thoughts and patient thinks it has a combination but again only ever present during depressive episodes. No history of rigoberto or manic symptoms. Multiple episodes of trauma and patient has ongoing PTSD symptoms. She reports Prozac was helpful for PTSD, depression and anxiety. Patient reports some social anxiety as well. History of ADHD, treated in adolescents and had IEP's in school. Hospital course: 08/27 Patient reports depression continues but overall feeling a little better , she says she is . Fine.. Calm the patient reports she still has anxiety. patient says she has sometimes kept herself sometimes interact with others. She denies any AH at all or any SI at all. Would like Prozac to be increased as earlier discussed. Reports sleeping well 08/28 AH at bedtime; starting on Zyprexa at bed; will further titrated prozac. No AH today; no SI/HI and feeling a little better 7/5 pt says feeling better; no AH last night. Mood is good and much more calm and affect is noticeably brighter. She discussed how much her family relies on her and she's seen as the one everyone looks to for help; thus, it's always been hard to reach out for help. She acknowledged that she needs to learn to be more open and agrees she will benefit from a therapist. She feels she's betting back to regular self, about 1/[address] Discussed Add symptoms; she feels it's not significant right now and does not want med trial. -continue tx plan PLAN: CV q15min checks Continue Zyprexa 2.5mg qhs Increase to Prozac 40 mg and titrate Will seek collateral History of migraines; will discuss further Patient educated on: diagnosis and medication risk/benefits Informed Consent: understands Reason for continued inpatient stay Substantial Risk for: rapid decompensation Time Spent With Patient Time: Total time managing care of this patient today ____ minutes.
--- NOTE | 2023-08-31 08:09 | HO.PSYCHPN ---
Subjective Subjective Date of Service: 08/31/23 Reason For Visit: depression Interim History: met with patient. Discussed with nursing. Ongoing depression, intermittent suicidal thoughts and auditory hallucinations. P.r.n. medications helpful and will schedule same. Has noticed a headache on higher dose of Prozac, but will personally here with same. Feeling supported. Sleep okay. Medication Compliance: Yes Side effects from medications: Yes ( Headache on higher dose of Prozac) Attending Groups: Intermittent Review of Systems Review of Systems headache on higher dose of Prozac Mental Status Exam Mental Status Exam Narrative: Pt is alert and oriented; behavior is cooperative, friendly and calm but not all that engaged; patient is not in distress; dressed in casual attire with adequate hygiene; mood is described as better and affect congruent, brighter; eye contact appropriate; Speech is regular rate, volume and prosody; and not pressured; no psychomotor retardation present; thought process is organized and goal directed; Thought content is on dealing depression and anxiety; no intrusive thoughts; otherwise pertinent to relevant topics and without any delusional content, paranoid ideations or grandiosity; denies any SI/HI. Intermittent AH Patients insight and judgment fair. Diagnostics Vital Signs (24Hr): Vital Signs - 24 hr 08/30/23 08:11 08/30/23 20:00 Temperature 98.4 F Pulse Rate 85 Blood Pressure 103/62 103/65 Pulse Oximetry 100 Oxygen Delivery Method Room Air BMI result Body Mass Index 25.2 Labs 08/24/23 21:43 08/24/23 21:43 Medications Medications Current Medications Acetaminophen (Acetaminophen 325 Mg Tablet) 650 mg PO Q6H PRN PRN Reason: Headache/Pain Mild Scale (1-3) Al Hydroxide/Mg Hydroxide (Magnesium Hydrox/Alum Hydrox 30 Ml Oral.Susp) 30 ml PO Q6H PRN PRN Reason: Heartburn/Nausea Clonidine HCl (Clonidine Hcl 0.1 Mg Tablet) 0.1 mg PO Q4H PRN; Protocol PRN Reason: moderate anxiety Ferrous Sulfate (Ferrous Sulfate 324 Mg Tablet.) 324 mg PO DAILY ANN Last Admin: 08/30/23 09:19 Dose: 324 mg Fluoxetine HCl (Fluoxetine Hcl 20 Mg Capsule) 40 mg PO DAILY [facility] Hydroxyzine HCl (Hydroxyzine Hcl 25 Mg Tablet) 25 mg PO Q6H PRN PRN Reason: Anxiety Last Admin: 08/30/23 14:59 Dose: 25 mg Magnesium Hydroxide (Milk Of Magnesia 30 Ml Oral.Susp) 30 ml PO DAILY PRN PRN Reason: Constipation Magnesium Oxide (Magnesium Oxide 400 Mg Tablet) 400 mg PO BEDTIME ANN Last Admin: 08/30/23 21:25 Dose: 400 mg Nicotine (Nicotine 21 Mg Patch.Td24) 21 mg TRANSDERMA DAILY PRN PRN Reason: smoking cessation Nicotine Polacrilex (Nicotine Polacrilex 2 Mg Gum) 4 mg BUCCAL Q2H PRN PRN Reason: Nicotine Cravings Olanzapine (Olanzapine 2.5 Mg Tablet) 2.5 mg PO BEDTIME ANN Last Admin: 08/30/23 21:25 Dose: 2.5 mg Olanzapine (Olanzapine 5 Mg Tablet) 5 mg PO TID PRN PRN Reason: agitation Trazodone HCl (Trazodone Hcl 50 Mg Tablet) 50 mg PO BEDTIME MRX1 PRN PRN Reason: Insomnia Last Admin: 08/30/23 21:25 Dose: 50 mg Allergies Allergies Allergy/AdvReac Type Severity Reaction Status Date / Time No Known Allergies Allergy Verified 08/24/23 21:32 Assessment & Plan Assessment & Plan (1) MDD (major depressive disorder), recurrent, severe, with psychosis: Status: Acute Code(s): F33.3 - Major depressive disorder, recurrent, severe with psychotic symptoms (2) PTSD (post-traumatic stress disorder): Status: Acute Code(s): F43.10 - Post-traumatic stress disorder, unspecified (3) ADHD: Status: Acute Code(s): F90.9 - Attention-deficit hyperactivity disorder, unspecified type Plan 33-year-old female history of depression with psychotic features, PTSD, migraines, lumbar radiculopathy who presents for worsening depression with SI and AH. Patient reports for about a month her depression has been increasing, since the children are out of school for summer break. Patient has been feeling overwhelmed, struggling with insomnia, tired a lot of the time. About a week ago she started having either AH of her own voice or intrusive thoughts saying she was a bad mom, would be a bad mom if she left to get herself help... This AH/thought progressed to hearing about killing her kids; she said she would never do this and so AH/thought turned to tell her to jump out the window; patient momentarily contemplated suicide but instead called her to come take care of the kids so she could get herself help at the hospital. Patient reports she had a vague plan to perhaps overdose on pills or cut herself but never any intention. She said as soon as her came over, she started feeling better. Since coming to the hospital she heard a voice/had a thought to jump out a window or that her kids are not safe at home without her, but such AH was not intense and she was able to distract herself and it dissipated. Patient denies any history of manic type episodes or behaviors; whenever she has had insomnia she has been extremely tired and wishing she could sleep and has no other associated manic symptoms. Patient reports AH has only ever been present when she is depressed; patient denies history of OCD like symptoms; denies any paranoid thinking; denies any drug or alcohol abuse. Patient has history of trauma throughout lifetime and continues to have symptoms, intrusive thoughts, getting triggered and will take showers 3 to 4 times a day as a response. Impression/clinical reasoning: Patient is organized in speech behavior. The history she gives meets criteria for MDD, severe with psychotic symptoms. It has not completely clear if she has actual auditory hallucinations or if there intrusive thoughts and patient thinks it has a combination but again only ever present during depressive episodes. No history of rigoberto or manic symptoms. Multiple episodes of trauma and patient has ongoing PTSD symptoms. She reports Prozac was helpful for PTSD, depression and anxiety. Patient reports some social anxiety as well. History of ADHD, treated in adolescents and had IEP's in school. Hospital course: 08/27 Patient reports depression continues but overall feeling a little better , she says she is . Fine.. Calm the patient reports she still has anxiety. patient says she has sometimes kept herself sometimes interact with others. She denies any AH at all or any SI at all. Would like Prozac to be increased as earlier discussed. Reports sleeping well PLAN: CV q15min checks Increased to Prozac 20 mg and titrate Will consider stimulant medication for ADHD; no history of substance or alcohol abuse Will seek collateral History of migraines; will discuss further 08/31/2023: Will schedule olanzapine 5 mg at bedtime Reason for continued inpatient stay Substantial Risk for: inability to function Time Spent With Patient Time: Total time managing care of this patient today ____ minutes.
[2023-08-31 08:10] VITALS: BP 107/65; PULSE 77; RESP 16; TEMP 36.7; O2SAT 100
[2023-08-31] MEDS: FLUoxetine HCl 20 MG CAPSULE 40 MG PO (09:24)
[2023-08-31] MEDS: Ferrous Sulfate 324 MG TABLET.DR PO (09:24)
[2023-08-31] MEDS: OLANZapine 5 MG TABLET PO ×2 (09:52→21:05)
[2023-08-31 11:28] LABS: TSH reflex Free T4 0.55 uIU/mL (0.32-4.0)
[2023-08-31 20:00] VITALS: BP 106/59; PULSE 69; TEMP 37.1; O2SAT 100
[2023-08-31] MEDS: Magnesium Oxide 400 MG TABLET PO (21:03)
[2023-08-31] MEDS: Acetaminophen 325 MG TABLET 650 MG PO (21:04)
[2023-08-31] MEDS: traZODone HCL 50 MG TABLET PO (21:04)
[2023-09-01 08:00] VITALS: BP 108/74; PULSE 82; RESP 16; TEMP 36.4; O2SAT 100
[2023-09-01] MEDS: FLUoxetine HCl 20 MG CAPSULE 40 MG PO (08:48)
[2023-09-01] MEDS: Ferrous Sulfate 324 MG TABLET.DR PO (08:48)
[2023-09-01] MEDS: Ibuprofen 600 MG TABLET PO (10:46)
--- NOTE | 2023-09-01 10:56 | HO.PSYCHPN ---
Subjective Subjective Date of Service: 09/01/23 Reason For Visit: depression Interim History: met with patient. Discussed with nursing. Ongoing depression, intermittent suicidal thoughts and auditory hallucinations. participating in the milieu. Has noticed a headache on higher dose of Prozac, but will persevere here with same. Tylenol minimally effective. Motrin 600 slightly better. Will increase Motrin to 800 and pair with Tylenol for headache. Otherwise, feeling supported. Sleep okay. Medication Compliance: Yes Side effects from medications: Yes ( Headache on higher dose of Prozac) Attending Groups: Intermittent Review of Systems Review of Systems headache Mental Status Exam Mental Status Exam Narrative: Pt is alert and oriented; behavior is cooperative, friendly and calm but not all that engaged; patient is not in distress; dressed in casual attire with adequate hygiene; mood is described as better and affect congruent, brighter; eye contact appropriate; Speech is regular rate, volume and prosody; and not pressured; no psychomotor retardation present; thought process is organized and goal directed; Thought content is on dealing depression and anxiety; no intrusive thoughts; otherwise pertinent to relevant topics and without any delusional content, paranoid ideations or grandiosity; denies any SI/HI. Intermittent AH Patients insight and judgment fair. Diagnostics Vital Signs (24Hr): Vital Signs - 24 hr 08/31/23 20:00 09/01/23 08:00 Temperature 98.7 F 97.5 F Pulse Rate 69 82 Respiratory Rate 16 Blood Pressure 106/59 L 108/74 Pulse Oximetry 100 100 Oxygen Delivery Method Room Air Room Air BMI result Body Mass Index 25.2 Labs 08/24/23 21:43 08/24/23 21:43 Labs: Laboratory Results - last 48 hr 08/31/23 10:43 TSH 0.55 Medications Medications Current Medications Acetaminophen (Acetaminophen 325 Mg Tablet) 650 mg PO Q6H PRN PRN Reason: Headache/Pain Mild Scale (1-3) Last Admin: 08/31/23 21:04 Dose: 650 mg Al Hydroxide/Mg Hydroxide (Magnesium Hydrox/Alum Hydrox 30 Ml Oral.Susp) 30 ml PO Q6H PRN PRN Reason: Heartburn/Nausea Clonidine HCl (Clonidine Hcl 0.1 Mg Tablet) 0.1 mg PO Q4H PRN; Protocol PRN Reason: moderate anxiety Ferrous Sulfate (Ferrous Sulfate 324 Mg Tablet.) 324 mg PO DAILY ANN Last Admin: 09/01/23 08:48 Dose: 324 mg Fluoxetine HCl (Fluoxetine Hcl 20 Mg Capsule) 40 mg PO DAILY ANN Last Admin: 09/01/23 08:48 Dose: 40 mg Hydroxyzine HCl (Hydroxyzine Hcl 25 Mg Tablet) 25 mg PO Q6H PRN PRN Reason: Anxiety Last Admin: 08/30/23 14:59 Dose: 25 mg Ibuprofen (Ibuprofen 600 Mg Tablet) 600 mg PO Q6H PRN PRN Reason: Headache Last Admin: 09/01/23 10:46 Dose: 600 mg Magnesium Hydroxide (Milk Of Magnesia 30 Ml Oral.Susp) 30 ml PO DAILY PRN PRN Reason: Constipation Magnesium Oxide (Magnesium Oxide 400 Mg Tablet) 400 mg PO BEDTIME ANN Last Admin: 08/31/23 21:03 Dose: 400 mg Nicotine (Nicotine 21 Mg Patch.Td24) 21 mg TRANSDERMA DAILY PRN PRN Reason: smoking cessation Nicotine Polacrilex (Nicotine Polacrilex 2 Mg Gum) 4 mg BUCCAL Q2H PRN PRN Reason: Nicotine Cravings Olanzapine (Olanzapine 5 Mg Tablet) 5 mg PO TID PRN PRN Reason: agitation Last Admin: 08/31/23 09:52 Dose: 5 mg Olanzapine (Olanzapine 5 Mg Tablet) 5 mg PO BEDTIME ANN Last Admin: 08/31/23 21:05 Dose: 5 mg Trazodone HCl (Trazodone Hcl 50 Mg Tablet) 50 mg PO BEDTIME MRX1 PRN PRN Reason: Insomnia Last Admin: 08/31/23 21:04 Dose: 50 mg Allergies Allergies Allergy/AdvReac Type Severity Reaction Status Date / Time No Known Allergies Allergy Verified 08/24/23 21:32 Assessment & Plan Assessment & Plan (1) MDD (major depressive disorder), recurrent, severe, with psychosis: Status: Acute Code(s): F33.3 - Major depressive disorder, recurrent, severe with psychotic symptoms (2) PTSD (post-traumatic stress disorder): Status: Acute Code(s): F43.10 - Post-traumatic stress disorder, unspecified (3) ADHD: Status: Acute Code(s): F90.9 - Attention-deficit hyperactivity disorder, unspecified type Plan 33-year-old female history of depression with psychotic features, PTSD, migraines, lumbar radiculopathy who presents for worsening depression with SI and AH. Patient reports for about a month her depression has been increasing, since the children are out of school for summer break. Patient has been feeling overwhelmed, struggling with insomnia, tired a lot of the time. About a week ago she started having either AH of her own voice or intrusive thoughts saying she was a bad mom, would be a bad mom if she left to get herself help... This AH/thought progressed to hearing about killing her kids; she said she would never do this and so AH/thought turned to tell her to jump out the window; patient momentarily contemplated suicide but instead called her to come take care of the kids so she could get herself help at the hospital. Patient reports she had a vague plan to perhaps overdose on pills or cut herself but never any intention. She said as soon as her came over, she started feeling better. Since coming to the hospital she heard a voice/had a thought to jump out a window or that her kids are not safe at home without her, but such AH was not intense and she was able to distract herself and it dissipated. Patient denies any history of manic type episodes or behaviors; whenever she has had insomnia she has been extremely tired and wishing she could sleep and has no other associated manic symptoms. Patient reports AH has only ever been present when she is depressed; patient denies history of OCD like symptoms; denies any paranoid thinking; denies any drug or alcohol abuse. Patient has history of trauma throughout lifetime and continues to have symptoms, intrusive thoughts, getting triggered and will take showers 3 to 4 times a day as a response. Impression/clinical reasoning: Patient is organized in speech behavior. The history she gives meets criteria for MDD, severe with psychotic symptoms. It has not completely clear if she has actual auditory hallucinations or if there intrusive thoughts and patient thinks it has a combination but again only ever present during depressive episodes. No history of rigoberto or manic symptoms. Multiple episodes of trauma and patient has ongoing PTSD symptoms. She reports Prozac was helpful for PTSD, depression and anxiety. Patient reports some social anxiety as well. History of ADHD, treated in adolescents and had IEP's in school. Hospital course: 08/27 Patient reports depression continues but overall feeling a little better , she says she is . Fine.. Calm the patient reports she still has anxiety. patient says she has sometimes kept herself sometimes interact with others. She denies any AH at all or any SI at all. Would like Prozac to be increased as earlier discussed. Reports sleeping well PLAN: CV q15min checks Increased to Prozac 20 mg and titrate Will consider stimulant medication for ADHD; no history of substance or alcohol abuse Will seek collateral History of migraines; will discuss further 08/31/2023: Will schedule olanzapine 5 mg at bedtime 09/01/23: headache on higher dose of Prozac, but will persevere here with same. Tylenol minimally effective. Motrin 600 slightly better. Will increase Motrin to 800 and pair with Tylenol for headache Reason for continued inpatient stay Substantial Risk for: inability to function Time Spent With Patient Time: Total time managing care of this patient today ____ minutes.
[2023-09-01] MEDS: Ibuprofen 800 MG TABLET PO (14:09)
[2023-09-01 20:00] VITALS: BP 113/67; PULSE 69; RESP 18; TEMP 36.7; O2SAT 99
[2023-09-01] MEDS: Magnesium Oxide 400 MG TABLET PO (20:24)
[2023-09-01] MEDS: OLANZapine 5 MG TABLET PO (20:25)
[2023-09-01] MEDS: traZODone HCL 50 MG TABLET PO (20:25)
[2023-09-01] MEDS: Acetaminophen 325 MG TABLET 650 MG PO (20:27)
[2023-09-02 08:00] VITALS: BP 136/83; PULSE 103; RESP 18; TEMP 36.9; O2SAT 100
[2023-09-02] MEDS: FLUoxetine HCl 20 MG CAPSULE 40 MG PO (08:28)
[2023-09-02] MEDS: Ferrous Sulfate 324 MG TABLET.DR PO (08:29)
[2023-09-02 20:00] VITALS: BP 115/62; PULSE 79; RESP 18; TEMP 37.1; O2SAT 99
[2023-09-02] MEDS: Magnesium Oxide 400 MG TABLET PO (21:49)
[2023-09-02] MEDS: OLANZapine 5 MG TABLET PO (21:49)
[2023-09-02] MEDS: traZODone HCL 50 MG TABLET PO (21:53)
--- NOTE | 2023-09-02 23:16 | HO.PSYCHPN ---
Subjective Subjective Date of Service: 09/02/23 Reason For Visit: depression Interim History: Met?with?patient;?discussed?with?team? Patient?reports?she?is?started?feel?better.??Still?some?depression?but?overall?feeling?better.?? Denies?AH?and?says?she?is?only?having?negative?thoughts.??But?no?SI.??Prozac?started?giving?her?headache? But?says?it?is?less?and?tolerable. Mental Status Exam Mental Status Exam Narrative: Pt is alert and oriented; behavior is cooperative, friendly and calm but not all that engaged; patient is not in distress; dressed in casual attire with adequate hygiene; mood is described as better and affect congruent, brighter; eye contact appropriate; Speech is regular rate, volume and prosody; and not pressured; no psychomotor retardation present; thought process is organized and goal directed; Thought content is on dealing depression and anxiety; no intrusive thoughts; otherwise pertinent to relevant topics and without any delusional content, paranoid ideations or grandiosity; denies any SI/HI. No AH Patients insight and judgment fair. Diagnostics Vital Signs (24Hr): Vital Signs - 24 hr 09/02/23 08:00 09/02/23 20:00 Temperature 98.5 F 98.7 F Pulse Rate 103 H 79 Respiratory Rate 18 18 Blood Pressure 136/83 115/62 Pulse Oximetry 100 99 Oxygen Delivery Method Room Air Room Air BMI result Body Mass Index 25.2 Labs 08/24/23 21:43 08/24/23 21:43 Medications Medications Current Medications Acetaminophen (Acetaminophen 325 Mg Tablet) 650 mg PO Q6H PRN PRN Reason: Headache/Pain Mild Scale (1-3) Last Admin: 09/01/23 20:27 Dose: 650 mg Al Hydroxide/Mg Hydroxide (Magnesium Hydrox/Alum Hydrox 30 Ml Oral.Susp) 30 ml PO Q6H PRN PRN Reason: Heartburn/Nausea Clonidine HCl (Clonidine Hcl 0.1 Mg Tablet) 0.1 mg PO Q4H PRN; Protocol PRN Reason: moderate anxiety Ferrous Sulfate (Ferrous Sulfate 324 Mg Tablet.) 324 mg PO DAILY [facility] Last Admin: 09/02/23 08:29 Dose: 324 mg Fluoxetine HCl (Fluoxetine Hcl 20 Mg Capsule) 40 mg PO DAILY [facility] Last Admin: 09/02/23 08:28 Dose: 40 mg Hydroxyzine HCl (Hydroxyzine Hcl 25 Mg Tablet) 25 mg PO Q6H PRN PRN Reason: Anxiety Last Admin: 08/30/23 14:59 Dose: 25 mg Ibuprofen (Ibuprofen 800 Mg Tablet) 800 mg PO Q8H PRN PRN Reason: Headache (can give w tylenol) Last Admin: 09/01/23 14:09 Dose: 800 mg Magnesium Hydroxide (Milk Of Magnesia 30 Ml Oral.Susp) 30 ml PO DAILY PRN PRN Reason: Constipation Magnesium Oxide (Magnesium Oxide 400 Mg Tablet) 400 mg PO BEDTIME ANN Last Admin: 09/02/23 21:49 Dose: 400 mg Nicotine (Nicotine 21 Mg Patch.Td24) 21 mg TRANSDERMA DAILY PRN PRN Reason: smoking cessation Nicotine Polacrilex (Nicotine Polacrilex 2 Mg Gum) 4 mg BUCCAL Q2H PRN PRN Reason: Nicotine Cravings Olanzapine (Olanzapine 5 Mg Tablet) 5 mg PO TID PRN PRN Reason: agitation Last Admin: 08/31/23 09:52 Dose: 5 mg Olanzapine (Olanzapine 5 Mg Tablet) 5 mg PO BEDTIME ANN Last Admin: 09/02/23 21:49 Dose: 5 mg Trazodone HCl (Trazodone Hcl 50 Mg Tablet) 50 mg PO BEDTIME MRX1 PRN PRN Reason: Insomnia Last Admin: 09/02/23 21:53 Dose: 50 mg Allergies Allergies Allergy/AdvReac Type Severity Reaction Status Date / Time No Known Allergies Allergy Verified 08/24/23 21:32 Assessment & Plan Assessment & Plan (1) MDD (major depressive disorder), recurrent, severe, with psychosis: Status: Acute Code(s): F33.3 - Major depressive disorder, recurrent, severe with psychotic symptoms (2) PTSD (post-traumatic stress disorder): Status: Acute Code(s): F43.10 - Post-traumatic stress disorder, unspecified (3) ADHD: Status: Acute Code(s): F90.9 - Attention-deficit hyperactivity disorder, unspecified type Plan 33-year-old female history of depression with psychotic features, PTSD, migraines, lumbar radiculopathy who presents for worsening depression with SI and AH. Patient reports for about a month her depression has been increasing, since the children are out of school for summer break. Patient has been feeling overwhelmed, struggling with insomnia, tired a lot of the time. About a week ago she started having either AH of her own voice or intrusive thoughts saying she was a bad mom, would be a bad mom if she left to get herself help... This AH/thought progressed to hearing about killing her kids; she said she would never do this and so AH/thought turned to tell her to jump out the window; patient momentarily contemplated suicide but instead called her to come take care of the kids so she could get herself help at the hospital. Patient reports she had a vague plan to perhaps overdose on pills or cut herself but never any intention. She said as soon as her came over, she started feeling better. Since coming to the hospital she heard a voice/had a thought to jump out a window or that her kids are not safe at home without her, but such AH was not intense and she was able to distract herself and it dissipated. Patient denies any history of manic type episodes or behaviors; whenever she has had insomnia she has been extremely tired and wishing she could sleep and has no other associated manic symptoms. Patient reports AH has only ever been present when she is depressed; patient denies history of OCD like symptoms; denies any paranoid thinking; denies any drug or alcohol abuse. Patient has history of trauma throughout lifetime and continues to have symptoms, intrusive thoughts, getting triggered and will take showers 3 to 4 times a day as a response. Impression/clinical reasoning: Patient is organized in speech behavior. The history she gives meets criteria for MDD, severe with psychotic symptoms. It has not completely clear if she has actual auditory hallucinations or if there intrusive thoughts and patient thinks it has a combination but again only ever present during depressive episodes. No history of rigoberto or manic symptoms. Multiple episodes of trauma and patient has ongoing PTSD symptoms. She reports Prozac was helpful for PTSD, depression and anxiety. Patient reports some social anxiety as well. History of ADHD, treated in adolescents and had IEP's in school. Hospital course: 08/27 Patient reports depression continues but overall feeling a little better , she says she is . Fine.. Calm the patient reports she still has anxiety. patient says she has sometimes kept herself sometimes interact with others. She denies any AH at all or any SI at all. Would like Prozac to be increased as earlier discussed. Reports sleeping well PLAN: CV q15min checks Increased to Prozac 20 mg and titrate Will consider stimulant medication for ADHD; no history of substance or alcohol abuse Will seek collateral History of migraines; will discuss further 08/31/2023: Will schedule olanzapine 5 mg at bedtime 09/01/23: headache on higher dose of Prozac, but will persevere here with same. Tylenol minimally effective. Motrin 600 slightly better. Will increase Motrin to 800 and pair with Tylenol for headache 09/01 depression?clearing;?anxious?but?tolerable;?headache?from Prozac?but?tolerable;?no?AVH.??Optimistic,?hopeful Patient educated on: diagnosis and medication risk/benefits Informed Consent: understands Reason for continued inpatient stay Substantial Risk for: stable for discharge, rapid decompensation and med/psych decompensation Time Spent With Patient Time: Total time managing care of this patient today ____ minutes.
[2023-09-03 08:00] VITALS: BP 128/74; PULSE 80; RESP 16; TEMP 36.8; O2SAT 100
[2023-09-03] MEDS: FLUoxetine HCl 20 MG CAPSULE 40 MG PO (09:07)
[2023-09-03] MEDS: Ferrous Sulfate 324 MG TABLET.DR PO (09:07)
--- NOTE | 2023-09-03 18:53 | P.PNPSI_ITS ---
Subjective Subjective Date of Service: 09/03/23 Reason For Visit: depression Interim History: Met?with?patient;?discussed?with?team? P atient?feels?that?Prozac?40?mg?is?just?too?high;?headache?is?gone?but?says?she?f eels?a?little?dizzy A nd?would?like?to?lower?back?to?Prozac?20?mg.??Otherwise?she?says?depression?is?m uch?better And ..??This?is?how?I?want?to?feel. Mental Status Exam Mental Status Exam Narrative: Pt is alert and oriented; behavior is cooperative, friendly and calm, more engaged; patient is not in distress; dressed in casual attire with adequate hygiene; mood is described as good affect congruent, brighter; eye contact appropriate; Speech is regular rate, volume and prosody; and not pressured; no psychomotor retardation present; thought process is organized and goal directed; Thought content is on aftercare; no intrusive thoughts; otherwise pertinent to relevant topics and without any delusional content, paranoid ideations or grandiosity; denies any SI/HI. No AH Patients insight and judgment fair. Diagnostics Vital Signs (24Hr): Vital Signs - 24 hr 09/02/23 20:00 09/03/23 08:00 Temperature 98.7 F 98.2 F Pulse Rate 79 80 Respiratory Rate 18 16 Blood Pressure 115/62 128/74 Pulse Oximetry 99 100 Oxygen Delivery Method Room Air Room Air BMI result Body Mass Index 25.2 Labs 08/24/23 21:43 08/24/23 21:43 Medications Medications Current Medications Acetaminophen (Acetaminophen 325 Mg Tablet) 650 mg PO Q6H PRN PRN Reason: Headache/Pain Mild Scale (1-3) Last Admin: 09/01/23 20:27 Dose: 650 mg Al Hydroxide/Mg Hydroxide (Magnesium Hydrox/Alum Hydrox 30 Ml Oral.Susp) 30 ml PO Q6H PRN PRN Reason: Heartburn/Nausea Clonidine HCl (Clonidine Hcl 0.1 Mg Tablet) 0.1 mg PO Q4H PRN; Protocol PRN Reason: moderate anxiety Ferrous Sulfate (Ferrous Sulfate 324 Mg Tablet.) 324 mg PO DAILY [facility] Last Admin: 09/03/23 09:07 Dose: 324 mg Fluoxetine HCl (Fluoxetine Hcl 20 Mg Capsule) 20 mg PO DAILY [facility] Hydroxyzine HCl (Hydroxyzine Hcl 25 Mg Tablet) 25 mg PO Q6H PRN PRN Reason: Anxiety Last Admin: 08/30/23 14:59 Dose: 25 mg Ibuprofen (Ibuprofen 800 Mg Tablet) 800 mg PO Q8H PRN PRN Reason: Headache (can give w tylenol) Last Admin: 09/01/23 14:09 Dose: 800 mg Magnesium Hydroxide (Milk Of Magnesia 30 Ml Oral.Susp) 30 ml PO DAILY PRN PRN Reason: Constipation Magnesium Oxide (Magnesium Oxide 400 Mg Tablet) 400 mg PO BEDTIME ANN Last Admin: 09/02/23 21:49 Dose: 400 mg Nicotine (Nicotine 21 Mg Patch.Td24) 21 mg TRANSDERMA DAILY PRN PRN Reason: smoking cessation Nicotine Polacrilex (Nicotine Polacrilex 2 Mg Gum) 4 mg BUCCAL Q2H PRN PRN Reason: Nicotine Cravings Olanzapine (Olanzapine 5 Mg Tablet) 5 mg PO TID PRN PRN Reason: agitation Last Admin: 08/31/23 09:52 Dose: 5 mg Olanzapine (Olanzapine 5 Mg Tablet) 5 mg PO BEDTIME ANN Last Admin: 09/02/23 21:49 Dose: 5 mg Trazodone HCl (Trazodone Hcl 50 Mg Tablet) 50 mg PO BEDTIME MRX1 PRN PRN Reason: Insomnia Last Admin: 09/02/23 21:53 Dose: 50 mg Allergies Allergies Allergy/AdvReac Type Severity Reaction Status Date / Time No Known Allergies Allergy Verified 08/24/23 21:32 Assessment & Plan Assessment & Plan (1) MDD (major depressive disorder), recurrent, severe, with psychosis: Status: Acute Code(s): F33.3 - Major depressive disorder, recurrent, severe with psychotic symptoms (2) PTSD (post-traumatic stress disorder): Status: Acute Code(s): F43.10 - Post-traumatic stress disorder, unspecified (3) ADHD: Status: Acute Code(s): F90.9 - Attention-deficit hyperactivity disorder, unspecified type Plan 33-year-old female history of depression with psychotic features, PTSD, migraines, lumbar radiculopathy who presents for worsening depression with SI and AH. Patient reports for about a month her depression has been increasing, since the children are out of school for summer break. Patient has been feeling overwhelmed, struggling with insomnia, tired a lot of the time. About a week ago she started having either AH of her own voice or intrusive thoughts saying she was a bad mom, would be a bad mom if she left to get herself help... This AH/thought progressed to hearing about killing her kids; she said she would never do this and so AH/thought turned to tell her to jump out the window; patient momentarily contemplated suicide but instead called her to come take care of the kids so she could get herself help at the hospital. Patient reports she had a vague plan to perhaps overdose on pills or cut herself but never any intention. She said as soon as her came over, she started feeling better. Since coming to the hospital she heard a voice/had a thought to jump out a window or that her kids are not safe at home without her, but such AH was not intense and she was able to distract herself and it dissipated. Patient denies any history of manic type episodes or behaviors; whenever she has had insomnia she has been extremely tired and wishing she could sleep and has no other associated manic symptoms. Patient reports AH has only ever been present when she is depressed; patient denies history of OCD like symptoms; denies any paranoid thinking; denies any drug or alcohol abuse. Patient has history of trauma throughout lifetime and continues to have symptoms, intrusive thoughts, getting triggered and will take showers 3 to 4 times a day as a response. Impression/clinical reasoning: Patient is organized in speech behavior. The history she gives meets criteria for MDD, severe with psychotic symptoms. It has not completely clear if she has actual auditory hallucinations or if there intrusive thoughts and patient thinks it has a combination but again only ever present during depressive episodes. No history of rigoberto or manic symptoms. Multiple episodes of trauma and patient has ongoing PTSD symptoms. She reports Prozac was helpful for PTSD, depression and anxiety. Patient reports some social anxiety as well. History of ADHD, treated in adolescents and had IEP's in school. Hospital course: 08/27 Patient reports depression continues but overall feeling a little better , she says she is . Fine.. Calm the patient reports she still has anxiety. patient says she has sometimes kept herself sometimes interact with others. She denies any AH at all or any SI at all. Would like Prozac to be increased as earlier discussed. Reports sleeping well 08/31/2023: Will schedule olanzapine 5 mg at bedtime 09/01/23: headache on higher dose of Prozac, but will persevere here with same. Tylenol minimally effective. Motrin 600 slightly better. Will increase Motrin to 800 and pair with Tylenol for headache 09/01 depression?clearing;?anxious?but?tolerable;?headache?from Prozac?but?tolerable;?no?AVH.??Optimistic,?hopeful 09/02 continues to improve,?depression?gone.??Will?lower?Prozac?to?20?at?patient's?request. -patient?does?not?feel?ADHD?is?significant;?does?not?want?medication -social?work?setting?up?aftercare PLAN: CV q15min checks Lower?back?to?Prozac 20 mg which?seems?effective;?higher?dose?not?tolerated Continue?Zyprexa?5?mg?Qhs Will seek collateral History of migraines; will discuss further Patient educated on: diagnosis, medication risk/benefits and therapeutic strategies Informed Consent: understands Reason for continued inpatient stay Substantial Risk for: stable for discharge and med/psych decompensation Time Spent With Patient Time: Total time managing care of this patient today ____ minutes.
[2023-09-03 20:00] VITALS: BP 121/70; PULSE 74; RESP 18; TEMP 36.9; O2SAT 100
[2023-09-03] MEDS: OLANZapine 5 MG TABLET PO (20:50)
[2023-09-03] MEDS: traZODone HCL 50 MG TABLET PO (20:50)
[2023-09-03] MEDS: Magnesium Oxide 400 MG TABLET PO (20:50)
--- NOTE | 2023-09-04 | ECG_ITS ---
Test Reason : chest pain Blood Pressure : / mmHG Vent. Rate : 064 BPM Atrial Rate : 064 BPM P-R Int : 136 ms QRS Dur : 074 ms QT Int : 416 ms P-R-T Axes : 039 041 037 degrees QTc Int : 429 ms Normal sinus rhythm Normal ECG When compared with ECG of 05-FEB-2023 11:42, No significant change was found Referred By: Vish Brown Electronically Signed By:Terry Go
[2023-09-04 08:00] VITALS: BP 128/66; PULSE 102; RESP 16; TEMP 36.8; O2SAT 100
[2023-09-04] MEDS: Ferrous Sulfate 324 MG TABLET.DR PO (08:41)
[2023-09-04] MEDS: FLUoxetine HCl 20 MG CAPSULE PO (08:41)
[2023-09-04 15:42] VITALS: BP 120/69; PULSE 109; RESP 18; TEMP 36.5; O2SAT 99
[2023-09-04 20:00] VITALS: BP 116/68; PULSE 67; RESP 16; TEMP 36.8; O2SAT 96
[2023-09-04] MEDS: Magnesium Oxide 400 MG TABLET PO (21:02)
[2023-09-04] MEDS: OLANZapine 5 MG TABLET PO (21:02)
[2023-09-04] MEDS: traZODone HCL 50 MG TABLET PO (21:52)
--- NOTE | 2023-09-04 22:32 | HO.PSYCHPN ---
Subjective Subjective Date of Service: 09/04/23 Reason For Visit: depression Interim History: Met?with?patient;?discussed?with?team? Patient?reports?her?mood?is?good;?no?depression?no?anxiety?no?AH.?? Affect?is?noticeably?brighter?and?patient?is?more?social?and?engaged?in?the?milieu.??Feels?ready?to Discharge;?looking?forward?to?seeing?her?family Mental Status Exam Mental Status Exam Narrative: Pt is alert and oriented; behavior is cooperative, friendly and calm, more engaged; patient is not in distress; dressed in casual attire with adequate hygiene; mood is described as good affect congruent, brighter; eye contact appropriate; Speech is regular rate, volume and prosody; and not pressured; no psychomotor retardation present; thought process is organized and goal directed; Thought content is on aftercare; no intrusive thoughts; otherwise pertinent to relevant topics and without any delusional content, paranoid ideations or grandiosity; denies any SI/HI. No AH Patients insight and judgment fair. Diagnostics Vital Signs (24Hr): Vital Signs - 24 hr 09/04/23 08:00 09/04/23 15:42 09/04/23 20:00 Temperature 98.3 F 97.7 F 98.3 F Pulse Rate 102 H 109 H 67 Respiratory Rate 16 18 16 Blood Pressure 128/66 120/69 116/68 Pulse Oximetry 100 99 96 Oxygen Delivery Method Room Air Room Air Room Air BMI result Body Mass Index 25.2 Labs 08/24/23 21:43 08/24/23 21:43 Medications Medications Current Medications Acetaminophen (Acetaminophen 325 Mg Tablet) 650 mg PO Q6H PRN PRN Reason: Headache/Pain Mild Scale (1-3) Last Admin: 09/01/23 20:27 Dose: 650 mg Al Hydroxide/Mg Hydroxide (Magnesium Hydrox/Alum Hydrox 30 Ml Oral.Susp) 30 ml PO Q6H PRN PRN Reason: Heartburn/Nausea Clonidine HCl (Clonidine Hcl 0.1 Mg Tablet) 0.1 mg PO Q4H PRN; Protocol PRN Reason: moderate anxiety Ferrous Sulfate (Ferrous Sulfate 324 Mg Tablet.) 324 mg PO DAILY [facility] Last Admin: 09/04/23 08:41 Dose: 324 mg Fluoxetine HCl (Fluoxetine Hcl 20 Mg Capsule) 20 mg PO DAILY [facility] Last Admin: 09/04/23 08:41 Dose: 20 mg Hydroxyzine HCl (Hydroxyzine Hcl 25 Mg Tablet) 25 mg PO Q6H PRN PRN Reason: Anxiety Last Admin: 08/30/23 14:59 Dose: 25 mg Ibuprofen (Ibuprofen 800 Mg Tablet) 800 mg PO Q8H PRN PRN Reason: Headache (can give w tylenol) Last Admin: 09/01/23 14:09 Dose: 800 mg Magnesium Hydroxide (Milk Of Magnesia 30 Ml Oral.Susp) 30 ml PO DAILY PRN PRN Reason: Constipation Magnesium Oxide (Magnesium Oxide 400 Mg Tablet) 400 mg PO BEDTIME ANN Last Admin: 09/04/23 21:02 Dose: 400 mg Nicotine (Nicotine 21 Mg Patch.Td24) 21 mg TRANSDERMA DAILY PRN PRN Reason: smoking cessation Nicotine Polacrilex (Nicotine Polacrilex 2 Mg Gum) 4 mg BUCCAL Q2H PRN PRN Reason: Nicotine Cravings Olanzapine (Olanzapine 5 Mg Tablet) 5 mg PO TID PRN PRN Reason: agitation Last Admin: 08/31/23 09:52 Dose: 5 mg Olanzapine (Olanzapine 5 Mg Tablet) 5 mg PO BEDTIME ANN Last Admin: 09/04/23 21:02 Dose: 5 mg Trazodone HCl (Trazodone Hcl 50 Mg Tablet) 50 mg PO BEDTIME MRX1 PRN PRN Reason: Insomnia Last Admin: 09/04/23 21:52 Dose: 50 mg Allergies Allergies Allergy/AdvReac Type Severity Reaction Status Date / Time No Known Allergies Allergy Verified 08/24/23 21:32 Assessment & Plan Assessment & Plan (1) MDD (major depressive disorder), recurrent, severe, with psychosis: Status: Acute Code(s): F33.3 - Major depressive disorder, recurrent, severe with psychotic symptoms (2) PTSD (post-traumatic stress disorder): Status: Acute Code(s): F43.10 - Post-traumatic stress disorder, unspecified (3) ADHD: Status: Acute Code(s): F90.9 - Attention-deficit hyperactivity disorder, unspecified type Plan 33-year-old female history of depression with psychotic features, PTSD, migraines, lumbar radiculopathy who presents for worsening depression with SI and AH. Patient reports for about a month her depression has been increasing, since the children are out of school for summer break. Patient has been feeling overwhelmed, struggling with insomnia, tired a lot of the time. About a week ago she started having either AH of her own voice or intrusive thoughts saying she was a bad mom, would be a bad mom if she left to get herself help... This AH/thought progressed to hearing about killing her kids; she said she would never do this and so AH/thought turned to tell her to jump out the window; patient momentarily contemplated suicide but instead called her to come take care of the kids so she could get herself help at the hospital. Patient reports she had a vague plan to perhaps overdose on pills or cut herself but never any intention. She said as soon as her came over, she started feeling better. Since coming to the hospital she heard a voice/had a thought to jump out a window or that her kids are not safe at home without her, but such AH was not intense and she was able to distract herself and it dissipated. Patient denies any history of manic type episodes or behaviors; whenever she has had insomnia she has been extremely tired and wishing she could sleep and has no other associated manic symptoms. Patient reports AH has only ever been present when she is depressed; patient denies history of OCD like symptoms; denies any paranoid thinking; denies any drug or alcohol abuse. Patient has history of trauma throughout lifetime and continues to have symptoms, intrusive thoughts, getting triggered and will take showers 3 to 4 times a day as a response. Impression/clinical reasoning: Patient is organized in speech behavior. The history she gives meets criteria for MDD, severe with psychotic symptoms. It has not completely clear if she has actual auditory hallucinations or if there intrusive thoughts and patient thinks it has a combination but again only ever present during depressive episodes. No history of rigoberto or manic symptoms. Multiple episodes of trauma and patient has ongoing PTSD symptoms. She reports Prozac was helpful for PTSD, depression and anxiety. Patient reports some social anxiety as well. History of ADHD, treated in adolescents and had IEP's in school. Hospital course: 08/27 Patient reports depression continues but overall feeling a little better , she says she is . Fine.. Calm the patient reports she still has anxiety. patient says she has sometimes kept herself sometimes interact with others. She denies any AH at all or any SI at all. Would like Prozac to be increased as earlier discussed. Reports sleeping well 08/31/2023: Will schedule olanzapine 5 mg at bedtime 09/01/23: headache on higher dose of Prozac, but will persevere here with same. Tylenol minimally effective. Motrin 600 slightly better. Will increase Motrin to 800 and pair with Tylenol for headache 09/01 depression?clearing;?anxious?but?tolerable;?headache?from Prozac?but?tolerable;?no?AVH.??Optimistic,?hopeful 09/02 continues to improve,?depression?gone.??Will?lower?Prozac?to?20?at?patient's?request. -patient?does?not?feel?ADHD?is?significant;?does?not?want?medication -social?work?setting?up?aftercare 09/03?patient?doing?well,?good?mood,?feels?ready?to?go. In?the?afternoon?patient?did?have?a?panic?attack?which?fully?resolved. c/o chest pain at sternum and EKG WNL, pain resolved.?? She?remains?optimistic?and?feels?ready?to? continue?treatment?in?the?community PLAN: CV q15min checks Lower?back?to?Prozac 20 mg which?seems?effective;?higher?dose?not?tolerated Continue?Zyprexa?5?mg?Qhs Will seek collateral History of migraines; will discuss further Patient educated on: diagnosis, medication risk/benefits and therapeutic strategies Informed Consent: understands Reason for continued inpatient stay Substantial Risk for: stable for discharge Time Spent With Patient Time: Total time managing care of this patient today ____ minutes.
--- NOTE | 2023-09-04 23:39 | P.DS_ITS ---
DS: Providers Provider Date of Service: 09/05/23 Date of admission: 08/26/23 13:42 Date of discharge: 09/05/23 Primary care physician: Janneth Gunn MD Attending physician on admission: Vish Brown Attending physician on discharge: Vish Brown DS: Diagnosis Discharge Diagnosis (1) MDD (major depressive disorder), recurrent, severe, with psychosis: Status: Acute (2) PTSD (post-traumatic stress disorder): Status: Acute (3) ADHD: Status: Acute DS: Medications Discharge Medications Home Medications: Previous Rx's ?Medication ?Instructions ?Recorded ferrous fumarate 324 mg (106 mg 324 mg PO DAILY 30 days #30 tabs 09/04/23 iron) tablet (Ferrocite) fluoxetine 20 mg capsule 20 mg PO DAILY 30 days #30 caps 09/04/23 hydroxyzine HCl 25 mg tablet 25 mg PO Q6H PRN Anxiety 30 days 09/04/23 #90 tabs magnesium oxide 400 mg (241.3 mg 400 mg PO BEDTIME 30 days #30 tabs 09/04/23 magnesium) tablet olanzapine 5 mg tablet 5 mg PO BEDTIME 30 days #30 tabs 09/04/23 trazodone 50 mg tablet 50 mg PO BEDTIME PRN Insomnia 30 09/04/23 days #30 tabs Mental Status Exam Mental Status Exam Narrative: Pt is alert and oriented; behavior is cooperative, friendly and calm, more engaged; patient is not in distress; dressed in casual attire with adequate hygiene; mood is described as good affect congruent, brighter; eye contact natalie ropriate; Speech is regular rate, volume and prosody; and not pressured; no psychomotor retardation present; thought process is organized and goal directed; Thought content is on aftercare; no intrusive thoughts; otherwise pertinent to relevant topics and without any delusional content, paranoid ideations or grandiosity; denies any SI/HI. No Patients insight and judgment fair. Data Data Completed and Pending Completed studies during hospitalization [Text1]: 08/31/23 10:43 TSH 0.55 08/24/23 Unknown Urine clean catch - Urine rojas top Urine Culture - Final Strep agalactiae (Grp B) DS: Summary Hospital Course Hospital Course: 33-year-old female history of depression with psychotic features, PTSD, migraines, lumbar radiculopathy who presents for worsening depression with SI and AH. Patient reports for about a month her depression has been increasing, since the children are out of school for summer break. Patient has been feeling overwhelmed, struggling with insomnia, tired a lot of the time. About a week ago she started having either AH of her own voice or intrusive thoughts saying she was a bad mom, would be a bad mom if she left to get herself help... This AH/thought progressed to hearing about killing her kids; she said she would never do this and so AH/thought turned to tell her to jump out the window; patient momentarily contemplated suicide but instead called her to come take care of the kids so she could get herself help at the hospital. Patient reports she had a vague plan to perhaps overdose on pills or cut herself but never any intention. She said as soon as her came over, she started feeling better. Since coming to the hospital she heard a voice/had a thought to jump out a window or that her kids are not safe at home without her, but such AH was not intense and she was able to distract herself and it dissipated. Patient denies any history of manic type episodes or behaviors; whenever she has had insomnia she has been extremely tired and wishing she could sleep and has no other associated manic symptoms. Patient reports AH has only ever been present when she is depressed; patient denies history of OCD like symptoms; denies any paranoid thinking; denies any drug or alcohol abuse. Patient has history of trauma throughout lifetime and continues to have symptoms, intrusive thoughts, getting triggered and will take showers 3 to 4 times a day as a response. Impression/clinical reasoning: Patient is organized in speech behavior. The history she gives meets criteria for MDD, severe with psychotic symptoms. It has not completely clear if she has actual auditory hallucinations or if there intrusive thoughts and patient thinks it has a combination but again only ever present during depressive episodes. No history of rigoberto or manic symptoms. Multiple episodes of trauma and patient has ongoing PTSD symptoms. She reports Prozac was helpful for PTSD, depression and anxiety. Patient reports some social anxiety as well. History of ADHD, treated in adolescents and had IEP's in school. Hospital course: 08/27 Patient reports depression continues but overall feeling a little better , she says she is . Fine.. Calm the patient reports she still has anxiety. patient says she has sometimes kept herself sometimes interact with others. She denies any AH at all or any SI at all. Would like Prozac to be increased as earlier discussed. Reports sleeping well 08/31/2023: Will schedule olanzapine 5 mg at bedtime 09/01/23: headache on higher dose of Prozac, but will persevere here with same. Tylenol minimally effective. Motrin 600 slightly better. Will increase Motrin to 800 and pair with Tylenol for headache 09/01 depression?clearing;?anxious?but?tolerable;?headache?from Prozac?but?tolerable;?no?AVH.??Optimistic,?hopeful 09/02 continues to improve,?depression?gone.??Will?lower?Prozac?to?20?at?patient's?request. -patient?does?not?feel?ADHD?is?significant;?does?not?want?medication -social?work?setting?up?aftercare 09/03?patient?doing?well,?good?mood,?feels?ready?to?go. In?the?afternoon?patient?did?have?a?panic?attack?which?fully?resolved. c/o chest pain at sternum and EKG WNL, pain resolved.?? She?remains?optimistic?and?feels?ready?to?continue?treatment?in?the?community Patient remained stable, good mood, optimistic and future oriented. Tolerating medications well. She remained in good behavioral and impulse control throughout and appropriate with peers and staff. She felt back to her regular self and ready to discharge home to her supportive . Patient not in imminent risk for harm to self or others and request for discharge honored Time spent discussing smoking cessation with patient: 3 to 10 minutes Status at Discharge Functional status at discharge: independent ambulation Overall status at discharge: patient is back to baseline Time Spent with Patient Time attestation: Total time managing care of this patient today ____ minutes. Time spent: Less than 30 minutes Discharge Plan Discharge Anticipated Discharge Date/Time: 09/05/23 11:00 Patient Disposition: Home, Self-Care Discharge Diagnosis: mdd, recurrent, severe with psychotic features, in full remission Referrals: Therapy & Psychiatry [Other] - 1 Week (*You have been referred to the above agency for outpatient mental health treatment. Please call the number listed above to check on the time and date of your appointments. ) Janneth Gunn MD [Primary Care Provider] - 1 Week (PCP office advised they will contact patient with follow up appt.) Discharge Medications: New fluoxetine 20 mg Capsule 20 mg PO DAILY 30 Days Qty: 30 1RF hydroxyzine HCl 25 mg Tablet 25 mg PO Q6H PRN (Reason: Anxiety) 30 Days Qty: 90 1RF olanzapine 5 mg Tablet 5 mg PO BEDTIME 30 Days Qty: 30 1RF trazodone 50 mg Tablet 50 mg PO BEDTIME PRN (Reason: Insomnia) 30 Days Qty: 30 1RF Continued magnesium oxide 400 mg (241.3 mg magnesium) tablet 400 mg PO BEDTIME 30 Days Qty: 30 1RF ferrous fumarate [Ferrocite] 324 mg (106 mg iron) tablet 324 mg PO DAILY 30 Days Qty: 30 1RF Discharge Orders: Discharge Order (Routine); Ordered 09/05/23 Ordered By: Vish Brown Diet: Regular diet Activity on Discharge: As tolerated Stand Alone Forms: Patient Portal Discharge page, Community Support Print Language: Guyanese Care Plan Goals: Maintain mood and safe behaviors Take medications as prescribed Practice coping skills Continue with outpatient providers and reach out to them as needed Health Concerns: Mood stability and behaviors Plan of Treatment: Follow up with your PCP, psychiatric provider and other outpatient providers regarding above concerns Take medications as prescribed Assessment: Risk assessment at time of discharge:? Patient was interviewed prior to discharge and found to be fully oriented and without any SI or HI. Patient has improved insight and judgment and wants to continue treatment. Patient is not in imminent risk of harm to self or others and has a safety plan that includes presenting to the closest ER or calling 911 if feeling unsafe.? Patient has been observed closely by nursing and unit staff throughout admission; patient has not engaged in any behaviors that suggest dangerousness to self or others and has demonstrated appropriate behaviors and impulse control Discharge Date/Time: 09/05/23 10:03
[2023-09-05 07:35] VITALS: BP 109/58; PULSE 93; RESP 12; TEMP 37.1; O2SAT 100
[2023-09-05] MEDS: FLUoxetine HCl 20 MG CAPSULE PO (09:28)
[2023-09-05] MEDS: Ferrous Sulfate 324 MG TABLET.DR PO (09:29)
== END 2023-09-05 10:03 | disposition home or self-care (01) | DRG 751 ==
LOC: HO.ED 22:56 → HO.PM5 08-26 13:48 → HO.IMC 09-04 21:33 → HO.PADLT16 09-04 21:34
PROVIDERS: Physician Assistant; Admitting Provider Psychiatry & Neurology Psychiatry; Emergency Provider Emergency Medicine; PCP Internal Medicine; Visit Provider Psychiatry & Neurology Psychiatry
DX: F33.3 Major depressive disorder, recurrent, severe with psychotic symptoms (principal); R45.851 Suicidal ideations; F90.9 Attention-deficit hyperactivity disorder, unspecified type; F43.10 Post-traumatic stress disorder, unspecified; J45.909 Unspecified asthma, uncomplicated; Z59.01 Sheltered homelessness; Z79.899 Other long term (current) drug therapy
CPT/HCPCS: 36415; 80053; 80061; 80143; 80179; 80307; 81001; 81025; 83036; 84443; 85025; 87086; 87147; 93005; 99285; S9485

== ENCOUNTER 2023-08-26 13:42 | Outpatient (BNV) | payer MEDICAID, SELFPAY | END 2023-09-04 17:24 | PROVIDERS: Admitting Provider Psychiatry & Neurology Psychiatry; Emergency Provider Emergency Medicine; PCP Internal Medicine; Visit Provider Internal Medicine Cardiovascular Disease | DX: R07.9 Chest pain, unspecified (principal) | CPT/HCPCS: 93010 ==

== ENCOUNTER → 2023-08-26 13:42 | Outpatient (BNV) | payer OTHER, SELFPAY | PROVIDERS: Admitting Provider Psychiatry & Neurology Psychiatry; Emergency Provider Emergency Medicine; PCP Internal Medicine; Visit Provider Psychiatry & Neurology Psychiatry | DX: F33.3 Major depressive disorder, recurrent, severe with psychotic symptoms (principal); F43.10 Post-traumatic stress disorder, unspecified; F90.9 Attention-deficit hyperactivity disorder, unspecified type | CPT/HCPCS: 90792; 99231; 99232; 99238 ==

== ENCOUNTER 2023-11-20 13:03 | Outpatient (REF) | payer MEDICAID, SELFPAY ==
[2023-11-27 14:58] LABS: HPV mRNA E6/E7 Not Detected (Not Detected)
== END 2023-11-20 13:04 | disposition home or self-care (01) ==
LOC: HO.LAB 13:03
PROVIDERS: PCP Internal Medicine; Visit Provider Internal Medicine
DX: Z00.01 Encounter for general adult medical examination with abnormal findings (principal); Z12.4 Encounter for screening for malignant neoplasm of cervix; Z11.51 Encounter for screening for human papillomavirus (HPV); F43.10 Post-traumatic stress disorder, unspecified; F33.3 Major depressive disorder, recurrent, severe with psychotic symptoms; Z86.2 Personal history of diseases of the blood and blood-forming organs and certain disorders involving the immune mechanism; Z71.89 Other specified counseling
CPT/HCPCS: 36415; 87624; 88175; 96127; 99395; 99497

== ENCOUNTER 2023-11-20 13:03 | Outpatient (AMB) | payer OTHER, SELFPAY ==
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
[2023-11-20 14:05] VITALS: BP 110/70; PULSE 60; O2SAT 100; BMI 27.9
== END 2023-11-20 14:34 | disposition home or self-care (01) ==
PROVIDERS: PCP Internal Medicine; Visit Provider Internal Medicine
DX: Z00.01 Encounter for general adult medical examination with abnormal findings (principal); Z71.89 Other specified counseling; F43.10 Post-traumatic stress disorder, unspecified; F33.3 Major depressive disorder, recurrent, severe with psychotic symptoms; Z86.2 Personal history of diseases of the blood and blood-forming organs and certain disorders involving the immune mechanism; Z12.4 Encounter for screening for malignant neoplasm of cervix; Z00.00 Encounter for general adult medical examination without abnormal findings

== ENCOUNTER 2024-01-06 10:28 | Outpatient (AMB) | payer OTHER, SELFPAY ==
[2024-01-06 10:54] VITALS: BP 90/60; PULSE 77; O2SAT 100
--- NOTE | 2024-01-06 10:54 | A.OFFPC_ITS ---
Vital Signs 01/06/24 10:54 Height 52 ft 2.5 in Weight 162 lb BMI 0.3 BP 90/60 Blood Pressure Location Rt brachial Position Sitting Pulse 77 Pulse Source Pulse Oximeter Pulse Oximetry (%) 100 Oxygen Delivery Method Room Air Intake Visit Reasons: ER [facility] psych Intake Note: Pt is here today to f/u [facility] psych Allergies No Known Allergies Allergy (Verified 01/06/24 11:11) Medication List - Last Reconciled 01/06/24 by Janneth Gunn MD aripiprazole 10 mg PO DAILY ferrous fumarate (Ferrocite) 324 mg PO DAILY 30 days hydroxyzine HCl 25 mg PO Q6H PRN 30 days magnesium oxide 400 mg PO BEDTIME 30 days olanzapine 5 mg PO BEDTIME 30 days sertraline 50 mg PO DAILY trazodone 50 mg PO BEDTIME PRN 30 days Tobacco use date assessed: 01/06/24 Dental Screening Dental Screen Date: 01/06/24 Did you have a dental visit in the last 12 months?: Yes Did you have a dental problem in the last 6 months where you did not have access to dental care?: Yes Was dental information given to patient?: Patient has dentist HPI [facility] psych HPI Details 33-year-old lady here today for follow-u p after recent discharge from [facility], where she was admitted for major depression with suicidal ideations and generalized anxiety disorder. She is currently on olanzapine, aripiprazole, sertraline and takes trazodone as needed for sleep. She is feeling better, and mood is stable on present treatment PFSH Medical History PTSD (post-traumatic stress disorder) MDD (major depressive disorder), recurrent, severe, with psychosis Dizziness of unknown cause Positional lightheadedness Lumbago with sciatica, right side Low back pain potentially associated with radiculopathy Family history of thyroid disease in mother Asthma Family History Father Substance use disorder Mental health disorder Mother Mental health disorder Thyroid disorder Social History Household Members: Children Housing: Homeless Housing Other:: live in a fpc with her 2 children Do you presently have visiting nurse or other home services: No Alcohol intake: never Patient Tobacco Use Status: Never used Tobacco e-Cigarette/Vaping Use: Never Used Second Hand Smoke Exposure: No service: No Current occupational status: unemployed Sexual orientation: Straight/Heterosexual Cognitive needs: No Hearing needs: No Vision needs: No Female Reproductive History Menstrual Age of Menarche: 10 Questionnaire PHQ-9 Over the last 2 weeks, how often have you been bothered by any of the following problems? 1. Little interest or pleasure in doing things: not at all 2. Feeling down, depressed, or hopeless: not at all 3. Trouble falling or staying asleep, or sleeping too much: several days 4. Feeling tired or having little energy: several days 5. Poor appetite or overeating: not at all 6. Feeling bad about yourself - or that you are a failure or have let yourself or your family down: not at all 7. Trouble concentrating on things, such as reading the newspaper or watching television: not at all 8. Moving or speaking so slowly that other people could have noticed. Or the opposite - being so fidgety or restless that you have been moving around a lot more than usual: not at all 9. Thoughts that you would be better off or of hurting yourself in some way: not at all Total score: 2 Depression Screening Interpretation: Positive (Currently followed by psychiatry) Depression Screening Follow-up: Existing condition, In treatment and Community Mental Health Worker F/U Depression Screening Done: Yes 42986 - PHQ-9 Billing: Yes Source: Developed by Drs. Victor M Brian, Jennifer Ying, Alessandro Graham and colleagues, with an educational ethel from [employer]. Thrive Questionnaire Date Thrive assessed: 11/19/23 I am a: Patient What is your living situation today?: I have a steady place to live Within the past 12 months, did the food you bought not last and you didn't have the money to get more?: Never true Within the past 12 months, did you worry whether your food would run out before you got money to buy more?: Never true Do you have trouble paying for medicines?: No Do you have trouble getting transportation to medical appointments?: Yes Do you have trouble paying your heating and electricity bill?: No Do you have trouble taking care of your child, family member or friend?: No Do you have trouble with day-to-day activities such as bathing, preparing meals, shopping, managing finances, etc.?: Yes Are you interested in more education?: Yes THRIVE Score: 1 CEM-7 AMB Questionnaire CEM-7 Date CEM - 7 assessed: 01/06/24 Feeling nervous, anxious, or on edge: 1 = Several days Not being able to stop or control worryin = Not at all Worrying too much about different things: 0 = Not at all Trouble relaxin = Not at all Being so restless that it is hard to sit still: 0 = Not at all Becoming easily annoyed or irritable: 0 = Not at all Feeling afraid as if something awful might happen: 0 = Not at all Total CEM-7 score (0-4 normal; 5-9 mild; 10-14 moderate; 15-21 severe): 1 Source: Developed by Drs. Victor M Brian, Jennifer Ying, Alessandro Graham and colleagues, with an educational ethel from [employer]. CEM-7 Assessment Billing CEM-7 Assessment Tool: CEM-7 Assessment 24651 Review of Systems Const All systems reviewed & are unremarkable except as noted in HPI and below Denies fatigue, Denies fever(s), Denies headache(s) and Denies weakness Eyes Denies change in vision ENT Denies headache(s) Card Denies chest pain, Denies lightheadedness, Denies palpitations and Denies dyspnea Resp Denies chest congestion, Denies cough and Denies dyspnea GI Denies abdominal pain, Denies change in bowel habits and Denies heartburn Denies urinary frequency, Denies dysuria and Denies urinary urgency Musc Reports no additional complaints Neuro Denies headache(s) and Denies weakness Psych Reports no additional complaints Endo Denies fatigue, Denies polydipsia, Denies polyuria and Denies palpitations Aller/Immun Reports no additional complaints Physical exam (Primary Care) Vital Signs: Last Vital Signs Pulse 77 01/06/24 10:54 BP 90/60 01/06/24 10:54 Pulse Ox 100 01/06/24 10:54 Oxygen Delivery Method Room Air 01/06/24 10:54 BMI result Body Mass Index 0.3 Tobacco/Smoking Status: Tobacco use Status Tobacco use date assessed 01/06/24 01/06/24 10:59 Patient Tobacco Use Status Never used Tobacco 01/06/24 10:59 e-Cigarette/Vaping Use Never Used 01/06/24 10:59 Depression Screening Interpretation: Positive (Currently followed by psychiatry) Depression Screening Follow-up: Existing condition, In treatment and Community Mental Health Worker F/U Thrive Assessment: Date of Thrive Assessment Date Thrive assessed 11/19/23 01/06/24 10:59 Const Other: Alert oriented x3, no acute distress noted ambulatory normal gait Nutritional Appearance: obese Orientation/consciousness: patient oriented x3 [facility] General nose exam: Normal external nose present Face and sinus: Yes face symmetric Mouth: oropharynx normal and moist mucous membranes Eyes General: appearance normal, both eyes and all related structures Neck Other: Supple, no lymphadenopathy, thyroid gland nonpalpable Resp Effort & Inspection: normal respiratory effort and able to speak in complete sentences Auscultation: clear to auscultation bilaterally Cardio Other: S1-S2 present regular rate and rhythm GI Palpation (GI): Soft to palpation, nontender, no guarding and no masses Neuro General: patient oriented x3, gait normal, tone normal, moves all extremities, Normal light touch and pain sensation, no focal motor deficits and CN's II-XI intact bilaterally Extrem General: Yes full ROM, Yes no joint enlargement, Yes no pedal edema and Yes normal gait Psych Appearance: grossly normal and well kempt Mental Status: mental status grossly normal Speech and movement: Normal speech and movement present Affect: normal affect Coding Level of Care Code Est Pt Level 3 (59116) Diagnoses MDD (major depressive disorder), recurrent, severe, with psychosis F33.3 Additional Codes PHQ-9 - 72525 - PHQ-9 Billing: Yes ([id number]) CEM-7 Assessment Billing - CEM-7 Assessment Tool: CEM-7 Assessment 16063 ([id number]) Assessment & Plan Assessment & Plan (1) MDD (major depressive disorder), recurrent, severe, with psychosis: Code(s): F33.3 - Major depressive disorder, recurrent, severe with psychotic symptoms Category: Medical Plan: Patient already has an appointment to follow with a new psychiatrist at [facility]. Will continue on present treatment, and will give her a temporary prescription for sertraline, until she can be seen by her new psychiatrist Medications: New sertraline Temporary prescription 50 mg PO DAILY 30 tabs 0RF
== END 2024-01-06 13:55 | disposition home or self-care (01) ==
PROVIDERS: PCP Internal Medicine; Visit Provider Internal Medicine
DX: F33.3 Major depressive disorder, recurrent, severe with psychotic symptoms (principal)

== ENCOUNTER → 2024-01-06 10:28 | Outpatient (BNVA) | payer SELFPAY | PROVIDERS: PCP Internal Medicine; Visit Provider Internal Medicine | DX: F33.3 Major depressive disorder, recurrent, severe with psychotic symptoms (principal); F41.1 Generalized anxiety disorder | CPT/HCPCS: 96127; 99212 ==

== ENCOUNTER 2024-04-07 08:51 | Outpatient (AMB) | payer MEDICAID, SELFPAY ==
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
[2024-04-07 09:00] VITALS: BP 120/70; PULSE 78; O2SAT 99; BMI 30.4
== END 2024-04-07 09:56 | disposition home or self-care (01) ==
PROVIDERS: PCP Internal Medicine; Visit Provider Nurse Practitioner Family
DX: G43.709 Chronic migraine without aura, not intractable, without status migrainosus (principal); R06.83 Snoring; G47.9 Sleep disorder, unspecified; G47.19 Other hypersomnia; R42 Dizziness and giddiness
CPT/HCPCS: 99214

== ENCOUNTER → 2024-04-07 08:51 | Outpatient (BNVA) | payer MEDICAID, SELFPAY | PROVIDERS: PCP Internal Medicine; Visit Provider Nurse Practitioner Family | DX: G43.709 Chronic migraine without aura, not intractable, without status migrainosus (principal); R06.83 Snoring; G47.19 Other hypersomnia; R42 Dizziness and giddiness; F33.3 Major depressive disorder, recurrent, severe with psychotic symptoms; J45.909 Unspecified asthma, uncomplicated | CPT/HCPCS: 99212 ==

== ENCOUNTER 2024-04-24 09:29 | Outpatient (AMB) | payer OTHER, SELFPAY ==
--- NOTE | 2024-04-24 10:04 | MHC.OFFWIV ---
Intake Vital Signs 04/24/24 10:06 Weight 164 lb BP 120/80 Blood Pressure Location Lt brachial Position Sitting Pulse 101 H Pulse Source Pulse Oximeter Pulse Oximetry (%) 97 Oxygen Delivery Method Room Air Intake Visit Reasons: EP ? Intake Note: Patient here for being 13 days late for her menstrual cycle. Patient Tobacco Use Status: Never used Tobacco Allergies No Known Allergies Allergy (Verified 04/24/24 10:05) Do you need a note to return to daycare/school/sports/work: No HPI HPI Comments History of Present Illness Details History of Present Illness - The patient is a 33-year-old female questioning . - She reports her last menstrual period commenced on March 09, indicating a 13-day delay in her menstrual cycle. - A test conducted presumably within the last 24 hours revealed a positive result for . She is looking to confirm this test result. - The patient has not initiated vitamins but intends to do so shortly. - Her obstetric history includes two previous pregnancies. - Presently, the patient is utilizing multiple medications including Albuterol, Omeprazole, Amgality, Naproxen, Magnesium, and Olanzapine, and has raised concerns about which are safe to continue during . - Discussion of medication safety indicated that Naproxen should be discontinued, as well as confirming the safety status of the other medications during her via their prescribers. - She has yet to contact her OBGYN regarding her but is advised to schedule an appointment soon. Physical Exam General: Cooperative, healthy appearing, comfortable, no acute distress and well developed Orientation: Patient oriented x3 Limitations: No limitations Head: Normal to inspection Ears: Hearing grossly normal bilaterally Nose: Normal external nose present Face and sinus: normal facial exam Eyes: Appearance normal, both eyes and all related structures Neck: Normal visual inspection and Yes full ROM Respiratory: Normal respiratory effort and able to speak in complete sentences. Skin: No rashes or lesions noted Neuro: Patient oriented x3 Extremities: Normal to inspection COUNTS INCLUDE 234 BEDS AT THE [facility] Medical History (Updated 04/24/24 @ 10:19 by Esther Guidry PA-C) PTSD (post-traumatic stress disorder) MDD (major depressive disorder), recurrent, severe, with psychosis Dizziness of unknown cause Positional lightheadedness Lumbago with sciatica, right side Low back pain potentially associated with radiculopathy Family history of thyroid disease in mother Asthma Family History Father Substance use disorder Mental health disorder Mother Mental health disorder Thyroid disorder Social History Household Members: Children Housing: Homeless Housing Other:: live in a half-way with her 2 children Do you presently have visiting nurse or other home services: No Alcohol intake: never Patient Tobacco Use Status: Never used Tobacco e-Cigarette/Vaping Use: Never Used Second Hand Smoke Exposure: No service: No Current occupational status: unemployed Sexual orientation: Straight/Heterosexual Cognitive needs: No Hearing needs: No Vision needs: No Female Reproductive History Menstrual Age of Menarche: 10 Physical Exam Vital Signs: Last Vital Signs Pulse 101 H 04/24/24 10:06 BP 120/80 04/24/24 10:06 Pulse Ox 97 04/24/24 10:06 Oxygen Delivery Method Room Air 04/24/24 10:06 Results AMB Test Urine AMB Test Urine Positive Last Edit by RENÉ Perera on 04/24/24 10:18 Assessment & Plan Assessment & Plan (1) : Code(s): Z34.90 - Encounter for supervision of normal , unspecified, unspecified trimester Qualifiers: Weeks of gestation: less than 8 weeks Qualified Code(s): Z3A.01 - Less than 8 weeks gestation of Plan: HCG positive, LMP 03/09/24, estimated to be 6 weeks 4 days today. Recommended no NSAIDS, start vitamins and call her OB[facility] to set up an appt to be seen. Also rec to call med prescribers to review meds to ensure safety during . The patient's immediate plan involves initiating vitamins, available [id number], and promptly contacting her OBGYN to report her positive status and book an appointment. It is recommended that she contact her prescribing physician, Fatou Blunt, to confirm the safety of her psych medications throughout her . I messaged Radha Bronson about the Emgality RX to inform her of the patients query and confirmed today. The patient is instructed to focus on maintaining a healthy diet, adequate hydration, and, if possible, small frequent meals to manage any nausea. The patient is encouraged to follow up with her providers for further evaluation and recommendations regarding her medications. Patient was informed and verbally consented to the use of an ambient scribe for clinic note documentation during this visit. Orders: Orders AMB HCG Urine Test Today Z32.01 - Encounter for test, result positive Coding Level of Care Code Est Pt Level 3 (01352) Diagnoses Less than 8 weeks gestation of Z3A.01 Weeks of gestation: less than 8 weeks
[2024-04-24 10:06] VITALS: BP 120/80; PULSE 101; O2SAT 97
--- OUTSIDE RECORDS SUMMARY | 2024-04-24 10:13 | XMS_ITS | Clinical Summary ---
Author Organization Unknown Care Team Providers Care Basket Grader Name Role Phone LUKAS HAYNES, OLIVIER ARTEAGA Unavailable Unavailkranthi GOEL RN, SARA Bauer Unavailsherry best Payers Payer Name Policy Type Policy Number Effective Date Expira tion Date [facility] [place] [facility] [id number] MEDICAID [facility] [id number] Problems Condition Name Condition Details Condition Category Status Onset Date Resolution Date Last Treatment Date Treating Clinician Comments MAJOR DEPRESSV DISORDER, RECURRENT, SEVERE W PSYCH SYMPTOMS Active 11-03 00:00: 00 GENERALIZED ANXIETY DISORDER Active 11-23 00:00: 00 POST-TRAUMAT IC STRESS DISORDER, UNSPECIFIED Active 11-23 00:00: 00 Allergies, Adverse Reactions, Alerts Allergy Name Allergy Type Status Severity Reaction(s) Onset Date Inactive Date Treating Clinician Comments NKA Propensity to adverse reactions Active 2023-10 05:20:0 0 Medications Ordered Medication Name Filled Medication Name Start Date Stop Date Current Medication? Ordering Clinician Indication Dosage Frequency Signature (SIG) Comments Components fluoxetine 20 mg capsule 10-26 00:00: 00 12-11 23:59 :00 No [id number] 1 capsule EVERY AM 1 capsule EVERY AM (route: oral) Med Classific ation: Central Nervous System Agents hydroxyzine pamoate 50 mg capsule 11-23 00:00: 00 12-11 23:59 :00 No [id number] for anxiety 1 capsule 3 TIMES DAILY 1 capsule 3 TIMES DAILY (route: oral) Med Classific ation: Central Nervous System Agents trazodone 50 mg tablet 10-26 00:00: 00 12-11 23:59 :00 No [id number] 1 tablet BEDTIME 1 tablet BEDTIME (route: oral) Med Classific ation: Central Nervous System Agents olanzapine 5 mg tablet 10-20 00:00: 00 12-11 23:59 :00 No [id number] for agitation 1 tablet 2 TIMES DAILY 1 tablet 2 TIMES DAILY (route: oral) Med Classific ation: Central Nervous System Agents magnesium 400 mg (as magnesium oxide) tablet 11-23 00:00: 00 Yes [id number] 1 tablet BEDTIME 1 tablet BEDTIME (route: oral) Med Classific ation: Electroly te Balance-N utritiona l Products olanzapine 10 mg disintegrat ing tablet 11-20 00:00: 00 11-23 23:59 :00 No [id number] 1 tablet BEDTIME 1 tablet BEDTIME (route: oral) Med Classific ation: Central Nervous System Agents olanzapine 20 mg tablet 11-23 00:00: 00 12-11 23:59 :00 No [id number] 1 tablet BEDTIME 1 tablet BEDTIME (route: oral) Med Classific ation: Central Nervous System Agents trazodone 50 mg tablet 11-23 00:00: 00 01-09 23:59 :00 No [id number] for insomnia 1 tablet BEDTIME 1 tablet BEDTIME (route: oral) Med Classific ation: Central Nervous System Agents aripiprazol e 5 mg tablet 2023-02 00:00: 00 01-09 23:59 :00 No [id number] 1 tablet EVERY AM 1 tablet EVERY AM (route: oral) Med Classific ation: Central Nervous System Agents hydroxyzine pamoate 25 mg capsule 2023-02 00:00: 00 Yes [id number] 1 capsule 3 TIMES DAILY 1 capsule 3 TIMES DAILY (route: oral) Med Classific ation: Central Nervous System Agents olanzapine 5 mg tablet 2023-02 00:00: 00 01-09 23:59 :00 No [id number] 1 tablet DAILY 1 tablet DAILY (route: oral) Med Classific ation: Central Nervous System Agents sertraline 50 mg tablet 2023-02 00:00: 00 02-27 23:59 :00 No [id number] 1 tablet EVERY AM 1 tablet EVERY AM (route: oral) Med Classific ation: Central Nervous System Agents aripiprazol e 10 mg tablet 2023-02 00:00: 00 Yes [id number] 1 tablet EVERY AM 1 tablet EVERY AM (route: oral) Med Classific ation: Central Nervous System Agents trazodone 100 mg tablet 2023-02 00:00: 00 Yes [id number] 1 tablet BEDTIME 1 tablet BEDTIME (route: oral) Med Classific ation: Central Nervous System Agents propranolol 20 mg tablet 02-27 00:00: 00 04-23 23:59 :00 No [id number] 1-2 tablet DAILY 1-2 tablet DAILY (route: oral) Med Classific ation: Cardiovas cular Therapy Agents sertraline 100 mg tablet 02-27 00:00: 00 Yes [id number] 1 tablet DAILY 1 tablet DAILY (route: oral) Med Classific ation: Central Nervous System Agents eszopiclone 1 mg tablet 04-06 00:00: 00 Yes [id number] 1 tablet BEDTIME 1 tablet BEDTIME (route: oral) Med Classific ation: Central Nervous System Agents propranolol 20 mg tablet 04-23 00:00: 00 Yes [id number] 1-2 tablet DAILY 1-2 tablet DAILY (route: oral) Med Classific ation: Cardiovas cular Therapy Agents Vital Signs Vital Name Observation Time Observation Value Commen ts Temperature 2024-04-22 13:29:00.000 98.4 [degF] Temperature 2024-04-20 12:16:00.000 98.5 [degF] Temperature 2024-04-17 11:19:00.000 98.9 [degF] Temperature 2024-04-15 13:26:00.000 97.8 [degF] Temperature 2024-04-08 14:07:00.000 98.7 [degF] Temperature 2024-04-06 13:30:00.000 97.8 [degF] Temperature 2024-04-01 15:39:00.000 98 [degF] Temperature 2024-03-30 09:56:00.000 97.8 [degF] Temperature 2024-03-25 12:49:00.000 97.6 [degF] Temperature 2024-03-23 11:50:00.000 98.6 [degF] Temperature 2024-03-20 14:08:00.000 97.4 [degF] Pulse 2024-04-22 13:29:00.000 64 /min Pulse 2024-04-20 12:16:00.000 85 /min Pulse 2024-04-17 11:19:00.000 90 /min Pulse 2024-04-15 13:22:00.000 80 /min Pulse 2024-04-08 14:07:00.000 77 /min Pulse 2024-04-06 13:30:00.000 78 /min Pulse 2024-04-01 15:39:00.000 76 /min Pulse 2024-03-30 09:56:00.000 75 /min Pulse 2024-03-25 12:49:00.000 84 /min Pulse 2024-03-23 11:50:00.000 82 /min Pulse 2024-03-20 14:08:00.000 74 /min O2 Saturation (%) 2024-04-17 11:22:00.000 98 % O2 Saturation (%) 2024-04-15 13:22:00.000 100 % O2 Saturation (%) 2024-04-08 14:08:00.000 100 % O2 Saturation (%) 2024-04-06 13:31:00.000 98 % O2 Saturation (%) 2024-04-01 15:42:00.000 100 % O2 Saturation (%) 2024-03-30 09:56:00.000 100 % O2 Saturation (%) 2024-03-25 12:49:00.000 100 % O2 Saturation (%) 2024-03-23 11:51:00.000 98 % O2 Saturation (%) 2024-03-20 14:08:00.000 100 % Respirations 2024-04-22 13:29:00.000 18 /min Respirations 2024-04-20 12:16:00.000 18 /min Respirations 2024-04-17 11:19:00.000 18 /min Respirations 2024-04-15 13:22:00.000 18 /min Respirations 2024-04-08 14:07:00.000 18 /min Respirations 2024-04-06 13:30:00.000 18 /min Respirations 2024-04-01 15:39:00.000 18 /min Respirations 2024-03-30 09:56:00.000 18 /min Respirations 2024-03-25 12:49:00.000 18 /min Respirations 2024-03-23 11:50:00.000 18 /min Respirations 2024-03-20 14:08:00.000 18 /min Systolic Blood Pressure 2024-04-22 13:29:00.000 102 mm [Hg] Systolic Blood Pressure 2024-04-20 12:16:00.000 100 mm [Hg] Systolic Blood Pressure 2024-04-17 11:19:00.000 100 mm [Hg] Systolic Blood Pressure 2024-04-15 13:25:00.000 110 mm [Hg] Systolic Blood Pressure 2024-04-08 14:10:00.000 100 mm [Hg] Systolic Blood Pressure 2024-04-06 13:30:00.000 104 mm [Hg] Systolic Blood Pressure 2024-04-01 15:39:00.000 106 mm [Hg] Systolic Blood Pressure 2024-03-30 09:56:00.000 120 mm [Hg] Systolic Blood Pressure 2024-03-25 12:49:00.000 122 mm [Hg] Systolic Blood Pressure 2024-03-20 14:14:00.000 100 mm [Hg] Diastolic Blood Pressure 2024-04-22 13:29:00.000 80 mm [Hg] Diastolic Blood Pressure 2024-04-20 12:16:00.000 70 mm [Hg] Diastolic Blood Pressure 2024-04-17 11:19:00.000 70 mm [Hg] Diastolic Blood Pressure 2024-04-15 13:25:00.000 80 mm [Hg] Diastolic Blood Pressure 2024-04-08 14:10:00.000 70 mm [Hg] Diastolic Blood Pressure 2024-04-06 13:30:00.000 72 mm [Hg] Diastolic Blood Pressure 2024-04-01 15:39:00.000 72 mm [Hg] Diastolic Blood Pressure 2024-03-30 09:56:00.000 80 mm [Hg] Diastolic Blood Pressure 2024-03-25 12:49:00.000 80 mm [Hg] Diastolic Blood Pressure 2024-03-20 14:14:00.000 70 mm [Hg] Plan of Treatment Planned Activity Planned Date Details Comments Future Scheduled Test SKILLED NU RSE TO EVALUATE PATIENT, IDENTIFY PRIMARY AND CO-MORBID CONDITIONS CODED PER CODING GUIDELINES, AND DEVELOP PATIENT SPECIFIC PLAN OF CARE THAT INCLUDES PATIENT GOAL FOR HOME HEALTH. [code = SKILLED NURSE TO EVALUATE PATIENT, IDENTIFY PRIMARY AND CO-MORBID CONDITIONS CODED PER CODING GUIDELINES, AND DEVELOP PATIENT SPECIFIC PLAN OF CARE THAT INCLUDES PATIENT GOAL FOR HOME HEALTH.] Future Scheduled Test SKILLED NU RSE WILL MAINTAIN SITUATIONAL AWARENESS FOR SAFETY AND WILL NOTIFY CLINICAL LIFEGUARD AND PHYSICIAN/PROVIDER WITH ANY CHANGE IN CONDITION. [code = SKILLED NURSE WILL MAINTAIN SITUATIONAL AWARENESS FOR SAFETY AND WILL NOTIFY CLINICAL LIFEGUARD AND PHYSICIAN/PROVIDER WITH ANY CHANGE IN CONDITION.] Future Scheduled Test SKILLED NU RSE FOR O/A OF GENERAL HEALTH STATUS OF PAIN, CARDIAC, RESPIRATORY, GASTROINTESTINAL, GENITOURINARY, SKIN, NEUROLOGIC, ENDOCRINE SYSTEMS TO IDENTIFY CHANGES ASSOCIATED WITH EXACERBATION FOR EARLY INTERVENTION OF COMPLICATIONS WEEKLY [code = SKILLED NURSE FOR O/A OF GENERAL HEALTH STATUS OF PAIN, CARDIAC, RESPIRATORY, GASTROINTESTINAL, GENITOURINARY, SKIN, NEUROLOGIC, ENDOCRINE SYSTEMS TO IDENTIFY CHANGES ASSOCIATED WITH EXACERBATION FOR EARLY INTERVENTION OF COMPLICATIONS WEEKLY] Future Scheduled Test SKILLED NU RSE TO REVIEW PATIENT MEDICATIONS. INSTRUCT PATIENT/CAREGIVER ON MONITORING OF EFFECTIVENESS, ADVERSE DRUG REACTIONS, SIDE EFFECTS OF ALL MEDICATIONS (PRESCRIPTION/-OTC), AND HOW AND WHEN TO REPORT PROBLEMS. [code = SKILLED NURSE TO REVIEW PATIENT MEDICATIONS. INSTRUCT PATIENT/CAREGIVER ON MONITORING OF EFFECTIVENESS, ADVERSE DRUG REACTIONS, SIDE EFFECTS OF ALL MEDICATIONS (PRESCRIPTION/-OTC), AND HOW AND WHEN TO REPORT PROBLEMS.] Future Scheduled Test SKILLED NU RSE FOR O/A AND SKILLED TEACHING RELATED TO MANAGEMENT OF DEPRESSIVE SYMPTOMS AND/OR DEPRESSION. SN TO REPORT SIGNIFICANT CHANGE IN DEPRESSIVE SYMPTOMS TO CLINICAL PROVIDER FOR EARLY INTERVENTION. [code = SKILLED NURSE FOR O/A AND SKILLED TEACHING RELATED TO MANAGEMENT OF DEPRESSIVE SYMPTOMS AND/OR DEPRESSION. SN TO REPORT SIGNIFICANT CHANGE IN DEPRESSIVE SYMPTOMS TO CLINICAL PROVIDER FOR EARLY INTERVENTION.] Future Scheduled Test SKILLED NU RSE FOR O/A AND SKILLED TEACHING OF COPING SKILLS TO MANAGE ANXIETY AND MAINTAIN SAFETY. [code = SKILLED NURSE FOR O/A AND SKILLED TEACHING OF COPING SKILLS TO MANAGE ANXIETY AND MAINTAIN SAFETY.] Future Scheduled Test SKILLED NU RSE FOR O/A OF PATIENT'S RISK FOR VIOLENCE AND TO PROVIDE INTERVENTION TECHNIQUES TO PROMOTE SAFETY TO PATIENT AND OTHERS [code = SKILLED NURSE FOR O/A OF PATIENT'S RISK FOR VIOLENCE AND TO PROVIDE INTERVENTION TECHNIQUES TO PROMOTE SAFETY TO PATIENT AND OTHERS] Future Scheduled Test SKILLED NU RSE TO ASSESS PATIENTS PSYCHOSOCIAL STATUS TO IDENTIFY POTENTIAL ISSUES THAT MAY COMPLICATE THE PROVISION OF THE PLAN OF CARE INCLUDING THE PATIENTS ABILITY TO ACCESS COMMUNITY RESOURCES AND PSYCHOSOCIAL SUPPORT SERVICES. [code = SKILLED NURSE TO ASSESS PATIENTS PSYCHOSOCIAL STATUS TO IDENTIFY POTENTIAL ISSUES THAT MAY COMPLICATE THE PROVISION OF THE PLAN OF CARE INCLUDING THE PATIENTS ABILITY TO ACCESS COMMUNITY RESOURCES AND PSYCHOSOCIAL SUPPORT SERVICES.] Future Scheduled Test SKILLED NU RSE TO O/A OF PATIENTS MENTAL/BEHAVIORAL STATUS, ASSESS VITAL SIGNS WEEKLY ALLOW 2 PRNS FOR MEDICATION MANAGEMENT. [code = SKILLED NURSE TO O/A OF PATIENTS MENTAL/BEHAVIORAL STATUS, ASSESS VITAL SIGNS WEEKLY ALLOW 2 PRNS FOR MEDICATION MANAGEMENT.] Goal 2024-01-15 Patient Goal - P ATIENT VERBALIZED GOAL OF IMPROVING MEDICATION STABILITY AND ADDITIONAL SUPPORT SYSTEM. Goal 2024-03-16 Patient Goal - P ATIENT VERBALIZED GOAL OF IMPROVING MEDICATION STABILITY AND ADDITIONAL SUPPORT SYSTEM. Goal Patient Goal - P ATIENT VERBALIZED GOAL OF IMPROVING MEDICATION STABILITY AND ADDITIONAL SUPPORT SYSTEM. Goal Provider Goal - A PLAN OF CARE WILL BE ESTABLISHED THAT MEETS PATIENT'S SNF NEEDS AND INCLUDES PATIENT GOAL FOR HOME HEALTH. Goal Provider Goal - PATIENT WILL REMAIN SAFE IN THE COMMUNITY AND WILL BE FREE OF DANGER TO SELF AND OTHERS THROUGHOUT THE CERTIFICATION PERIOD. Goal Provider Goal - CHANGE IN GENERAL HEALTH STATUS WILL BE IDENTIFIED AND REPORTED TO PHYSICIAN FOR PROMPT INTERVENTION TO MINIMIZE ASSOCIATED RISKS THROUGHOUT CERTIFICATION PERIOD. Goal Provider Goal - PATIENT/CAREGIVER WILL VERBALIZE UNDERSTANDING OF EDUCATION PROVIDED ON MEDICATIONS BY THE END OF THE CERTIFICATION PERIOD. Goal Provider Goal - PATIENT WILL REMAIN SAFE WITHOUT DECOMPENSATION IN DEPRESSIVE CONDITION, WHILE MAINTAINING OPTIMAL LEVEL OF MENTAL HEALTH AND WELL BEING THROUGHOUT CERTIFICATION PERIOD. Goal Provider Goal - PATIENT WILL BE ABLE TO PERFORM DAILY FUNCTIONS AND HAVE OPTIMAL IMPROVEMENT IN LEVEL OF ANXIETY THROUGHOUT CERTIFICATION PERIOD. Goal Provider Goal - PATIENT WILL REMAIN SAFE IN COMMUNITY WITHOUT EVIDENCE OF INJURY/HARM TO SELF OR OTHERS THROUGHOUT CERTIFICATION PERIOD. Goal Provider Goal - PSYCHOSOCIAL NEEDS WILL BE IDENTIFIED AND PLAN IMPLEMENTED TO MINIMIZE RISK THROUGHOUT CERTIFICATION PERIOD. Goal Provider Goal - ALTERED MENTAL/BEHAVIORAL STATUS WILL BE IDENTIFIED PROMPTLY AND INTERVENTION INITIATED QUICKLY TO MINIMIZE ASSOCIATED RISKS THROUGHOUT CERTIFICATION PERIOD. Encounters Start Date/Time End Date/Time Encounter Type Admission Type Attending [facility] Care Department Encounter ID Discharge Date Discharge Status Discharge Condition Discharge Reason Percent Goals Met 2023-11-21 00:00:00 2024-05-18 00:00:00 Outpatient RECERTIFIC SARA DILLON [facility] [id number] [phone]
--- OUTSIDE RECORDS SUMMARY | 2024-04-24 10:13 | XMS_ITS | Data Portability ---
Author Organization [facility] [address] Address [address] [place] [address] Care Team Providers Care Box Brander Name Role Phone OLIVIER GAYTAN Primary Care Provider Assessment No assessment recorded. Plan of Treatment Reminders Order Date Submit Date Provider Last Modified By Organization Details Last Modified Time Details Appointments None recorded. Lab None recorded. Referral None recorded. Procedures None recorded. Surgeries None recorded. Imaging None recorded. Medication Orders cephalexin 500 mg capsule 2022 023 [facility]/Pharmacy #[id number], [address] [facility] [place], [address], 15:29:12 Patient TargetsNo targets recorded. Patient Instructions Encounter Date Encounter Id Patient Instructions Last Modified By Organization Details Last Modified Time 08/04/2022 [id number] Please soak your finger in warm water with a teaspoon of salt twice per day. ? Please follow up with your PCP in 5-7 days for recheck. Please come here if you become any worse in any way before that. ? Please seek ER medical care immediately for increasing pain, nausea, vomiting, dizziness or increasing redness or swelling. [email or web address] Not available 08/04/2022 15:29:10 Reason for Referral None Reported. Problems No Known Problems Medical Equipment None Reported. Allergies No known drug allergies Medications Name Sig Start Date Stop Date Status Note LastModified by Organization Details LastModified Time cyclobenzap rine 10 mg tablet TAKE 1 TABLET BY MOUTH EVERY 8 HOURS NEEDED FOR MUSCLE SPASMS 08/04 completed Not Available Not Available Not Available fluconazole 150 mg tablet TAKE 1 TABLET BY MOUTH ONCE ON DAY 1 OF THERAPY 08/04 completed Not Available Not Available Not Available meloxicam 15 mg tablet TAKE 1 TABLET BY MOUTH EVERY DAY 08/04 completed Not Available Not Available Not Available metronidazo le 0.75 % (37.5 mg/5 gram) vaginal gel VAGINALLY 08/04 completed Not Available Not Available Not Available ondansetron HCl 4 mg tablet TAKE 1 TABLET BY MOUTH EVERY 12 HOURS NEEDED FOR NAUSEA AND VOMITING active Not Available Not Available No t Available metronidazo le 500 mg tablet TAKE 1 TABLET BY MOUTH 2 TIMES A DAY FOR 7 DAYS TAKE WITH FOOD, AVOID ALCOHOL AND VINEGAR PRODUCTS 08/04 completed Not Available Not Available Not Available meclizine 25 mg tablet TAKE 1 TAB ORALLY 3 TIMES A DAY FOR DIZZINESS active Not Available Not Available No t Available cephalexin 500 mg capsule Take 1 capsule twice a day by oral route for 7 days. 2022 active Not Available Not Available Not Avai lable gabapentin 100 mg capsule TAKE 1 CAP ORALLY 2 TIMES A DAY 08/04 completed Not Available Not Available Not Available ibuprofen 600 mg tablet TAKE 1 TAB ORALLY EVERY 8 HOURS NEEDED FOR PAIN 08/04 completed Not Available Not Available Not Available ibuprofen 100 mg/5 mL oral suspension SHAKE WELL AND TAKE 20 ML BY MOUTH EVERY 6 HOURS NEEDED FOR PAIN. 08/04 completed Not Available Not Available Not Available ondansetron 4 mg disintegrat ing tablet TAKE 1 TAB ORALLY EVERY 8 HOURS NEEDED FOR NAUSEA AND VOMITING 08/04 completed Not Available Not Available Not Available diazepam 5 mg tablet 1 TABLET BY MOUTH 2 TIMES A DAY NEEDED FOR MODERATE PAIN 08/04 completed Not Available Not Available Not Available Ferrocite 324 mg (106 mg iron) tablet TAKE 1 TABLET BY MOUTH EVERY DAY 08/04 completed Not Available Not Available Not Available Vitals Date Recorded Body height Body mass index (BMI) Body weight Respiratory rate Pain severity - 0-10 verbal numeric rating [Score] - Reported Oxygen saturation Oxygen saturation in Arterial blood by Pulse oximetry Heart rate Body temperature Systolic blood pressure Diastolic blood pressure Provider Name and Address Organization Details Last Updated DateTime 3 157.48 cm 27.1 kg/m2 99646.6 7 g 18 /min 8 100 % 100 % 68 /min 97.7 [degF] 102 mm[Hg] 66 mm[Hg] Rebecca GARCIA - [facility] 13:27:08 Social History Question Answer Notes LastModified by Organizat ion Details LastModified Time Tobacco Smoking Status Never Smoker JOSE Mejias [facility] 08/04/2022 13:23:29 What Is Your Level Of Alcohol Consumption? None Information not available 08/04/2022 Have You Had Direct Contact, Or Contact During Intimacy, With Monkeypox Rash, Scabs, Or Body Fluids From A Person With Monkeypox? No Information not available 08/04/2022 Do You Use Any Illicit Or Recreational Drugs? No Information not available 08/04/2022 Have You Recently Traveled Abroad? No Information not available 08/04/2022 Do You Or Have You Ever Used Any Other Forms Of Tobacco Or Nicotine? No Information not available 08/04/2022 Sex: Unknown Functional Status None recorded. Mental Status None recorded. Family History Relationship Description Onset Age of this Age Resolved Age Notes LastModified by Organization Details LastModified Time Maternal Grandfather Diabetes mellitus [email or web address] Not available 2022 13:22:59 Mother Hypertensive disorder nruszala Not available 2022 13:23:14 Medical History No medical history recorded. Gynecological History Statement/Question Response Date of LMP 07/11/2022 Is there any chance of ? No Obstetrics History GPAL:G 0 P 0 0 0 0 Past Encounters Encounter ID Performer Location Encounter Start Date Encounter Closed Date Diagnosis/Indication Diagnosis SNOMED-CT Code Diagnosis ICD10 Code Diagnosis Note [id number] [address] [facility] [address] [place] [address] 03/30/2021 16:34:11 03/30/2021 17:48:19 [id number] [place] [address] 12/10/2018 14:08:11 12/10/2018 14:54:08 [id number] [address] [place] [address] 12/07/2019 14:32:49 12/07/2019 16:00:46 [id number] [address] [place] [address] 03/31/2020 17:50:10 03/31/2020 19:08:10 [id number] [address] [place] [address] 10/25/2020 13:16:22 10/25/2020 16:04:32 [id number] [address] [facility] [address] [place] [address] 05/02/2019 10:06:26 05/02/2019 11:05:31 [id number] J[place] DEE [place] [address] [address] 08/04/2022 11:32:56 08/04/2022 15:34:16 Paronychia of finger of left hand [id number] L03.012 Health Concerns Section Related Observation LastModified by Organization Detai ls LastModified Time None Recorded Concern Status LastModified by Organization Details LastModified Time None Recorded Advance Directives Directive None Recorded Payers Encounter Date Sequence Insurance Name Policy Number Policy Kunz Covered Member ID Kunz Member ID Guarantor Name 12/07/2019 1 [facility] HEALTH NET PLAN (MEDICAID HMO) [employer] Kate S Ring [id number] Kate Ring 03/31/2020 1 [facility] [employer] PLAN (MEDICAID HMO) [employer] Kate S Ring [id number] Kate Ring 10/25/2020 1 [facility] [employer] PLAN (MEDICAID HMO) [employer] Kate S Ring [id number] Kate Ring 03/30/2021 1 [facility] [employer] PLAN (MEDICAID HMO) [employer] S Ring [id number] Kate Ring 08/04/2022 1 [facility] [employer] PLAN (MEDICAID HMO) [employer] S Ring [id number] Kate Ring Notes Date Note Type Note Provider Name and Address Organization Details Recorded Time 08/04/2022 text/html Finger PainReported bypatient.Neurovas cular Status:no numbness or tingling Symptoms:swelling; erythema of right 3rd finger x 4 days. Treatment:OTC [facility]EE [facility] [address] [facility] [place] [address], [place] - [facility] 08/04/2022 16:01:02 OBGyn Episode No OBEpisode recorded.
== END 2024-04-24 10:24 | disposition home or self-care (01) ==
PROVIDERS: PCP Internal Medicine; Visit Provider Physician Assistant
DX: Z3A.01 Less than 8 weeks gestation of pregnancy (principal); Z32.01 Encounter for pregnancy test, result positive

== ENCOUNTER → 2024-04-24 09:29 | Outpatient (BNVA) | payer OTHER, SELFPAY | PROVIDERS: PCP Internal Medicine | DX: Z32.01 Encounter for pregnancy test, result positive (principal) | CPT/HCPCS: 81025; 99212 ==

== ENCOUNTER → 2024-05-14 19:30 | Outpatient (REF) | payer OTHER, SELFPAY | LOC: HO.SL 19:30 | PROVIDERS: PCP Internal Medicine; Visit Provider Nurse Practitioner Family | DX: R06.83 Snoring (principal); G47.19 Other hypersomnia; G47.9 Sleep disorder, unspecified; J45.909 Unspecified asthma, uncomplicated | CPT/HCPCS: 95810 ==

== ENCOUNTER → 2024-05-14 20:43 | Outpatient (BNV) | payer OTHER, SELFPAY | PROVIDERS: PCP Internal Medicine; Visit Provider Psychiatry & Neurology Neurology | DX: R06.83 Snoring (principal); G47.10 Hypersomnia, unspecified | CPT/HCPCS: 95810 ==